=== PATIENT | female | born 1950 | race Caucasian/White ===

== ENCOUNTER → 2016-11-06 | Outpatient (CLI) | payer OTHER ==
[~2016-11-06] MED LIST: AMOX875T PO; ASPI81TA28 PO; ATRINSX NEB; AZIT250T PO; BSP/10 PO; CLOT10TR PO; CPC PO; DOXY100T PO; IPRA1AER2 INH; MOME200A INH; SPRIN INH; XPNINS125 NEB; ZOLP10TA6 PO; ZTHM250 PO
--- NOTE | 2016-11-06 15:46 | DIAGNOSTIC IMAGING REPORT ---
ULTRASOUND OF THE THYROID GLAND CLINICAL HISTORY: Multinodular thyroid gland. COMPARISON STUDY: Thyroid ultrasound dated 03/13/2016. TECHNIQUE: Real-time, grayscale, and color flow sonography of the thyroid gland is performed utilizing a high-frequency linear transducer. Images are reviewed in the transverse and longitudinal planes. FINDINGS: Right lobe: The right lobe of the thyroid gland is normal in size and homogeneous in echotexture, measuring 4.9 x 2.2 x 1.7 cm. A honeycomb nodule in the lower pole measures 1.5 x 1.0 x 1.4 cm (previously measured 2.0 x 1.4 x 1.5 cm). Small colloid cysts are again noted. The largest is in the upper pole and measures up to 1.8 cm. Left lobe: The left lobe of the thyroid gland is normal in size and homogeneous in echotexture, measuring 4.1 x 1.7 x 1.7 cm. A honeycomb nodule in the midpole measures 0.7 x 0.4 x 0.5 cm (previously measured 0.5 x 0.3 x 0.4 cm). Isthmus: The thyroid isthmus is normal in appearance and measures 0.3 cm in AP diameter. A 2 mm hypoechoic nodule is incidentally noted in the right isthmus. Additional subcentimeter colloid cysts are noted. IMPRESSION: Scattered thyroid nodules and colloid cysts as above. These are overall similar in appearance to the 03/13/2016 examination. Electronically signed by: Stanley Cavanaugh M.D. 11/06/2016 3:44 PM Dictated Date/Time: 11/06/2016 3:39 PM
== END | disposition home or self-care (01) ==
LOC: C.ULTR 12:10
DX: E04.2 Nontoxic multinodular goiter (principal)

== ENCOUNTER → 2016-11-18 | Outpatient (CLI) | payer OTHER ==
[2016-11-18 12:08] LABS: BLOOD UREA NITROGEN 21 mg/dl (7-18); BUN/CREATININE RATIO 24.8 (10-20); CREATININE 0.83 mg/dl (0.60-1.20)
== END | disposition home or self-care (01) ==
LOC: C.LAB 11:12
PROVIDERS: ATTEND Urology
DX: E27.9 Disorder of adrenal gland, unspecified (principal)

== ENCOUNTER → 2016-12-18 | Outpatient (CLI) | payer OTHER ==
[2016-12-18 16:38] LABS: HEMATOCRIT 41.7 % (37-47); MEAN CELL VOLUME 90.3 fL (80-100); MEAN CORPUSCULAR HEMOGLOBIN 30.1 pg (25-34); MEAN CORPUSCULAR HGB CONC 33.3 g/dl (32-36); MEAN PLATELET VOLUME 10.9 fL (7.4-10.4); PLATELET COUNT 245 K/uL (130-400); RED BLOOD COUNT 4.62 M/uL (4.2-5.4); WHITE BLOOD COUNT 5.47 K/uL (4.8-10.8)
[2016-12-18 16:47] LABS: PROTHROMBIN TIME (PATIENT) 10.3 SECONDS (9.0-12.0)
[2016-12-18 17:06] LABS: BLOOD UREA NITROGEN 23 mg/dl (7-18); BUN/CREATININE RATIO 32.7 (10-20); CALCIUM 9.1 mg/dl (8.5-10.1); CARBON DIOXIDE 29 mmol/L (21-32); CHLORIDE 106 mmol/L (98-107); GLUCOSE 96 mg/dl (70-99); POTASSIUM 3.8 mmol/L (3.5-5.1); SODIUM 142 mmol/L (136-145)
== END | disposition home or self-care (01) ==
LOC: C.LAB1850 14:54
PROVIDERS: ATTEND Internal Medicine Cardiovascular Disease
DX: R06.02 Shortness of breath (principal); R00.0 Tachycardia, unspecified; I42.8 Other cardiomyopathies; I49.3 Ventricular premature depolarization

== ENCOUNTER 2016-12-31 11:37 | Emergency (ER) | payer OTHER ==
[~2016-12-31] VITALS: Ht 167.6 cm; Wt 78.0 kg
[~2016-12-31 11:37] MED LIST changes: -AMOX875T PO; +AZIT-57 PO; -AZIT250T PO; -BSP/10 PO; -DOXY100T PO; -ZTHM250 PO
[2016-12-31 11:47] VITALS: TEMP 36.2; Ht 167.6 cm; Wt 78.0 kg
[2016-12-31] MEDS ORDERED: AMOX875T PO (12:04)
--- NOTE | 2016-12-31 12:09 | EMERGENCY ROOM VISIT NOTE ---
History First contact with patient: 11:50 Chief Complaint: BITE Stated Complaint: PAIN AND REDNESS IN LEFT BREAST/ TICK BITE History of Present Illness The patient is a 66 year old female who presents to the Emergency Room with complaints of a possible left breast infection from a tick bite. The patient reports that she noticed a tick on Wednesday. She is uncertain as to how long the tick may have been attached. She was seen by her PCP the following day with tick removal. She was also provided a prescription for doxycycline. The patient reports that the redness is now progressively worsening. She denies any significant pain, fevers or chills. Review of Systems 10 system review was performed and was negative except for pertinent positives and negatives as indicated in history of present illness Past Medical/Surgical History Medical Problems: (1) Benign neoplasm breast (2) Cardiomegaly (3) Cardiomyopathy (4) Chest pain with high risk for cardiac etiology (5) Obstructive lung disease (6) PVC's (premature ventricular contractions) (7) Shortness of breath (8) Shortness of breath Surgical Problems: (1) Status post cardiac catheterization (2) Status post cholecystectomy Family History Cancer Diabetes mellitus FH: heart disease FHx: gallbladder disease FHx: lung disease Hypertension Kidney disease Kidney stones Social History Smoking Status: Never Smoker Alcohol Use: none Drug Use: none Marital Status: Housing Status: lives alone Occupation Status: unemployed, other Current/Historical Medications Scheduled Amoxicillin & Pot Clavulanate (Augmentin 875-125 mg), 1 TAB PO BID Aspirin (Aspirin Ec), 81 MG PO DAILY Azithromycin (Azithromycin), 500 MG PO QAM Mometasone Furoate-Formoterol (Dulera 200/5 Mcg), 1 PUFF INH BID Tiotropium [place] (Spiriva Handihaler), 1 PUFF INH QAM Zolpidem Tartrate (Zolpidem Tartrate), 10 MG PO HS Scheduled PRN Clotrimazole (Mycelex), 10 MG PO TID PRN for As Needed Ipratropium [place] (Atrovent 0.02% Soln), 1 DOSE NEB QID PRN for SOB/Wheezing Ipratropium-Albuterol (Combivent Respimat), 1 PUFF INH Q4H PRN for SOB/Wheezing Levalbuterol (Levalbuterol HCl), 3 ML NEB Q4-6HRS PRN for Shortness of Breath Menthol (Ricola), 1 [place] PO BID PRN for SORE THROAT Allergies Coded Allergies: Lisinopril (Verified Allergy, Severe, possible angioedema, 09/20/16) Codeine (Unverified Allergy, Intermediate, chest pain, 09/20/16) Iodine (Verified Allergy, Intermediate, swelling in throat, hives, ) "they give me prednisone before procedures" Meperidine (Unverified Allergy, Intermediate, HIVES, 09/20/16) Propoxyphene (Unverified Allergy, Intermediate, HIVES, 09/20/16) Beta Adrenergic Blockers (Unverified Allergy, Unknown, THROAT SWELLING, ) Digoxin (Verified Allergy, Unknown, THROAT SWELLING, 09/20/16) Lorazepam (Verified Allergy, Unknown, TACHYCARDIA, 09/20/16) Losartan (Verified Allergy, Unknown, THROAT SWELLING, 09/20/16) NSAIDs (Verified Allergy, Unknown, hives, 09/20/16) Ranitidine (Verified Allergy, Unknown, TACHYCARDIA, 09/20/16) Diphenhydramine (Verified Adverse Reaction, Intermediate, heart race, ) Aspirin (Verified Adverse Reaction, Unknown, HX: ulcers and bleeding tendencies*, 09/20/16) *PT DOES CURRENTLY TAKE ASA Uncoded Allergies: ANTIBIOTICS (Allergy, Unknown, PT STATES SHE HAS HAD HIVES/RASH FROM MULTIPLE ANTIBIOTICS, 10/25/15) Physical Exam Vital Signs Date Time Temp Pulse Resp B/P Pulse Ox O2 Delivery O2 Flow Rate FiO2 12/31/16 11:47 36.2 93 18 120/78 96 Room Air Physical Exam CONSTITUTIONAL: Healthy and well nourished. Alert and oriented X 3 with positive affect. HEENT: Normocephalic, atraumatic. Pupils equal, round and reactive. NECK: Full active range of motion without discomfort. BREASTS: With a female nurse datapower consultant present, examination of the left breast shows notable erythema over the left lateral quadrant. The patient does have a sizable wound from the area where the tick was excised. There is no drainage or underlying fluctuance. There is underlying induration the size of a marble. LYMPHATICS: No left axillary or supraclavicular lymphadenopathy noted. RESPIRATORY: Clear to auscultation bilaterally with no wheezing, crackles, rhonchi or stridor. CARDIOVASCULAR: Regular rate and rhythm with no murmurs, rubs or gallops. INTEGUMENTARY: No additional rash or other significant dermatologic conditions noted. NEUROLOGIC: No focal neurologic deficits noted. Medical Decision & Procedures ED Course Patient history and physical exam were performed. Nurse's notes were reviewed. Vital signs were reviewed. The patient is afebrile. The patient reports that she has multiple antibiotic allergies. She reports that she is able to take penicillin. The patient will be prescribed Augmentin, and encouraged to continue with the doxycycline antibiotics. I did encourage her to either follow up with her PCP or return to the emergency department in 2-3 days for recheck. She was instructed to definitely return to the emergency department for any progressively worsening infection or fever. The patient was happy with plan of care, and voiced understanding of all discharge instructions. Medical Decision Impression Primary Impression: Tick bite of left female breast with infection Departure Information Dispostion Home / Self-Care Prescriptions Amoxicillin & Pot Clavulanate (Augmentin 875-125 mg) 1 Tab Tab 1 TAB PO BID, #10 TAB Prov: Raz Serrano PA 12/31/16 Forms HOME CARE DOCUMENTATION FORM, IMPORTANT VISIT INFORMATION Patient Instructions [facility] Additional Instructions Complete all Augmentin antibiotics as prescribed. Continue with your current doxycycline prescription. Call your family doctor's office for repeat appointment within the next 48-72 hours. Return to the emergency department for any progressively worsening redness, swelling, pain or fever. Problem Qualifiers Primary Impression: Tick bite of left female breast with infection Encounter type: initial encounter Qualified Codes: S20.162A - Insect bite ( nonvenomous) of breast, left breast, initial encounter; L08.9 - Local infection of the skin and subcutaneous tissue, unspecified; W57.XXXA - Bitten or stung by nonvenomous insect and other nonvenomous arthropods, initial encounter
[2016-12-31 12:14] VITALS: BP 120/78; PULSE 93; O2SAT 96
[2016-12-31] MEDS ORDERED: DOXY100T PO (12:16)
== END 2016-12-31 12:16 | disposition home or self-care (01) ==
LOC: C.EDB 11:39 → C.EDD 12:16
DX: S20.162A Insect bite (nonvenomous) of breast, left breast, initial encounter (principal); L08.9 Local infection of the skin and subcutaneous tissue, unspecified; W57.XXXA Bitten or stung by nonvenomous insect and other nonvenomous arthropods, initial encounter; Z90.49 Acquired absence of other specified parts of digestive tract; J44.9 Chronic obstructive pulmonary disease, unspecified; Z79.82 Long term (current) use of aspirin

== ENCOUNTER 2017-01-24 13:06 | Emergency (ER) | payer OTHER ==
[~2017-01-24] VITALS: Ht 167.6 cm; Wt 80.0 kg
[~2017-01-24 13:06] MED LIST changes: -AZIT-57 PO; +DOXY100T PO
[2017-01-24 13:10] VITALS: TEMP 36.7; Ht 167.6 cm; Wt 80.0 kg
[2017-01-24 13:15] VITALS: O2SAT 97
[2017-01-24 14:09] LABS: HEMATOCRIT 41.9 % (37-47); MEAN CELL VOLUME 91.5 fL (80-100); MEAN CORPUSCULAR HEMOGLOBIN 30.1 pg (25-34); MEAN CORPUSCULAR HGB CONC 32.9 g/dl (32-36); MEAN PLATELET VOLUME 10.4 fL (7.4-10.4); PLATELET COUNT 208 K/uL (130-400); RED BLOOD COUNT 4.58 M/uL (4.2-5.4); WHITE BLOOD COUNT 5.65 K/uL (4.8-10.8)
[2017-01-24] MEDS ORDERED: SODIUM CHLORIDE 0.9% 1000ML 1,000 ML IV STA (14:11)
[2017-01-24] MEDS ORDERED: SODIUM CHLORIDE 0.9% 500ML 500 ML IV STA (14:11)
--- NOTE | 2017-01-24 14:16 | EMERGENCY ROOM VISIT NOTE ---
History Report prepared by Hectro: Manuel Ortiz Under the Supervision of: Dr. Stanley Loja M.D. First contact with patient: 14:05 Chief Complaint: PALPITATIONS Stated Complaint: BURNING IN LUNGS,SOB,PALPITATIONS Nursing Triage Summary: triage note: pt reports heart palpitations and lung irriation since last night. "i wear my c pap at night it just irriates my airway." pt reports chest pain. History of Present Illness The patient is a 66 year old female who presents to the Emergency Room with complaints of burning in her lungs that began recently. She rates her pain an 8/ 10 in severity. 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 She feels like this is a flare up of her spasms. She is experiencing heart palpitations secondary to her lung symptoms. She states that this does not feel like heart burn. She is on 2L of oxygen at home at night with a CPAP. She states that her CPAP is irritating her lungs as well because she cannot get "moisture into her lungs." She cannot use Albuterol because she experiences heart palpitations when she does. She denies any cough, vomiting, nausea, or fevers. Most common medications cause her to have palpitations due to her stating she is "sensitive" to them. Source of History: patient Onset: recently Position: other (Lungs) Symptom Intensity: 8/10 Quality: burning Timing: constant Associated Symptoms: No cough, No fevers, No nausea, No vomiting Note: She is experiencing heart palpitations. Review of Systems See HPI for pertinent positives & negatives. A total of 10 systems reviewed and were otherwise negative. Past Medical & Surgical Medical Problems: (1) Benign neoplasm breast (2) Cardiomegaly (3) Cardiomyopathy (4) Chest pain with high risk for cardiac etiology (5) Obstructive lung disease (6) PVC's (premature ventricular contractions) (7) Shortness of breath (8) Shortness of breath Surgical Problems: (1) Status post cardiac catheterization (2) Status post cholecystectomy Family History Cancer Diabetes mellitus FH: heart disease FHx: gallbladder disease FHx: lung disease Hypertension Kidney disease Kidney stones Social History Smoking Status: Never Smoker Alcohol Use: none Drug Use: none Marital Status: Housing Status: lives alone Occupation Status: unemployed, other Current/Historical Medications Scheduled Aspirin (Aspirin Ec), 81 MG PO DAILY Tiotropium [place] (Spiriva Handihaler), 1 PUFF INH QAM Zolpidem Tartrate (Zolpidem Tartrate), 10 MG PO HS Scheduled PRN Clotrimazole (Mycelex), 10 MG PO TID PRN for As Needed Ipratropium [place] (Atrovent 0.02% Soln), 1 DOSE NEB QID PRN for SOB/Wheezing Ipratropium-Albuterol (Combivent Respimat), 1 PUFF INH Q4H PRN for SOB/Wheezing Levalbuterol (Levalbuterol HCl), 3 ML NEB Q4-6HRS PRN for Shortness of Breath Menthol (Ricola), 1 [place] PO BID PRN for SORE THROAT Allergies Coded Allergies: Lisinopril (Verified Allergy, Severe, possible angioedema, 01/24/17) Codeine (Unverified Allergy, Intermediate, chest pain, 01/24/17) Iodine (Verified Allergy, Intermediate, swelling in throat, hives, 01/24/17 ) "they give me prednisone before procedures" Meperidine (Unverified Allergy, Intermediate, HIVES, 01/24/17) Propoxyphene (Unverified Allergy, Intermediate, HIVES, 01/24/17) Beta Adrenergic Blockers (Unverified Allergy, Unknown, THROAT SWELLING, ) Digoxin (Verified Allergy, Unknown, THROAT SWELLING, 01/24/17) Lorazepam (Verified Allergy, Unknown, TACHYCARDIA, 01/24/17) Losartan (Verified Allergy, Unknown, THROAT SWELLING, 01/24/17) NSAIDs (Verified Allergy, Unknown, hives, 01/24/17) Prednisone (Verified Allergy, Unknown, HEART RACES, 01/24/17) Ranitidine (Verified Allergy, Unknown, TACHYCARDIA, 01/24/17) Diphenhydramine (Verified Adverse Reaction, Intermediate, heart race, 01/24) Aspirin (Verified Adverse Reaction, Unknown, HX: ulcers and bleeding tendencies*, 01/24/17) *PT DOES CURRENTLY TAKE ASA Uncoded Allergies: ANTIBIOTICS (Allergy, Unknown, PT STATES SHE HAS HAD HIVES/RASH FROM MULTIPLE ANTIBIOTICS, 10/25/15) Physical Exam Vital Signs Date Time Temp Pulse Resp B/P Pulse Ox O2 Delivery O2 Flow Rate FiO2 01/24/17 15:58 94 16 118/97 96 01/24/17 14:30 84 124/72 95 Room Air 01/24/17 14:23 102 01/24/17 13:29 101 01/24/17 13:15 97 Room Air 01/24/17 13:15 101 115/73 97 Room Air 01/24/17 13:10 36.7 106 20 135/68 95 Room Air Physical Exam GENERAL: Patient is in no acute distress. HEENT: No acute trauma, normocephalic atraumatic, mucous membranes moist, no nasal congestion, no scleral icterus. NECK: No stridor, no adenopathy, no meningismus, trachea is midline. LUNGS: Clear to auscultation bilaterally, no wheeze, no rhonchi, breath sounds equal. HEART: Mildly tachycardic with an occasional extra beat. No murmurs. ABDOMEN: Soft, nontender, bowel sounds positive, no hernias, no peritonitis. EXTREMITIES: No cyanosis or edema, full range of motion of all the joints without pain or difficulty, no signs for acute trauma. NEUROLOGIC: Oriented x 3, no acute motor or sensory deficits, no focal weakness. SKIN: No rash, no jaundice, no diaphoresis. Medical Decision & Procedures ER Provider Diagnostic Interpretation: X-ray results as stated below per interpretation by me and the radiologist: CHEST ONE VIEW PORTABLE HISTORY: palpitations COMPARISON: Chest 09/21/2016. FINDINGS: The heart remains mildly enlarged. No pleural effusions. No pneumothorax. The lungs are clear. No evidence for pulmonary edema. IMPRESSION: Stable mild cardiomegaly. Electronically signed by: Mook Staton M.D. 01/24/2017 2:37 PM Dictated Date/Time: 01/24/2017 2:36 PM Laboratory Results 01/24/17 13:55 01/24/17 13:55 Test 01/24/17 13:55 01/24/17 13:59 Red Blood Count 4.58 M/uL (4.2-5.4) Mean Corpuscular Volume 91.5 fL (80-100) Mean Corpuscular Hemoglobin 30.1 pg (25-34) Mean Corpuscular Hemoglobin Concent 32.9 g/dl (32-36) RDW Standard Deviation 43.6 fL (36.4-46.3) RDW Coefficient of Variation 12.9 % (11.5-14.5) Mean Platelet Volume 10.4 fL (7.4-10.4) Prothrombin Time 10.5 SECONDS (9.0-12.0) Prothromb Time International Ratio 1.0 (0.9-1.1) Activated Partial Thromboplast Time 25.0 SECONDS (21.0-31.0) Partial Thromboplastin Ratio 1.0 Anion Gap 5.0 mmol/L (3-11) Est Creatinine Clear Calc Drug Dose 65.2 ml/min Estimated GFR () 75.3 Estimated GFR (Non- 64.9 BUN/Creatinine Ratio 18.3 (10-20) Calcium Level 8.4 mg/dl (8.5-10.1) Total Bilirubin 0.3 mg/dl (0.2-1) Aspartate Amino Transf (AST/SGOT) 14 U/L (15-37) Alanine Aminotransferase (ALT/SGPT) 25 U/L (12-78) Alkaline Phosphatase 104 U/L (45-117) Total Creatine Kinase 58 U/L (26-192) Creatine Kinase MB 0.5 ng/ml (0.5-3.6) Creatine Kinase MB Ratio 0.9 (0-3.0) Total Protein 7.1 gm/dl (6.4-8.2) Albumin 3.5 gm/dl (3.4-5.0) Globulin 3.6 gm/dl (2.5-4.0) Albumin/Globulin Ratio 1.0 (0.9-2) Bedside Troponin I 0.000 ng/ml (0-0.045) Laboratory results reviewed by me. Medications Administered Medications (Trade) Dose Ordered Sig/Barbara Route Start Time Stop Time Status Last Admin Dose Admin Sodium Chloride 500 ml @ 999 mls/hr Q31M STAT IV 01/24/17 14:11 01/24/17 14:41 DC 01/24/17 14:36 999 MLS/HR Sodium Chloride (Nss 1000ml) 1,000 ml @ 200 mls/hr Q5H STAT IV 01/24/17 14:11 01/24/17 16:24 DC 01/24/17 14:11 200 MLS/HR ECG Indication: palpitations Rate (beats per minute): 105 Rhythm: sinus tachycardia Findings: PVC, no acute ischemic change, other (LVH, old inferior infarct) ED Course 1405: The patient was evaluated in room B5. A complete history and physical exam was performed. 1411: Ordered Sodium Chloride 1000 ml @ 200 mls/hr IV, Sodium Chloride 500 ml @ 999 mls/hr IV. 1530: Reevaluated the patient. Discussed results and discharge instructions: She verbalized understanding and agreement. The patient is ready for discharge. Medical Decision Differential diagnosis includes but is not limited to bronchial spasm, bronchitis, pneumonia, dysrhythmia, atrial fibrillation, atrial flutter, electrolyte abnormality, anemia, and cardiac ischemia. There is no leukocytosis or concerning anemia. No significant electrolyte abnormality, kidney failure or hepatitis. There was no coagulopathy. EKG showed a mild sinus tachycardia with some older changes, no concerning dysrhythmia, no ischemia. Cardiac enzyme testing 1 is not consistent with acute cardiac injury. Chest x-ray does not show pneumonia or CHF or mediastinal widening. The patient received IV saline, she feels better, her heart rate seems to be decreased slightly. The patient presents with palpitations, her workup is benign, this has been an ongoing issue for her. She is going to follow with her doctors office. She can return for any worsening symptoms or concerns. Impression Primary Impression: Palpitations Scribe Attestation The scribe's documentation has been prepared under my direction and personally reviewed by me in its entirety. I confirm that the note above accurately reflects all work, treatment, procedures, and medical decision making performed by me. Departure Information Dispostion Home / Self-Care Referrals Chadwick Mccollum MD (PCP) Forms HOME CARE DOCUMENTATION FORM, IMPORTANT VISIT INFORMATION Patient Instructions My [facility] Additional Instructions stay well hydrated see srinivasan munoz for a recheck this week return if worsening lab testing and chest film were all ok talk with your doctor about your c-pap
[2017-01-24 14:25] LABS: PROTHROMBIN TIME (PATIENT) 10.5 SECONDS (9.0-12.0)
[2017-01-24 14:26] LABS: BUN/CREATININE RATIO 18.3 (10-20); CALCIUM 8.4 mg/dl (8.5-10.1); CREATININE 0.93 mg/dl (0.60-1.20); POTASSIUM 3.9 mmol/L (3.5-5.1)
[2017-01-24 14:31] LABS: CKMB/CK RATIO 0.9 (0-3.0)
--- NOTE | 2017-01-24 14:39 | DIAGNOSTIC IMAGING REPORT ---
CHEST ONE VIEW PORTABLE HISTORY: palpitations COMPARISON: Chest 09/21/2016. FINDINGS: The heart remains mildly enlarged. No pleural effusions. No pneumothorax. The lungs are clear. No evidence for pulmonary edema. IMPRESSION: Stable mild cardiomegaly. Electronically signed by: Mook Staton M.D. 01/24/2017 2:37 PM Dictated Date/Time: 01/24/2017 2:36 PM
[2017-01-24 15:58] VITALS: BP 118/97; PULSE 94; O2SAT 96
== END 2017-01-24 16:00 | disposition home or self-care (01) ==
LOC: C.EDB 13:06
DX: R00.2 Palpitations (principal); Z99.81 Dependence on supplemental oxygen; Z90.49 Acquired absence of other specified parts of digestive tract; Z80.9 Family history of malignant neoplasm, unspecified; Z83.3 Family history of diabetes mellitus; Z82.49 Family history of ischemic heart disease and other diseases of the circulatory system; Z84.1 Family history of disorders of kidney and ureter; Z79.82 Long term (current) use of aspirin; Z79.899 Other long term (current) drug therapy

== ENCOUNTER → 2017-02-09 | Outpatient (CLI) | payer OTHER ==
[~2017-02-09] MED LIST changes: +AZIT250T PO; +BSP/10 PO; +CICL160A INH; -DOXY100T PO; -MOME200A INH; +ZPAK PO
[2017-02-23 14:23] LABS: ALTERNARIA TENUIS IgG 7.7 mcg/mL (< 13.6); CLADOSPORIUM HERBARUM IgG 8.8 mcg/mL (< 14.7); PENICILLIUM NOTATUM IgG 11.3 mcg/mL (< 17.5); SACCHAROMONOSPORA RECTIVIR Not detected (Not detected); SACCHAROMONOSPORA VIRIDIS AB Not detected (Not detected); THERMOACTINOMYCES CANDIDUS Not detected (Not detected); THERMOACTINOMYCES SACCHARI Not detected (Not detected); THERMOACTINOMYCES VULGARIS Not detected (Not detected); TRICHODERMA VIRIDE IgG 4.9 mcg/mL (< 13.4)
== END | disposition home or self-care (01) ==
LOC: C.LAB 17:22
PROVIDERS: ATTEND Physician Assistant
DX: J44.9 Chronic obstructive pulmonary disease, unspecified (principal)

== ENCOUNTER → 2017-02-24 | Outpatient (CLI) | payer OTHER ==
--- NOTE | 2017-02-24 10:02 | DIAGNOSTIC IMAGING REPORT ---
Ultrasound left arm left EXTREMITY NONVASCULAR LIMITED CLINICAL HISTORY: Left ARM SKIN LUMP Left nodule TECHNIQUE: Ultrasound COMPARISON STUDY: None FINDINGS: Ultrasound left antecubital fossa at the site of clinically palpable nodularity shows no significant nodularity by ultrasound criteria. IMPRESSION: No significant nodularity by ultrasound criteria. Electronically signed by: Doni Webber M.D. 02/24/2017 10:01 AM Dictated Date/Time: 02/24/2017 9:56 AM
== END | disposition home or self-care (01) ==
LOC: C.ULTR 09:29
PROVIDERS: ATTEND Internal Medicine
DX: R22.32 Localized swelling, mass and lump, left upper limb (principal)

== ENCOUNTER 2017-03-15 09:03 | Emergency (ER) | payer OTHER ==
[~2017-03-15] VITALS: Ht 165.1 cm; Wt 78.2 kg
[~2017-03-15 09:03] MED LIST changes: -AZIT250T PO; -BSP/10 PO; -CICL160A INH; -ZPAK PO
[2017-03-15 09:08] VITALS: Ht 165.1 cm; Wt 78.2 kg
[2017-03-15 09:18] VITALS: O2SAT 95
[2017-03-15] MEDS ORDERED: LEVALBUTEROL 0.31MG/3 ML VIAL INH STA (09:23)
--- NOTE | 2017-03-15 09:42 | EMERGENCY ROOM VISIT NOTE ---
History Report prepared by Hector: Maria Fernanda Fox Under the Supervision of: Dr. Damien Mcwilliams M.D. First contact with patient: 09:16 Chief Complaint: RESPIRATORY PROBLEMS Stated Complaint: BURNING IN LUNGS History of Present Illness The patient is a 66 year old female who presents to the Emergency Room with complaints of constant respiratory problems that started INVENTORY CONTROL/SHIPPING RECEIVING. [place] the [place] with [place] friend when the floor cleaning machine passed them and she started to experience respiratory problems. The patient states that she began experiencing shortness of breath and burning in her eyes, nose, and throat. The patient's friend states that the patient is easily irritated by almost any type of chemicals and adds that the patient gets irritated if she wears perfume. The patient does not see an apprentice pattern maker because she states that they can't help her. Source of History: patient, friend Onset: INVENTORY CONTROL/SHIPPING RECEIVING Position: chest Quality: other (respiratory problems) Timing: constant Note: burning eyes, nose, and throat Review of Systems See HPI for pertinent positives & negatives. A total of 10 systems reviewed and were otherwise negative. Past Medical & Surgical Medical Problems: (1) Benign neoplasm breast (2) Cardiomegaly (3) Cardiomyopathy (4) Chest pain with high risk for cardiac etiology (5) Obstructive lung disease (6) PVC's (premature ventricular contractions) (7) Shortness of breath (8) Shortness of breath Surgical Problems: (1) Status post cardiac catheterization (2) Status post cholecystectomy Family History Cancer Diabetes mellitus FH: heart disease FHx: gallbladder disease FHx: lung disease Hypertension Kidney disease Kidney stones Social History Smoking Status: Never Smoker Alcohol Use: none Drug Use: none Marital Status: Housing Status: lives alone Occupation Status: unemployed, other Current/Historical Medications Scheduled Aspirin (Aspirin Ec), 81 MG PO DAILY Zolpidem Tartrate (Zolpidem Tartrate), 10 MG PO HS Scheduled PRN Clotrimazole (Mycelex), 10 MG PO TID PRN for As Needed Ipratropium [place] (Atrovent 0.02% Soln), 1 DOSE NEB QID PRN for SOB/Wheezing Menthol (Ricola), 1 [place] PO BID PRN for SORE THROAT Allergies Coded Allergies: Lisinopril (Verified Allergy, Severe, possible angioedema, 01/24/17) Codeine (Unverified Allergy, Intermediate, chest pain, 01/24/17) Iodine (Verified Allergy, Intermediate, swelling in throat, hives, 01/24/17 ) "they give me prednisone before procedures" Meperidine (Unverified Allergy, Intermediate, HIVES, 01/24/17) Propoxyphene (Unverified Allergy, Intermediate, HIVES, 01/24/17) Beta Adrenergic Blockers (Unverified Allergy, Unknown, THROAT SWELLING, ) Digoxin (Verified Allergy, Unknown, THROAT SWELLING, 01/24/17) Lorazepam (Verified Allergy, Unknown, TACHYCARDIA, 01/24/17) Losartan (Verified Allergy, Unknown, THROAT SWELLING, 01/24/17) NSAIDs (Verified Allergy, Unknown, hives, 01/24/17) Prednisone (Verified Allergy, Unknown, HEART RACES, 01/24/17) Ranitidine (Verified Allergy, Unknown, TACHYCARDIA, 01/24/17) Diphenhydramine (Verified Adverse Reaction, Intermediate, heart race, 01/24) Aspirin (Verified Adverse Reaction, Unknown, HX: ulcers and bleeding tendencies*, 01/24/17) *PT DOES CURRENTLY TAKE ASA Uncoded Allergies: ANTIBIOTICS (Allergy, Unknown, PT STATES SHE HAS HAD HIVES/RASH FROM MULTIPLE ANTIBIOTICS, 10/25/15) Physical Exam Vital Signs Date Time Temp Pulse Resp B/P (MAP) Pulse Ox O2 Delivery O2 Flow Rate FiO2 03/15/17 13:33 94 18 141/94 100 03/15/17 13:22 106 03/15/17 11:32 83 20 132/97 97 Room Air 03/15/17 11:00 83 18 121/64 94 Room Air 03/15/17 09:58 87 14 96 Room Air 03/15/17 09:21 103 03/15/17 09:18 95 Room Air 03/15/17 09:18 95 Room Air 03/15/17 09:08 105 16 128/68 97 Room Air Physical Exam GENERAL: Patient is a healthy-appearing well-nourished female HEAD: Normocephalic atraumatic EYES: Ocular movements intact pupils equal and react to light OROPHARYNX mucous membranes are moist no exudates present no erythema or edema present NECK: Supple no nuchal rigidity CHEST: Good equal expansion LUNGS: Clear and equal to auscultation CARDIAC: Normal S1 and S2 ABDOMEN: Soft nontender no guarding BACK: No CVA tenderness EXTREMITIES: No pain upon palpation normal muscle strength in all groups no clubbing cyanosis or edema NEURO: Patient is following commands is answering questions appropriately. Alert and oriented x3 Cranial Nerves 2-12 grossly intact Medical Decision & Procedures ER Provider Diagnostic Interpretation: Radiology results as stated below per my review and radiologist interpretation: CHEST ONE VIEW PORTABLE FINDINGS: The heart is mildly enlarged. There is no failure. There is no focal pulmonary consolidation. There are no pleural effusions.[ IMPRESSION: No active disease in the chest. Electronically signed by: Inocente Reynoso M.D. 03/15/2017 9:49 AM Dictated Date/Time: 03/15/2017 9:48 AM Laboratory Results 03/15/17 09:32 Red Blood Count 4.75, Mean Corpuscular Volume 91.2, Mean Corpuscular Hemoglobin 30.5, Mean Corpuscular Hemoglobin Concent 33.5, Mean Platelet Volume 10.7, Neutrophils (%) (Auto) 57.4, Lymphocytes (%) (Auto) 29.8, Monocytes (%) (Auto) 9.4, Eosinophils (%) (Auto) 2.7, Basophils (%) (Auto) 0.5, Neutrophils # (Auto) 3.18, Lymphocytes # (Auto) 1.65, Monocytes # (Auto) 0.52, Eosinophils # (Auto) 0.15, Basophils # (Auto) 0.03 03/15/17 09:32 Test 03/15/17 09:32 White Blood Count 5.54 K/uL (4.8-10.8) Red Blood Count 4.75 M/uL (4.2-5.4) Hemoglobin 14.5 g/dL (12.0-16.0) Hematocrit 43.3 % (37-47) Mean Corpuscular Volume 91.2 fL (80-100) Mean Corpuscular Hemoglobin 30.5 pg (25-34) Mean Corpuscular Hemoglobin Concent 33.5 g/dl (32-36) Platelet Count 234 K/uL (130-400) Mean Platelet Volume 10.7 fL (7.4-10.4) Neutrophils (%) (Auto) 57.4 % Lymphocytes (%) (Auto) 29.8 % Monocytes (%) (Auto) 9.4 % Eosinophils (%) (Auto) 2.7 % Basophils (%) (Auto) 0.5 % Neutrophils # (Auto) 3.18 K/uL (1.4-6.5) Lymphocytes # (Auto) 1.65 K/uL (1.2-3.4) Monocytes # (Auto) 0.52 K/uL (0.11-0.59) Eosinophils # (Auto) 0.15 K/uL (0-0.5) Basophils # (Auto) 0.03 K/uL (0-0.2) RDW Standard Deviation 44.0 fL (36.4-46.3) RDW Coefficient of Variation 13.1 % (11.5-14.5) Immature Granulocyte % (Auto) 0.2 % Immature Granulocyte # (Auto) 0.01 K/uL (0.00-0.02) Anion Gap 5.0 mmol/L (3-11) Est Creatinine Clear Calc Drug Dose 75.3 ml/min Estimated GFR () 93.1 Estimated GFR (Non- 80.3 BUN/Creatinine Ratio 14.2 (10-20) Calcium Level 8.8 mg/dl (8.5-10.1) Total Bilirubin 0.3 mg/dl (0.2-1) Aspartate Amino Transf (AST/SGOT) 18 U/L (15-37) Alanine Aminotransferase (ALT/SGPT) 21 U/L (12-78) Alkaline Phosphatase 110 U/L (45-117) Total Protein 7.7 gm/dl (6.4-8.2) Albumin 3.7 gm/dl (3.4-5.0) Globulin 4.0 gm/dl (2.5-4.0) Albumin/Globulin Ratio 0.9 (0.9-2) Labs reviewed by ED physician. Medications Administered Medications (Trade) Dose Ordered Sig/Barbara Route Start Time Stop Time Status Last Admin Dose Admin Levalbuterol (Xopenex 0.31MG/ 3ML Neb) 0.31 mg NOW STAT INH 03/15/17 09:23 03/15/17 09:26 DC 03/15/17 09:23 0.31 MG Al Hydroxide/Mg Hydroxide (Maalox Susp) 30 ml STK-MED ONCE .ROUTE 03/15/17 11:20 03/15/17 11:21 DC 03/15/17 11:24 30 ML Lidocaine HCl (Viscous Lidocaine 2% Soln) 20 ml STK-MED ONCE .ROUTE 03/15/17 11:21 03/15/17 11:22 DC 03/15/17 11:24 20 ML ECG Indication: SOB/dyspnea Rate (beats per minute): 97 Rhythm: sinus rhythm Findings: PVC, other (Old inferior infarct) ED Course 0919: Past medical records reviewed. The patient was evaluated in room B12. A complete history and physical examination was performed. 0923: Ordered Levalbuterol 0.31 mg INH 1116: The nurse requested that I order a GI cocktail for the patient. 1120: Ordered Maalox Susp 30 ml PO 1121: Ordered Lidocaine HCl 20 ml PO 1253: I reassessed the patient and she requested a mask to keep her from inhaling other chemicals. 1315: Upon reexamination the patient is doing well. I discussed results and treatment plan with the patient. She verbalizes agreement and understanding. The patient is ready for discharge. Medical Decision Differential diagnosis: Etiologies such as infections, reactive airway disease, pneumonia, pneumothorax , COPD, CHF, cardiac ischemia, pulmonary embolism, musculoskeletal, gastrointestinal, as well as others were entertained. Medication Reconciliation: I attest that I have personally reviewed the patient' s current medication list. Blood Pressure Screening: Patient was found to have an elevated blood pressure and was referred to their primary care doctor for recheck and further treatment This is a 66-year-old female who has a history of chemical pneumonitis presents to the emergency department complaining of shortness of breath. The patient is refusing all breathing treatments in the emergency department however does not appear to be in any acute distress. She has no evidence of wheezing. The patient tried a Xopenex breathing treatment while she was in the emergency department without much relief. The patient just wanted to rest in the emergency department in the air conditioning which I thought was reasonable. After some time she felt well enough to be discharged home. We did try GI cocktail trying, her symptoms with no effect. Patient will follow-up with her bicycle assembler and was in agreement with the treatment plan.- Impression Primary Impression: Reactive airway disease Scribe Attestation The scribe's documentation has been prepared under my direction and personally reviewed by me in its entirety. I confirm that the note above accurately reflects all work, treatment, procedures, and medical decision making performed by me. Departure Information Dispostion Home / Self-Care Referrals Chadwick Mccollum MD (PCP) Forms HOME CARE DOCUMENTATION FORM, IMPORTANT VISIT INFORMATION, WORK / SCHOOL INSTRUCTIONS Patient Instructions ED Reactive Airway Disease, My [facility] Additional Instructions You were found to have an elevated blood pressure today (>120 sytolic or >90 diastolic). Per medicare guidelines, you need to follow up with this blood pressure screening with your Primary Care Physician (PCP). For a new PCP call [phone]. You have been examined and treated today on an emergency basis only. This is not a substitute for, or an effort to provide, complete comprehensive medical care. It is impossible to recognize and treat all injuries or illnesses in a single emergency department visit. It is therefore important that you follow up closely with Dr Mccollum. Call as soon as possible for an appointment. Thank you for your time and consideration. I look forward to speaking with you again soon. Please don't hesitate to call us if you have any questions. Problem Qualifiers Primary Impression: Reactive airway disease Asthma severity: unspecified severity Asthma complication type: uncomplicated Qualified Codes: J45.909 - Unspecified asthma, uncomplicated
--- NOTE | 2017-03-15 09:50 | DIAGNOSTIC IMAGING REPORT ---
CHEST ONE VIEW PORTABLE CLINICAL HISTORY: Shortness of breath COMPARISON STUDY: 01/24/2017 FINDINGS: The heart is mildly enlarged. There is no failure. There is no focal pulmonary consolidation. There are no pleural effusions.[ IMPRESSION: No active disease in the chest. Electronically signed by: Inocente Reynoso M.D. 03/15/2017 9:49 AM Dictated Date/Time: 03/15/2017 9:48 AM
[2017-03-15 09:53] LABS: BASO % 0.5 %; BASO ABS # 0.03 K/uL (0-0.2); COMPLETE YES; EOS % 2.7 %; HEMATOCRIT 43.3 % (37-47); IG% 0.2 %; LYMPH % 29.8 %; LYMPH ABS # 1.65 K/uL (1.2-3.4); MEAN CELL VOLUME 91.2 fL (80-100); MEAN CORPUSCULAR HEMOGLOBIN 30.5 pg (25-34); MEAN CORPUSCULAR HGB CONC 33.5 g/dl (32-36); MEAN PLATELET VOLUME 10.7 fL (7.4-10.4); MONO % 9.4 %; NEUT % 57.4 %; PLATELET COUNT 234 K/uL (130-400); RED BLOOD COUNT 4.75 M/uL (4.2-5.4); WHITE BLOOD COUNT 5.54 K/uL (4.8-10.8)
[2017-03-15 09:58] VITALS: PULSE 87; O2SAT 96
[2017-03-15 10:14] LABS: BUN/CREATININE RATIO 14.2 (10-20); CALCIUM 8.8 mg/dl (8.5-10.1); CREATININE 0.78 mg/dl (0.60-1.20)
[2017-03-15 10:17] LABS: ALB/GLOB RATIO 0.9 (0.9-2)
[2017-03-15] MEDS ORDERED: GI COCKTAIL PO STA (11:15)
[2017-03-15] MEDS ORDERED: ALUMINUM/MAGNESIUM SUSP 30 ML UDC ONE (11:20)
[2017-03-15] MEDS ORDERED: LIDOCAINE HCL 2% VISC SOLN 20 ML UDC ONE (11:21)
[2017-03-15 13:33] VITALS: BP 141/94; PULSE 94; O2SAT 100
== END 2017-03-15 13:35 | disposition home or self-care (01) ==
LOC: C.EDB 09:03
DX: J45.909 Unspecified asthma, uncomplicated (principal); D24.9 Benign neoplasm of unspecified breast; I51.7 Cardiomegaly; J44.9 Chronic obstructive pulmonary disease, unspecified; Z83.3 Family history of diabetes mellitus; Z82.49 Family history of ischemic heart disease and other diseases of the circulatory system; Z79.82 Long term (current) use of aspirin

== ENCOUNTER → 2017-03-15 | Outpatient (CLI) | payer OTHER ==
--- NOTE | 2017-03-15 09:24 | DIAGNOSTIC IMAGING REPORT ---
CT SCAN OF THE ABDOMEN AND PELVIS WITHOUT CONTRAST CLINICAL HISTORY: Adrenal nodule. COMPARISON STUDY: 09/09/2015 TECHNIQUE: CT scan of the abdomen and pelvis was performed from the lung bases to the proximal femurs. Images are reviewed in the axial, sagittal, and coronal planes. IV contrast was not administered for this examination. CT DOSE: 477.04 mGy.cm FINDINGS: Lower chest: There is a 6 mm right middle lobe pulmonary nodule. This remains unchanged in size from the prior July [address] Liver: The unenhanced liver is normal in size, contour, and attenuation. There is no intrahepatic biliary ductal dilatation. Gallbladder: Surgically absent Spleen: Normal in size and attenuation. Pancreas: Unremarkable. Adrenal glands: There is a stable 14 mm left adrenal gland nodule. Kidneys: No renal, ureteral, or bladder calculi are visualized. Bowel: There are no transition zones indicate bowel obstruction. There is mild fecal retention. There is no evidence of acute diverticulitis. There are no findings to indicate acute appendicitis. Peritoneum: There is no intraperitoneal free air or abdominal ascites. Vasculature: The abdominal aorta is normal in course and caliber. Adenopathy: None. Pelvic viscera: Calcified uterine fibroids remain similar in appearance. Skeletal structures: No destructive osseous lesions are seen. IMPRESSION: 1. No acute intra-abdominal or pelvic findings 2. Stable 15 mm left adrenal gland nodule 3. Stable 6 mm right middle lobe pulmonary nodule 4. Stable calcified uterine fibroids 5. No acute inflammatory changes Electronically signed by: Inocente Reynoso M.D. 03/15/2017 9:22 AM Dictated Date/Time: 03/15/2017 9:10 AM
== END | disposition home or self-care (01) ==
LOC: C.CTS 08:43
PROVIDERS: ATTEND Urology
DX: E27.9 Disorder of adrenal gland, unspecified (principal); R91.1 Solitary pulmonary nodule; D25.9 Leiomyoma of uterus, unspecified

== ENCOUNTER 2017-05-07 11:13 | Emergency (ER) | payer OTHER ==
[~2017-05-07 11:13] MED LIST changes: -IPRA1AER2 INH; -SPRIN INH; -XPNINS125 NEB
[2017-05-07 11:22] VITALS: TEMP 36.5; Ht 162.6 cm
[2017-05-07] MEDS ORDERED: BSP/10 PO (11:44)
[2017-05-07 12:33] VITALS: O2SAT 95
[2017-05-07 12:39] LABS: HEMATOCRIT 42.3 % (37-47); MEAN CELL VOLUME 91.4 fL (80-100); MEAN CORPUSCULAR HEMOGLOBIN 30.9 pg (25-34); MEAN CORPUSCULAR HGB CONC 33.8 g/dl (32-36); MEAN PLATELET VOLUME 10.5 fL (7.4-10.4); PLATELET COUNT 249 K/uL (130-400); RED BLOOD COUNT 4.63 M/uL (4.2-5.4); WHITE BLOOD COUNT 5.26 K/uL (4.8-10.8)
[2017-05-07 12:46] LABS: ALT/SGPT 21 U/L (12-78); BLOOD UREA NITROGEN 14 mg/dl (7-18); BUN/CREATININE RATIO 18.2 (10-20); CALCIUM 8.9 mg/dl (8.5-10.1); CARBON DIOXIDE 28 mmol/L (21-32); CHLORIDE 108 mmol/L (98-107); CREATININE 0.78 mg/dl (0.60-1.20); GLUCOSE 107 mg/dl (70-99); POTASSIUM 3.9 mmol/L (3.5-5.1); SODIUM 141 mmol/L (136-145)
[2017-05-07 12:48] LABS: INR 0.9 (0.9-1.1)
--- NOTE | 2017-05-07 12:49 | DIAGNOSTIC IMAGING REPORT ---
CHEST ONE VIEW PORTABLE CLINICAL HISTORY: Burning pain in chest chest pain. Dyspnea. COMPARISON STUDY: 03/15/2017 FINDINGS: Mild stable cardiomegaly. Lungs are clear. Diaphragms are smooth. IMPRESSION: Mild stable cardiomegaly. Otherwise negative study. The above report was generated using voice recognition software. It may contain grammatical, syntax or spelling errors. Electronically signed by: Doni Webber M.D. 05/07/2017 12:47 PM Dictated Date/Time: 05/07/2017 12:47 PM
[2017-05-07 12:51] LABS: ALB/GLOB RATIO 0.9 (0.9-2); ALKALINE PHOSPHATASE 100 U/L (45-117); AST/SGOT 14 U/L (15-37)
--- NOTE | 2017-05-07 13:04 | EMERGENCY ROOM VISIT NOTE ---
History Report prepared by Hector: Sanford Nguyen Under the Supervision of: Dr. Prabhakar Jara M.D. First contact with patient: 12:42 Chief Complaint: RESPIRATORY PROBLEMS Stated Complaint: BURNING IN CHEST/THROAT, HEAVINESS IN LUNGS, Nursing Triage Summary: pt reports burning pain in her lungs she does not appear short of breath she is smiling and laughing in room she can speak in full sentances without getting winded History of Present Illness The patient is a 67 year old female who presents to the Emergency Room with complaints of worsening shortness of breath that started last night. 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 The patient notes that she has 2 liters of oxygen at home, but has not been wearing it the past 2 to 3 weeks because she has a bad reaction whenever she wears it. She says that the mechanism of concentrating the oxygen irritates her. The patient states that it takes her 3 days to recover after wearing oxygen. She says that she started wearing her oxygen last night because her doctor, 5 days ago, told her to start wearing it again at night due to the patient's dropping pulse ox. The patient says that when she put on the oxygen last night, she had the typical reaction where she gets short of breath, with dizziness, lightheadedness, and heart palpations. The patient adds that her lungs got irritated and she gets burning in her chest. She states that she has inhalers but she does not use them because she coughs when she uses them. She says that she is eating and drinking fine. The patient is not on any water pills. She takes baby aspirin, but not everyday. 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 Burning in chest. Review of Systems See HPI for pertinent positives and negatives. A total of ten systems were reviewed and were otherwise negative. Past Medical & Surgical Medical Problems: (1) Benign neoplasm breast (2) Cardiomegaly (3) Cardiomyopathy (4) Chest pain with high risk for cardiac etiology (5) Obstructive lung disease (6) PVC's (premature ventricular contractions) (7) Shortness of breath (8) Shortness of breath Surgical Problems: (1) Status post cardiac catheterization (2) Status post cholecystectomy Family History Cancer Diabetes mellitus FH: heart disease FHx: gallbladder disease FHx: lung disease Hypertension Kidney disease Kidney stones Social History Smoking Status: Never Smoker Alcohol Use: none Drug Use: none Marital Status: Housing Status: lives alone Occupation Status: unemployed, other Current/Historical Medications Scheduled Aspirin (Aspirin Ec), 81 MG PO DAILY Azithromycin (Zithromax), 250 MG PO DAILY Zolpidem Tartrate (Zolpidem Tartrate), 10 MG PO HS Scheduled PRN Clotrimazole (Mycelex), 10 MG PO TID PRN for As Needed Ipratropium [place] (Atrovent 0.02% Soln), 1 DOSE NEB QID PRN for SOB/Wheezing Menthol (Ricola), 1 [place] PO BID PRN for SORE THROAT Allergies Coded Allergies: Lisinopril (Verified Allergy, Severe, possible angioedema, 05/07/17) Codeine (Unverified Allergy, Intermediate, chest pain, 05/07/17) Iodine (Verified Allergy, Intermediate, swelling in throat, hives, 05/07/17) "they give me prednisone before procedures" Meperidine (Unverified Allergy, Intermediate, HIVES, 05/07/17) Propoxyphene (Unverified Allergy, Intermediate, HIVES, 05/07/17) Albuterol (Unverified Allergy, Unknown, HEART RACES, 05/07/17) Beta Adrenergic Blockers (Unverified Allergy, Unknown, THROAT SWELLING, 05/07/17) Digoxin (Verified Allergy, Unknown, THROAT SWELLING, 05/07/17) Lorazepam (Verified Allergy, Unknown, TACHYCARDIA, 05/07/17) Losartan (Verified Allergy, Unknown, THROAT SWELLING, 05/07/17) NSAIDs (Verified Allergy, Unknown, hives, 05/07/17) Prednisone (Verified Allergy, Unknown, HEART RACES, 05/07/17) Ranitidine (Verified Allergy, Unknown, TACHYCARDIA, 05/07/17) Diphenhydramine (Verified Adverse Reaction, Intermediate, heart race, ) Aspirin (Verified Adverse Reaction, Unknown, HX: ulcers and bleeding tendencies*, 05/07/17) *PT DOES CURRENTLY TAKE ASA Uncoded Allergies: ANTIBIOTICS (Allergy, Unknown, PT STATES SHE HAS HAD HIVES/RASH FROM MULTIPLE ANTIBIOTICS, 10/25/15) Physical Exam Vital Signs Date Time Temp Pulse Resp B/P (MAP) Pulse Ox O2 Delivery O2 Flow Rate FiO2 05/07/17 18:34 101 20 120/85 97 Room Air 05/07/17 16:16 86 05/07/17 15:15 72 18 124/72 98 Room Air 05/07/17 13:30 89 16 105/92 98 Room Air 05/07/17 12:33 95 Room Air 05/07/17 12:33 98 Room Air 05/07/17 12:12 92 05/07/17 12:00 Room Air 98 05/07/17 11:22 36.5 93 20 123/78 95 Room Air Physical Exam GENERAL: Awake, alert, well-appearing, in no acute distress HENT: Normocephalic, atraumatic. Oropharynx unremarkable. Dry mucous membranes. EYES: Normal conjunctiva. Sclera non-icteric. NECK: Supple. No nuchal rigidity. FROM. No JVD. RESPIRATORY: Slightly diminished at bases, otherwise clear. CARDIAC: Regular rate, normal rhythm. Extremities warm and well perfused. Pulses equal. ABDOMEN: Soft, non-distended. No tenderness to palpation. No rebound or guarding. No masses. RECTAL: Deferred. MUSCULOSKELETAL: Chest examination reveals no tenderness. The back is symmetrical on inspection without obvious abnormality. There is no CVA tenderness to palpation. No joint edema. LOWER EXTREMITIES: Calves are equal size bilaterally and non-tender. No edema. No discoloration. NEURO: Normal sensorium. No sensory or motor deficits noted. SKIN: No rash or jaundice noted. Medical Decision & Procedures ER Provider Diagnostic Interpretation: X-ray: Per my interpretation, radiologist review. CHEST ONE VIEW PORTABLE CLINICAL HISTORY: Burning pain in chest chest pain. Dyspnea. COMPARISON STUDY: 03/15/2017 FINDINGS: Mild stable cardiomegaly. Lungs are clear. Diaphragms are smooth. IMPRESSION: Mild stable cardiomegaly. Otherwise negative study. The above report was generated using voice recognition software. It may contain grammatical, syntax or spelling errors. Electronically signed by: Doni Webber M.D. 05/07/2017 12:47 PM Dictated Date/Time: 05/07/2017 12:47 PM Laboratory Results 05/07/17 11:45 05/07/17 11:45 Test 05/07/17 11:45 05/07/17 12:32 Red Blood Count 4.63 M/uL (4.2-5.4) Mean Corpuscular Volume 91.4 fL (80-100) Mean Corpuscular Hemoglobin 30.9 pg (25-34) Mean Corpuscular Hemoglobin Concent 33.8 g/dl (32-36) RDW Standard Deviation 43.8 fL (36.4-46.3) RDW Coefficient of Variation 13.0 % (11.5-14.5) Mean Platelet Volume 10.5 fL (7.4-10.4) Prothrombin Time 10.0 SECONDS (9.0-12.0) Prothromb Time International Ratio 0.9 (0.9-1.1) Activated Partial Thromboplast Time 24.8 SECONDS (21.0-31.0) Partial Thromboplastin Ratio 1.0 Anion Gap 5.0 mmol/L (3-11) Estimated GFR () 92.5 Estimated GFR (Non- 79.8 BUN/Creatinine Ratio 18.2 (10-20) Calcium Level 8.9 mg/dl (8.5-10.1) Total Bilirubin 0.3 mg/dl (0.2-1) Aspartate Amino Transf (AST/SGOT) 14 U/L (15-37) Alanine Aminotransferase (ALT/SGPT) 21 U/L (12-78) Alkaline Phosphatase 100 U/L (45-117) Total Creatine Kinase 44 U/L (26-192) Creatine Kinase MB < 0.5 ng/ml (0.5-3.6) Creatine Kinase MB Ratio (0-3.0) Troponin I < 0.015 ng/ml (0-0.045) Pro-B-Type Natriuretic Peptide 466 pg/ml (0-900) Total Protein 7.1 gm/dl (6.4-8.2) Albumin 3.3 gm/dl (3.4-5.0) Globulin 3.8 gm/dl (2.5-4.0) Albumin/Globulin Ratio 0.9 (0.9-2) Bedside Troponin I < 0.030 ng/ml (0-0.045) Laboratory results reviewed by me Medications Administered Medications (Trade) Dose Ordered Sig/Barbara Route Start Time Stop Time Status Last Admin Dose Admin Famotidine (Pepcid 20mg/100 ml) 20 mg ONE STAT IV 05/07/17 13:22 05/07/17 13:26 DC 05/07/17 13:22 20 MG Miscellaneous Medication (Gi Cocktail) 24 ml NOW STAT PO 05/07/17 13:22 05/07/17 13:26 DC 05/07/17 13:22 24 ML Azithromycin (Zithromax Tab) 500 mg NOW STAT PO 05/07/17 15:52 05/07/17 15:54 DC 05/07/17 16:47 500 MG ECG Indication: SOB/dyspnea Rate (beats per minute): 96 Rhythm: normal sinus Findings: PVC (occasional), no acute ischemic change, other (QRS widening) Comparison ECG Date: compared to March 15 2017, QRS widening similar ED Course 1250: The patient was evaluated in room B9. A complete history and physical exam was performed. 1322: Ordered GI Cocktail 24 ml PO, Pepcid 20mg/100 ml 20 mg IV. 1525: I discussed the patient with Dr. Corona - [facility] pulmonology - she says in the absence of findings and is just worsening symptoms due to her pneumonitis, use steroids, nebulizers, and antibiotics, but if the patient is refusing, then she is just avoiding her triggers. 1552: Ordered Zithromax Tab 500 mg PO. 1640: I reevaluated the patient and she is resting comfortably. The patient verbally expressed understanding and agreement of the treatment plan. The patient will be evaluated for further treatment. 1645: I discussed the patient with Carla Santos - she will evaluate the patient for further treatment. 1810: I reevaluated the patient and she is okay with going home. The patient verbally expressed understanding and agreement of the treatment plan. The patient will be discharged. Medical Decision I reviewed the patient's past medical history, medications, and the nursing notes as described above. Differential diagnosis: COPD exacerbation, pneumonitis, cardiac ischemia, aortic dissection, pulmonary embolism, pneumonia, pneumothorax, musculoskeletal , infections, pericarditis, myocarditis, gastrointestinal. The patient is a 67-year-old woman with a past medical history of COPD, pneumonitis present emergency department with complaint of burning in her chest which she believes is due to her oxygen concentrator at home per history of present illness. The patient is in no acute distress, afebrile with stable vital signs. Lungs slightly diminished at the bases but otherwise clear. Patient is sating 95% and above on room air without any dyspnea. Chest x-ray and EKG unremarkable. Troponin negative 1 in the setting of greater than 12 hours of symptoms. BNP unremarkable. Trending pulse ox with mild decrease in O2 sat to 90% and the patient reporting mild dyspnea during this. However, the patient reports that this is not uncommon in the setting of her chronic lung disease. She reports that she started taking her oxygen again Dr. Carnes because of a oxygen saturation study that showed she would desat to the 70s, which was called by her cnc service technician to use her oxygen. However she feels that she cannot do this because it causes these symptoms. Moreover the patient feels that in the past she's used individual oxygen canisters which did not cause any difficulty. Over the past it was attempted to have this provided but was unsuccessful secondary to insurance coverage. Additionally patient is torqued his been noncompliant with recommendations for her symptoms and she feels they make her feel worse. I discussed findings with pulmonology and they recommended that in the setting of no objective findings we could treat her for an exacerbation of her pneumonitis which would include steroids, inhaler, and antibiotics. Fortunately the patient refuses to take steroids because they feel like they make her heart race, similarly does not like albuterol as she feels like this gives her a cough. Further discussion the patient was agreeable to try a course of azithromycin which may also provide some anti- inflammatory effect. Subsequently significant discussion was held patient's to determine if she felt okay for discharge. Initially the patient was equivocal and therefore admission process was started. However, after meeting with the admission team she fell like she was okay to go home to follow up with her pulmonology team. She was discharged with a plan for close follow-up and she will continue to take azithromycin as prescribed and will attempt to use her oxygen as instructed. The patient was discharged per [facility]. Medication Reconcilliation Current Medication List: was personally reviewed by me Blood Pressure Screening Patient's blood pressure: Normal blood pressure Consults Time Called: [phone] Consulting Physician: Dr. Corona - [facility] Returned Call: [phone] I discussed the patient with Dr. Corona - [facility] pulmonology - she says in the absence of findings and is just worsening symptoms due to her pneumonitis, use steroids, nebulizers, and antibiotics, but if the patient is refusing, then she is just avoiding her triggers. Additional Consults: Time Called: [phone] Consulted Physician: Carla Santos Returned Call: [phone] Additional Comments: I discussed the patient with Carla Santos - she will evaluate the patient for further treatment. Impression Primary Impression: Pneumonitis Scribe Attestation The scribe's documentation has been prepared under my direction and personally reviewed by me in its entirety. I confirm that the note above accurately reflects all work, treatment, procedures, and medical decision making performed by me. Departure Information Dispostion Home / Self-Care Prescriptions Azithromycin (Zithromax) 250 Mg Tab 250 MG PO DAILY for 4 Days, #4 TAB Prov: Prabhakar Jara M.D. 05/07/17 Referrals Chadwick Mccollum MD (PCP) Patient Instructions COPD Dc, My [facility] Additional Instructions Please follow up with your cnc service technician early next week. Otherwise, your exam, lab results, EKG, and CXR did not show signs of an emergent condition. Take azithromycin as directed. Continue to take your medications as prescribed. Nocturnal oxygen as directed. Return to the emergency department for worsening symptoms as described in the accompanying instructions.
[2017-05-07] MEDS ORDERED: FAMOTIDINE 20MG/102 ML D5W IV STA (13:22)
[2017-05-07] MEDS ORDERED: GI COCKTAIL PO STA (13:22)
[2017-05-07] MEDS ORDERED: ALUMINUM/MAGNESIUM SUSP 30 ML UDC ONE (13:28)
[2017-05-07] MEDS ORDERED: LIDOCAINE HCL 2% VISC SOLN 20 ML UDC ONE (13:28)
[2017-05-07] MEDS ORDERED: AZITHROMYCIN 250 MG TAB PO STA (15:52)
[2017-05-07] MEDS ORDERED: AZIT250T PO (18:18)
[2017-05-07 18:34] VITALS: BP 120/85; PULSE 101; O2SAT 97
--- NOTE | 2017-05-07 19:44 | Medical Consult ---
Consultation Date of Consultation: May 07, 2017. Attending Physician: History of Present Illness The patient is a 67 year old female who presents to the ER for complaints of SOB that has been worsening since last night. 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 Her initial exposure was a few years ago. She has been seen in multiple facilities including [facility] in [place]. She is largely non-compliant with recommendations from her PCP and her Group Sales Coordinator. She refuses to wear oxygen here and at home because she reports it valverde her chest, despite having saline or humidified oxygen. She has been instructed to wear oxygen at night due to low pulse ox readings. She reports that portable oxygen seems to have less chemicals and is easier to tolerate, but oxygen gives her a reaction of worse shortness of breath, dizziness, lightheadedness, and heart palpations. She refuses all steroids and nebulizer treatments due to palpitations and feeling as though she is going to . She states her inhalers make her cough so she does not use them. She was refusing to leave from the ER, but refused all treatments presented to her. She is agreeable now to go home and follow up with Katherine reich this next week. Past Medical/Surgical History Medical Problems: (1) Bronchospasm Status: Acute (2) Chest heaviness Status: Acute (3) Palpitations Status: Acute (4) Pneumonia Status: Acute (5) Pneumonitis Status: Acute (6) Reactive airway disease Status: Acute (7) Sepsis Status: Acute (8) SOB (shortness of breath) Status: Acute (9) Thrush Status: Acute (10) Tick bite of left female breast with infection Status: Acute Family History Cancer Diabetes mellitus FH: heart disease FHx: gallbladder disease FHx: lung disease Hypertension Kidney disease Kidney stones Social History Smoking Status: Never Smoker Drug Use: none Marital Status: Housing Status: lives alone Occupation Status: unemployed, other Allergies Coded Allergies: Lisinopril (Verified Allergy, Severe, possible angioedema, 05/07/17) Codeine (Unverified Allergy, Intermediate, chest pain, 05/07/17) Iodine (Verified Allergy, Intermediate, swelling in throat, hives, 05/07/17) "they give me prednisone before procedures" Meperidine (Unverified Allergy, Intermediate, HIVES, 05/07/17) Propoxyphene (Unverified Allergy, Intermediate, HIVES, 05/07/17) Albuterol (Unverified Allergy, Unknown, HEART RACES, 05/07/17) Beta Adrenergic Blockers (Unverified Allergy, Unknown, THROAT SWELLING, 05/07/17) Digoxin (Verified Allergy, Unknown, THROAT SWELLING, 05/07/17) Lorazepam (Verified Allergy, Unknown, TACHYCARDIA, 05/07/17) Losartan (Verified Allergy, Unknown, THROAT SWELLING, 05/07/17) NSAIDs (Verified Allergy, Unknown, hives, 05/07/17) Prednisone (Verified Allergy, Unknown, HEART RACES, 05/07/17) Ranitidine (Verified Allergy, Unknown, TACHYCARDIA, 05/07/17) Diphenhydramine (Verified Adverse Reaction, Intermediate, heart race, ) Aspirin (Verified Adverse Reaction, Unknown, HX: ulcers and bleeding tendencies*, 05/07/17) *PT DOES CURRENTLY TAKE ASA Uncoded Allergies: ANTIBIOTICS (Allergy, Unknown, PT STATES SHE HAS HAD HIVES/RASH FROM MULTIPLE ANTIBIOTICS, 10/25/15) Review of Systems ROS positives as per HPI, all other ROS were negative Physical Exam Date Time Temp Pulse Resp B/P (MAP) Pulse Ox O2 Delivery O2 Flow Rate FiO2 05/07/17 18:34 101 20 120/85 97 Room Air 05/07/17 16:16 86 05/07/17 15:15 72 18 124/72 98 Room Air 05/07/17 13:30 89 16 105/92 98 Room Air 05/07/17 12:33 95 Room Air 05/07/17 12:33 98 Room Air 05/07/17 12:12 92 05/07/17 12:00 Room Air 98 05/07/17 11:22 36.5 93 20 123/78 95 Room Air General Appearance: WD/WN, no apparent distress Head: normocephalic, atraumatic Eyes: PERRL, EOMI, sclerae normal ENT: hearing grossly normal Neck: supple, no JVD, no carotid bruits, trachea midline Respiratory/Chest: chest non-tender, lungs clear, normal breath sounds, no respiratory distress Cardiovascular: regular rate, rhythm, no edema, no gallop, no JVD, no murmur Abdomen/GI: normal bowel sounds, non tender, soft, no organomegaly Extremities/Musculoskelatal: no pedal edema Neurologic/Psych: no motor/sensory deficits, alert, oriented x 3 Skin: normal color, warm/dry, no rash Laboratory Results Last 24 Hours Test 05/07/17 11:45 05/07/17 12:32 White Blood Count 5.26 K/uL Red Blood Count 4.63 M/uL Hemoglobin 14.3 g/dL Hematocrit 42.3 % Mean Corpuscular Volume 91.4 fL Mean Corpuscular Hemoglobin 30.9 pg Mean Corpuscular Hemoglobin Concent 33.8 g/dl RDW Standard Deviation 43.8 fL RDW Coefficient of Variation 13.0 % Platelet Count 249 K/uL Mean Platelet Volume 10.5 fL Prothrombin Time 10.0 SECONDS Prothromb Time International Ratio 0.9 Activated Partial Thromboplast Time 24.8 SECONDS Partial Thromboplastin Ratio 1.0 Sodium Level 141 mmol/L Potassium Level 3.9 mmol/L Chloride Level 108 mmol/L Carbon Dioxide Level 28 mmol/L Anion Gap 5.0 mmol/L Blood Urea Nitrogen 14 mg/dl Creatinine 0.78 mg/dl Estimated GFR () 92.5 Estimated GFR (Non- 79.8 BUN/Creatinine Ratio 18.2 Random Glucose 107 mg/dl Calcium Level 8.9 mg/dl Total Bilirubin 0.3 mg/dl Aspartate Amino Transf (AST/SGOT) 14 U/L Alanine Aminotransferase (ALT/SGPT) 21 U/L Alkaline Phosphatase 100 U/L Total Creatine Kinase 44 U/L Creatine Kinase MB < 0.5 ng/ml Creatine Kinase MB Ratio Troponin I < 0.015 ng/ml Pro-B-Type Natriuretic Peptide 466 pg/ml Total Protein 7.1 gm/dl Albumin 3.3 gm/dl Globulin 3.8 gm/dl Albumin/Globulin Ratio 0.9 Bedside Troponin I < 0.030 ng/ml Assessment & Plan Shortness of breath: -per patient she has recurrent "flare-ups" of this irritation/pneumonitis which she is blaming on using oxygen last night -vital signs stable -no signs of distress on exam -no lab abnormalities; troponin/BNP negative -patient refused oxygen, nebs, steroids -ok to discharge; Pulmonary Elvin Davila was contacted and recommended follow up with Pulmonary early in the week, and that patient could be offered medrol dose guillermo and xopenex if she would be willing to take those medications.
== END 2017-05-07 18:36 | disposition home or self-care (01) ==
LOC: C.EDB 11:16
DX: J18.9 Pneumonia, unspecified organism (principal); J44.9 Chronic obstructive pulmonary disease, unspecified; I42.9 Cardiomyopathy, unspecified; Z85.3 Personal history of malignant neoplasm of breast; Z90.49 Acquired absence of other specified parts of digestive tract; Z79.82 Long term (current) use of aspirin; Z79.899 Other long term (current) drug therapy; Z88.5 Allergy status to narcotic agent; Z88.6 Allergy status to analgesic agent; Z88.8 Allergy status to other drugs, medicaments and biological substances; Z91.09 Other allergy status, other than to drugs and biological substances

== ENCOUNTER → 2017-05-25 | Outpatient (CLI) | payer OTHER ==
--- NOTE | 2017-05-25 10:28 | DIAGNOSTIC IMAGING REPORT ---
CT SCAN OF THE CHEST WITHOUT IV CONTRAST CLINICAL HISTORY: Follow-up pulmonary nodule. COMPARISON STUDY: Chest CT scans dated 07/12/2016 and 08/14/2015. Thyroid ultrasound dated 11/06/16. TECHNIQUE: CT scan of the thorax was performed from the thoracic inlet to the upper abdomen. Images are reviewed in the axial, sagittal, and coronal planes. IV contrast was not administered for this examination as per the referring clinician. A dose lowering technique was utilized adhering to the principles of ALARA. CT DOSE: 269.61 mGy.cm FINDINGS: Thyroid: Imaged portions of the thyroid gland are normal in size and attenuation. A 1.8 cm low-attenuation nodule is noted in the right thyroid lobe. This 1 better characterized by ultrasound on 11/06/2016. Thoracic aorta: There is mild atherosclerotic calcification of the thoracic aorta, which is normal in caliber and demonstrates standard 3-vessel arch anatomy. Heart: The heart is top normal in size and there is trace pericardial fluid. Lungs and pleural spaces: There is no airspace consolidation or pleural effusion. Linear atelectasis versus scarring is present at the medial left lung base. The trachea and central airways are clear. A 6 mm right middle lobe pulmonary nodule on image #171 and a 3 mm focus of nodular pleural thickening in the right lower lobe along the major fissure seen on image #157 are unchanged from 08/14/2015 and of doubtful significance. No new pulmonary nodule is seen. Mediastinum: There is no mediastinal lymphadenopathy. Eileen: Not well assessed without IV contrast. Axillae: There is no axillary lymphadenopathy. Upper abdomen: The gallbladder is surgically absent. A 1.7 cm left adrenal nodule meets CT criteria for a fat-containing adenoma. Skeletal structures: The skeletal structures are osteopenic. There are mild superior endplate compression deformities of T5, T6, T7, T8, and T11. No lytic or blastic bony lesions are seen. IMPRESSION: 1. There are 2 right-sided pulmonary nodules measure up to 6 mm. The are unchanged dating back to 08/14/2015 and of doubtful significance. 2. No new pulmonary nodule is seen. 3. No airspace consolidation or pleural effusion is identified. Electronically signed by: Stanley Cavanaugh M.D. 05/25/2017 10:26 AM Dictated Date/Time: 05/25/2017 10:19 AM
== END | disposition home or self-care (01) ==
LOC: C.CTS 09:32
PROVIDERS: ATTEND Internal Medicine
DX: J45.909 Unspecified asthma, uncomplicated (principal); R91.8 Other nonspecific abnormal finding of lung field

== ENCOUNTER 2017-08-04 11:28 | Emergency (ER) | payer OTHER ==
[~2017-08-04] VITALS: Ht 165.1 cm; Wt 79.0 kg
[2017-08-04 11:34] VITALS: Ht 165.1 cm; Wt 79.0 kg
[2017-08-04] MEDS ORDERED: SODIUM CHLORIDE 0.9% 1000ML 1,000 ML IV STA (12:17)
[2017-08-04 12:36] VITALS: O2SAT 97
--- NOTE | 2017-08-04 12:44 | DIAGNOSTIC IMAGING REPORT ---
SINGLE VIEW CHEST CLINICAL HISTORY: Generalized weakness. Dizziness. FINDINGS: An AP, portable, upright chest radiograph is compared to study dated 05/07/2017 and correlated with chest CT dated 05/25/2017. The examination is degraded by portable technique, large body habitus, and patient rotation. The heart is enlarged. The pulmonary vasculature is noncongested. The lungs and pleural spaces are clear noting bibasilar atelectasis. No pneumothorax is seen. The skeletal structures are osteopenic. The bony thorax is grossly intact. IMPRESSION: Cardiomegaly with no acute cardiopulmonary abnormality. Electronically signed by: Stanley Cavanaugh M.D. 08/04/2017 12:42 PM Dictated Date/Time: 08/04/2017 12:41 PM
[2017-08-04 12:48] LABS: URINE APPEARANCE CLEAR (CLEAR); URINE BILIRUBIN NEG (NEG); URINE COLOR YELLOW; URINE NITRITE NEG (NEG); URINE SPECIFIC GRAVITY 1.006 (1.000-1.030); UROBILINOGEN NEG (NEG)
[2017-08-04 12:52] LABS: BASO % 0.4 %; BASO ABS # 0.02 K/uL (0-0.2); COMPLETE YES; EOS % 2.9 %; IG% 0.2 %; LYMPH % 30.1 %; LYMPH ABS # 1.66 K/uL (1.2-3.4); MEAN CELL VOLUME 91.9 fL (80-100); MEAN CORPUSCULAR HEMOGLOBIN 29.9 pg (25-34); MEAN CORPUSCULAR HGB CONC 32.5 g/dl (32-36); MONO % 9.1 %; NEUT % 57.3 %; PLATELET COUNT 252 K/uL (130-400); RED BLOOD COUNT 4.79 M/uL (4.2-5.4); WHITE BLOOD COUNT 5.52 K/uL (4.8-10.8)
[2017-08-04 12:55] LABS: MANUAL MICROSCOPIC REQUIRED? NO; REVIEW REQ? NO
--- NOTE | 2017-08-04 12:59 | DIAGNOSTIC IMAGING REPORT ---
HEAD WITHOUT CONTRAST (CT) CLINICAL HISTORY: 67 years-old Female with EVALUATE WEAKNESS. Acute weakness TECHNIQUE: Multiple axial CT images of the head were obtained without contrast. A dose lowering technique was utilized adhering to the principles of ALARA. CT DOSE: 537.48 mGy.cm COMPARISON: None available. FINDINGS: No acute intracranial hemorrhage, midline shift, mass, large territorial ischemia or abnormal extra-axial collection. The calvarium is intact. The paranasal sinuses, mastoid air cells, and middle ear cavities are clear. IMPRESSION: No acute intracranial abnormality. The above report was generated using voice recognition software. It may contain grammatical, syntax or spelling errors. Electronically signed by: Donn Noland M.D. 08/04/2017 12:58 PM Dictated Date/Time: 08/04/2017 12:55 PM
[2017-08-04 13:00] LABS: ALT/SGPT 27 U/L (12-78); BLOOD UREA NITROGEN 15 mg/dl (7-18); BUN/CREATININE RATIO 21.9 (10-20); CALCIUM 9.4 mg/dl (8.5-10.1); CARBON DIOXIDE 30 mmol/L (21-32); CHLORIDE 107 mmol/L (98-107); GLUCOSE 93 mg/dl (70-99); POTASSIUM 3.9 mmol/L (3.5-5.1); SODIUM 141 mmol/L (136-145)
[2017-08-04 13:09] LABS: INR 0.9 (0.9-1.1); PROTHROMBIN TIME (PATIENT) 9.9 SECONDS (9.0-12.0)
[2017-08-04 13:11] LABS: ALKALINE PHOSPHATASE 125 U/L (45-117); AST/SGOT 16 U/L (15-37)
[2017-08-04] MEDS ORDERED: XPNINS125 NEB (13:18)
[2017-08-04] MEDS ORDERED: ZPAK PO (13:18)
[2017-08-04] MEDS ORDERED: CICL160A INH (13:18)
[2017-08-04] MEDS ORDERED: LEVALBUTEROL 1.25MG/3ML NEB INH STA (14:06)
[2017-08-04 14:22] VITALS: PULSE 84; O2SAT 97
[2017-08-04 15:37] VITALS: BP 148/83; PULSE 91; TEMP 36.9; O2SAT 98
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
== END 2017-08-04 15:40 | disposition home or self-care (01) ==
LOC: C.EDB 11:29 → C.EDC 15:40
DX: R42 Dizziness and giddiness (principal); D24.9 Benign neoplasm of unspecified breast; I51.7 Cardiomegaly; I42.9 Cardiomyopathy, unspecified; J44.9 Chronic obstructive pulmonary disease, unspecified; Z83.3 Family history of diabetes mellitus; Z82.49 Family history of ischemic heart disease and other diseases of the circulatory system; Z79.82 Long term (current) use of aspirin

== ENCOUNTER → 2017-11-11 | Outpatient (CLI) | payer OTHER ==
[~2017-11-11] MED LIST changes: -ATRINSX NEB; +CICL160A INH; -CLOT10TR PO; -CPC PO; +XPNINS125 NEB; -ZOLP10TA6 PO; +ZPAK PO
--- NOTE | 2017-11-11 12:23 | DIAGNOSTIC IMAGING REPORT ---
THYROID ULTRASONOGRAPHY CLINICAL HISTORY: E04.2 multinodular thyroid gland COMPARISON STUDY: November 2016 FINDINGS: The right lobe measures 49 x 22 x 17 mm. There is upper pole cystic nodule measuring 17 x 15 x 8 mm. This previously measured 18 x 16 x 7 mm. There is an isoechoic circumscribed right lower pole nodule measuring 16 x 15 x 14 mm. This previously measured 15 x 14 x 10 mm. There is a 10 x 9 x 8 mm slightly hypoechoic mid pole nodule containing calcifications or colloid. This remains similar in size to the prior study. Accurate measurements of this nodule were not obtained on the most recent exam. The left lobe of the thyroid measures 44 x 14 x 20 mm. The gland is heterogeneous in echotexture. There is a 6 mm mid pole nodule, 7 mm lower pole nodule, and 5 mm upper pole nodule. Images these nodules is mildly hypoechoic. These remain similar to the preceding study. IMPRESSION: Multinodular thyroid gland, with nodules relatively similar in size to the preceding examination. Electronically signed by: Inocente Reynoso M.D. 11/11/2017 12:22 PM Dictated Date/Time: 11/11/2017 12:14 PM
== END | disposition home or self-care (01) ==
LOC: C.ULTR 11:11
DX: E04.2 Nontoxic multinodular goiter (principal)

== ENCOUNTER 2017-12-22 13:46 | Emergency (ER) | payer OTHER ==
[~2017-12-22] VITALS: Ht 167.6 cm; Wt 85.5 kg
[2017-12-22 13:48] VITALS: TEMP 36.8
[2017-12-22] MEDS: ALBUT/IPRATROP 3MG/0.5MG NEB 3 ML VIAL INH STA ×2 (14:07→14:17)
[2017-12-22 14:19] VITALS: O2SAT 94; Ht 167.6 cm; Wt 85.5 kg
[2017-12-22] MEDS ORDERED: LEVALBUTEROL/IPRATROPIUM NEB INH STA (14:24)
[2017-12-22 14:35] LABS: BASO % 0.4 %; BASO ABS # 0.02 K/uL (0-0.2); EOS % 1.5 %; EOS ABS # 0.08 K/uL (0-0.5); HEMATOCRIT 43.9 % (37-47); HEMOGLOBIN 14.8 g/dL (12.0-16.0); IG# 0.01 K/uL (0.00-0.02); LYMPH % 16.6 %; MEAN CELL VOLUME 90.1 fL (80-100); MEAN CORPUSCULAR HEMOGLOBIN 30.4 pg (25-34); MEAN CORPUSCULAR HGB CONC 33.7 g/dl (32-36); MEAN PLATELET VOLUME 9.5 fL (7.4-10.4); MONO % 8.1 %; MONO ABS # 0.44 K/uL (0.11-0.59); NEUT % 73.2 %; NEUT ABS # 3.96 K/uL (1.4-6.5); PLATELET COUNT 227 K/uL (130-400); RED CELL DISTRIBUTION WIDTH CV 12.9 % (11.5-14.5); RED CELL DISTRIBUTION WIDTH SD 42.4 fL (36.4-46.3); WHITE BLOOD COUNT 5.41 K/uL (4.8-10.8)
[2017-12-22 14:43] VITALS: PULSE 105; O2SAT 95
[2017-12-22 14:44] LABS: PTT PATIENT 24.5 SECONDS (21.0-31.0)
[2017-12-22 14:59] LABS: BLOOD UREA NITROGEN 15 mg/dl (7-18); CALCIUM 9.4 mg/dl (8.5-10.1); CARBON DIOXIDE 29 mmol/L (21-32); CREATININE 0.74 mg/dl (0.60-1.20); GLUCOSE 99 mg/dl (70-99); POTASSIUM 3.9 mmol/L (3.5-5.1); SODIUM 140 mmol/L (136-145)
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
[2017-12-22 15:04] LABS: PHOSPHORUS 3.1 mg/dl (2.5-4.9)
--- NOTE | 2017-12-22 15:10 | DIAGNOSTIC IMAGING REPORT ---
CHEST ONE VIEW PORTABLE HISTORY: EVALUATE RESPIRATORY DISTRESS.DYSPNEA COMPARISON: Chest 08/04/2017. FINDINGS: The heart remains mildly enlarged. No pleural effusions. No pneumothorax. There are low lung volumes. No focal lung consolidations. No evidence for pulmonary edema. IMPRESSION: Stable mild cardiomegaly. Electronically signed by: Mook Staton M.D. 12/22/2017 3:09 PM Dictated Date/Time: 12/22/2017 3:07 PM
[2017-12-22] MEDS ORDERED: METHYLPREDNISOLONE 125 MG VIAL IV STA (16:21)
[2017-12-22] MEDS ORDERED: GI COCKTAIL PO STA (16:21)
[2017-12-22] MEDS ORDERED: LIDOCAINE HCL 2% VISC SOLN 20 ML UDC ONE (16:25)
[2017-12-22] MEDS ORDERED: ALUMINUM/MAGNESIUM SUSP 30 ML UDC ONE (16:26)
[2017-12-22] MEDS ORDERED: LEVA45AE INH (17:02)
[2017-12-22] MEDS ORDERED: PRED10TA PO (17:02)
[2017-12-22 17:42] VITALS: BP 152/93; PULSE 116; O2SAT 97
== END 2017-12-22 17:30 | disposition home or self-care (01) ==
LOC: C.EDB 13:48 → C.EDC 17:30
DX: J18.9 Pneumonia, unspecified organism (principal); R06.02 Shortness of breath; Z79.899 Other long term (current) drug therapy; I51.7 Cardiomegaly; J44.9 Chronic obstructive pulmonary disease, unspecified; Z79.82 Long term (current) use of aspirin

== ENCOUNTER 2018-01-24 11:09 | Emergency (ER) | payer OTHER ==
[~2018-01-24] VITALS: Ht 165.1 cm; Wt 84.9 kg
[~2018-01-24 11:09] MED LIST changes: +LEVA45AE INH; -ZPAK PO
[2018-01-24] MEDS ORDERED: PLMINSR5 INH (11:28)
[2018-01-24] MEDS ORDERED: LEVA45AE INH (11:28)
[2018-01-24] MEDS ORDERED: METH1TAB81 PO (11:28)
[2018-01-24] MEDS ORDERED: LORA-554 PO (11:28)
[2018-01-24 11:46] VITALS: TEMP 36.6; Ht 165.1 cm; Wt 84.9 kg
[2018-01-24 12:22] VITALS: O2SAT 96
[2018-01-24 12:38] LABS: BASO % 0.5 %; BASO ABS # 0.03 K/uL (0-0.2); EOS % 0.8 %; EOS ABS # 0.05 K/uL (0-0.5); HEMATOCRIT 42.6 % (37-47); HEMOGLOBIN 14.3 g/dL (12.0-16.0); IG# 0.02 K/uL (0.00-0.02); LYMPH % 32.2 %; LYMPH ABS # 2.05 K/uL (1.2-3.4); MEAN CELL VOLUME 89.7 fL (80-100); MEAN CORPUSCULAR HEMOGLOBIN 30.1 pg (25-34); MEAN CORPUSCULAR HGB CONC 33.6 g/dl (32-36); MEAN PLATELET VOLUME 9.3 fL (7.4-10.4); MONO % 8.3 %; MONO ABS # 0.53 K/uL (0.11-0.59); NEUT % 57.9 %; NEUT ABS # 3.69 K/uL (1.4-6.5); PLATELET COUNT 277 K/uL (130-400); RED CELL DISTRIBUTION WIDTH CV 13.1 % (11.5-14.5); WHITE BLOOD COUNT 6.37 K/uL (4.8-10.8)
[2018-01-24 12:49] LABS: PTT PATIENT 23.7 SECONDS (21.0-31.0)
[2018-01-24 12:59] LABS: CALCIUM 9.1 mg/dl (8.5-10.1); CREATININE 0.77 mg/dl (0.60-1.20); POTASSIUM 3.5 mmol/L (3.5-5.1)
--- NOTE | 2018-01-24 14:03 | DIAGNOSTIC IMAGING REPORT ---
CHEST 2 VIEWS ROUTINE CLINICAL HISTORY: lung burning eval for pna pain COMPARISON STUDY: 12/22/2017 FINDINGS: The bones soft tissues and hemidiaphragms are normal. The cardiomediastinal silhouette is normal. The lungs are clear. The pulmonary vasculature is normal. IMPRESSION: Negative chest. The above report was generated using voice recognition software. It may contain grammatical, syntax or spelling errors. Electronically signed by: Doni Webber M.D. 01/24/2018 2:02 PM Dictated Date/Time: 01/24/2018 2:02 PM
[2018-01-24] MEDS ORDERED: LEVALBUTEROL 1.25MG/3ML NEB INH STA (14:09)
[2018-01-24 14:39] VITALS: PULSE 100; O2SAT 98
[2018-01-24 17:00] VITALS: BP 123/99; PULSE 102; O2SAT 98
--- NOTE | 2018-01-24 19:23 | EMERGENCY ROOM VISIT NOTE ---
History Report prepared by Hector: Nicanor Machuca Under the Supervision of: Dr. Michael Warner M.D. First contact with patient: 12:01 Chief Complaint: RESPIRATORY PROBLEMS Stated Complaint: RESPIRATORY/LIGHTHEADED Nursing Triage Summary: LUNGS FEELING IF BURNING GOING ON OFF 2 1/2 YRS History of Present Illness The patient is a 67 year old female who presents to the Emergency Room with complaints of worsening on and off burning in both of her lungs for the past 2.5 years. The patient states that 2.5 years ago she started to get the burning in her lungs after being exposed to some chemicals. She notes that the pain is going into her throat and her back, and she states that her lungs feel heavy, though she denies any chest pain other than the burning which she has felt before. The patient states that the burning in her lungs got worse and more frequent about 6 months ago after starting to use a BIPAP machine. The patient states that she has talked to a creative services manager before, though they are still unsure of the cause of the burning. She reports that this morning the pain was worse than usual, and she became dizzy and light headed. She does state that the lightheadedness is not a new symptom for her and she does get it when her lung pain gets worse. The patient states that she has been using nebulizers every few hours with no relief, and she is also currently on prednisone. She notes that the pain is worse after being exposed to chemicals, even hair products or soap on someone else. The patient states that she is not more out of breath than usual, though she has been coughing up mucous recently. She denies any fever, vomiting, or leg swelling. She denies any history of blood clots. She does state that she has been worked up for a pulmonary embolus in the past and that testing was negative. Source of History: patient Onset: 2.5 years ago Position: other (lungs) Quality: burning Timing: worsening, other (on and off) Modifying Factors (Worsening): other (chemical exposure) Associated Symptoms: + cough, + back pain, No fevers, No vomiting Note: Associated symptoms: Dizziness and light headedness. Review of Systems See HPI for pertinent positives & negatives. A total of 10 systems reviewed and were otherwise negative. Past Medical & Surgical Medical Problems: (1) Benign neoplasm breast (2) Cardiomegaly (3) Cardiomyopathy (4) Chest pain with high risk for cardiac etiology (5) Obstructive lung disease (6) PVC's (premature ventricular contractions) (7) Shortness of breath (8) Shortness of breath Surgical Problems: (1) Status post cardiac catheterization (2) Status post cholecystectomy Family History Cancer Diabetes mellitus FH: heart disease FHx: gallbladder disease FHx: lung disease Hypertension Kidney disease Kidney stones Social History Smoking Status: Never Smoker Alcohol Use: none Drug Use: none Marital Status: Housing Status: lives alone Occupation Status: unemployed, other Current/Historical Medications Scheduled Budesonide (Pulmicort Respules 0.5MG/2ML), 2 ML INH BID Ciclesonide (Alvesco), 2 PUFFS INH BID Loratadine (Allergy Relief), 5 MG PO DAILY Methylprednisolone (Medrol), 4 MG PO DIRECTED Scheduled PRN Levalbuterol (Levalbuterol HCl), 1 DOSE NEB Q6H PRN for SOB/Wheezing Levalbuterol Tartrate (Levalbuterol Tartrate Hfa), 2 PUFF INH Q4H PRN for SOB/ Wheezing Allergies Coded Allergies: Lisinopril (Verified Allergy, Severe, possible angioedema, 08/04/17) Codeine (Unverified Allergy, Intermediate, chest pain, 08/04/17) Iodine (Verified Allergy, Intermediate, swelling in throat, hives, 08/04/17 ) "they give me prednisone before procedures" Meperidine (Unverified Allergy, Intermediate, HIVES, 08/04/17) Propoxyphene (Unverified Allergy, Intermediate, HIVES, 08/04/17) Albuterol (Unverified Allergy, Unknown, HEART RACES, 08/04/17) Beta Adrenergic Blockers (Unverified Allergy, Unknown, THROAT SWELLING, ) Digoxin (Verified Allergy, Unknown, THROAT SWELLING, 08/04/17) Lorazepam (Verified Allergy, Unknown, TACHYCARDIA, 08/04/17) Losartan (Verified Allergy, Unknown, THROAT SWELLING, 08/04/17) NSAIDs (Verified Allergy, Unknown, hives, 08/04/17) Prednisone (Verified Allergy, Unknown, HEART RACES, 08/04/17) Ranitidine (Verified Allergy, Unknown, TACHYCARDIA, 08/04/17) Diphenhydramine (Verified Adverse Reaction, Intermediate, heart race, 08/04) Aspirin (Verified Adverse Reaction, Unknown, HX: ulcers and bleeding tendencies*, 08/04/17) *PT DOES CURRENTLY TAKE ASA Uncoded Allergies: ANTIBIOTICS (Allergy, Unknown, PT STATES SHE HAS HAD HIVES/RASH FROM MULTIPLE ANTIBIOTICS, 10/25/15) Physical Exam Vital Signs Date Time Temp Pulse Resp B/P (MAP) Pulse Ox O2 Delivery O2 Flow Rate FiO2 01/24/18 17:00 102 15 123/99 98 01/24/18 14:55 102 22 117/95 98 Room Air 01/24/18 14:51 96 01/24/18 14:39 100 21 98 Room Air 01/24/18 14:29 88 121/96 94 137/75 112 139/76 01/24/18 13:29 90 16 126/99 97 Room Air 01/24/18 12:22 96 Room Air 01/24/18 12:19 98 16 153/92 98 Room Air 01/24/18 11:46 36.6 98 18 167/104 93 Room Air 01/24/18 11:20 95 Physical Exam Constitutional: Vital signs reviewed. Eyes: Pupils are equal round reactive to light. Conjunctiva are noninjected. ENT: Pharynx is clear without erythema or exudate. Mucous membranes are moist. Neck supple without meningeal signs. Respiratory: Clear to auscultation bilaterally. Breath sounds are equal bilaterally. No wheezing or rales. Cardiovascular: Regular rate and rhythm. No rubs or gallops. GI: Soft, nondistended and nontender. Bowel sounds are present. Musculoskeletal: No peripheral edema. No lower extremity tenderness. Integumentary: No cyanosis. Neurological: The patient is awake and alert. No focal deficits. Psychiatric: Anxious. Medical Decision & Procedures ER Provider Diagnostic Interpretation: Radiology results as stated below per my review and the radiologist's interpretation: CHEST 2 VIEWS ROUTINE CLINICAL HISTORY: lung burning eval for pna pain COMPARISON STUDY: 12/22/2017 FINDINGS: The bones soft tissues and hemidiaphragms are normal. The cardiomediastinal silhouette is normal. The lungs are clear. The pulmonary vasculature is normal. IMPRESSION: Negative chest. The above report was generated using voice recognition software. It may contain grammatical, syntax or spelling errors. Electronically signed by: Doni Webber M.D. 01/24/2018 2:02 PM Dictated Date/Time: 01/24/2018 2:02 PM Laboratory Results 01/24/18 12:27 Red Blood Count 4.75, Mean Corpuscular Volume 89.7, Mean Corpuscular Hemoglobin 30.1, Mean Corpuscular Hemoglobin Concent 33.6, Mean Platelet Volume 9.3, Neutrophils (%) (Auto) 57.9, Lymphocytes (%) (Auto) 32.2, Monocytes (%) (Auto) 8.3, Eosinophils (%) (Auto) 0.8, Basophils (%) (Auto) 0.5, Neutrophils # (Auto) 3.69, Lymphocytes # (Auto) 2.05, Monocytes # (Auto) 0.53, Eosinophils # (Auto) 0.05, Basophils # (Auto) 0.03 01/24/18 12:27 Test 01/24/18 12:27 01/24/18 14:44 White Blood Count 6.37 K/uL (4.8-10.8) Red Blood Count 4.75 M/uL (4.2-5.4) Hemoglobin 14.3 g/dL (12.0-16.0) Hematocrit 42.6 % (37-47) Mean Corpuscular Volume 89.7 fL (80-100) Mean Corpuscular Hemoglobin 30.1 pg (25-34) Mean Corpuscular Hemoglobin Concent 33.6 g/dl (32-36) Platelet Count 277 K/uL (130-400) Mean Platelet Volume 9.3 fL (7.4-10.4) Neutrophils (%) (Auto) 57.9 % Lymphocytes (%) (Auto) 32.2 % Monocytes (%) (Auto) 8.3 % Eosinophils (%) (Auto) 0.8 % Basophils (%) (Auto) 0.5 % Neutrophils # (Auto) 3.69 K/uL (1.4-6.5) Lymphocytes # (Auto) 2.05 K/uL (1.2-3.4) Monocytes # (Auto) 0.53 K/uL (0.11-0.59) Eosinophils # (Auto) 0.05 K/uL (0-0.5) Basophils # (Auto) 0.03 K/uL (0-0.2) RDW Standard Deviation 43.0 fL (36.4-46.3) RDW Coefficient of Variation 13.1 % (11.5-14.5) Immature Granulocyte % (Auto) 0.3 % Immature Granulocyte # (Auto) 0.02 K/uL (0.00-0.02) Prothrombin Time 10.5 SECONDS (9.0-12.0) Prothromb Time International Ratio 1.0 (0.9-1.1) Activated Partial Thromboplast Time 23.7 SECONDS (21.0-31.0) Partial Thromboplastin Ratio 0.9 Anion Gap 4.0 mmol/L (3-11) Est Creatinine Clear Calc Drug Dose 78.4 ml/min Estimated GFR () 93.9 Estimated GFR (Non- 81.0 BUN/Creatinine Ratio 26.9 (10-20) Calcium Level 9.1 mg/dl (8.5-10.1) Bedside Troponin I < 0.030 ng/ml (0-0.045) Laboratory results as reviewed by me. Medications Administered Medications (Trade) Dose Ordered Sig/Barbara Route Start Time Stop Time Status Last Admin Dose Admin Levalbuterol (Xopenex 1.25MG/ 3ML Neb) 1.25 mg ONE STAT INH 01/24/18 14:09 01/24/18 14:10 DC 01/24/18 14:38 1.25 MG ECG Per My Interpretation Indication: other (lung burning) Rate (beats per minute): 89 Rhythm: sinus rhythm Findings: PVC (frequent), Q waves (Inferior), other (LVH) Comparison ECG Date: 12/22/17 Change: no significant change ED Course 1201: The patient was evaluated in room A9. A complete history and physical exam was performed. 1409: I reevaluated the patient, and talked to her about her test results, and she states that she does not know what will help, but she will try some Xopenex. I ordered Levalbuterol 1.25mg INH 1416: I discussed the patient's case with Dr. Morales - Pulmonology, and he states that if she wants we can offer to put her on a 9 day course of a prednisone taper, otherwise he will see her in his office. 1426: I discussed the recommendation from Dr. Morales, and she was agreeable to the plan. 1507: I reassessed the patient, and she feels better with the Xopenex, and she is ready for discharge. Medical Decision This is a 67-year-old female presents with lung burning. Differential diagnoses considered include pneumonitis, COPD, pneumonia, pleurisy, bronchitis. The patient was seen here December 22 for shortness of breath and burning in her lungs. She was diagnosed with pneumonitis and placed on prednisone. She was seen here in August of last year for light headedness which she stated at the time started a year prior. She had a normal head CT and was treated with Xopenex. I did evaluate the patient as noted above. Patient is presenting with lung burning which she has had for about 2-1/2 years. She also gets lightheaded with this symptom and presents similarly today. She has been seen by her doctor as well as her creative services manager and contract specialist. She has been referred to another creative services manager in [place]. She is presenting with the same symptoms today although states that they are somewhat worse. IV access was established. The patient was placed on a continuous school lunch monitor. She is not hypoxemic. She is not tachypneic. She has no wheezing on examination. I did order and personally review the patient's 12-lead EKG and chest x-ray as described above. I did order and review the patient's blood work as noted in the electronic medical record. Her white blood cell count is normal. Troponin 2 is negative. I did discuss the test results with the patient. She states that sometimes Xopenex helps her lung burning. She has no wheezing but I did go ahead and treat her with Xopenex. I did reevaluate her and she does state that she feels better. I did discuss case with Dr. Morales, her creative services manager, who recommended increasing her prednisone and having her follow-up in the office. The patient was agreeable with this plan. She will stop her Medrol Dosepak and was given a prescription for a prednisone taper. She was discharged in good condition. Medication Reconcilliation Current Medication List: was personally reviewed by me Blood Pressure Screening Patient's blood pressure: Normal blood pressure Consults Time Called: 1411 Consulting Physician: Dr. Andrew Scott Pulmonology Returned Call: [phone] I discussed the patient's case with Dr. Andrew Scott Pulodalis, and he states that if she wants we can offer to put her on a 9 day course of a prednisone taper, otherwise he will see her in his office. Impression Primary Impression: Chronic chest pain Additional Impression: Light headedness Scribe Attestation The scribe's documentation has been prepared under my direct and personally reviewed by me in its entirety. I confirm that the note above accurately reflects all work, treatment, procedures, and medical decision making performed by me. Departure Information Dispostion Home / Self-Care Referrals Chadwick Mccollum MD (PCP) Forms HOME CARE DOCUMENTATION FORM, IMPORTANT VISIT INFORMATION, WORK / SCHOOL INSTRUCTIONS Patient Instructions ED Dizziness [facility], My [facility] Additional Instructions You have been examined and treated today on an emergency basis only. This is not a substitute for, or an effort to provide, complete comprehensive medical care. It is impossible to recognize and treat all injuries or illnesses in a single emergency department visit. It is therefore important that you follow up closely with your physician. Call as soon as possible for an appointment. Return for worsening symptoms or if you develop fever, vomiting, or any other concerning symptoms. Problem Qualifiers
== END 2018-01-24 17:00 | disposition home or self-care (01) ==
LOC: EDBD 11:09 → C.EDA 11:10
DX: R07.9 Chest pain, unspecified (principal); R42 Dizziness and giddiness; D24.9 Benign neoplasm of unspecified breast; Z88.5 Allergy status to narcotic agent; Z88.8 Allergy status to other drugs, medicaments and biological substances

== ENCOUNTER 2019-01-13 11:46 | Observation (INO) ==
[2019-01-13] MEDS ORDERED: LEVALBUTEROL HCL 0.63 MG/3 ML NEB NEB STA (12:07)
--- NOTE | 2019-01-13 12:41 | XRay Report ---
XR chest 1V portable CLINICAL HISTORY: Atypical chest pain COMPARISON STUDY: 11/11/2018 FINDINGS: The cardiac and mediastinal contours are normal. There is no evidence of focal pulmonary co nsolidation. There is no evidence of failure. No pleural effusions are visualized.[ IMPRESSION: No active disease in the chest. Electronically signed by: Inocente Reynoso M.D. 01/13/2019 12:39 PM
[2019-01-13 12:43] LABS: Basophils # (auto) 0.02 K/uL (0-0.2); Basophils % (auto) 0.4 %; Eosinophils # (auto) 0.08 K/uL (0-0.5); Eosinophils % (auto) 1.5 %; Hematocrit (blood only) 41.5 % (37-47); Hemoglobin 13.8 g/dL (12.0-16.0); Lymphocytes # (auto) 1.36 K/uL (1.2-3.4); Lymphocytes % (auto) 26.3 %; Mean Corpuscular Hgb Conc 33.3 g/dL (32-36); Mean Corpuscular Volume 89.2 fL (80-100); Mean Platelet Volume 9.7 fL (7.4-10.4); Monocytes # (auto) 0.29 K/uL (0.11-0.59); Monocytes % (auto) 5.6 %; Neutrophils # (auto) 3.42 K/uL (1.4-6.5); Neutrophils % (auto) 66.2 %; Platelet Count 228 K/uL (130-400); RDW Coefficient of Variation 12.8 % (11.5-14.5); RDW Standard Deviation 41.4 fL (36.4-46.3); Red Blood Count 4.65 M/uL (4.2-5.4); White Blood Count 5.17 K/uL (4.8-10.8)
[2019-01-13 12:45] LABS: Base Excess VBG 3.6 mEq/L; pH VBG 7.38 (7.36-7.41)
[2019-01-13 13:03] LABS: Alanine Aminotransferase 22 U/L (12-78); Albumin Level 3.4 gm/dl (3.4-5.0); Aspartate Aminotransferase 12 U/L (15-37); BUN Creatinine Ratio 15.9 (10-20); Blood Urea Nitrogen 11 mg/dl (7-18); Calcium 8.6 mg/dl (8.5-10.1); Carbon Dioxide 29 mmol/L (21-32); Chloride 108 mmol/L (98-107); Creatinine Clr Calc Pharmacy 84.9 ml/min; Est GFR (African American) 104.6; Est GFR (Non-African American) 90.3; Glucose 154 mg/dl (70-99); Magnesium 2.3 mg/dl (1.8-2.4); Potassium 3.6 mmol/L (3.5-5.1); Sodium 139 mmol/L (136-145)
[2019-01-13 13:14] LABS: Albumin Globulin Ratio 0.9 (0.9-2); Alkaline Phosphatase 120 U/L (45-117); Bilirubin,Total 0.2 mg/dl (0.2-1); Globulin 3.9 gm/dl (2.5-4.0); NT Pro B Type Natriuretic Pept 129 pg/ml (0-900); Phosphorus 3.3 mg/dl (2.5-4.9); Total Protein 7.3 gm/dl (6.4-8.2); Troponin I < 0.015 ng/ml (0-0.045)
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
--- NOTE | 2019-01-13 15:39 | History & Physical Report ---
Date of Service January 13, 2019 Assessment & Plan (1) Obstructive lung disease: (2) Burning in the chest: Pt with hx chronic burning sensation to lungs for years, worse with perfume/smell exposures. Follows with Elvin Davila -pulmonology. Pt reports numerous inhalers in past which were not effective. Presented today with c/o increased lung burning and reported home pulse ox of 89%. Pt reports that she has qualified for oxygen at night however her insurance wants her to have oxygen concentrator which she reports has too many chemicals and she wants an actual oxygen tank, so she does not currently have home oxygen. Pt denies SOB, wheezing, CP, cough, fever/chills. In ER pt afebrile, P: 109 down to 93, R: 20, BP: 150/90, 127/80, 96% on RA. CXR: no acute changes. No leukocytosis -nocturnal pulse ox study -xopenex prn -supplemental oxygen as needed -pulmonology consult, appreciate recommendations (3) Cardiomyopathy: Hx nonischemic cardiomyopathy Hx echo 03/2018: EF: 20-25%, severe global hypokinesis, mild mitral regurgitation. Pt refused ICD in past Not on any medications including aspirin, beta blockers secondary to medication reactions No CP or SOB reported. EKG sinus tach, rate [address] changes from prior Doubt ACS -negative troponin, will trend troponin -resting echo -EKG in am (4) Palpitations: Chronic palpitations, worse with walking or not using her bipap. Hx PVCs in past -tele to monitor (5) TESSA (obstructive sleep apnea): Does not use bipap secondary to concern about chemicals from tubing and machine -bipap HS will be ordered if pt willing to use DVT Prophylaxis -SCDs Full Code as per discussion with pt Follows with Dr Mccollum for routine care Pt was seen with Dr Garrett. See addendum History of Present Illness Chief Complaint: Lung burning Primary Care Provider: Chadwick Mccollum MD Pt is 68 y/o F with PMH anxiety, COPD, TESSA, non-ischemic cardiomyopathy refused ICD, dyslipidemia presented to ER with c/o "lung burning". Pt states chronic burning sensation to lungs for years which she believes started after chemical exposure. States today had increased burning lung sensation and her pulse ox at home was 89%. Pt also reports chronic palpitations, worse when she doesn't wear her bipap. Pt states doesn't wear her bipap as there are chemicals coming of the tubing and mask that make her lungs burn worse. Any exposure to smells/perfumes also aggravate this. Burning of lungs last approx 3-4 hours and improves with oxygen use. States follows with Elvin Davila -pulmonology. Pt reports that she has qualified for oxygen at night however her insurance wants her to have oxygen concentrator which she reports has too many chemicals and she wants an actual oxygen tank, so she does not currently have home oxygen. Pt was scheduled for 6 minute walk to see if she qualified for continuous oxygen, however she did not have test done as she was worried about perfume exposures and worried about increased palpitations with walking. Hx PVCs. She reports chronic palpitations with walking. States sometimes has intermittent dizziness when she is having lung flare. denies syncope. Pt denies CP or SOB just burning sensation to lungs. Pt not on any cardiac or pulmonary medications as reports multiple med intolerances. Pt has followed with ENT and also had negative GERD workup and negative swallowing study. Denies fever/chills, diaphoresis, N/V/D/C, PUGH, vision changes, neck pain, orthopnea, cough, sore throat, choking, otalgia, rhinorrhea, abdominal pain, paresthesias, weakness, extremity weakness, extremity edema, rashes, urinary symptoms. Hx echo 03/2018: EF: 20-25%, severe global hypokinesis, mild mitral regurgitation. Allergies Allergy/AdvReac Type Severity Reaction Status Date / Time lisinopril Allergy Severe possible Verified 01/13/19 12:12 angioedema codeine Allergy Intermediate chest pain Unverified 01/13/19 12:12 gabapentin Allergy Intermediate Short of Unverified 01/13/19 12:12 breath iodine Allergy Intermediate swelling Verified 01/13/19 12:12 in throat, hives meperidine Allergy Intermediate HIVES Unverified 01/13/19 12:12 propoxyphene Allergy Intermediate HIVES Unverified 01/13/19 12:12 albuterol Allergy Unknown HEART RACES Unverified 01/13/19 12:12 Beta-Blockers Allergy Unknown THROAT Unverified 01/13/19 12:12 (Beta-Adrenergic Bloc SWELLING digoxin Allergy Unknown THROAT Verified 01/13/19 12:12 SWELLING lorazepam Allergy Unknown TACHYCARDIA Verified 01/13/19 12:12 losartan Allergy Unknown THROAT Verified 01/13/19 12:12 SWELLING NSAIDS (Non-Steroidal Allergy Unknown hives Verified 01/13/19 12:12 Anti-Inflamma prednisone Allergy Unknown HEART RACES Verified 01/13/19 12:12 ranitidine Allergy Unknown TACHYCARDIA Verified 01/13/19 12:12 diphenhydramine AdvReac Intermediate heart race Verified 01/13/19 12:12 aspirin AdvReac Unknown HX: ulcers Verified 01/13/19 12:12 and bleeding tendencies* ANTIBIOTICS Allergy Unknown PT STATES Uncoded 01/13/19 12:12 SHE HAS HAD HIVES/RASH FROM MULTIPLE ANTIBIOTICS Past Med/Surg History Medical History TESSA (obstructive sleep apnea) (Chronic) Chemical burn (Chronic) Obstructive lung disease (Chronic) Cardiomyopathy (Chronic) "nonischemic, LVEF 28% 2015" PVC's (premature ventricular contractions) (Chronic) Chronic chest pain (Chronic) Surgical History Status post cholecystectomy (Chronic) Status post cardiac catheterization (Chronic) Social History Communication Ability: Effective Revenue Integrity Analyst Required: No Beliefs That Will Affect Care: None marital status: / Current Living Situation: Alone current occupational status: retired Other Information That Helps Us Care for You: No Feels Safe at Home: Yes Safety Concerns: Feels Safe At This Time Smoking Status: Never smoker Hx Alcohol Use: No Hx Substance Use: No Review of Systems All systems reviewed & are unremarkable except as noted in HPI & below Physical Exam Vital Signs (Past 24 Hours): Last Vital Signs Temp 36.4 C L 01/13/19 11:49 Pulse 99 H 01/13/19 14:40 Resp 20 01/13/19 14:40 BP 151/95 H 01/13/19 14:31 Pulse Ox 97 01/13/19 14:40 Physical Exam: General: no distress, WDWN Head: normocephalic, atraumatic Eyes: PERRL, EOM's intact, conjunctiva non-injected, anicteric ENT: normal inspection external ears, nose, mucous membranes moist Neck: supple, trachea midline, non-tender Lungs: clear, no respiratory distress, no wheezing/rhonchi/rales CV: RRR, no murmur, no JVD, no pretibial edema Abd: normal BS, soft, non-tender Ext: no cyanosis, no calf tenderness Neuro: A&O x 3, no focal deficits noted, normal affect Skin: warm, dry Results & Data Laboratory Results Short CBC 01/13/19 Range/Units 12:21 WBC 5.17 (4.8-10.8) K/uL Hgb 13.8 (12.0-16.0) g/dL Hct 41.5 (37-47) % Plt Count 228 (130-400) K/uL BMP 01/13/19 12:21 Sodium 139 Potassium 3.6 Chloride 108 H Carbon Dioxide 29 BUN 11 Creatinine 0.70 Glucose 154 H Calcium 8.6 Cardiac Enzymes 01/13/19 Range/Units 12:21 Troponin I < 0.015 (0-0.045) ng/ml Liver Function 01/13/19 Range/Units 12:21 Total Bilirubin 0.2 (0.2-1) mg/dl AST 12 L (15-37) U/L ALT 22 (12-78) U/L Alkaline Phosphatase 120 H (45-117) U/L Albumin 3.4 (3.4-5.0) gm/dl Diagnostic Findings CXR: IMPRESSION: No active disease in the chest. ECG Rate (beats per minute): 111 Rhythm: sinus tachycardia Change: no significant change Supervising Physician Co-Signing Physician Notes Care coordinated with Sharron BREAUX. Agree with above note. Patient seen and examined. Please refer to her notes for full details. Vital signs reviewed. Physical exam: General exam: Alert and oriented. Not in acute distress. CVS: S1 and S2 heard, regular rate and rhythm, no murmurs. RS: Clear to auscultation, no wheezing or crackles. ABD: Soft, bowel sounds present, nontender, no distention. VASCULAR TECHNOLOGIST: Nonfocal. EXT: No edema, no erythema. Labs: Reviewed. Assessment and plan: 68F with PMH of CHF EF 20-25% refused ICD and not taking any medications due to reactions and hx of TESSA not using Bipap because she thinks it causing burning of her lungs and also any chemicals effects her who lives alone comes because of increasing burning sensations of her lungs . Burning sensations of her lungs patient says she is sensitive to chemicals hx of TESSA but not using bipap because it worsening her burning sensation though it helped with her breathing likes to test for nocturnal oxygen requirements Will consult Pulmonary Follows with Elvin Segura. CHF ef 20-25% refused ICD NOt taking any meds as per cardiology notes from 03/2018 she refuses medications and attributes her sob to chemical exposure while inpatient she improves with Lasix. non compliance. Other diagnosis and plan of care as per []. Binh eid MD.
[2019-01-13] MEDS ORDERED: LEVALBUTEROL HCL 0.63 MG/3 ML NEB NEB PRN (16:58)
[2019-01-13] MEDS: ACETAMINOPHEN 325 MG TAB PO PRN (18:06)
[2019-01-13] MEDS ORDERED: TRAMADOL HCL 50 MG TABLET PO PRN (20:46)
[2019-01-13] MEDS ORDERED: MoRPHine SULFATE 4 MG/ML 1 ML CARP\\VIAL IV PRN (22:06)
[2019-01-13] MEDS ORDERED: OXYCODONE/ACETAMINOPHEN 5mg/325mg TAB PO PRN (22:06)
[2019-01-13] MEDS ORDERED: TRAMADOL HCL 50 MG TABLET PO STA (22:45)
[2019-01-14] MEDS ORDERED: TRAMADOL HCL 50 MG TABLET PO PRN (04:16)
[2019-01-14] MEDS ORDERED: TRAMADOL HCL 50 MG TABLET PO STA (04:16)
[2019-01-14] MEDS ORDERED: TRAMADOL HCL 50 MG TABLET ONE (04:21)
[2019-01-14 06:33] LABS: Hematocrit (blood only) 39.6 % (37-47); Hemoglobin 13.2 g/dL (12.0-16.0); Mean Corpuscular Hgb Conc 33.3 g/dL (32-36); Mean Corpuscular Volume 89.6 fL (80-100); Platelet Count 221 K/uL (130-400); RDW Coefficient of Variation 12.7 % (11.5-14.5); RDW Standard Deviation 41.5 fL (36.4-46.3); Red Blood Count 4.42 M/uL (4.2-5.4); White Blood Count 4.81 K/uL (4.8-10.8)
[2019-01-14 07:01] LABS: BUN Creatinine Ratio 18.4 (10-20); Calcium 8.4 mg/dl (8.5-10.1); Creatinine Clr Calc Pharmacy 83.2 ml/min; Est GFR (African American) 102.9; Est GFR (Non-African American) 88.8; Potassium 3.7 mmol/L (3.5-5.1)
--- NOTE | 2019-01-14 08:46 | Hospitalist Progress Note ---
Date of Service January 14, 2019 Assessment & Plan (1) Obstructive lung disease: (2) Burning in the chest: Pt with hx of chronic burning sensation to lungs for years, worse with perfume / smell exposures. Pt reports numerous inhalers in past which were not effective. Came in with increased lung burning and home pulse oximetry of 89%. Claimed that she qualifies for home oxygen, however her insurance wants her to have oxygen concentrator which she reports has chemicals and wants an actual oxygen tank. Nocturnal oximetry study was done heredoes not qualify for nocturnal oxygen Oxygen saturation throughout hospital stay remained above 92% on room air No acute issues noted during this admission -CXR- no active disease Discussed with pulmonarysuspect strong psychological component to her symptoms. Cleared for discharge from their point of view -Follow up with Elvin Davila outpatient (3) Cardiomyopathy: Hx nonischemic cardiomyopathy -Echo done here-EF 25-30%, severe global hypokinesis, mild to moderate MR, no pulmonary hypertension, no significant change compared to prior study -Not on any medications including aspirin, beta blockers secondary to medication reactions -EKG- no acute ischemic changes; Trop x 2 negative (4) Palpitations: Chronic palpitations, worse with walking or not using her BIPAP. Hx PVCs in past -Monitor (5) TESSA (obstructive sleep apnea): Does not use BIPAP secondary to concern about chemicals from tubing and machine -Explained importance of using BIPAP DVT Prophylaxis -SCDs Full Code as per discussion with pt Disposition Cleared by pulmonary Okay to discharge home today Subjective Patient asked me not to go near her as she smelled some perfume/laundry detergent on me. Mentions about her extreme sensitivity to these products. She had an episode of vomiting, which she says was likely secondary to Tylenol she received today morning. Burning sensation in lung is better. No shortness of breath, fever, chills, chest pain, abdominal pain, nausea, leg swelling. Physical Exam Vital Signs (Past 24 Hours): Last Vital Signs Temp 36.4 C L 01/14/19 07:43 Pulse 86 01/14/19 07:43 Resp 18 01/14/19 07:43 BP 134/83 01/14/19 07:43 Pulse Ox 95 01/14/19 07:43 Physical Exam: Did not allow me to go near her as she smelled perfume and la undry detergent on me. Constitutional: well developed Awake, alert, oriented x3, not in acute distress
[2019-01-14] MEDS: ACETAMINOPHEN 325 MG TAB PO PRN (09:56)
--- NOTE | 2019-01-14 10:42 | Discharge Summary ---
Date of Service January 14, 2019 Admission HPI Per Admitting Provider Pt is 68 y/o F with PMH anxiety, COPD, TESSA, non-ischemic cardiomyopathy refused ICD, dyslipidemia presented to ER with c/o "lung burning". Pt states chronic burning sensation to lungs for years which she believes started after chemical exposure. today had increased burning lung sensation and her pulse ox at home was 89%. Pt also reports chronic palpitations, worse when she doesn't wear her bipap. Pt states doesn't wear her bipap as there are chemicals coming of the tubing and mask that make her lungs burn worse. Any exposure to smells/perfumes also aggravate this. Burning of lungs last approx 3-4 hours and improves with oxygen use. follows with Elvin Davila -pulmonology. Pt reports that she has qualified for oxygen at night however her insurance wants her to have oxygen concentrator which she reports has too many chemicals and she wants an actual oxygen tank, so she does not currently have home oxygen. Pt was scheduled for 6 minute walk to see if she qualified for continuous oxygen, however she did not have test done as she was worried about perfume exposures and worried about increased palpitations with walking. Hx PVCs. She reports chronic palpitations with walking. sometimes has intermittent dizziness when she is having lung flare. denies syncope. Pt denies CP or SOB just burning sensation to lungs. Pt not on any cardiac or pulmonary medications as reports multiple med intolerances. Pt has followed with ENT and also had negative GERD workup and negative swallowing study. Denies fever/chills, diaphoresis, N/V/D/C, PUGH, vision changes, neck pain, orthopnea, cough, sore throat, choking, otalgia, rhinorrhea, abdominal pain, paresthesias, weakness, extremity weakness, extremity edema, rashes, urinary symptoms. Hx echo 03/2018: EF: 20-25%, severe global hypokinesis, mild mitral regurgitation. Principal Diagnosis 1. Burning in lung, acute conditions ruled out Secondary diagnoses on discharge 1. Nonischemic cardiomyopathy 2. CHF, systolic, chronic 3. Obstructive sleep apnea, not compliant with BiPAP Discharge Exam Did not allow me to go near her as she smelled perfume and laundry detergent on me. Constitutional: well developed Awake, alert, oriented x3, not in acute distress Discussed with pulmonary who did examine her and said her lungs were clear Discharge Data Allergies Allergy/AdvReac Type Severity Reaction Status Date / Time lisinopril Allergy Severe possible Verified 01/13/19 12:12 angioedema codeine Allergy Intermediate chest pain Unverified 01/13/19 12:12 gabapentin Allergy Intermediate Short of Unverified 01/13/19 12:12 breath iodine Allergy Intermediate swelling Verified 01/13/19 12:12 in throat, hives meperidine Allergy Intermediate HIVES Unverified 01/13/19 12:12 propoxyphene Allergy Intermediate HIVES Unverified 01/13/19 12:12 albuterol Allergy Unknown HEART RACES Unverified 01/13/19 12:12 Beta-Blockers Allergy Unknown THROAT Unverified 01/13/19 12:12 (Beta-Adrenergic Bloc SWELLING digoxin Allergy Unknown THROAT Verified 01/13/19 12:12 SWELLING lorazepam Allergy Unknown TACHYCARDIA Verified 01/13/19 12:12 losartan Allergy Unknown THROAT Verified 01/13/19 12:12 SWELLING NSAIDS (Non-Steroidal Allergy Unknown hives Verified 01/13/19 12:12 Anti-Inflamma prednisone Allergy Unknown HEART RACES Verified 01/13/19 12:12 ranitidine Allergy Unknown TACHYCARDIA Verified 01/13/19 12:12 diphenhydramine AdvReac Intermediate heart race Verified 01/13/19 12:12 aspirin AdvReac Unknown HX: ulcers Verified 01/13/19 12:12 and bleeding tendencies* ANTIBIOTICS Allergy Unknown PT STATES Uncoded 01/13/19 12:12 SHE HAS HAD HIVES/RASH FROM MULTIPLE ANTIBIOTICS Consultations 01/13/19 14:32 ED Decision to Admit Stat 01/13/19 16:58 Consult Pulmonology Routine Hospital Course (1) Obstructive lung disease: (2) Burning in the chest: Pt with hx of chronic burning sensation to lungs for years, worse with perfume / smell exposures. Pt reports numerous inhalers in past which were not effective. Came in with increased lung burning and home pulse oximetry of 89%. Claimed that she qualifies for home oxygen, however her insurance wants her to have oxygen concentrator which she reports has chemicals and wants an actual oxygen tank. Nocturnal oximetry study was done heredoes not qualify for nocturnal oxygen Oxygen saturation throughout hospital stay remained above 92% on room air No acute issues noted during this admission -CXR- no active disease Discussed with pulmonarysuspect strong psychological component to her symptoms. Cleared for discharge from their point of view -Follow up with Elvin Davila outpatient (3) Cardiomyopathy: Hx nonischemic cardiomyopathy -Echo done here-EF 25-30%, severe global hypokinesis, mild to moderate MR, no pulmonary hypertension, no significant change compared to prior study -Not on any medications including aspirin, beta blockers secondary to medication reactions -EKG- no acute ischemic changes; Trop x 2 negative (4) Palpitations: Chronic palpitations, worse with walking or not using her BIPAP. Hx PVCs in past -Monitor (5) TESSA (obstructive sleep apnea): Does not use BIPAP secondary to concern about chemicals from tubing and machine -Explained importance of using BIPAP DVT Prophylaxis -SCDs Full Code as per discussion with pt Disposition Cleared by pulmonary Okay to discharge home today Total Time Total Time Spent Total Time Spent (In Minutes): 25 minutes Discharge Plan Discharge Items Patient Disposition: Home - Self-Care Reason For Visit: PULMONARY CONCERN Discharge Diagnosis: Burning in lung, acute conditions ruled out Discharge Goals: Decrease discomfort Activity: Resume your previous activity Non-emergency contact: Primary Care Provider Call non-emergency contact if: your symptoms worsen Follow-up/Referrals: Chadwick Mccollum MD [Primary Care Provider] - 01/18/19 11:45 am Diet: Heart Healthy Addtl Provider Instructions: MEDICATION CHANGES- No changes made to your medications Pain medication: Recommend Tylenol 650 mg every 6 hours as needed for pain Stand-Alone Forms: Call Back Authorization, [facility] Discharge Orders: Discharge Order (Routine); Ordered 01/14/19 Ordered By: Louann Rosa Admission Data Admit Date/Time: 01/13/19 15:26 Attending Provider: Louann Rosa Admit Provider: Binh Garrett Primary Care Provider: Chadwick Mccollum Other Providers: Mayito Morales ; Korey Davila ; Valeria Strange ; Stanley Gee ; Vanessa Moreno ; Goldy Bowman ; Awilda Leo ; Wilmer Huddleston ; Genia Carroll ; Seema Vazquez ; Hong Murcia ; Chapo Garcia ; Ino Castillo ; Binh Garrett Service: Telemetry Medical Other Interventions: Discharge Summary Assessment (RN) Last Done: 01/14/19 11:08 Pending Studies at Discharge: No
--- NOTE | 2019-01-14 22:34 | Consultation Report ---
DATE OF CONSULTATION: 01/14/2019 REASON FOR CONSULTATION: COPD exacerbation. HISTORY OF PRESENT ILLNESS: A 68-year-old white female was admitted onto the hospitalist service last evening by Dr. Louann Rosa after having been seen in the Emergency Room by Dr. Prabhakar Jara. The patient had been complaining of burning in her chest, starting with her sore throat associated with dyspnea. The pain was otherwise nonradiating. She has a history of cardiomyopathy, ventricular ectopy, COPD, previous cholecystectomy and has undergone cardiac catheterization in the past because of this chronic almost chemical burning sensation that started last night. She develops these symptoms when exposed and irritated by perfumes, soaps, detergents and colognes. For the reasons that set these symptoms off, she is unclear, but the decision was to refer her to the ER. Elvin Davila/physician printing assistant with the pulmonary medicine group last saw her on 12/21/2018 who encouraged her to continue using her BiPAP at night for her obstructive sleep apnea. The patient has complained of dizziness and palpitations in the past for reasons that are unclear. She has been seen at [facility], was placed on what Elvin felt was gabapentin for "nerve pain." She is frequently noncompliant with her BiPAP at night. Hypersensitivity panel and IgE have been normal in the past. Sed rate may be minimally elevated. She has seen multiple practitioners in the past. Six-minute ambulation study done just the day showed no evidence for desaturation and 6 minutes despite symptoms of dyspnea. Overnight pulse oximetry performed in November did show nocturnal desaturation and oxygen was ordered. CAT scan of 01/05/2019 showed no acute intrathoracic pathology. A chest x-ray done in the ER showed no active disease. PFTs last done in 05/2017 showed an FEV1/FVC ratio of 77%. No bronchodilator was administered. Lung volumes suggested mild restriction in diffusion capacity when corrected for level of alveolar ventilation was adequate. PFTs in 2015 showed an FEV1/FVC ratio of 73% with a reduction in forced vital capacity and concomitant restrictive ventral defect was again seen. She is also followed by ENT doctor, Dr. Bhandari for her multinodular goiter and frequent ultrasounds have showed no significant change in size or shape of the nodules. For details of past medical history, medications, family and social history, I refer you to current and past record. PHYSICAL EXAMINATION: GENERAL: Well-developed, well-nourished white female in no obvious distress at rest, very pleasant. VITAL SIGNS: Temperature 36.4, respiratory rate 18, pulse 86 and regular, blood pressure 134/83, 95% sat on room air. SKIN: Warm and dry. HEENT: Atraumatic, normocephalic, PERRLA, EOMI. Conjunctivae pink. Sclerae nonicteric. Fundi benign. Tympanic membranes within normal limits. . NECK: Neck veins are not distended at 45 degrees. No adenopathy in the supra or infraclavicular areas. LUNGS: Distant P and A. CARDIAC: Regular rate and rhythm. ABDOMEN: No S3 or gallop. ABDOMEN: Soft, scaphoid. EXTREMITIES: No pedal edema, clubbing, cyanosis. NEUROLOGICAL: Intact. No lateralizing signs. LABORATORY DATA: White count 4800, H and H [address] and chest x-ray is noted. PT, PTT within normal limits. ABGs venous pH 7.38, pCO2 of 51. Calculated CO2 28. IgE was normal. Hypersensitivity pneumonitis panel in 03/2018 essentially unremarkable. OVERALL ASSESSMENT: A 68-year-old with frequent bouts of burning in chest and throat that have been assumed to be related to her underlying chronic obstructive pulmonary disease or asthma. It looks difficult for made to pin down these symptoms with what I hear or auscultate on examination. The patient's lungs seen clear to me today. I see nothing on chest x-ray or CAT scan that would be worrisome and suspect we have an undetermined etiology for her symptoms that do not appear to be cardiac in origin according to previous workup that included cardiac catheterization. At this point in time, I would lighten up on her pain medications as she says this is making her nauseated and encourage ambulation and eventual discharge perhaps even today. DINESH
--- OUTSIDE RECORDS SUMMARY | 2019-01-30 14:01 | External Medical Summary | Continuity of Care Document ---
:1950 Author Name Gus Mary Address Unavailable Unavailable , Care Team Providers Name Role Phone Giovanni BREAUX Unavailable [email or web address] Unavailable [email or web address] Brittany Mary Unavailable [email or web address] RICKI Unavailable Unavailable Zain Mary Unavailable [email or web address] Syeda Mary Unavailable [email or web address] HOANG Mary Unavailable Unavailable Andrew Mary Unavailable [email or web address] Cable DO Unavailable [email or web address] Problems Lumbar radiculopathy (724.4) (M54.16) RBBB (right bundle branch block) (426.4) (I45.10) Thyroid cyst (246.2) (E04.1) Dysuria (788.1) (R30.0) Complex endometrial hyperplasia (621.32) (N85.01) Microscopic hematuria (599.72) (R31.29) Complex endometrial hyperplasia with atypia (621.33) (N85.02 ) Hypercholesterolemia (272.0) (E78.00) Inflamed seborrheic keratosis (702.11) (L82.0) Impaired fasting glucose (790.21) (R73.01) Foot mass, right (782.2) (R22.41) Insomnia (780.52) (G47.00) Anxiety (300.00) (F41.9) Foreign body in left ear (931) (T16.2XXA) Snoring (786.09) (R06.83) Sleep disturbances (780.50) (G47.9) Discoloration of skin of toe (709.00) (L81.9) Neoplasm of uncertain behavior of skin (238.2) (D48.5) Postnasal drip (784.91) (R09.82) PVC (premature ventricular contraction) (427.69) (I49.3) Sinus tachycardia (427.89) (R00.0) Paroxysmal ventricular tachycardia (427.1) (I47.2) Hematuria, microscopic (599.72) (R31.29) 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) Lumbar spondylosis (721.3) (M47.816) Dermatitis (692.9) (L30.9) Urinary incontinence (788.30) (R32) Insect bites (919.4) (W57.XXXA) Moveman's papule (698.3) (L28.1) Orthopnea (786.02) (R06.01) Sleep apnea (780.57) (G47.30) Shortness of breath (786.05) (R06.02) Abnormal EKG (794.31) (R94.31) Adrenal nodule (255.8) (E27.9) Abnormal uterine bleeding (626.9) (N93.9) Asthma (493.90) (J45.909) Cardiomyopathy, nonischemic (425.4) (I42.8) Reactive airway disease (493.90) (J45.909) Allergy (995.3) (T78.40XA) Hoarseness (784.42) (R49.0) Pulmonary nodule (793.11) (R91.1) Gastroesophageal reflux disease (530.81) (K21.9) Multinodular thyroid (241.1) (E04.2) Nocturnal hypoxia (327.24) (G47.34) Chemical exposure (V87.2) (Z77.098) Cough (786.2) (R05) 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) Palpitations (785.1) (R00.2) 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) TESSA (obstructive sleep apnea) (327.23) (G47.33) Hypoxia (799.02) (R09.02) Radicular pain (729.2) (M54.10) Allergies and Adverse Reactions Albuterol Sulfate NEBU (Allergy) Reactio n: Tachycardia Amoxicillin TABS (Allergy) Aspirin TABS (Allergy) Reaction: Other Benadryl CAPS (Allergy) Codeine Derivatives (Allergy) Reaction: Shortness of breath Darvocet-N 50 TABS (Allergy) Demerol TABS (Allergy) Flexeril TABS (Allergy) Iodinated Contrast Media (Allergy) React ion: Hives NSAIDs (Allergy) predniSONE (Allergy) Medications Fluocinonide 0.05 % External Ointment; A PPLY SPARINGLY TO AFFECTED AREA(S) TWICE DAILY Tyra Soto Start: 03-Feb-2017 Quantity: 1 30 GM Tube Refills: 1 Sterile Saline Solution; 7 % normal sali ne. Use 1 vial via Nebulizer every 3-4 hours SAEID Davila Start: 07-Dec-2017 Quantity: 360 Refills: 5 Gabapentin 100 MG Oral Capsule; TAKE 1 CAPSULE TWICE DAILY. Start: 21-Dec-2018 Quantity: 60 Refills: 5 Stiolto Respimat 2.5-2.5 MCG/ACT Inhalation Aerosol So lution; 2 puffs daily. SAEID Davila Start: 07-Jan-2017 Quantity: 4 4 GM Inhaler Refills: 5 Aspirin 81 MG TABS; TAKE 1 TABLET DAILY. Start: 12-Sep-2015 Quantity: 30 Refills: 5 Budesonide 0.5 MG/2ML Inhalation Suspens ion; USE 1 UNIT DOSE VIA NEBULIZER TWO TIMES A DAY SAEID Davila Start: 06-Jan-2018 Quantity: 2 30 x 2 ML Plas Cont Refills: 5 [place] Nasal Mist SOLN Refills: 0 Nystatin-Triamcinolone OINT Refills: 0 [place] 160 MCG/ACT Inhalation Aerosol Solution; INHAL E 1 PUFFS Twice daily SAEID Davila 6.1 GM Inhaler Quantity: 1 Refills: 5 Saline 0.9 % Solution; USE ONE VIALSALIN E MIXED WITH LEVALBUTERAL VIA NEBULIZER EVERY 4 HOURS NEEDED SAEID Davila Start: 30-Mar-2017 Quantity: 2 360 ML Bottle Refills: 0 Betamethasone Valerate 0.1 % External Cr eam; APPLY SPARINGLY TO AFFECTED AREA(S) TWICE DAILY 45 GM Tube Refills: 0 methylPREDNISolone 4 MG Oral Tablet Therapy Pack; TAKE DIRECTED. SAEID Davila Start: 06-Jan-2018 Quantity: 1 21 Tablet Pack Refills: 0 Azithromycin 250 MG Oral Tablet; TAKE 2 TABLETS ON DAY 1 THEN TAKE 1 TABLET A DAY FOR 4 DAYS. SAEID Davila Start: 13-May-2017 Quantity: 1 6 Tablet Box Refills: 0 Budesonide 0.25 MG/2ML Inhalation Suspen mohini; USE 1 UNIT DOSE VIA NEBULIZER TWO TIMES A DAY SAEID Davila Start: 30-Mar-2017 Quantity: 2 30 x 2 ML Plas Cont Refills: 5 OptiChamber Ana; USE WITH ALBUTEROL INHALER, DULERA, PLEASE INSTRUCT THE PATIENT Tyra Reyez Start: 20-Mar-2016 Quantity: 1 Refills: 0 Procedures Rheumatoid Factor Date: 07-Dec-2018 Iron Date: 07-Dec-2018 Antinuclear Antibodies ([facility]ION Screen) Date: 07-Dec-2018 CT (Chest) Thorax w/o Contrast Date: 30-Dec-2018 History of Cholecystectomy Status: Compl eted Immunizations Immunizations not documented Family History Sister Family history of Breast Cancer (V16.3) Status: Active Family history of Uterine Cancer (V16.49) Status: Active Mother Family history of Melanoma (172.9) (C43.9) Status: Active Father Family history of malignant neoplasm of esophagus (V16 .0) (Z80.0) Status: Active Social History - Smoking Status Never smoker Plan of Treatment Planned Encounters Appointment; Korey Davila PA-C Start: 20-Apr-2019 9:00 Req uest Planned Observations Planned Goals not documented Results CT chest wo con Laboratory: [facility] Diagnostic Imaging [address] [facility] MELVIN 05-Jan-2019 12:35 CT chest wo con [facility] [place] [phone] CT Scan Report Patient: CEFERINO MAK Admit Date: 01/05/19 MR#: [id number] Address1: [address] [place] [address] Acct ID:[id number] Address2: Date: 1950 [facility] Zip: [place] [id number] Age: 68 Location: CT Sex: F Room/Bed: Att Phy: Korey Davila PA-C Diagnosis: A STHMA WITH COPD Beckie Phy: Chadwick Mccollum MD Service D ate: 01/05/19 Fam Phy: Interpreting Phy: German Alvarado MD Admit Phy: Ordering Phy: Korey Davila PA-C cc: CT chest wo con CLINICAL HISTORY: 68 years-old Female presenting with ASTHMA WITH COPD, burning sensation in the lungs . TECHNIQUE: Multidetector CT imaging of the chest was performed without the use of intravenous contrast. IV contrast: None. One or more dose lowering techniques were used consistent with the principles of ALARA (as low as reasonably achievable), including automatic exposure control, mA or kV adjustment to individual patient size, and/or use of iterative reconstruction. COMPARISON: Chest CT from 05/25/2017. CT DOSE (mGy.cm): The estimated cumulative dose is 312.10 mGycm. FINDINGS: Special Events Director topogram: Unremarkable. Soft tissues: Normal thyroid and thoracic inlet. No axillary, supraclavicular, mediastinal, or hilar lymphadenopathy. Atherosclerosis of the aorta. Normal heart size. Coronary artery and aortic valve calcification. No pericardial or pleural effusion. 1.4 cm nodule in the left adrenal gland previously demonstrated to represent a benign adenoma. This is unchanged in size and appearance. Gallbladder is absent. Lungs and airways: No pneumothorax. Central airways patent. Pulmonary arteries are not significantly enlarged relative to adjacent bronchi. No interlobular septal thickening. Stable solidbenign-appearing polygonal peripheral and fissural nodules. These are most characteristic of unencapsulated pulmonary lymphoid tissue. No new nodule or infiltrate. Musculoskeletal: Normal osseous structures. IMPRESSION: 1. No acute intrathoracic pathology. Electronically signed by: German Alvarado M.D. 01/05/2019 12:42 PM Dictated: 01/05/19 1235 Transcribed: 01/05/19 1235 Troponin I (Pending) Laboratory: [facility] Laboratory [address] [facility] [address] tel: 13-Jan-2019 18:24 TROPONIN (cTnI) < 0.015 ng/ml Range: 0- 0.045 ng/ml Act87 Hepatitis C IgG Laboratory: [facility] Laboratory Screen (Pending) [address] [facility] [address] tel: 13-Jan-2019 12:30 Act87 Hepatitis C IgG Screen Range: Neg Neg Comments: This test was performed in compliance with [place] LawAct 87 of 2015.The result is "Negative," meaning there is no evidence ofcurrent infection or prior exposure to Hepatitis C. Troponin I (Pending) Laboratory: [facility] Laboratory [address] [facility] [address] tel: 14-Jan-2019 0:08 TROPONIN (cTnI) < 0.015 ng/ml Range: 0- 0.045 ng/ml CBC No Diff (Pending) Laboratory: [facility] Laboratory [address] [facility] [address] tel: 14-Jan-2019 5:58 WBC 4.81 K/uL Range: 4.8-10.8 K/u L RBC 4.42 {M/uL} Range: 4.2-5.4 M/uL HEMOGLOBIN 13.2 g/dL Range: 12.0-16.0 g /dL HEMATOCRIT 39.6 % Range: 37-47 % MCV 89.6 fL Range: 80-100 fL MCH 29.9 pg Range: 25-34 pg MEAN CORPUSCULAR HGB CONC 33.3 Range: 3 2-36 g/dL g/dL RED CELL DISTRIBUTION WIDTH SD Range: 3 6.4-46.3 fL 41.5 fL RED CELL DISTRIBUTION WIDTH CV Range: 1 1.5-14.5 % 12.7 % PLATELET COUNT 221 K/uL Range: 130-400 K/uL MEAN PLATELET VOLUME 10.0 fL Range: 7.4 -10.4 fL Basic Metabolic Panel Laboratory: [facility] Laboratory (Pending) [address] [facility] [address] tel: 14-Jan-2019 5:58 SODIUM 141 mmol/L Range: 136-145 mmol /L POTASSIUM 3.7 mmol/L Range: 3.5-5.1 mmo l/L CHLORIDE 108 mmol/L (above high Range: 98-107 mmol/L threshold) CARBON DIOXIDE 28 mmol/L Range: 21-32 m mol/L ANION GAP 5.0 Range: 3-11 BLOOD UREA NITROGEN 13 mg/dl Range: 7-1 8 mg/dl CREATININE 0.71 mg/dl Range: 0.6-1.2 mg /dl Estimated Creatinine Clearance Range: m l/min 83.2 ml/min Comments: Est. Creat inine Clearance (Mod Cockcroft-Gault) for pharmacydosing purposes. Estimated GFR ( Comments: Units: ml/min per Cambodian) 102.9 1.73 meters squaredT he estimated GFR (CKD-E PI equation) has not be en validatedfor inpatie nt settings and may not be an accurate reflectiono f renal function in critical ly ill patients or those wi thrapidly changing renal funct ion (e.g. ANAMIKA). Estimated GFR (Non- Comments: Uni ts: ml/min per Cambodian) 88.8 1.73 meters squaredT he estimated GFR (CKD-E PI equation) has not be en validatedfor inpatie nt settings and may not be an accurate reflectiono f renal function in critical ly ill patients or those wi thrapidly changing renal funct ion (e.g. ANAMIKA). BUN/CREATININE RATIO 18.4 Range: 10-20 GLUCOSE 109 mg/dl (above high Range: 70 -99 mg/dl threshold) CALCIUM 8.4 mg/dl (below low Range: 8.5 -10.1 mg/dl threshold) Lipid Profile - Fasting Laboratory: [facility] Laboratory (Pending) [address] [facility] [address] tel: 14-Jan-2019 5:58 TRIGLYCERIDES 96 mg/dl Range: 0-150 mg/ dl Comments: TRIGLYCERI IDALMIS Normal triglyceride: <150 mg/dl Borderline High: 150-199 mg/dl High: 200-499 mg/dl Very High: > or = 500 mg/dl CHOLESTEROL 216 mg/dl (above Range: 0-2 00 mg/dl high threshold) Comments: TOTAL CHOL ESTEROL Desirable: <200 mg/dl Borderline High: 200-239 mg/dl High Cholesterol: > or = 240 mg/dl LDL CHOLESTEROL CALCULATED 150 Range: m g/dl mg/dl VERY LOW DENSITY LIPOPROT CALC Range: m g/dl 19 mg/dl HDL CHOLESTEROL 47 mg/dl Range: mg/dl Comments: Unable to flag abnormal result. Please refer tointerpretive data below:HDL CHOLESTEROL Low HDL: <40 mg/dl Normal: 40-60 mg/dl Desirable: >60 mg/dl CHOLESTEROL/HDL RATIO 5 Encounters Appointment; BENJIE GALARZA, NS4 12-Jan-2019 10:00 Encounter Diagnosis: Problem not documented Appointment; Korey Davila PA-C 21-Dec-2018 9:15 Encounter Diagnosis: Problem not documented Appointment; Korey Davila PA-C 30-Nov-2018 8:45 Encounter Diagnosis: Problem not documented Appointment; Ino Bhandari M.D. 17-Nov-2018 13:00 Encounter Diagnosis: Problem not documented Appointment; Korey Davila PA-C 12-Oct-2018 9:15 Encounter Diagnosis: Problem not documented Appointment; Ino Bhandari M.D. 06-Oct-2018 15:15 Encounter Diagnosis: Problem not documented Appointment; Korey Davila PA-C 21-Jul-2018 11:15 Encounter Diagnosis: Problem not documented Appointment; Korey Davila PA-C 13-Jul-2018 9:45 Encounter Diagnosis: Problem not documented Appointment; Korey Davila PA-C 15-Apr-2018 9:00 Encounter Diagnosis: Problem not documented Appointment; Korey Davila PA-C 16-Mar-2018 14:15 Encounter Diagnosis: Problem not documented Appointment; Korey Davila PA-C 16-Feb-2018 14:15 Encounter Diagnosis: Problem not documented Appointment; Korey Davila PA-C 06-Jan-2018 9:00 Encounter Diagnosis: Problem not documented Appointment; Korey Davila PA-C 07-Dec-2017 10:30 Encounter Diagnosis: Problem not documented Appointment; Ino Bhandari M.D. 18-Nov-2017 9:20 Encounter Diagnosis: Problem not documented Appointment; Korey Davila PA-C 23-Sep-2017 11:00 Encounter Diagnosis: Problem not documented Appointment; Doni Soto M.D. 15-Sep-2017 11:00 Encounter Diagnosis: Problem not documented Appointment; Korey Davila PA-C 25-Aug-2017 9:15 Encounter Diagnosis: Problem not documented Appointment; Korey Davila PA-C 16-Jun-2017 10:30 Encounter Diagnosis: Problem not documented Appointment; Doni Soto M.D. 16-Jun-2017 9:10 Encounter Diagnosis: Problem not documented Appointment; Korey Davila PA-C 13-May-2017 15:30 Encounter Diagnosis: Problem not documented Appointment; Korey Davila PA-C 30-Mar-2017 13:15 Encounter Diagnosis: Problem not documented Appointment; Ceasar Villarreal M.D. 23-Mar-2017 10:20 Encounter Diagnosis: Problem not documented Appointment; Doni Soto M.D. 22-Mar-2017 10:20 Encounter Diagnosis: Problem not documented Appointment; Phil Love Au.D.|CCC-A 25-Feb-2017 8:40 Encounter Diagnosis: Problem not documented Appointment; Ino Bhandari M.D. 19-Feb-2017 13:10 Encounter Diagnosis: Problem not documented Appointment; Korey Davila PA-C 09-Feb-2017 15:15 Encounter Diagnosis: Problem not documented Appointment; Doni Soto M.D. 03-Feb-2017 10:40 Encounter Diagnosis: Problem not documented Appointment; Korey Davila PA-C 20-Apr-2019 9:00 Encounter Diagnosis: Problem not documented
== END 2019-01-14 13:11 | disposition home or self-care (01) ==
LOC: 2N 11:46 → ED 11:46 → 2N 16:30

== ENCOUNTER 2020-04-27 01:05 | Inpatient (IN) ==
[2020-04-27] MEDS ORDERED: SODIUM CHLORIDE 0.9% 500 ML IV ONE (01:44)
--- NOTE | 2020-04-27 01:50 | Emergency Department Note ---
Impression & Plan SBO (small bowel obstruction), Hyperglycemia ED Provider Note NAME: CEFERINO MAK AGE: 69 SEX: F ARRIVES VIA: Walk-In INFORMANT: Patient ED PROVIDER(S): April Dunbar DO CHIEF COMPLAINT: Nausea and abdominal distention [facility] consultation with surgery MEDICAL DECISION MAKING: This is a 69-year-old female patient who presents to the emergency department 2 days after a laparoscopic hysterectomy at [facility] complaining of abdominal distention, nausea and vomiting. Triage Nursing notes reviewed and agree them. Discharge records from [facility] reviewed Vital Signs: reviewed and remarkable for tachycardia Differential diagnosis: Ileus, small bowel obstruction, postsurgical complication, ER treatment provided: IV fluids, IV analgesia, IV Zofran Diagnostics interpreted by me: ECG: Sinus tachycardia at 101 with no obvious signs of ischemia. This EKG is unchanged from an EKG from October 2019. There is no ectopy. Cardiac Monitoring: Sinus tachycardia at 113 Laboratory studies: See below Imaging studies: As per stat rad CT abdomen and pelvis without contrast: Small bowel obstruction. Transition point along the ventral abdominal wall inferior to the umbilicus. Dilation of the small bowel up to 3 cm. Postsurgica l changes from her recent hysterectomy. Small amount of residual postsurgical free air. Small volume free fluid, favored reactive. Obstruction series: As per my interpretation Moderately dilated loops of small bowel concerning for small bowel obstruction. HPI: 69/F arrives for evaluation of nausea and vomiting. This is a 69-year-old female patient who presents the emergency department complaining of nausea, vomiting and abdominal distention after having a laparoscopic hysterectomy at [facility] 2 days ago because of cancerous cells noted within the uterus. The patient had the surgery done under spinal anesthesia. Patient was passing gas after the surgery but has not had a bowel movement. She states that she was eating normally up until earlier today when she began to vomit. She had previous cholecystectomy ROS: See above HPI for pertinent positives & negatives. A total of 10 systems reviewed and were otherwise negative. PAST MEDICAL HISTORY:See Below PAST SURGICAL HISTORY:See Below FAMILY HISTORY:See Below SOCIAL HISTORY:See Below HOME MEDICATIONS:See list ALLERGIES:See list VITALS:See Below PHYSICAL EXAMINATION: HEENT: Head - normocephalic and atraumatic Pupils are equal, round, and reactive to light. Extraocular eye muscles are intact, and sclera are anicteric. Nose - moist nasal mucosa without discharge. Mouth - moist buccal mucosa. Oropharynx is nonerythematous and there is no tonsillar exudate or edema noted. Neck: Supple; no JVD, nuchal rigidity, cervical lymphadenopathy. Heart: Regular rate and rhythm. There is a normal S1 and S2 with no murmurs, c licks, or gallops appreciated. Lungs: Clear to auscultation bilaterally with no wheezes, rales, or rhonchi. Abdomen: Moderately distended and tympanic to percussion. Lower abdominal incision is intact with ecchymosis surrounding it but no signs of infection. Extremities: No evidence of cyanosis, clubbing, or edema. There are easily palpable peripheral pulses. Skin: warm and dry with good turgor and no rashes. ED COURSE: Times/Reassessments: 0125: The patient was evaluated in room C9. A complete history and physical was performed. Laboratory studies were drawn as above. An order was placed for continuous cardiac monitoring. The patient remained in normal sinus rhythm at 98. The patient went for an obstruction series as described above. She will go for a CT scan. Upon returning from CT, the patient complained of worsening abdominal pain and nausea. She was given a dose of IV Zofran and IV Dilaudid. The case was d iscussed with Gene Rincon PA-C from surgery and he will evaluate the patient 0415: The patient is resting more comfortably at this time. She will have an NG tube placed. I discussed the case with Dr. Garrett and he will evaluate the patient for further care. 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 Required: No Beliefs That Will Affect Care: None marital status: / Current Living Situation: Alone Current Living Situation Comment: has caregivers 7 hours/day current occupational status: unemployed Feels Safe at Home: Yes Childhood Exposure to Second-Hand Smoke: No Allergies Allergies Allergy/AdvReac Type Severity Reaction Status Date / Time Beta-Blockers Allergy Severe THROAT Verified 04/27/20 02:06 (Beta-Adrenergic Bloc SWELLING digoxin Allergy Severe THROAT Verified 04/27/20 02:06 SWELLING doxycycline Allergy Severe THROAT Verified 04/27/20 02:06 SWELLS, SWELLING lisinopril Allergy Severe possible Verified 04/27/20 02:06 angioedema losartan Allergy Severe THROAT Verified 04/27/20 02:06 SWELLING banana Allergy Intermediate Hives Verified 04/27/20 02:06 codeine Allergy Intermediate chest pain Verified 04/27/20 02:06 gabapentin Allergy Intermediate Short of Verified 04/27/20 02:06 breath iodine Allergy Intermediate swelling Verified 04/27/20 02:06 in throat, hives meperidine Allergy Intermediate HIVES Verified 04/27/20 02:06 NSAIDS (Non-Steroidal Allergy Intermediate hives Verified 04/27/20 02:06 Anti-Inflamma propoxyphene Allergy Intermediate HIVES Verified 04/27/20 02:06 amoxicillin Allergy Unknown CAN'T Verified 04/27/20 02:06 REMEMBER cyclobenzaprine Allergy Unknown CAN'T Verified 04/27/20 02:06 [From Flexeril] REMEMBER albuterol AdvReac Intermediate HEART RACES Verified 04/27/20 02:06 diphenhydramine AdvReac Intermediate heart race Verified 04/27/20 02:06 lorazepam AdvReac Intermediate TACHYCARDIA Verified 04/27/20 02:06 prednisone AdvReac Intermediate HEART RACES Verified 04/27/20 02:06 ranitidine AdvReac Intermediate TACHYCARDIA Verified 04/27/20 02:06 tramadol AdvReac Intermediate Vomiting Verified 04/27/20 02:06 aspirin AdvReac Unknown HX: ulcers Verified 04/27/20 02:06 and bleeding tendencies* Iodinated Contrast Media Allergy Intermediate Hives Uncoded 04/27/20 02:06 Albuterol Sulfate NEBU Allergy Unknown Unknown Uncoded 04/27/20 02:06 ANTIBIOTICS Allergy Unknown PT STATES Uncoded 04/27/20 02:06 SHE HAS HAD HIVES/RASH FROM MULTIPLE ANTIBIOTICS Home Meds Home Medications Medication Instructions Recorded Confirmed Alvesco 2 puff INHALATION BID 04/28/19 04/27/20 cetirizine 10 mg PO QAM 04/28/19 04/27/20 lifitegrast 5 % eye drops in a 1 drops OPB BID 02/12/20 07/25/20 dropperette ondansetron HCl 4 mg tablet 4 mg PO DIRECTED PRN 11/15/19 04/27/20 acetaminophen [Tylenol] 650 mg PO Q4H PRN 04/27/20 04/27/20 enoxaparin 40 mg SUBCUT DAILY 04/27/20 04/27/20 hydromorphone 2 mg PO Q4H PRN 04/27/20 04/27/20 Previous Rx's Medication Instructions Recorded Oxygen Home #1 ea 10/23/19 tolterodine 4 mg capsule,extended 4 mg PO DAILY #90 cap 12/28/19 release 24 hr Oxygen Home #1 ea 01/26/20 Miscellaneous Pulmonary Supply #1 ea 02/16/20 Results & Data (ED) Vital Signs Vital Signs - 24 hr 04/27/20 01:14 04/27/20 01:44 04/27/20 03:30 Temperature 36.5 C Temperature Source Oral Pulse Rate 99 H Pulse Rate [Apical] 113 H Pulse Rate from SpO2 Sensor Respiratory Rate 21 19 Respiratory Depth Normal Blood Pressure 112/72 Blood Pressure [Right Arm] 135/82 Blood Pressure Mean 85 Blood Pressure Mean [Right Arm] 99 Pulse Oximetry 96 94 Oxygen Delivery Method Room Air Nasal Cannula Oxygen Flow Rate 2 Sepsis Recent Fever Within 48 Hours No Sepsis New/Unexplained Change in Mental Status No Sepsis Action Taken by Nursing No Action Required 04/27/20 04:00 04/27/20 04:30 04/27/20 05:00 Temperature Temperature Source Pulse Rate 106 H 121 H 105 H Pulse Rate [Apical] Pulse Rate from SpO2 Sensor 99 H 120 H 105 H Respiratory Rate 24 20 24 Respiratory Depth Blood Pressure 147/91 H 136/87 127/60 Blood Pressure [Right Arm] Blood Pressure Mean 116 95 76 Blood Pressure Mean [Right Arm] Pulse Oximetry 97 98 96 Oxygen Delivery Method Nasal Cannula Nasal Cannula Room Air Oxygen Flow Rate 2 2 Sepsis Recent Fever Within 48 Hours Sepsis New/Unexplained Change in Mental Status Sepsis Action Taken by Nursing 04/27/20 05:30 04/27/20 06:00 04/27/20 06:30 Temperature Temperature Source Pulse Rate 101 H 106 H 100 H Pulse Rate [Apical] Pulse Rate from SpO2 Sensor 103 H 105 H 101 H Respiratory Rate 20 22 22 Respiratory Depth Blood Pressure 115/85 125/90 128/91 Blood Pressure [Right Arm] Blood Pressure Mean 95 100 103 Blood Pressure Mean [Right Arm] Pulse Oximetry 94 93 95 Oxygen Delivery Method Room Air Room Air Room Air Oxygen Flow Rate Sepsis Recent Fever Within 48 Hours Sepsis New/Unexplained Change in Mental Status Sepsis Action Taken by Nursing Laboratory Data Result diagrams: 04/27/20 01:38 04/27/20 01:38 Lab Results 04/27/20 04/27/20 Range/Units 01:38 01:38 WBC 12.43 H (4.8-10.8) K/uL RBC 5.02 (4.2-5.4) M/uL Hgb 15.3 (12.0-16.0) g/dL Hct 45.6 (37-47) % MCV 90.8 (80-100) fL MCH 30.5 (25-34) pg MCHC 33.6 (32-36) g/dL RDW Std Deviation 44.5 (36.4-46.3) fL RDW Coeff of Leonora 13.4 (11.5-14.5) % Plt Count 350 (130-400) K/uL MPV 10.0 (7.4-10.4) fL Immature Gran % (Auto) 0.3 % Neut % (Auto) 85.1 % Lymph % (Auto) 9.3 % [place] % (Auto) 5.0 % Eos % (Auto) 0.2 % Baso % (Auto) 0.1 % Neut # (Auto) 10.58 H (1.4-6.5) K/uL Lymph # (Auto) 1.16 L (1.2-3.4) K/uL [place] # (Auto) 0.62 H (0.11-0.59) K/uL Eos # (Auto) 0.02 (0-0.5) K/uL Baso # (Auto) 0.01 (0-0.2) K/uL Immature Gran # (Auto) 0.04 H (0.00-0.02) K/uL Sodium 140 (136-145) mmol/L Potassium 3.9 (3.5-5.1) mmol/L Chloride 102 (98-107) mmol/L Carbon Dioxide 30 (21-32) mmol/L Anion Gap 8.0 (3-11) BUN 22 H (7-18) mg/dl Creatinine 0.90 (0.6-1.2) mg/dl Est Cr Clr Drug Dosing Not Reportable Est GFR ( Amer) 76.7 Est GFR (Non-Af Amer) 66.2 BUN/Creatinine Ratio 24.0 H (10-20) Glucose 234 H (70-99) mg/dl Calcium 9.2 (8.5-10.1) mg/dl Total Bilirubin 0.6 (0.2-1) mg/dl AST 11 L (15-37) U/L ALT 32 (12-78) U/L Alkaline Phosphatase 78 (45-117) U/L Total Protein 7.5 (6.4-8.2) gm/dl Albumin 3.4 (3.4-5.0) gm/dl Globulin 4.1 H (2.5-4.0) gm/dl Albumin/Globulin Ratio 0.8 L (0.9-2) Lipase 142 (73-393) U/L Administered Medications Discontinued Medications Hydromorphone HCl (Dilaudid) 0.5 mg IV NOW STA Stop: 04/27/20 03:29 Last Admin: 04/27/20 03:36 Dose: 0.5 mg Documented by: [id number] Hydromorphone HCl (Dilaudid) Confirm Administered Dose 0.5 mg .ROUTE .STK-MED ONE Stop: 04/27/20 05:56 Last Admin: 04/27/20 05:58 Dose: 0.5 mg Documented by: [id number] Sodium Chloride (Nss) 500 mls @ 999 mls/hr IV .Q31M ONE Stop: 04/27/20 02:14 Last Infusion: 04/27/20 03:01 Dose: 0 mls/hr Documented by: [id number] Admin: 04/27/20 02:30 Dose: 999 mls/hr Documented by: [id number] Ondansetron HCl (Zofran) 4 mg IV NOW STA Stop: 04/27/20 03:28 Last Admin: 04/27/20 03:31 Dose: 4 mg Documented by: [id number] Discharge Plan Visit Data Chief Complaint: Vomiting Stated Complaint: BLOATING,VOMITING ED Provider: April Dunbar Discharge Problem: SBO (small bowel obstruction), Hyperglycemia Forms Stand Alone Forms: [facility] [employer] Prescriptions Prescriptions: No Action (DME) Oxygen Home Liters Per Minute See Rx Instructions .ROUTE .MEDSUPPLY Qty: 1 RF: 0 tolterodine 4 mg capsule,extended release 24hr 4 mg PO DAILY Qty: 90 RF: 3 (DME) Oxygen Home Liters Per Minute See Rx Instructions .ROUTE .MEDSUPPLY Qty: 1 RF: 0 (DME) Miscellaneous Pulmonary Supply Misc See Rx Instructions .ROUTE .MEDSUPPLY Qty: 1 RF: 5 ondansetron HCl [Zofran] 4 mg tablet 4 mg PO DIRECTED PRN (Reason: Nausea And Vomiting) RF: 0 Xiidra 5 % dropperette 1 drops OPB BID RF: 0 acetaminophen [Tylenol] 325 mg Tablet 650 mg PO Q4H PRN (Reason: Fever Or Pain) RF: 0 hydromorphone 2 mg Tablet 2 mg PO Q4H PRN (Reason: Pain) RF: 0 enoxaparin 40 mg/0.4 mL Syringe 40 mg SUBCUT DAILY RF: 0 cetirizine 10 mg Tablet 10 mg PO QAM RF: 0 Alvesco 160 mcg/actuation HFA aerosol inhaler 2 puff inhalation BID RF: 0
[2020-04-27 01:51] LABS: Basophils # (auto) 0.01 K/uL (0-0.2); Basophils % (auto) 0.1 %; Eosinophils # (auto) 0.02 K/uL (0-0.5); Eosinophils % (auto) 0.2 %; Hematocrit (blood only) 45.6 % (37-47); Hemoglobin 15.3 g/dL (12.0-16.0); Immature Granulocytes # (auto) 0.04 K/uL (0.00-0.02); Immature Granulocytes % (auto) 0.3 %; Lymphocytes # (auto) 1.16 K/uL (1.2-3.4); Lymphocytes % (auto) 9.3 %; Mean Corpuscular Hemoglobin 30.5 pg (25-34); Mean Corpuscular Hgb Conc 33.6 g/dL (32-36); Mean Corpuscular Volume 90.8 fL (80-100); Monocytes # (auto) 0.62 K/uL (0.11-0.59); Neutrophils # (auto) 10.58 K/uL (1.4-6.5); Neutrophils % (auto) 85.1 %; Platelet Count 350 K/uL (130-400); RDW Coefficient of Variation 13.4 % (11.5-14.5); RDW Standard Deviation 44.5 fL (36.4-46.3); Red Blood Count 5.02 M/uL (4.2-5.4); White Blood Count 12.43 K/uL (4.8-10.8)
[2020-04-27 02:08] LABS: Alanine Aminotransferase 32 U/L (12-78); Albumin Level 3.4 gm/dl (3.4-5.0); Aspartate Aminotransferase 11 U/L (15-37); Blood Urea Nitrogen 22 mg/dl (7-18); Calcium 9.2 mg/dl (8.5-10.1); Carbon Dioxide 30 mmol/L (21-32); Chloride 102 mmol/L (98-107); Est GFR (African American) 76.7; Est GFR (Non-African American) 66.2; Glucose 234 mg/dl (70-99); Lipase 142 U/L (73-393); Potassium 3.9 mmol/L (3.5-5.1); Sodium 140 mmol/L (136-145)
[2020-04-27 02:11] LABS: Albumin Globulin Ratio 0.8 (0.9-2); Alkaline Phosphatase 78 U/L (45-117); Bilirubin,Total 0.6 mg/dl (0.2-1); Globulin 4.1 gm/dl (2.5-4.0); Total Protein 7.5 gm/dl (6.4-8.2)
[2020-04-27] MEDS ORDERED: ONDANSETRON INJ 2 MG/ML 2 ML VIAL IV STA (03:27)
[2020-04-27] MEDS ORDERED: HYDROmorphone INJ 0.5 MG/0.5 ML SYR IV STA (03:28)
--- NOTE | 2020-04-27 04:06 | Surgery Consultation ---
Date of Consultation April 27, 2020 Assessment & Plan (1) Small bowel obstruction: -although CT shows concern for SBO, this study was performed without contrast, so ileus may also be at play here -medicine to admit ptl to hospital -will try conservative measures: -npo status -hydration measures -if any further N/V ensue she may require NGT for gastric decompression -will continue to follow while in hospital as above/pt seen. no pain or nausea currently. POD 4 from hysterectomy at [facility]... ileus would be more common in this setting but could be SBO. agree with NGT/NPO/IVF... will recheck KUB tomorrow. no urgent indications for surgery at this point and will continue conservative management. History of Present Illness History of Present Illness 69 year old female had a laparoscopic hysterectomy at [facility] 2 days ago. She notes she was in the hospital about 2 days. Prior to d/c she was tolerated diet, but did not have a BM. Earlier today she began to have some abdominal pain along with N/V so she came to the ED. She has been unable to eat anything since her N/V began, and had emesis in the care on the way to [facility]. She denies fevers, shakes, chills. In the ED, CT scan of the abdomen (without contrast) showed concern for a SBO. At the [facility] eof my exam she was in no distress. Allergies Allergy/AdvReac Type Severity Reaction Status Date / Time Beta-Blockers Allergy Severe THROAT Verified 04/27/20 02:06 (Beta-Adrenergic Bloc SWELLING digoxin Allergy Severe THROAT Verified 04/27/20 02:06 SWELLING doxycycline Allergy Severe THROAT Verified 04/27/20 02:06 SWELLS, SWELLING lisinopril Allergy Severe possible Verified 04/27/20 02:06 angioedema losartan Allergy Severe THROAT Verified 04/27/20 02:06 SWELLING banana Allergy Intermediate Hives Verified 04/27/20 02:06 codeine Allergy Intermediate chest pain Verified 04/27/20 02:06 gabapentin Allergy Intermediate Short of Verified 04/27/20 02:06 breath iodine Allergy Intermediate swelling Verified 04/27/20 02:06 in throat, hives meperidine Allergy Intermediate HIVES Verified 04/27/20 02:06 NSAIDS (Non-Steroidal Allergy Intermediate hives Verified 04/27/20 02:06 Anti-Inflamma propoxyphene Allergy Intermediate HIVES Verified 04/27/20 02:06 amoxicillin Allergy Unknown CAN'T Verified 04/27/20 02:06 REMEMBER cyclobenzaprine Allergy Unknown CAN'T Verified 04/27/20 02:06 [From Flexeril] REMEMBER albuterol AdvReac Intermediate HEART RACES Verified 04/27/20 02:06 diphenhydramine AdvReac Intermediate heart race Verified 04/27/20 02:06 lorazepam AdvReac Intermediate TACHYCARDIA Verified 04/27/20 02:06 prednisone AdvReac Intermediate HEART RACES Verified 04/27/20 02:06 ranitidine AdvReac Intermediate TACHYCARDIA Verified 04/27/20 02:06 tramadol AdvReac Intermediate Vomiting Verified 04/27/20 02:06 aspirin AdvReac Unknown HX: ulcers Verified 04/27/20 02:06 and bleeding tendencies* Iodinated Contrast Media Allergy Intermediate Hives Uncoded 04/27/20 02:06 Albuterol Sulfate NEBU Allergy Unknown Unknown Uncoded 04/27/20 02:06 ANTIBIOTICS Allergy Unknown PT STATES Uncoded 04/27/20 02:06 SHE HAS HAD HIVES/RASH FROM MULTIPLE ANTIBIOTICS Home Medications Home Medications Medication Instructions Recorded Confirmed Type Alvesco 2 puff INHALATION BID 04/28/19 04/27/20 History cetirizine 10 mg PO QAM 04/28/19 04/27/20 History Oxygen Home #1 ea 10/23/19 12/15/19 Rx lifitegrast 5 % eye drops in a 1 drops OPB BID 11/15/19 04/27/20 History dropperette ondansetron HCl 4 mg tablet 4 mg PO DIRECTED PRN 11/15/19 04/27/20 History tolterodine 4 mg capsule,extended 4 mg PO DAILY #90 cap 12/28/19 04/27/20 Rx release 24 hr Oxygen Home #1 ea 01/26/20 Rx Miscellaneous Pulmonary Supply #1 ea 02/16/20 Rx acetaminophen [Tylenol] 650 mg PO Q4H PRN 04/27/20 04/27/20 History enoxaparin 40 mg SUBCUT DAILY 04/27/20 04/27/20 History hydromorphone 2 mg PO Q4H PRN 04/27/20 04/27/20 History Patient History Social History Smoking Status: Never smoker Second Hand Exposure: No; Hx Alcohol Use: No Hx Substance Use: No Preferred Language: Senegalese Communication Ability: Effective Visual Impairment: No Limitations Hearing Ability: Normal Chronic Manager Required: No Beliefs That Will Affect Care: None marital status: / Current Living Situation: Alone Current Living Situation Comment: has caregivers 7 hours/day current occupational status: unemployed Feels Safe at Home: Yes Childhood Exposure to Second-Hand Smoke: No Review of Systems Constitutional: no fever and no chills Eyes: no diplopia Ear, Nose, Mouth, Throat: no ear pain Respiratory: no cough and no dyspnea Cardiovascular: no chest pain Gastrointestinal: + abdominal pain, + nausea and + vomiting Genitourinary: no dysuria Musculoskeletal: no back pain Integumentary: no rash Neurologic: no localized weakness Physical Exam Constitutional: well developed and well nourished; no acute distress Eyes: wears glasses ENMT: Ears: no hearing impairment Neck: trachea midline Respiratory: normal respiratory effort, lungs clear to auscultation no labored breathing Cardiovascular: Rate/Rhythm: regular rate and regular rhythm Vessels: radial pulses present Gastrointestinal (Abdomen): BS are hypoactive with mild abdominal distention noted; no rebound tenderness or guarding, mild pain noted with palaption Musculoskeletal: no calf pain Skin: no rashes, warm and dry Neurologic: moves all extremities Psychiatric: A+Ox3, euthymic affect Results & Data Vital Signs (Past 12 Hours) Vital Signs Temp Pulse Pulse Resp BP BP Pulse Ox 04/27/20 03:30 113 H 19 135/82 94 04/27/20 01:14 36.5 C 99 H 21 112/72 96 PG Care Time/CCT Total # of Minutes Spent Total Time Spent with Patient: Total time spent is greater than 50% in coordination of care (as documented) at patient's floor/unit and/or counseling patient: Coding Level of Care Code 39388 Inpt Consult Level 4 Diagnoses Small bowel obstruction K56.609
[2020-04-27] MEDS ORDERED: HYDROmorphone INJ 0.5 MG/0.5 ML SYR ONE (05:55)
--- NOTE | 2020-04-27 07:03 | History and Physical Report ---
DATE OF ADMISSION: 04/27/2020 CHIEF COMPLAINT: Abdominal pain. HISTORY OF PRESENT ILLNESS: This is a 69-year-old female with past medical history significant for hyperlipidemia, thyroid nodule, prediabetes, reactive airways dysfunction syndrome, obstructive sleep apnea, only on oxygen at nighttime, nonischemic cardiomyopathy, chronic systolic heart failure, there is a plan for AICD, vitamin D deficiency, history of endometrial cancer, history of compression fracture of spine, chronic back pain, postnasal drip, multiple chemical sensitivity syndrome, statin intolerance, generalized anxiety disorder, posttraumatic stress disorder. The patient recently on 04/23/2020 had hysterectomy done at [facility]. The patient says since then she did not move her bowels, last night she developed abdominal pain, felt nauseous and she came to the ER and the CAT scan showing small-bowel obstruction. Currently, she is status post NG tube. She still has some abdominal discomfort. Hemodynamics are stable. Denies any headache, no blurred vision, no earache. Has chronic sinuses and sore throat from sinuses. Has some mild cough, no fever, no chills, no chest pain. She has some burning pain in the chest and any chemicals causes burning in the chest, she could not tolerate any chemicals. No rash seen. No lower extremity edema present. Seems comfortable. ALLERGIES: BETA BLOCKERS, DIGOXIN, DOXYCYCLINE, LISINOPRIL, LOSARTAN, BANANA, CODEINE, GABAPENTIN, IODINE, MEPERIDINE, NSAIDS, PROPOXYPHENE, AMOXICILLIN, CYCLOBENZAPRINE, ALBUTEROL, DIPHENHYDRAMINE, LORAZEPAM, PREDNISONE, RANITIDINE, TRAMADOL, ASPIRIN, IODINATED CONTRAST MEDIA, ALBUTEROL SULFATE, ANTIBIOTICS, THE PATIENT HAS RASH FROM MULTIPLE ANTIBIOTICS. PAST MEDICAL HISTORY: As mentioned above. PAST SURGICAL HISTORY: Amputation of the thumb and index finger, dilatation and curettage, insertion of intrauterine device, laparoscopic fulguration of oviducts, laparoscopic cholecystectomy, right sided breast biopsy with needle localization, pelvic exam under anesthesia, tonsillectomy, recent hysterectomy. MEDICATIONS: The patient is on Tylenol 650 mg p.o. q. 4 hours p.r.n. Alvesco 2 puffs inhalation b.i.d., cetirizine 10 mg p.o. a.m., Lovenox 40 mg subcutaneous daily, hydromorphone 2 mg p.o. q. 4 hours p.r.n., lifitegrast 5% eyedrops in both eyes b.i.d., Zofran 4 mg p.o. p.r.n., tolterodine 4 mg capsule extended release 4 mg p.o. daily. FAMILY HISTORY: Significant for father has allergies, esophageal cancer. Mother has uterine cancer, melanoma. Sister has breast cancer. Maternal grandmother has colon cancer, melanoma and uterine cancer. SOCIAL HISTORY: . No smoking, no alcohol, no drug use. REVIEW OF SYMPTOMS: As per HPI. Rest of review of symptoms negative. PHYSICAL EXAMINATION: GENERAL: The patient is of moderate build, not in acute distress. VITAL SIGNS: Temperature 36.5, pulse 113, blood pressure 133/87, oxygen 98% on 2 liters. HEENT: No pallor, no icterus. NECK: No JVD, no neck masses. CARDIOVASCULAR: S1, S2 heard. Tachycardia. No murmurs. RESPIRATORY SYSTEM: Normal AP diameter. No accessory muscle use. No wheezing, no crackles. ABDOMEN: Soft, somewhat distended, mild tenderness and guarding, no rigidity. Bowel sounds very sluggish. CENTRAL NERVOUS SYSTEM: Cranial nerves II-XII grossly intact. Nonfocal. EXTREMITIES: No edema, no erythema. LABORATORY DATA: WBC 12.4, hemoglobin 15.3, hematocrit 45.6, platelets 350. Sodium 140, potassium 3.9, chloride 102, bicarbonate 30, BUN 22, creatinine 0.9, serum glucose 224, calcium 9.2, total bilirubin 0.6, AST 11, ALT 32, alkaline phosphatase 78, lipase 142. Chest x-ray unremarkable. CT of abdomen and pelvis consistent with small-bowel obstruction. ASSESSMENT AND PLAN: This is a 69-year-old female who presents with abdominal pain and found to have a small bowel obstruction. 1. Small-bowel obstruction with history of surgeries in the past. Recently on April 23, she had hysterectomy done at [facility]. Status post NG tube in the ER. We will continue n.p.o., IV fluids, IV Dilaudid p.r.n., IV antiemetics p.r.n. Surgical consult. Monitor in the medical floor. 2. Prediabetes: Currently n.p.o. Diabetic diet when patient is able to eat. We will follow HbA1c levels. 3. History of sleep apnea: Uses oxygen . at bedtime. Could not tolerate BiPAP. 4. Chemical history of reactive airways dysfunction syndrome: Continue home inhalers. Follows with pulmonary. 5. History of chronic systolic heart failure, nonischemic cardiomyopathy: Echo done on 03/2019 shows EF of 25%. As per recent cardiology notes in december in [facility] there is a plan or AICD. Currently getting fluids. We will monitor for any volume overload. 6. Deep venous thrombosis prophylaxis: Sequential compression devices. DISPOSITION: Admit to medical floor. Expect discharge home and follow with her family doctor. Level 1 full code. MTDD
--- NOTE | 2020-04-27 07:47 | XRay Report ---
XR abdomen 2V w PA chest HISTORY: 69 years-old Female abd. distension acute generalized abdominal pain with distention COMPARISON: CT abdomen and pelvis of same day TECHNIQUE: PA view of the chest with erect and supine views of the abdomen FINDINGS: Cardiac silhouette is mildly enlarged. No pneumothorax, pleural effusion, airspace consolidation or o vert pulmonary edema. Bones of the chest appear grossly intact. Electronic device projects over the l eft neck. Multiple dilated loops of small bowel with air-fluid levels are noted within the central abdomen and abdominal left upper quadrant. Gas-filled hepatic flexure is also noted. Lumbar levoscoliosis. IMPRESSION: 1. No acute processes of the chest. 2. Gaseous distention of large and small bowel is suggestive of ileus versus partial obstruction. Cor relate with CT abdomen and pelvis study of same day. ACT 112: Negative or not required by law. The above report was generated using voice recognition software. It may contain grammatical, syntax o r spelling errors. Electronically signed by: Donn Noland M.D. 04/27/2020 7:46 AM
--- NOTE | 2020-04-27 08:33 | CT Scan Report ---
ABDOMEN AND PELVIS CT WITHOUT CONTRAST CT DOSE: 1047.35 mGy.cm HISTORY: Acute generalized abdominal pain with recent hysterectomy. eval for sbo TECHNIQUE: Multiaxial CT images of the abdomen and pelvis were performed without contrast. A dose lo wering technique was utilized adhering to the principles of ALARA. COMPARISON STUDY: Abdominal series radiographs of same day FINDINGS: Mild bibasilar opacities suggest atelectasis. There are a few small air foci noted within the ventral abdominal wall rectus sheath and subcutaneous tissues. Trace pneumoperitoneum. The imaged inferior c ardiac chambers are mildly enlarged with coronary arterial calcifications. Small pericardial effusion . Trace abdominal pelvic ascites. Limited evaluation of the solid abdominal organs without the use of IV contrast. Diminutive spleen. Mild generalized pancreatic atrophy. Gallbladder appears surgically absent. Unremarkable right adrenal gland. Indeterminate soft tissue attenuating 1.6 x 1.2 cm left adr enal gland lesion is unchanged from comparison, previously meeting criteria for adenoma. Unremarkable appearance of the liver. Kidneys are within normal limits. Small focus of nondependent air is seen within the urinary bladder lumen. Hysterectomy. No adnexal mass lesion. Moderate calcified plaque of the abdominal aorta without aneurysm. No adenopathy. Small hiatal hernia. Multiple dilated fluid-filled loops of small bowel with air-fluid levels measure up to approximately 3.0 cm. Moderate fecal retention. Mild gaseous distention of the transverse colo n. Noninflamed appendix. The terminal ileum is decompressed. There is a focal transition point within the small bowel the ventral lower abdominal wall on image 310 series 3 with decompressed bowel seen seen distally and dilated bowel seen proximally. No obstructing mass. This is noted just inferior to the umbilicus. Tiny periumbilical hernia. Subcutaneous stranding of the anterior abdominal wall. The bones appear intact. Multilevel degenerative changes of the spine. Superior endplate compression defo rmity of approximately 30% involves the T11 vertebral body, unchanged. IMPRESSION: 1. Moderate grade small bowel obstruction with transition point noted within the anterior lower abdom en just inferior to the umbilicus. 2. Trace foci of air within the rectus sheath and subcutaneous anterior abdominal wall with trace pne umoperitoneum is likely related to recent hysterectomy. 3. Trace abdominal pelvic ascites with small pericardial effusion. 4. Air within the urinary bladder lumen is likely secondary to recent instrumentation. 5. Additional findings as above. ACT 112: Negative or not required by law. The above report was generated using voice recognition software. It may contain grammatical, syntax o r spelling errors. Electronically signed by: Donn Noland M.D. 04/27/2020 8:32 AM
[2020-04-27] MEDS ORDERED: HYDROmorphone INJ 0.5 MG/0.5 ML SYR IV PRN (09:02)
[2020-04-27] MEDS ORDERED: SODIUM CHLORIDE 0.9% 1000ML 1,000 ML IV SCH (09:02)
[2020-04-27] MEDS: ONDANSETRON INJ 2 MG/ML 2 ML VIAL IV PRN ×2 (09:22→17:02)
[2020-04-27] MEDS ORDERED: GLUCOSE 40% GEL 15 GM TUBE PO PRN (10:45)
[2020-04-27] MEDS ORDERED: CARBOHYDRATES FOR HYPOGLYCEMIA PO PRN (10:45)
[2020-04-27] MEDS ORDERED: GLUCOSE 10 TABS/TUBE PO PRN (10:45)
[2020-04-27] MEDS ORDERED: GLUCAGON FOR INJ 1 MG VIAL SQ PRN (10:45)
[2020-04-27] MEDS ORDERED: DEXTROSE 50% 50 ML SYRINGE IV PRN (10:45)
[2020-04-27] MEDS: D5W AND 1/2NSS 1,000 ML IV SCH (10:50)
--- NOTE | 2020-04-27 10:51 | Hospitalist Progress Note ---
Date of Service April 27, 2020 Assessment & Plan (1) SBO (small bowel obstruction): History of recent hysterectomy -This is a 69-year-old female who presents with abdominal pain and found to have a small bowel obstruction versus ileus -recently had hysterectomy at [place] on 04/23/2020, then subsequently on narcotic pain medications, symptoms initially of constipation starting on 04/22/2020 as last bowel movement and then vomiting prior to admission day -admission CT abdomen 04/27/2020: Moderate grade small bowel obstruction with transition point noted within the anterior lower abdomen just inferior to the umbilicus. Trace foci of air within the rectus sheath and subcutaneous anterior abdominal wall with trace pneumoperitoneum is likely related to recent hysterectomy. Trace abdominal pelvic ascites with small pericardial effusion. Air within the urinary bladder lumen is likely secondary to recent instrumentation. -NG tube in place, not much output in terms suctioning fluid from GI tract, but continue to decompress GI tract -General surgery consult following the patient -minimizing narcotics on this admission unless severe pain (allergy to NSAIDs), prn acetaminophen for milder pain -IV fluids changed from normal saline to D5 1/2 normal saline for nutrition and and hydration while NPO for bowel rest Pre-diabetes -check HbA1 -sliding scale insulin as needed while NPO and on D5 1/2 normal saline Reactive airways dysfunction syndrome (RADS) -is defined as the sudden onset of asthma-like symptoms following high-level exposure to a corrosive gas, vapor, or fumes -apparently she has this medical problem and also she has multiple listed allergies to medications with reaction described as throat swelling or angioedema Sleep apnea -uses supplementary oxygen at night because of intolerance to BIPAP air flow chronic systolic heart failure, nonischemic cardiomyopathy -Echo done on 03/2019 shows EF of 25%. -As per recent cardiology notes in december in [place] there is a plan or AICD. -monitor for any volume overload -any diuretic at this time on prn basis -mild tachycardia but also there are listed allergies to beta blockers, digoxin, lisinopril, losartan (described as throat swelling or angioedema) Deep venous thrombosis prophylaxis: Sequential compression devices. Admission and Anticipated Discharge Date Admission Date: April 27, 2020 Subjective Patient on NG tube. not much output. we discussed her recent surgery in the past and subsequent narcotic pain medication use which likely contributed to small bowel obstruction and recent symptoms. mildly tachycardic on exam. patient with allergy history to beta blockers. no chest pain. no acute shortness of breath. she reports typical oxygen use at night. no acute abdomen pain currently. no dizziness. no headache. Review of Systems Review of Systems: All systems reviewed & are unremarkable except as noted in Subjective Physical Exam Constitutional: comfortable Eyes: PERRL, conjunctivae normal, anicteric sclerae EOM intact bilaterally ENMT: external ear and nose normal, oropharynx normal Neck: trachea midline, no thyromegaly normal visual inspection Respiratory: normal respiratory effort Cardiovascular: Rate/Rhythm: + tachycardic (mild tachycardia) Gastrointestinal (Abdomen): Percussion/Palpation: abdomen soft (left lower quadrant ecchymosis from subcut blood thinners) Musculoskeletal: Head/Neck/Chest: normocephalic and head atraumatic Neurologic: PERRL, EOMI, accommodation nl, no face palsy, no dysarthria CN's II-XI intact bilaterally Psychiatric: A+Ox3, euthymic affect Results & Data Results & Data ([facility]) Vital Signs (Past 12 Hours) Vital Signs Temp Pulse Pulse Resp BP BP Pulse Ox 04/27/20 08:00 108 H 23 131/93 98 04/27/20 07:30 99 H 21 131/78 96 04/27/20 07:00 101 H 19 122/84 98 04/27/20 06:30 100 H 22 128/91 95 04/27/20 06:00 106 H 22 125/90 93 04/27/20 05:30 101 H 20 115/85 94 04/27/20 05:00 105 H 24 127/60 96 04/27/20 04:30 121 H 20 136/87 98 04/27/20 04:00 106 H 24 147/91 H 97 04/27/20 03:30 113 H 19 135/82 94 04/27/20 01:14 36.5 C 99 H 21 112/72 96
[2020-04-27] MEDS ORDERED: Nursing to Pharmacy Communication SCH (11:00)
[2020-04-27] MEDS ORDERED: INSULIN ASPART 100 UNITS/ML 3 ML PEN SC SCH (11:30)
[2020-04-27 11:48] LABS: Albumin Level 2.9 gm/dl (3.4-5.0); BUN Creatinine Ratio 38.5 (10-20); Calcium 8.5 mg/dl (8.5-10.1); Creatinine Clr Calc Pharmacy 90.4 ml/min; Est GFR (African American) 106.5; Est GFR (Non-African American) 91.9; Magnesium 2.2 mg/dl (1.8-2.4); Potassium 3.8 mmol/L (3.5-5.1)
[2020-04-27 11:51] LABS: Albumin Globulin Ratio 0.8 (0.9-2); Bilirubin,Total 0.6 mg/dl (0.2-1); Globulin 3.8 gm/dl (2.5-4.0); Phosphorus 4.5 mg/dl (2.5-4.9); Total Protein 6.7 gm/dl (6.4-8.2)
[2020-04-27] MEDS: FLUTICASONE FUROATE 200MCG 14 PUFFS/INHALER INH SCH ×2 (11:53→11:55)
[2020-04-27] MEDS: INSULIN ASPART 100 UNITS/ML 3 ML PEN SC SCH ×2 (13:08→18:06)
[2020-04-27 13:31] LABS: Estimated Average Glucose 131 mg/dl; Hemoglobin A1C 6.2 % (4.5-5.6)
[2020-04-27] MEDS: ACETAMINOPHEN 1,000 MG/100 ML VIAL IV PRN ×2 (13:31→21:03)
[2020-04-27] MEDS ORDERED: BUDESONIDE 0.5 MG/2 ML VIAL (PULMICORT) NEB SCH (14:00)
[2020-04-27] MEDS ORDERED: LIDOCAINE NEB PRN (17:35)
[2020-04-27] MEDS: ALVESCO PO SCH (20:44)
[2020-04-27 20:57] LABS: Appearance Urine Clear (Clear); Blood Urine Negative (Negative); Color Urine Dark Yellow; Glucose Urine UA Negative (Negative); Ketones Urine Negative (Negative); Leukocyte Esterase Urine Negative (Negative); Nitrite Urine Negative (Negative); Protein Urine Negative (Negative); Specific Gravity Urine 1.036 (1.000-1.030); Urobilinogen Urine Negative (Negative)
[2020-04-27 20:59] LABS: Bilirubin Urine Negative (Negative); Ictotest Urine Negative (Negative)
[2020-04-27] MEDS ORDERED: PROMETHAZINE HCL 12.5 MG in SODIUM CHLORIDE 0.9% 50 ML IV STA (21:08)
[2020-04-28] MEDS: INSULIN ASPART 100 UNITS/ML 3 ML PEN SC SCH ×4 (00:12→19:01)
[2020-04-28] MEDS: HYDROmorphone INJ 0.5 MG/0.5 ML SYR IV PRN ×2 (00:22→19:44)
[2020-04-28] MEDS: D5W AND 1/2NSS 1,000 ML IV SCH (03:11)
--- NOTE | 2020-04-28 05:58 | Surgery Progress Note ---
Date of Service April 28, 2020 Assessment & Plan (1) SBO (small bowel obstruction): -pt. clinically improving -will consider removing NGT once KUB results obtained this am -if KUB looks good and NGT removed may allow some liquids later as above. +flatus. will eval KUB and consider d/c NGT and trying clears if improved. Subjective Pt. denies N/V. She has been passing flatus. She currently denies abdominal pain. Physical Exam Constitutional: well developed and well nourished Gastrointestinal (Abdomen): abdomen less distended than what was noted at time of admission. Results & Data Vital Signs (Past 12 Hours) Vital Signs Temp Pulse Resp BP Pulse Ox 04/28/20 02:42 36.8 C 79 18 129/79 96 04/27/20 22:00 37.0 C 100 H 18 118/74 92 04/27/20 19:00 36.8 C 113 H 20 127/67 97 PG Care Time/CCT Total # of Minutes Spent Total Time Spent with Patient: Total time spent is greater than 50% in coordin ation of care (as documented) at patient's floor/unit and/or counseling patient: Coding Level of Care Code 90474 Subseq Hosp Care Lvl 2 Diagnoses SBO (small bowel obstruction) K56.609
[2020-04-28] MEDS: ACETAMINOPHEN 1,000 MG/100 ML VIAL IV PRN ×3 (06:35→23:30)
[2020-04-28] MEDS: ALVESCO PO SCH ×2 (08:04→22:20)
--- NOTE | 2020-04-28 08:26 | XRay Report ---
KUB HISTORY: Small bowel obstruction sbo COMPARISON: CT abdomen pelvis 04/27/2020 FINDINGS: An enteric tube has been placed, distal tip projected superiorly within the region of the g astric cardia/fundus. Persistent dilated small bowel loops are noted throughout the abdomen and pelvi s. No renal calculi. No ureteral calculi. No pneumoperitoneum or pneumatosis. No fracture. IMPRESSION: 1. Distal tip of enteric tube projects superiorly within the region of the gastric cardia/fundus. Rep ositioning with follow-up imaging recommended. 2. Persistent small bowel obstruction. ACT 112: Negative or not required by law. The above report was generated using voice recognition software. It may contain grammatical, syntax o r spelling errors. Electronically signed by: Donn Noland M.D. 04/28/2020 8:24 AM
--- NOTE | 2020-04-28 12:21 | Hospitalist Progress Note ---
Date of Service April 28, 2020 Assessment & Plan (1) SBO (small bowel obstruction): History of recent hysterectomy -This is a 69-year-old female who presents with abdominal pain and found to have a small bowel obstruction versus ileus -recently had hysterectomy at [place] on 04/23/2020, then subsequently on narcotic pain medications, symptoms initially of constipation starting on 04/22/2020 as last bowel movement and then vomiting prior to admission day -admission CT abdomen 04/27/2020: Moderate grade small bowel obstruction with transition point noted within the anterior lower abdomen just inferior to the umbilicus. Trace foci of air within the rectus sheath and subcutaneous anterior abdominal wall with trace pneumoperitoneum is likely related to recent hysterectomy. Trace abdominal pelvic ascites with small pericardial effusion. Air within the urinary bladder lumen is likely secondary to recent instrumentation. -NG tube in place, not much output in terms suctioning fluid from GI tract, but continue to decompress GI tract -General surgery consult following the patient -minimizing narcotics on this admission unless severe pain (allergy to NSAIDs), prn acetaminophen for milder pain -IV fluids as D5 1/2 normal saline for nutrition and and hydration while NPO for bowel rest -04/28/2020: patient declined AM labs, KUB results showing bowel obstruction and nurse called general surgery team on re-adjusting the NG tube, patient feels like she is passing gas and less abdomen distention, she allows for serum labs to be drawn in the afternoon Pre-diabetes -check HbA1 6.2 -sliding scale insulin as needed while NPO and on D5 1/2 normal saline Reactive airways dysfunction syndrome (RADS) -is defined as the sudden onset of asthma-like symptoms following high-level exposure to a corrosive gas, vapor, or fumes -04/27/2020: Patient's visitor brought lidocaine capsules which to be used in nebulized administration. The label on the medication indicates it was prescribed by Dr. Re Gray, Dry Wall Installer in [place]. Patient reports she typically follows [facility] pulmonary clinic and was referred to [place] pulmonary clinic to see Dr. Gray because of the RADS management from chemical exposure 5 years ago to chlorine? gas and that she was prescribed this medication 1 month ago. She reports she uses this medication on as needed basis when feeling discomfort radiating from her upper airways to her chest. Hospitalist requested that pharmacy verify the medication and allowed to give as prn for bronchospasm -also she has multiple listed allergies to medications with reaction described as throat swelling or angioedema Sleep apnea -uses supplementary oxygen at night because of intolerance to BIPAP air flow chronic systolic heart failure, nonischemic cardiomyopathy -Echo done on 03/2019 shows EF of 25%. -As per recent cardiology notes in december in [facility] there is a plan or AICD. -monitor for any volume overload -any diuretic at this time on prn basis -mild tachycardia but also there are listed allergies to beta blockers, digoxin, lisinopril, losartan (described as throat swelling or angioedema) Deep venous thrombosis prophylaxis: Sequential compression devices. Admission and Anticipated Discharge Date Admission Date: April 27, 2020 Subjective -04/28/2020: patient declined AM labs, KUB results showing bowel obstruction and nurse called general surgery team on re-adjusting the NG tube, patient feels like she is passing gas and less abdomen distention, she allows for serum labs to be drawn in the afternoon denies palpitations. on nasal cannula oxygen. no abdomen pain. no dizziness. no lightheadedness. no vomiting. no bowel movements yet Review of Systems Review of Systems: All systems reviewed & are unremarkable except as noted in Subjective Physical Exam Constitutional: comfortable Eyes: PERRL, conjunctivae normal, anicteric sclerae EOM intact bilaterally ENMT: external ear and nose normal, oropharynx normal Neck: trachea midline, no thyromegaly normal visual inspection Respiratory: normal respiratory effort Cardiovascular: Rate/Rhythm: + tachycardic (mild tachycardia) Gastrointestinal (Abdomen): Percussion/Palpation: abdomen soft (left lower quadrant ecchymosis from subcut blood thinners) Musculoskeletal: Head/Neck/Chest: normocephalic and head atraumatic Neurologic: PERRL, EOMI, accommodation nl, no face palsy, no dysarthria CN's II-XI intact bilaterally Psychiatric: A+Ox3, euthymic affect Results & Data Results & Data ([facility]) Vital Signs (Past 12 Hours) Vital Signs Temp Pulse Pulse Resp BP BP Pulse Ox 04/28/20 07:30 109 H 04/28/20 07:29 36.8 C 99 H 16 136/84 94 04/28/20 02:42 36.8 C 79 18 129/79 96
[2020-04-28] MEDS: ONDANSETRON INJ 2 MG/ML 2 ML VIAL IV PRN (13:19)
[2020-04-28 13:24] LABS: Basophils # (auto) 0.01 K/uL (0-0.2); Basophils % (auto) 0.1 %; Eosinophils % (auto) 1.4 %; Hematocrit (blood only) 40.3 % (37-47); Hemoglobin 13.4 g/dL (12.0-16.0); Immature Granulocytes # (auto) 0.02 K/uL (0.00-0.02); Immature Granulocytes % (auto) 0.3 %; Lymphocytes # (auto) 1.18 K/uL (1.2-3.4); Lymphocytes % (auto) 16.4 %; Mean Corpuscular Hemoglobin 30.5 pg (25-34); Mean Corpuscular Volume 91.6 fL (80-100); Mean Platelet Volume 9.3 fL (7.4-10.4); Monocytes # (auto) 0.68 K/uL (0.11-0.59); Monocytes % (auto) 9.4 %; Neutrophils # (auto) 5.21 K/uL (1.4-6.5); Neutrophils % (auto) 72.4 %; Platelet Count 285 K/uL (130-400); RDW Coefficient of Variation 13.3 % (11.5-14.5); RDW Standard Deviation 44.5 fL (36.4-46.3)
[2020-04-28 13:37] LABS: Mean Corpuscular Hgb Conc 33.3 g/dL (32-36)
[2020-04-28 13:41] LABS: Albumin Level 2.7 gm/dl (3.4-5.0); Calcium 7.8 mg/dl (8.5-10.1); Creatinine Clr Calc Pharmacy 88.3 ml/min; Est GFR (African American) 105.4; Magnesium 2.3 mg/dl (1.8-2.4); Potassium 3.4 mmol/L (3.5-5.1)
[2020-04-28 13:51] LABS: Albumin Globulin Ratio 0.8 (0.9-2); Bilirubin,Total 0.6 mg/dl (0.2-1); Globulin 3.5 gm/dl (2.5-4.0); Phosphorus 2.3 mg/dl (2.5-4.9); Total Protein 6.2 gm/dl (6.4-8.2)
[2020-04-28] MEDS ORDERED: POTASSIUM PHOS 3 MMOL/1 ML INFUSION IV STA (14:07)
[2020-04-28] MEDS ORDERED: POTASSIUM PHOSPHATE 24 MMOL in SODIUM CHLORIDE 0.9% 500 ML IV ONE (14:30)
[2020-04-28] MEDS ORDERED: Nursing to Pharmacy Communication SCH (22:15)
[2020-04-29] MEDS: INSULIN ASPART 100 UNITS/ML 3 ML PEN SC SCH ×4 (00:18→18:12)
[2020-04-29] MEDS: D5W AND 1/2NSS 1,000 ML IV SCH ×2 (01:39→18:25)
[2020-04-29] MEDS: ONDANSETRON INJ 2 MG/ML 2 ML VIAL IV PRN ×3 (05:37→20:42)
[2020-04-29] MEDS: HYDROmorphone INJ 0.5 MG/0.5 ML SYR IV PRN ×2 (05:37→15:51)
[2020-04-29] MEDS: ALVESCO PO SCH ×2 (07:36→20:54)
--- NOTE | 2020-04-29 07:45 | XRay Report ---
KUB HISTORY: Follow up study in a patient with small bowel obstruction follow up SBO COMPARISON: KUB 04/28/2020, CT 04/27/2020 FINDINGS: Distal tip of enteric tube is again noted projected superiorly within the region of the gas tric cardia. There is persistent yet decreased small bowel distention with small bowel loops measurin g up to 3.0 cm. Moderate fecal retention of the right hemicolon. No renal calculi. No ureteral calcu li. No pneumoperitoneum or pneumatosis. No fracture. IMPRESSION: 1. Unchanged positioning of the enteric tube. 2. Persistent, mildly decreased small bowel distention. 3. No pneumoperitoneum. ACT 112: Negative or not required by law. The above report was generated using voice recognition software. It may contain grammatical, syntax o r spelling errors. Electronically signed by: Donn Noland M.D. 04/29/2020 7:44 AM
[2020-04-29 09:11] LABS: Basophils # (auto) 0.01 K/uL (0-0.2); Basophils % (auto) 0.1 %; Eosinophils # (auto) 0.16 K/uL (0-0.5); Eosinophils % (auto) 1.9 %; Hematocrit (blood only) 38.1 % (37-47); Hemoglobin 12.6 g/dL (12.0-16.0); Immature Granulocytes # (auto) 0.01 K/uL (0.00-0.02); Immature Granulocytes % (auto) 0.1 %; Lymphocytes # (auto) 1.16 K/uL (1.2-3.4); Lymphocytes % (auto) 13.9 %; Mean Corpuscular Hemoglobin 30.4 pg (25-34); Mean Corpuscular Hgb Conc 33.1 g/dL (32-36); Mean Platelet Volume 9.3 fL (7.4-10.4); Monocytes # (auto) 0.79 K/uL (0.11-0.59); Monocytes % (auto) 9.5 %; Neutrophils % (auto) 74.5 %; Platelet Count 260 K/uL (130-400); RDW Coefficient of Variation 13.2 % (11.5-14.5); RDW Standard Deviation 44.3 fL (36.4-46.3); Red Blood Count 4.14 M/uL (4.2-5.4); White Blood Count 8.33 K/uL (4.8-10.8)
[2020-04-29 09:45] LABS: Albumin Globulin Ratio 0.7 (0.9-2); Albumin Level 2.6 gm/dl (3.4-5.0); BUN Creatinine Ratio 18.4 (10-20); Bilirubin,Total 0.6 mg/dl (0.2-1); Creatinine Clr Calc Pharmacy 105.7 ml/min; Est GFR (African American) 111.8; Est GFR (Non-African American) 96.5; Globulin 3.6 gm/dl (2.5-4.0); Magnesium 2.3 mg/dl (1.8-2.4); Phosphorus 2.4 mg/dl (2.5-4.9); Potassium 3.5 mmol/L (3.5-5.1); Total Protein 6.2 gm/dl (6.4-8.2)
[2020-04-29] MEDS ORDERED: POTASSIUM PHOS 3 MMOL/1 ML INFUSION IV STA (10:20)
[2020-04-29] MEDS ORDERED: POTASSIUM CHLORIDE / WTR 10 MEQ/100 ML PLCT IV SCH (10:30)
[2020-04-29] MEDS: ACETAMINOPHEN 1,000 MG/100 ML VIAL IV PRN ×2 (11:09→20:42)
[2020-04-29] MEDS ORDERED: POTASSIUM PHOSPHATE 24 MMOL in SODIUM CHLORIDE 0.9% 500 ML IV SCH (11:30)
--- NOTE | 2020-04-29 11:47 | Surgery Progress Note ---
Date of Service April 29, 2020 Assessment & Plan (1) SBO (small bowel obstruction): will evaluate with SBFT today Subjective pt seen. continues to pass flatus but no bm yet. mild nausea. denies pain. NGT still in place/low output Physical Exam Physical Exam: alert. nad abd: soft. mild distension. non-tender Results & Data Vital Signs (Past 12 Hours) Vital Signs Temp Pulse Pulse Resp BP Pulse Ox 04/29/20 07:30 37.0 C 114 H 18 148/87 H 94 04/29/20 03:35 36.8 C 98 H 18 116/73 95 04/29/20 01:00 101 H PG Care Time/CCT Total # of Minutes Spent Total Time Spent with Patient: Total time spent is greater than 50% in coordination of care (as documented) at patient's floor/unit and/or counseling patient: Coding Level of Care Code 26170 Subseq Hosp Care Lvl 3 Diagnoses SBO (small bowel obstruction) K56.609
--- NOTE | 2020-04-29 12:12 | Hospitalist Progress Note ---
Date of Service April 29, 2020 Assessment & Plan (1) SBO (small bowel obstruction): likely secondary to hysterectomy -This is a 69-year-old female who presents with abdominal pain and found to have a small bowel obstruction versus ileus -recently had hysterectomy at [place] on 04/23/2020, then subsequently on narcotic pain medications, symptoms initially of constipation starting on 04/22/2020 as last bowel movement and then vomiting prior to admission day -admission CT abdomen 04/27/2020: Moderate grade small bowel obstruction with transition point noted within the anterior lower abdomen just inferior to the umbilicus. Trace foci of air within the rectus sheath and subcutaneous anterior abdominal wall with trace pneumoperitoneum is likely related to recent hysterectomy. Trace abdominal pelvic ascites with small pericardial effusion. Air within the urinary bladder lumen is likely secondary to recent instrumentation. -NG tube in place, not much output in terms suctioning fluid from GI tract, but continue to decompress GI tract -General surgery consult following the patient -minimizing narcotics on this admission unless severe pain (allergy to NSAIDs), prn acetaminophen for milder pain -IV fluids as D5 1/2 normal saline for nutrition and and hydration while NPO for bowel rest -04/28/2020 and 04/29/2020: patient passing gas and feels abdomen less distended compared to initially, still no bowel movement,she has been getting IV potassium and IV potassium phosphorous supplements, general surgery plans to do small bowel follow through study today on 04/29/2020 Pre-diabetes -check HbA1 6.2 -sliding scale insulin as needed while NPO and on D5 1/2 normal saline Reactive airways dysfunction syndrome (RADS) -is defined as the sudden onset of asthma-like symptoms following high-level exposure to a corrosive gas, vapor, or fumes -04/27/2020: Patient's visitor brought lidocaine capsules which to be used in nebulized administration. The label on the medication indicates it was prescribed by Dr. Re Gray, Technical Editor in [place]. Patient reports she typically follows [facility] pulmonary clinic and was referred to [place] pulmonary clinic to see Dr. Gray because of the RADS management from chemical exposure 5 years ago to chlorine? gas and that she was prescribed this medication 1 month ago. She reports she uses this medication on as needed basis when feeling discomfort radiating from her upper airways to her chest. Hospitalist requested that pharmacy verify the medication and allowed to give as prn for bronchospasm -also she has multiple listed allergies to medications with reaction described as throat swelling or angioedema Sleep apnea -uses supplementary oxygen at night because of intolerance to BIPAP air flow chronic systolic heart failure, nonischemic cardiomyopathy -Echo done on 03/2019 shows EF of 25%. -As per recent cardiology notes in december in [facility] there is a plan or AICD. -monitor for any volume overload -any diuretic at this time on prn basis -mild tachycardia but also there are listed allergies to beta blockers, digoxin, lisinopril, losartan (described as throat swelling or angioedema) Deep venous thrombosis prophylaxis: Sequential compression devices. Admission and Anticipated Discharge Date Admission Date: April 27, 2020 Subjective patient passing gas and feels abdomen less distended compared to initially, still no bowel movement,she has been getting IV potassium and IV potassium phosphorous supplements, general surgery plans to do small bowel follow through study today on 04/29/2020 no vomiting. no fevers. normal breathing. no dizziness. no headache. she is easily bothered by scented fragrances Review of Systems Review of Systems: All systems reviewed & are unremarkable except as noted in Subjective Physical Exam Constitutional: comfortable Eyes: PERRL, conjunctivae normal, anicteric sclerae EOM intact bilaterally ENMT: external ear and nose normal, oropharynx normal Neck: trachea midline, no thyromegaly normal visual inspection Respiratory: normal respiratory effort Cardiovascular: Rate/Rhythm: regular rate Gastrointestinal (Abdomen): Percussion/Palpation: abdomen soft (left lower quadrant ecchymosis from subcut blood thinners) Musculoskeletal: Head/Neck/Chest: normocephalic and head atraumatic Neurologic: PERRL, EOMI, accommodation nl, no face palsy, no dysarthria CN's II-XI intact bilaterally Psychiatric: A+Ox3, euthymic affect Results & Data Results & Data ([facility]) Vital Signs (Past 12 Hours) Vital Signs Temp Pulse Pulse Resp BP Pulse Ox 04/29/20 08:00 97 H 04/29/20 07:30 37.0 C 114 H 18 148/87 H 94 04/29/20 03:35 36.8 C 98 H 18 116/73 95 04/29/20 01:00 101 H
--- NOTE | 2020-04-29 13:02 | Electrocardiogram Report ---
Test Reason : Blood Pressure : / mmHG Vent. Rate : 101 BPM Atrial Rate : 101 BPM P-R Int : 152 ms QRS Dur : 130 ms QT Int : 370 ms P-R-T Axes : 060 -22 069 degrees QTc Int : 479 ms Sinus tachycardia Right atrial enlargement Left ventricular hypertrophy with QRS widening and repolarization abnormality Inferior infarct (cited on or before 03-AUG-2015) Cannot rule out Anteroseptal infarct (cited on or before 03-AUG-2015) Abnormal ECG When compared with ECG of 15-OCT-2019 13:34, No significant change was found Confirmed by Wiasm Sanches ([id number]) on 04/29/2020 1:02:16 PM Referred By: REFERRED SELF Confirmed By:Wisam Sanches
[2020-04-29] MEDS ORDERED: PROMETHAZINE HCL 6.25 MG in SODIUM CHLORIDE 0.9% 50 ML IV STA (15:27)
[2020-04-30] MEDS: INSULIN ASPART 100 UNITS/ML 3 ML PEN SC SCH ×4 (00:08→18:45)
[2020-04-30] MEDS: CHLORASEPTIC 1.4% SOLN 180 ML BTL MT PRN ×2 (01:53→15:30)
[2020-04-30] MEDS ORDERED: PROMETHAZINE HCL 12.5 MG in SODIUM CHLORIDE 0.9% 50 ML IV STA (02:01)
[2020-04-30] MEDS: HYDROmorphone INJ 0.5 MG/0.5 ML SYR IV PRN ×2 (06:11→18:08)
--- NOTE | 2020-04-30 09:29 | Surgery Progress Note ---
Date of Service April 30, 2020 Assessment & Plan (1) SBO (small bowel obstruction): Patient here with SBO Not much in the way of bowel function yet, although she states her symptoms are improving NGT remains in place Will obtain SBFT this afternoon and follow up on results as above. no bm yet. awaiting sbft. Subjective Patient states she feels like her abdomen is feeling a little better. She is not having any BM's yet. Received her pre-medication for small bowel follow through today that she says did not go down too well. Physical Exam Physical Exam: awake/alert Results & Data Vital Signs (Past 12 Hours) Vital Signs Temp Pulse Pulse Resp BP Pulse Ox 04/30/20 08:33 37.0 C 113 H 18 146/89 H 91 04/30/20 07:09 94 H 04/30/20 04:24 36.9 C 102 H 20 154/72 H 97 04/30/20 02:39 94 H 04/30/20 00:16 36.7 C 84 20 120/77 94 PG Care Time/CCT Total # of Minutes Spent Total Time Spent with Patient: Total time spent is greater than 50% in coordination of care (as documented) at patient's floor/unit and/or counseling patient: Coding Level of Care Code 63413 Subseq Hosp Care Lvl 2 Diagnoses SBO (small bowel obstruction) K56.609
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
[2020-04-30 10:24] LABS: Basophils # (auto) 0.01 K/uL (0-0.2); Basophils % (auto) 0.1 %; Hematocrit (blood only) 39.7 % (37-47); Hemoglobin 13.3 g/dL (12.0-16.0); Immature Granulocytes # (auto) 0.03 K/uL (0.00-0.02); Immature Granulocytes % (auto) 0.4 %; Lymphocytes # (auto) 0.85 K/uL (1.2-3.4); Lymphocytes % (auto) 10.9 %; Mean Corpuscular Hemoglobin 30.6 pg (25-34); Mean Corpuscular Volume 91.5 fL (80-100); Mean Platelet Volume 9.7 fL (7.4-10.4); Monocytes # (auto) 0.29 K/uL (0.11-0.59); Monocytes % (auto) 3.7 %; Neutrophils # (auto) 6.61 K/uL (1.4-6.5); Neutrophils % (auto) 84.9 %; Platelet Count 299 K/uL (130-400); RDW Standard Deviation 43.7 fL (36.4-46.3); Red Blood Count 4.34 M/uL (4.2-5.4); White Blood Count 7.79 K/uL (4.8-10.8)
[2020-04-30 10:34] LABS: Mean Corpuscular Hgb Conc 33.5 g/dL (32-36)
[2020-04-30 10:42] LABS: Albumin Level 2.9 gm/dl (3.4-5.0); BUN Creatinine Ratio 12.3 (10-20); Calcium 8.5 mg/dl (8.5-10.1); Creatinine Clr Calc Pharmacy 82.2 ml/min; Est GFR (African American) 102.2; Est GFR (Non-African American) 88.1; Magnesium 2.4 mg/dl (1.8-2.4); Potassium 3.9 mmol/L (3.5-5.1)
[2020-04-30 10:45] LABS: Albumin Globulin Ratio 0.7 (0.9-2); Bilirubin,Total 0.5 mg/dl (0.2-1); Globulin 4.1 gm/dl (2.5-4.0); Phosphorus 2.8 mg/dl (2.5-4.9)
[2020-04-30] MEDS: D5W AND 1/2NSS 1,000 ML IV SCH (11:46)
[2020-04-30] MEDS: ALVESCO PO SCH ×2 (11:46→20:28)
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
[2020-04-30] MEDS: ONDANSETRON INJ 2 MG/ML 2 ML VIAL IV PRN (15:30)
--- NOTE | 2020-04-30 16:17 | XRay Report ---
KUB HISTORY: Follow up study in a patient with small bowel obstruction FOLLOW SBO COMPARISON: KUB 04/29/2020, CT 04/27/2020 FINDINGS: Distal tip of enteric tube is unchanged projecting superiorly within the region of the bee libby cardia. Persistent small bowel dilation is noted measuring up to 3.4 cm, previously measured at a pproximately 3.0 cm. There is at least mild fecal retention. No renal calculi. No ureteral calculi. No pneumoperitoneum or pneumatosis. Mild lumbar levoscoliosis. No fracture. IMPRESSION: 1. Stable to slightly progressed small bowel distention suggestive of ongoing obstruction. 2. Unchanged positioning of the enteric tube. ACT 112: Negative or not required by law. The above report was generated using voice recognition software. It may contain grammatical, syntax o r spelling errors. Electronically signed by: Donn Noland M.D. 04/30/2020 4:15 PM
[2020-04-30] MEDS: ACETAMINOPHEN 1,000 MG/100 ML VIAL IV PRN (21:40)
[2020-05-01] MEDS: INSULIN ASPART 100 UNITS/ML 3 ML PEN SC SCH ×4 (00:14→19:10)
[2020-05-01] MEDS: ACETAMINOPHEN 1,000 MG/100 ML VIAL IV PRN ×2 (06:00→15:59)
[2020-05-01] MEDS ORDERED: methylPREDNISolone 40 MG in SYRINGE 0 ML IV ONE ×2 (06:00)
[2020-05-01] MEDS: ONDANSETRON INJ 2 MG/ML 2 ML VIAL IV PRN ×2 (06:34→12:28)
[2020-05-01] MEDS ORDERED: methylPREDNISolone 30 MG in SYRINGE 0 ML IV STA (06:58)
[2020-05-01] MEDS: ALVESCO PO SCH ×2 (08:11→20:21)
[2020-05-01 08:16] LABS: Basophils # (auto) 0.01 K/uL (0-0.2); Basophils % (auto) 0.2 %; Hemoglobin 13.7 g/dL (12.0-16.0); Immature Granulocytes # (auto) 0.04 K/uL (0.00-0.02); Immature Granulocytes % (auto) 0.7 %; Lymphocytes # (auto) 0.62 K/uL (1.2-3.4); Lymphocytes % (auto) 10.5 %; Mean Corpuscular Hemoglobin 29.8 pg (25-34); Mean Corpuscular Hgb Conc 32.6 g/dL (32-36); Mean Corpuscular Volume 91.5 fL (80-100); Mean Platelet Volume 10.1 fL (7.4-10.4); Monocytes # (auto) 0.07 K/uL (0.11-0.59); Monocytes % (auto) 1.2 %; Neutrophils # (auto) 5.18 K/uL (1.4-6.5); Neutrophils % (auto) 87.4 %; Platelet Count 363 K/uL (130-400); RDW Coefficient of Variation 13.5 % (11.5-14.5); RDW Standard Deviation 44.8 fL (36.4-46.3); Red Blood Count 4.59 M/uL (4.2-5.4); White Blood Count 5.92 K/uL (4.8-10.8)
[2020-05-01 08:49] LABS: Calcium 8.6 mg/dl (8.5-10.1); Creatinine Clr Calc Pharmacy 84.5 ml/min; Est GFR (African American) 104.4; Est GFR (Non-African American) 90.1; Magnesium 2.6 mg/dl (1.8-2.4); Potassium 3.6 mmol/L (3.5-5.1)
[2020-05-01 08:52] LABS: Albumin Globulin Ratio 0.7 (0.9-2); Bilirubin,Total 0.5 mg/dl (0.2-1); Globulin 4.4 gm/dl (2.5-4.0); Phosphorus 2.6 mg/dl (2.5-4.9); Total Protein 7.4 gm/dl (6.4-8.2)
[2020-05-01] MEDS: D5W AND 1/2NSS 1,000 ML IV SCH (12:24)
--- NOTE | 2020-05-01 15:33 | Fluoroscopy Report ---
FL small bowel follow through CLINICAL HISTORY: 69 years-old Female with sbo. Follow-up study in a patient with small bowel obstru ction TECHNIQUE: Oral barium was administered to the patient and serial radiographs of the abdomen were pe rformed. COMPARISON STUDY: KUB 04/30/2020, CT abdomen pelvis 04/27/2020 FLUOROSCOPY TIME: 0.5 minutes. 15 images were submitted for review. FINDINGS: [facility]cer radiograph of the abdomen demonstrates persistent dilated air-filled loops of small bowel. Mild to moderate fecal retention. No definite pneumatosis or pneumoperitoneum. No urolith. Upon the administration of oral barium contrast via an enteric tube, there is prompt opacification of the gastric lumen and proximal small bowel. Small duodenal diverticulum incidentally noted. Transit to the large bowel occurred at approximately 5 and 45 minutes. Persistent small bowel dilation is not ed throughout the entirety of the study with decompressed normal caliber loops of distal ileum. The t erminal ileum appears unremarkable. The previously described small bowel transition point is not defi nitively seen however is likely within the abdominal right lower quadrant. Subsequently, spot fluoros copic images of the abdomen were obtained and demonstrate freely movable bowel in all four abdominal quadrants. IMPRESSION: Partial small bowel obstruction with transit of oral contrast from small to large bowel occurring at approximately 6 hours. Decompressed distal small bowel is noted with likely transition point within t he abdominal right lower quadrant. ACT 112: Negative or not required by law. The above report was generated using voice recognition software. It may contain grammatical, syntax o r spelling errors. Electronically signed by: Donn Noland M.D. 05/01/2020 3:31 PM
--- NOTE | 2020-05-01 16:07 | Surgery Progress Note ---
Date of Service May 01, 2020 Assessment & Plan (1) SBO (small bowel obstruction): Patient underwent SBFT today; showed partial SBO with transit of contrast from small to large bowel after 6 hours She is passing more flatus. No BM today Overall pt believes her symptoms are slowly improving Hopefully the SBFT contrast will have some therapeutic effect Would plan to keep NGT for now and we will re-evaluate tomorrow Subjective Patient resting in bed. Says she is passing flatus. Believes her abdominal pain and nausea are overall improving. Physical Exam Physical Exam: awake/alert Respiratory: normal respiratory effort Gastrointestinal (Abdomen): Percussion/Palpation: abdomen soft; abdomen nontender Results & Data Vital Signs (Past 12 Hours) Vital Signs Temp Pulse Pulse Resp BP BP Pulse Ox 05/01/20 11:32 36.3 C L 96 H 16 119/82 98 05/01/20 07:47 37 C 91 H 16 147/83 H 93 05/01/20 07:31 97 H 05/01/20 04:13 36.7 C 102 H 20 150/72 H 93 IMPRESSION: Partial small bowel obstruction with transit of oral contrast from small to large bowel occurring at approximately 6 hours. Decompressed distal small bowel is noted with likely transition point within the abdominal right lower quadrant. PG Care Time/CCT Total # of Minutes Spent Total Time Spent with Patient: Total time spent is greater than 50% in coordination of care (as documented) at patient's floor/unit and/or counseling patient: Coding Level of Care Code 71224 Subseq Hosp Care Lvl 1 Diagnoses SBO (small bowel obstruction) K56.609
--- NOTE | 2020-05-01 18:58 | Hospitalist Progress Note ---
Date of Service May 01, 2020 Assessment & Plan (1) SBO (small bowel obstruction): likely secondary to hysterectomy CT abd/pelvis showed moderate grade small bowel obstruction with transition point noted within the anterior lower abdomen just inferior to the umbilicus. Trace foci of air within the rectus sheath and subcutaneous anterior abdominal wall with trace pneumoperitoneum is likely related to recent hysterectomy. Continue NG tube Surgery on board and recommended small bowel follow through Contrast allergies, pt had to get prep with IV steroid before receiving the contrast KUB showed stable to slightly progressed small bowel distention suggestive of ongoing obstruction. Small Bowel xray showed partial small bowel obstruction with transit of oral contrast from small to large bowel occurring at approximately 6 hours. Decompressed distal small bowel is noted with likely transition point within the abdominal right lower quadrant. Keep NPO for now Continue gentle hydration Electrolytes imbalance Hypokalemia 3.6 and phosphorus 2.6 Continue monitor electrolytes Stable Pre-diabetes -HbA1 6.2 -sliding scale insulin as needed while NPO and on D5 1/2 normal saline Reactive airways dysfunction syndrome (RADS) -is defined as the sudden onset of asthma-like symptoms following high-level exposure to a corrosive gas, vapor, or fumes -04/27/2020: Patient's visitor brought lidocaine capsules which to be used in nebulized administration. The label on the medication indicates it was prescribed by Dr. Re Gray, Information Services Manager in [place]. Patient reports she typically follows [facility] pulmonary clinic and was referred to [place] pulmonary clinic to see Dr. Gray because of the RADS management from chemical exposure 5 years ago to chlorine? gas and that she was prescribed this medication 1 month ago. She reports she uses this medication on as needed basis when feeling discomfort radiating from her upper airways to her chest. Hospitalist requested that pharmacy verify the medication and allowed to give as prn for bronchospasm -also she has multiple listed allergies to medications with reaction described as throat swelling or angioedema Sleep apnea Continue supplementary oxygen at night because of intolerance to BIPAP air flow chronic systolic heart failure, nonischemic cardiomyopathy -Echo done on 03/2019 shows EF of 25%. -As per recent cardiology notes outpatient by Dr. Womack in 01/03/2020 telemdicine that "Mariana is a 69 year old female who was called for follow up of nonischemic cardiomyopathy. Last seen July 2019. This is a complex patient with multiple phobias as outlined in my previous notes. She has a nonischemic cardiomyopathy with an estimated left ventricular ejection fraction of between 20 in 25%. In the past she has refused an ICD...IMPRESSION: 1. Nonischemic cardiomyopathy with systolic heart failure 2. Normal coronary arteries by cardiac catheterization 3. Estimated left ventricular ejection fraction by echocardiography 20-25% mild tachycardia but also there are listed allergies to beta blockers, digoxin, lisinopril, losartan (described as throat swelling or angioedema) Will monitor closely for fluid overload Deep venous thrombosis prophylaxis: Sequential compression devices. Admission and Anticipated Discharge Date Admission Date: April 27, 2020 Subjective Pt was seen and examined Lying in bed with no distress Pt hernan that she has no BM yet but starts to pass gas She said that she does not have any abdominal pain Denies any chest pain, palpitation, dizziness and SOB Physical Exam Physical Exam: General- No acute distress Head- atraumatic Eyes- PERRL, EOMI, ENT- oropharynx clear Neck- supple, no JVD Lungs- clear to auscultation Heart- regular rhythm; no murmur Abdomen- Hypoactive BS, Extremities- no calf tenderness Neuro- alert, oriented x 3; PERRL, EOMI; no facial palsy; no dysarthria Skin- warm & dry Results & Data Results & Data ([facility]) Vital Signs (Past 12 Hours) Vital Signs Temp Pulse Pulse Resp BP BP Pulse Ox 05/01/20 16:00 36.5 C 96 H 18 157/90 H 97 05/01/20 11:32 36.3 C L 96 H 16 119/82 98 05/01/20 07:47 37 C 91 H 16 147/83 H 93 05/01/20 07:31 97 H
[2020-05-01] MEDS ORDERED: LORazepam 0.25 MG/0.5 ML VIAL IV PRN (21:40)
[2020-05-01] MEDS ORDERED: XOPENEX/ATROVENT 1.25mg/0.5MG NEB COMBO NEB PRN (21:40)
[2020-05-01] MEDS ORDERED: IPRATROPIUM BROMIDE NEB SOLN 0.02% 2.5 ML VIAL INH PRN (21:45)
[2020-05-01] MEDS ORDERED: LEVALBUTEROL 1.25MG/0.5ML NEB INH PRN (21:45)
[2020-05-02] MEDS: INSULIN ASPART 100 UNITS/ML 3 ML PEN SC SCH ×4 (00:31→20:28)
[2020-05-02] MEDS: ACETAMINOPHEN 1,000 MG/100 ML VIAL IV PRN ×2 (04:05→18:02)
[2020-05-02] MEDS: D5W AND 1/2NSS 1,000 ML IV SCH (04:05)
[2020-05-02] MEDS: CHLORASEPTIC 1.4% SOLN 180 ML BTL MT PRN (04:28)
[2020-05-02] MEDS: HYDROmorphone INJ 0.5 MG/0.5 ML SYR IV PRN ×2 (05:49→23:39)
--- NOTE | 2020-05-02 07:21 | XRay Report ---
KUB HISTORY: Follow up study in a patient with small bowel obstruction eval for sbo COMPARISON: Small bowel follow-through 05/01/2020 FINDINGS: There is interval progression of enteric contrast through the small bowel and is now predom inantly within the large bowel. Persistent small bowel dilation. No pneumatosis or pneumoperitoneum. No urolith or acute fracture. Enteric tube distal tip projects over the expected location of the prox imal stomach. IMPRESSION: 1. Interval progression of enteric contrast into the large bowel with persistent air-filled dilated s mall bowel loops of the central abdomen. 2. Stable positioning of the enteric tube. ACT 112: Negative or not required by law. The above report was generated using voice recognition software. It may contain grammatical, syntax o r spelling errors. Electronically signed by: Donn Noland M.D. 05/02/2020 7:20 AM
[2020-05-02] MEDS: ALVESCO PO SCH ×2 (08:08→21:50)
--- NOTE | 2020-05-02 08:35 | Surgery Progress Note ---
Date of Service May 02, 2020 Assessment & Plan (1) SBO (small bowel obstruction): sbft reviewed/interpreted. +contrast in colon. ? narrowed/psbo in distal small bowel. discussed options with pt.. will d/c ngt and start clears. advance as she can tolerate. if she fails, will need ex-lap Subjective pt seen. main c/o now is sore throat from ngt. denies abdominal pain. perhaps mild nausea but much improved. +flatus but no bm. Physical Exam Physical Exam: alert. nad abd: soft. nt. nd. +bs's Results & Data Vital Signs (Past 12 Hours) Vital Signs Temp Pulse Pulse Resp BP BP Pulse Ox 05/02/20 07:04 98 H 05/02/20 04:00 36.6 C 92 H 16 128/66 91 05/01/20 23:51 111 H 05/01/20 23:00 36.3 C L 102 H 18 119/76 97 05/01/20 21:40 36.7 C 112 H 18 162/79 H 98 05/01/20 20:49 36.9 C 98 H 18 128/68 96 PG Care Time/CCT Total # of Minutes Spent Total Time Spent with Patient: Total time spent is greater than 50% in coordination of care (as documented) at patient's floor/unit and/or counseling patient: Coding Level of Care Code 15839 Subseq Hosp Care Lvl 3 Diagnoses SBO (small bowel obstruction) K56.609
--- NOTE | 2020-05-02 19:57 | Hospitalist Progress Note ---
Date of Service May 02, 2020 Assessment & Plan (1) SBO (small bowel obstruction): likely secondary to hysterectomy CT abd/pelvis showed moderate grade small bowel obstruction with transition point noted within the anterior lower abdomen just inferior to the umbilicus. Trace foci of air within the rectus sheath and subcutaneous anterior abdominal wall with trace pneumoperitoneum is likely related to recent hysterectomy. Continue NG tube Surgery on board and recommended small bowel follow through Contrast allergies, pt had to get prep with IV steroid before receiving the contrast KUB showed stable to slightly progressed small bowel distention suggestive of ongoing obstruction. Small Bowel xray showed partial small bowel obstruction with transit of oral contrast from small to large bowel occurring at approximately 6 hours. Decompressed distal small bowel is noted with likely transition point within the abdominal right lower quadrant. NG tube removed on 05/02/20 Starting on clear liquid diet repeat KUB today showed Interval progression of enteric contrast into the large bowel with persistent air-filled dilated small bowel loops of the central abdomen. Discussed surgical option with patient if no improvement Pt said that she wants to continue conservative management and does not want surgery Continue gentle hydration Will repeat KUB in am Electrolytes imbalance Hypokalemia 3.6 and phosphorus 2.6 Continue monitor electrolytes Stable Pre-diabetes -HbA1 6.2 -sliding scale insulin as needed while NPO and on D5 1/2 normal saline Reactive airways dysfunction syndrome (RADS) -is defined as the sudden onset of asthma-like symptoms following high-level exposure to a corrosive gas, vapor, or fumes -04/27/2020: Patient's visitor brought lidocaine capsules which to be used in nebulized administration. The label on the medication indicates it was prescribed by Dr. Re Gray, Human Resources Operations Director in [place]. Patient reports she typically follows [facility] pulmonary clinic and was referred to [place] pulmonary clinic to see Dr. Gray because of the RADS management from chemical exposure 5 years ago to chlorine? gas and that she was prescribed this medication 1 month ago. She reports she uses this medication on as needed basis when feeling discomfort radiating from her upper airways to her chest. Hospitalist requested that pharmacy verify the medication and allowed to give as prn for bronchospasm -also she has multiple listed allergies to medications with reaction described as throat swelling or angioedema Sleep apnea Continue supplementary oxygen at night because of intolerance to BIPAP air flow chronic systolic heart failure, nonischemic cardiomyopathy -Echo done on 03/2019 shows EF of 25%. -As per recent cardiology notes outpatient by Dr. Womack in 01/03/2020 telemdicine that "Mariana is a 69 year old female who was called for follow up of nonischemic cardiomyopathy. Last seen July 2019. This is a complex patient with multiple phobias as outlined in my previous notes. She has a nonischemic cardiomyopathy with an estimated left ventricular ejection fraction of between 20 in 25%. In the past she has refused an ICD...IMPRESSION: 1. Nonischemic cardiomyopathy with systolic heart failure 2. Normal coronary arteries by cardiac catheterization 3. Estimated left ventricular ejection fraction by echocardiography 20-25% mild tachycardia but also there are listed allergies to beta blockers, digoxin, lisinopril, losartan (described as throat swelling or angioedema) Will monitor closely for fluid overload Deep venous thrombosis prophylaxis: Sequential compression devices. Admission and Anticipated Discharge Date Admission Date: April 27, 2020 Subjective Pt was seen and examined Lying in bed with no distress She said that she does not have the pain that she had on admission NG tube was removed today and starting on clear liquid diet Denies any chest pain, palpitation and SOB Physical Exam Physical Exam: General- No acute distress Head- atraumatic Eyes- PERRL, EOMI, ENT- oropharynx clear Neck- supple, no JVD Lungs- clear to auscultation Heart- regular rhythm; no murmur Abdomen- Hypoactive BS, Extremities- no calf tenderness Neuro- alert, oriented x 3; PERRL, EOMI; no facial palsy; no dysarthria Skin- warm & dry Results & Data Results & Data ([facility]) Vital Signs (Past 12 Hours) Vital Signs Temp Pulse Resp BP Pulse Ox 05/02/20 16:00 37.0 C 88 18 130/75 95
[2020-05-02] MEDS: ONDANSETRON INJ 2 MG/ML 2 ML VIAL IV PRN (23:39)
[2020-05-03] MEDS: INSULIN ASPART 100 UNITS/ML 3 ML PEN SC SCH ×5 (00:42→23:56)
[2020-05-03] MEDS: ACETAMINOPHEN 1,000 MG/100 ML VIAL IV PRN ×2 (04:48→14:10)
[2020-05-03 07:58] LABS: BUN Creatinine Ratio 11.4 (10-20); Calcium 8.3 mg/dl (8.5-10.1); Est GFR (African American) 105.2; Est GFR (Non-African American) 90.8; Magnesium 2.5 mg/dl (1.8-2.4); Potassium 3.1 mmol/L (3.5-5.1)
--- NOTE | 2020-05-03 08:17 | XRay Report ---
KUB HISTORY: Small bowel obstruction. SBO COMPARISON: KUB 05/02/2020 FINDINGS: There is persistent enteric contrast noted within the large bowel which has not significant ly changed from comparison. Status post removal of the enteric tube. Persistent small bowel dilation of the central abdomen. No pneumatosis or pneumoperitoneum. No urolith or acute fracture. Cardiac neno bessie. Mild right hemidiaphragmatic elevation with linear bibasilar atelectasis/scarring. IMPRESSION: 1. Enteric contrast from the large bowel redemonstrated. 2. Persistent dilated air-filled loops of small bowel within the central abdomen. 3. Interval removal of the enteric tube. ACT 112: Negative or not required by law. The above report was generated using voice recognition software. It may contain grammatical, syntax o r spelling errors. Electronically signed by: Donn Noland M.D. 05/03/2020 8:16 AM
--- NOTE | 2020-05-03 08:31 | Surgery Progress Note ---
Date of Service May 03, 2020 Assessment & Plan (1) SBO (small bowel obstruction): Patient clinically progressing well; says she feels good overall KUB this AM reveals contrast into large bowel She is having + bowel function Tolerated clears Will advance to full liquids for lunch, if does well okay to advance to regular diet later today vs. srinivasan. Dispo planning per medicine as above. states feeling better today. abd: soft. BM's x 2. will advance to full liquids. [facility] covering for weekend. Subjective Patient says she is feeling good. Tolerating clear liquid diet. Had two BM's. Physical Exam Physical Exam: awake/alert Gastrointestinal (Abdomen): Percussion/Palpation: abdomen soft Results & Data Vital Signs (Past 12 Hours) Vital Signs Temp Pulse Pulse Resp BP Pulse Ox 05/03/20 07:47 36.4 C L 97 H 20 142/85 H 98 05/03/20 07:16 95 H 05/03/20 02:00 91 H 05/03/20 00:30 36.3 C L 94 H 16 142/78 H 95 PG Care Time/CCT Total # of Minutes Spent Total Time Spent with Patient: Total time spent is greater than 50% in coordination of care (as documented) at patient's floor/unit and/or counseling patient: Coding Level of Care Code 75282 Subseq Hosp Care Lvl 2 Diagnoses SBO (small bowel obstruction) K56.609
[2020-05-03] MEDS: ALVESCO PO SCH ×2 (09:10→21:53)
[2020-05-03] MEDS: POTASSIUM CHLORIDE / WTR 10 MEQ/100 ML PLCT IV SCH ×2 (09:25→13:01)
[2020-05-03] MEDS ORDERED: POTASSIUM CHLORIDE 20 MEQ TABCR PO STA (10:51)
[2020-05-03] MEDS: ONDANSETRON INJ 2 MG/ML 2 ML VIAL IV PRN (12:59)
[2020-05-03] MEDS: HYDROmorphone INJ 0.5 MG/0.5 ML SYR IV PRN (17:44)
--- NOTE | 2020-05-03 18:17 | Hospitalist Progress Note ---
Date of Service May 03, 2020 Assessment & Plan (1) SBO (small bowel obstruction): likely secondary to hysterectomy CT abd/pelvis showed moderate grade small bowel obstruction with transition point noted within the anterior lower abdomen just inferior to the umbilicus. Trace foci of air within the rectus sheath and subcutaneous anterior abdominal wall with trace pneumoperitoneum is likely related to recent hysterectomy. Continue NG tube Surgery on board and recommended small bowel follow through Contrast allergies, pt had to get prep with IV steroid before receiving the contrast KUB showed stable to slightly progressed small bowel distention suggestive of ongoing obstruction. Small Bowel xray showed partial small bowel obstruction with transit of oral contrast from small to large bowel occurring at approximately 6 hours. Decompressed distal small bowel is noted with likely transition point within the abdominal right lower quadrant. NG tube removed on 05/02/20 Pt said that she wants to continue conservative management and does not want surgery Repeat KUB on 05/03 showed enteric contrast from the large bowel redemonstrated. Persistent dilated air-filled loops of small bowel within the central abdomen. Diet advanced by surgery to full liquid diet had 2 BM today Will advance diet to low fiber in am Continue monitor Electrolytes imbalance Hypokalemia 3.1 K replaced Continue monitor electrolytes Stable Pre-diabetes HbA1 6.2 sliding scale insulin as needed while NPO and on D5 1/2 normal saline Reactive airways dysfunction syndrome (RADS) -is defined as the sudden onset of asthma-like symptoms following high-level exposure to a corrosive gas, vapor, or fumes -04/27/2020: Patient's visitor brought lidocaine capsules which to be used in nebulized administration. The label on the medication indicates it was prescribed by Dr. Re Gray, Plastic Surgery Nurse in [place]. Patient reports she typically follows [facility] pulmonary clinic and was referred to [place] pulmonary clinic to see Dr. Gray because of the RADS management from chemical exposure 5 years ago to chlorine? gas and that she was prescribed this medication 1 month ago. She reports she uses this medication on as needed basis when feeling discomfort radiating from her upper airways to her chest. Hospitalist requested that pharmacy verify the medication and allowed to give as prn for bronchospasm -also she has multiple listed allergies to medications with reaction described as throat swelling or angioedema Sleep apnea Continue supplementary oxygen at night because of intolerance to BIPAP air flow chronic systolic heart failure, nonischemic cardiomyopathy -Echo done on 03/2019 shows EF of 25%. -As per recent cardiology notes outpatient by Dr. Womack in 01/03/2020 telemdicine that "Mariana is a 69 year old female who was called for follow up of nonischemic cardiomyopathy. Last seen July 2019. This is a complex patient with multiple phobias as outlined in my previous notes. She has a nonischemic cardiomyopathy with an estimated left ventricular ejection fraction of between 20 in 25%. In the past she has refused an ICD...IMPRESSION: 1. Nonischemic cardiomyopathy with systolic heart failure 2. Normal coronary arteries by cardiac catheterization 3. Estimated left ventricular ejection fraction by echocardiography 20-25% mild tachycardia but also there are listed allergies to beta blockers, digoxin, lisinopril, losartan (described as throat swelling or angioedema) D/C IV fluid Deep venous thrombosis prophylaxis: Sequential compression devices. Admission and Anticipated Discharge Date Admission Date: April 27, 2020 Subjective Pt was seen and examined Lying in bed with no distress Pt said that she feel nauseated She said that she tolerated the full liquid diet early She said that she had 2 BM today denies any chest pain, palpitation, dizziness and SOB Physical Exam Physical Exam: General- No acute distress Head- atraumatic Eyes- PERRL, EOMI, ENT- oropharynx clear Neck- supple, no JVD Lungs- clear to auscultation Heart- regular rhythm; no murmur Abdomen- +BS , non tender Extremities- no calf tenderness Neuro- alert, oriented x 3; PERRL, EOMI; no facial palsy; no dysarthria Skin- warm & dry Results & Data Results & Data ([facility]) Vital Signs (Past 12 Hours) Vital Signs Temp Pulse Pulse Resp BP BP Pulse Ox 05/03/20 15:08 36.5 C 111 H 20 112/81 95 05/03/20 14:54 106 H 05/03/20 11:37 36.3 C L 92 H 20 118/86 94 05/03/20 07:47 36.4 C L 97 H 20 142/85 H 98 05/03/20 07:16 95 H
[2020-05-04] MEDS: INSULIN ASPART 100 UNITS/ML 3 ML PEN SC SCH (05:36)
[2020-05-04] MEDS ORDERED: CARBOHYDRATES FOR HYPOGLYCEMIA PO PRN (08:00)
[2020-05-04] MEDS ORDERED: GLUCAGON FOR INJ 1 MG VIAL IM PRN (08:00)
[2020-05-04] MEDS ORDERED: GLUCOSE 40% GEL 15 GM TUBE PO PRN (08:00)
[2020-05-04] MEDS ORDERED: DEXTROSE 50% 50 ML SYRINGE IV PRN (08:00)
[2020-05-04] MEDS ORDERED: GLUCOSE 10 TABS/TUBE PO PRN (08:00)
[2020-05-04] MEDS: ALVESCO PO SCH ×2 (08:08→20:03)
[2020-05-04 08:20] LABS: BUN Creatinine Ratio 9.9 (10-20); Calcium 8.6 mg/dl (8.5-10.1); Creatinine Clr Calc Pharmacy 89.7 ml/min; Est GFR (African American) 106.3; Est GFR (Non-African American) 91.7
[2020-05-04] MEDS: HYDROmorphone INJ 0.5 MG/0.5 ML SYR IV PRN ×2 (09:28→20:10)
--- NOTE | 2020-05-04 11:19 | Surgery Progress Note ---
Date of Service May 04, 2020 Assessment & Plan (1) SBO (small bowel obstruction): Oral contrast noted within: Patient had some nausea but tolerated her diet Passing flatus and had a large bowel movement this morning Small bowel obstruction resolving No indication for surgical intervention at this time. Subjective Denies abdominal pain Had large diarrheal bowel movement this morning Did have some nausea after eating and after the bowel movement Physical Exam Gastrointestinal (Abdomen): Inspection/Auscultation: normal bowel sounds; abdomen not distended Percussion/Palpation: abdomen soft; abdomen nontender Results & Data Vital Signs (Past 12 Hours) Vital Signs Temp Pulse Pulse Resp BP BP Pulse Ox 05/04/20 07:54 36.7 C 115 H 20 137/72 100 05/04/20 07:25 91 H 05/03/20 23:35 36.4 C L 97 H 22 142/74 H
[2020-05-04] MEDS: ONDANSETRON INJ 2 MG/ML 2 ML VIAL IV PRN (16:40)
--- NOTE | 2020-05-04 18:15 | Hospitalist Progress Note ---
Date of Service May 04, 2020 Assessment & Plan (1) SBO (small bowel obstruction): likely secondary to hysterectomy CT abd/pelvis showed moderate grade small bowel obstruction with transition point noted within the anterior lower abdomen just inferior to the umbilicus. Trace foci of air within the rectus sheath and subcutaneous anterior abdominal wall with trace pneumoperitoneum is likely related to recent hysterectomy. Continue NG tube Surgery on board and recommended small bowel follow through Contrast allergies, pt had to get prep with IV steroid before receiving the contrast KUB showed stable to slightly progressed small bowel distention suggestive of ongoing obstruction. Small Bowel xray showed partial small bowel obstruction with transit of oral contrast from small to large bowel occurring at approximately 6 hours. Decompressed distal small bowel is noted with likely transition point within the abdominal right lower quadrant. NG tube removed on 05/02/20 Pt said that she wants to continue conservative management and does not want surgery Repeat KUB on 05/03 showed enteric contrast from the large bowel redemonstrated. Persistent dilated air-filled loops of small bowel within the central abdomen. Diet advanced to low fiber Case discussed with surgery and no indication for surgical intervention at this time. Had 4 episode of diarrhea today Continue monitor Electrolytes imbalance Potassium 3.5 today Continue monitor electrolytes Stable Diarrhea Mostly due recent SBO since pt did not have any BM for few days Now SBO resolved and diarrhea starting Monitor electrolytes Pre-diabetes HbA1 6.2 sliding scale insulin as needed while NPO and on D5 1/2 normal saline Reactive airways dysfunction syndrome (RADS) -is defined as the sudden onset of asthma-like symptoms following high-level exposure to a corrosive gas, vapor, or fumes -04/27/2020: Patient's visitor brought lidocaine capsules which to be used in nebulized administration. The label on the medication indicates it was prescribed by Dr. Re Gray, Registered Physical Therapist in [place]. Patient reports she typically follows [facility] pulmonary clinic and was referred to [place] pulmonary clinic to see Dr. Gray because of the RADS management from chemical exposure 5 years ago to chlorine? gas and that she was prescribed this medication 1 month ago. She reports she uses this medication on as needed basis when feeling discomfort radiating from her upper airways to her chest. Hospitalist requested that pharmacy verify the medication and allowed to give as prn for bronchospasm -also she has multiple listed allergies to medications with reaction described as throat swelling or angioedema Sleep apnea Continue supplementary oxygen at night because of intolerance to BIPAP air flow chronic systolic heart failure, nonischemic cardiomyopathy -Echo done on 03/2019 shows EF of 25%. -As per recent cardiology notes outpatient by Dr. Womack in 01/03/2020 telemdicine that "Mariana is a 69 year old female who was called for follow up of nonischemic cardiomyopathy. Last seen July 2019. This is a complex patient with multiple phobias as outlined in my previous notes. She has a nonischemic cardiomyopathy with an estimated left ventricular ejection fraction of between 20 in 25%. In the past she has refused an ICD...IMPRESSION: 1. Nonischemic cardiomyopathy with systolic heart failure 2. Normal coronary arteries by cardiac catheterization 3. Estimated left ventricular ejection fraction by echocardiography 20-25% mild tachycardia but also there are listed allergies to beta blockers, digoxin, lisinopril, losartan (described as throat swelling or angioedema) D/C IV fluid Deep venous thrombosis prophylaxis: Sequential compression devices/encourage pt to ambulate Admission and Anticipated Discharge Date Admission Date: April 27, 2020 Subjective Pt was seen and examined Lying in bed with no distress Pt said that she had a large BM this morning follow by diarrhea She said that she had 4 episodes of diarrhea today Denies any chest pain, palpitation, dizziness and SOB Physical Exam Physical Exam: General- No acute distress Head- atraumatic Eyes- PERRL, EOMI, ENT- oropharynx clear Neck- supple, no JVD Lungs- clear to auscultation Heart- regular rhythm; no murmur Abdomen- +BS , non tender Extremities- no calf tenderness Neuro- alert, oriented x 3; PERRL, EOMI; no facial palsy; no dysarthria Skin- warm & dry Results & Data Results & Data ([facility]) Vital Signs (Past 12 Hours) Vital Signs Temp Pulse Pulse Resp BP BP Pulse Ox 05/04/20 16:00 92 H 05/04/20 15:42 36.7 C 109 H 19 91/65 L 95 05/04/20 11:39 36.3 C L 98 H 20 119/73 95 05/04/20 07:54 36.7 C 115 H 20 137/72 100 05/04/20 07:25 91 H
[2020-05-04] MEDS ORDERED: POTASSIUM CHLORIDE 20 MEQ TABCR PO ONE (20:00)
[2020-05-05 07:58] LABS: BUN Creatinine Ratio 14.2 (10-20); Calcium 8.6 mg/dl (8.5-10.1); Creatinine Clr Calc Pharmacy 88.8 ml/min; Est GFR (African American) 106.3; Est GFR (Non-African American) 91.7; Magnesium 2.2 mg/dl (1.8-2.4); Potassium 3.7 mmol/L (3.5-5.1)
[2020-05-05] MEDS: ALVESCO PO SCH (08:37)
[2020-05-05] MEDS ORDERED: ACETAMINOPHEN 325 MG TAB PO PRN (09:01)
--- NOTE | 2020-05-05 12:31 | Surgery Progress Note ---
Date of Service May 05, 2020 Assessment & Plan (1) SBO (small bowel obstruction): Peristalsis has returned Tolerating regular diet Moving bowels Small bowel obstruction has resolved No evidence for surgical intervention at this time Subjective Feels much better today Tolerating regular diet Had only very minimal nausea Had 2 bowel movements Passing flatus Denies abdominal pain Physical Exam Gastrointestinal (Abdomen): Inspection/Auscultation: normal bowel sounds; abdomen not distended Percussion/Palpation: abdomen soft; abdomen nontender Results & Data Vital Signs (Past 12 Hours) Vital Signs Temp Pulse Pulse Resp BP BP Pulse Ox 05/05/20 11:29 36.4 C L 103 H 20 140/92 96 05/05/20 07:35 105 H 05/05/20 07:19 36.7 C 97 H 20 113/73 98 05/05/20 03:16 36.7 C 90 20 111/63 99 05/05/20 00:32 37.2 C 102 H 20 125/71 97
--- NOTE | 2020-05-05 13:04 | Hospitalist Progress Note ---
Date of Service May 05, 2020 Assessment & Plan (1) SBO (small bowel obstruction): likely secondary to hysterectomy CT abd/pelvis showed moderate grade small bowel obstruction with transition point noted within the anterior lower abdomen just inferior to the umbilicus. Trace foci of air within the rectus sheath and subcutaneous anterior abdominal wall with trace pneumoperitoneum is likely related to recent hysterectomy. Continue NG tube Surgery on board and recommended small bowel follow through Contrast allergies, pt had to get prep with IV steroid before receiving the contrast KUB showed stable to slightly progressed small bowel distention suggestive of ongoing obstruction. Small Bowel xray showed partial small bowel obstruction with transit of oral contrast from small to large bowel occurring at approximately 6 hours. Decompressed distal small bowel is noted with likely transition point within the abdominal right lower quadrant. NG tube removed on 05/02/20 Pt said that she wants to continue conservative management and does not want surgery Repeat KUB on 05/03 showed enteric contrast from the large bowel redemonstrated. Persistent dilated air-filled loops of small bowel within the central abdomen. Diet advanced to low fiber Case discussed with surgery and no indication for surgical intervention at this time. No diarrhea today Continue monitor Electrolytes imbalance Potassium 3.7 today Continue monitor electrolytes Stable Diarrhea Mostly due recent SBO since pt did not have any BM for few days Now SBO resolved and developed diarrhea yesterday Resolved Pre-diabetes HbA1 6.2 sliding scale insulin as needed while NPO and on D5 1/2 normal saline Reactive airways dysfunction syndrome (RADS) -is defined as the sudden onset of asthma-like symptoms following high-level exposure to a corrosive gas, vapor, or fumes -04/27: Patient's visitor brought lidocaine capsules which to be used in nebulized administration. The label on the medication indicates it was prescribed by Dr. Re Gray, [employer] in [place]. Patient reports she typically follows [facility] pulmonary clinic and was referred to [place] [facility] to see Dr. Gray because of the RADS management from chemical exposure 5 years ago to chlorine? gas and that she was prescribed this medication 1 month ago. She reports she uses this medication on as needed basis when feeling discomfort radiating from her upper airways to her chest. Hospitalist requested that pharmacy verify the medication and allowed to give as prn for bronchospasm also she has multiple listed allergies to medications with reaction described as throat swelling or angioedema Sleep apnea Continue supplementary oxygen at night because of intolerance to BIPAP air flow chronic systolic heart failure, nonischemic cardiomyopathy -Echo done on 03/2019 shows EF of 25%. -As per recent cardiology notes outpatient by Dr. Womack in 01/03/2020 telemdicine that "Mariana is a 69 year old female who was called for follow up of nonischemic cardiomyopathy. Last seen July 2019. This is a complex patient with multiple phobias as outlined in my previous notes. She has a nonischemic cardiomyopathy with an estimated left ventricular ejection fraction of between 20 in 25%. In the past she has refused an ICD...IMPRESSION: 1. Nonischemic cardiomyopathy with systolic heart failure 2. Normal coronary arteries by cardiac catheterization 3. Estimated left ventricular ejection fraction by echocardiography 20-25% mild tachycardia but also there are listed allergies to beta blockers, digoxin, lisinopril, losartan (described as throat swelling or angioedema) No signs of fluid overload Deep venous thrombosis prophylaxis: Sequential compression devices/encourage pt to ambulate Disposition Discharge home today Admission and Anticipated Discharge Date Admission Date: April 27, 2020 Subjective Pt was seen and examined Lying in bed with no distress Pt said that her abdominal pain improves She said that she has no diarrhea today She said that she feels a little nausea She tolerated her diet Denies any chest pain, palpitation, dizziness and SOB Physical Exam Physical Exam: General- No acute distress Head- atraumatic Eyes- PERRL, EOMI, ENT- oropharynx clear Neck- supple, no JVD Lungs- clear to auscultation Heart- regular rhythm; no murmur Abdomen- +BS , mild tender with deep palpation Extremities- no calf tenderness Neuro- alert, oriented x 3; PERRL, EOMI; no facial palsy; no dysarthria Skin- warm & dry Results & Data Results & Data ([facility]) Vital Signs (Past 12 Hours) Vital Signs Temp Pulse Pulse Resp BP BP Pulse Ox 05/05/20 11:29 36.4 C L 103 H 20 140/92 96 05/05/20 07:35 105 H 05/05/20 07:19 36.7 C 97 H 20 113/73 98 05/05/20 03:16 36.7 C 90 20 111/63 99
--- NOTE | 2020-05-06 08:21 | Discharge Summary ---
Date of Service May 05, 2020 Admission HPI Per Admitting Provider CHIEF COMPLAINT: Abdominal pain. HISTORY OF PRESENT ILLNESS: This is a 69-year-old female with past medical history significant for hyperlipidemia, thyroid nodule, prediabetes, reactive airways dysfunction syndrome, obstructive sleep apnea, only on oxygen at nighttime, nonischemic cardiomyopathy, chronic systolic heart failure, there is a plan for AICD, vitamin D deficiency, history of endometrial cancer, history of compression fracture of spine, chronic back pain, postnasal drip, multiple chemical sensitivity syndrome, statin intolerance, generalized anxiety disorder, posttraumatic stress disorder. The patient recently on 04/23/2020 had hysterectomy done at [place]. The patient says since then she did not move her bowels, last night she developed abdominal pain, felt nauseous and she came to the ER and the CAT scan showing small-bowel obstruction. Currently, she is status post NG tube. She still has some abdominal discomfort. Hemodynamics are stable. Denies any headache, no blurred vision, no earache. Has chronic sinuses and sore throat from sinuses. Has some mild cough, no fever, no chills, no chest pain. She has some burning pain in the chest and any chemicals causes burning in the chest, she could not tolerate any chemicals. No rash seen. No lower extremity edema present. Seems comfortable. Admission Exam Per Admitting Provider GENERAL: The patient is of moderate build, not in acute distress. VITAL SIGNS: Temperature 36.5, pulse 113, blood pressure 133/87, oxygen 98% on 2 liters. HEENT: No pallor, no icterus. NECK: No JVD, no neck masses. CARDIOVASCULAR: S1, S2 heard. Tachycardia. No murmurs. RESPIRATORY SYSTEM: Normal AP diameter. No accessory muscle use. No wheezing, no crackles. ABDOMEN: Soft, somewhat distended, mild tenderness and guarding, no rigidity. Bowel sounds very sluggish. CENTRAL NERVOUS SYSTEM: Cranial nerves II-XII grossly intact. Nonfocal. EXTREMITIES: No edema, no erythema. Principal Diagnosis SBO (small bowel obstruction) History of recent hysterectomy Pre-diabetes Reactive airways dysfunction syndrome (RADS) chronic systolic heart failure, nonischemic cardiomyopathy Hypophosphatemia (from GI losses due to NG tube) Electrolytes Imbalance Discharge Exam General- No acute distress Head- atraumatic Eyes- PERRL, EOMI, ENT- oropharynx clear Neck- supple, no JVD Lungs- clear to auscultation Heart- regular rhythm; no murmur Abdomen- +BS , mild tender with deep palpation Extremities- no calf tenderness Neuro- alert, oriented x 3; PERRL, EOMI; no facial palsy; no dysarthria Skin- warm & dry Discharge Data Allergies Allergy/AdvReac Type Severity Reaction Status Date / Time Beta-Blockers Allergy Severe THROAT Verified 04/27/20 02:06 (Beta-Adrenergic Bloc SWELLING digoxin Allergy Severe THROAT Verified 04/27/20 02:06 SWELLING doxycycline Allergy Severe THROAT Verified 04/27/20 02:06 SWELLS, SWELLING lisinopril Allergy Severe possible Verified 04/27/20 02:06 angioedema losartan Allergy Severe THROAT Verified 04/27/20 02:06 SWELLING banana Allergy Intermediate Hives Verified 04/27/20 02:06 codeine Allergy Intermediate chest pain Verified 04/27/20 02:06 gabapentin Allergy Intermediate Short of Verified 04/27/20 02:06 breath iodine Allergy Intermediate swelling Verified 04/27/20 02:06 in throat, hives meperidine Allergy Intermediate HIVES Verified 04/27/20 02:06 NSAIDS (Non-Steroidal Allergy Intermediate hives Verified 04/27/20 02:06 Anti-Inflamma propoxyphene Allergy Intermediate HIVES Verified 04/27/20 02:06 amoxicillin Allergy Unknown CAN'T Verified 04/27/20 02:06 REMEMBER cyclobenzaprine Allergy Unknown CAN'T Verified 04/27/20 02:06 [From Flexeril] REMEMBER albuterol AdvReac Intermediate HEART RACES Verified 04/27/20 02:06 diphenhydramine AdvReac Intermediate heart race Verified 04/27/20 02:06 lorazepam AdvReac Intermediate TACHYCARDIA Verified 04/27/20 02:06 prednisone AdvReac Intermediate HEART RACES Verified 04/27/20 02:06 ranitidine AdvReac Intermediate TACHYCARDIA Verified 04/27/20 02:06 tramadol AdvReac Intermediate Vomiting Verified 04/27/20 02:06 aspirin AdvReac Unknown HX: ulcers Verified 04/27/20 02:06 and bleeding tendencies* Iodinated Contrast Media Allergy Intermediate Hives Uncoded 04/27/20 02:06 Albuterol Sulfate NEBU Allergy Unknown Unknown Uncoded 04/27/20 02:06 ANTIBIOTICS Allergy Unknown PT STATES Uncoded 04/27/20 02:06 SHE HAS HAD HIVES/RASH FROM MULTIPLE ANTIBIOTICS Consultations 04/27/20 04:07 ED Decision to Admit Stat 04/27/20 09:02 Consult Case Management - Discharge Planning Routine Consult General Surgery Routine 04/30/20 10:23 Consult Cardiology Routine Ordered Studies 04/27/20 02:10 CT abd pelvis wo con Urgent 05/01/20 08:00 FL small bowel follow through Urgent XR abdomen 2V w PA chest HISTORY: 69 years-old Female abd. distension acute generalized abdominal pain with distention COMPARISON: CT abdomen and pelvis of same day TECHNIQUE: PA view of the chest with erect and supine views of the abdomen FINDINGS: Cardiac silhouette is mildly enlarged. No pneumothorax, pleural effusion, airspace consolidation or overt pulmonary edema. Bones of the chest appear grossly intact. Electronic device projects over the left neck. Multiple dilated loops of small bowel with air-fluid levels are noted within the central abdomen and abdominal left upper quadrant. Gas-filled hepatic flexure is also noted. Lumbar levoscoliosis. IMPRESSION: 1. No acute processes of the chest. 2. Gaseous distention of large and small bowel is suggestive of ileus versus partial obstruction. Correlate with CT abdomen and pelvis study of same day. ACT 112: Negative or not required by law. The above report was generated using voice recognition software. It may contain grammatical, syntax or spelling errors. Electronically signed by: Donn Noland M.D. 04/27/2020 7:46 AM Dictated: 04/27/20742 Transcribed: 04/27/[address] WITHOUT CONTRAST CT DOSE: 1047.35 mGy.cm HISTORY: Acute generalized abdominal pain with recent hysterectomy. eval for sbo TECHNIQUE: Multiaxial CT images of the abdomen and pelvis were performed without contrast. A dose lowering technique was utilized adhering to the principles of ALARA. COMPARISON STUDY: Abdominal series radiographs of same day FINDINGS: Mild bibasilar opacities suggest atelectasis. There are a few small air foci noted within the ventral abdominal wall rectus sheath and subcutaneous tissues. Trace pneumoperitoneum. The imaged inferior cardiac chambers are mildly enlarged with coronary arterial calcifications. Small pericardial effusion. Trace abdominal pelvic ascites. Limited evaluation of the solid abdominal organs wi thout the use of IV contrast. Diminutive spleen. Mild generalized pancreatic atrophy. Gallbladder appears surgically absent. Unremarkable right adrenal gland. Indeterminate soft tissue attenuating 1.6 x 1.2 cm left adrenal gland lesion is unchanged from comparison, previously meeting criteria for adenoma. Unremarkable appearance of the liver. Kidneys are within normal limits. Small focus of nondependent air is seen within the urinary bladder lumen. Hysterectomy. No adnexal mass lesion. Moderate calcified plaque of the abdominal aorta without aneurysm. No adenopathy. Small hiatal hernia. Multiple dilated fluid-filled loops of small bowel with air-fluid levels measure up to approximately 3.0 cm. Moderate fecal retention. Mild gaseous distention of the transverse colon. Noninflamed appendix. The terminal ileum is decompressed. There is a focal transition point within the small bowel the ventral lower abdominal wall on image 310 series 3 with decompressed bowel seen seen distally and dilated bowel seen proximally. No obstructing mass. This is noted just inferior to the umbilicus. Tiny periumbilical hernia. Subcutaneous stranding of the anterior abdominal wall. The bones appear intact. Multilevel degenerative changes of the spine. Superior endplate compression deformity of approximately 30% involves the T11 vertebral body, unchanged. IMPRESSION: 1. Moderate grade small bowel obstruction with transition point noted within the anterior lower abdomen just inferior to the umbilicus. 2. Trace foci of air within the rectus sheath and subcutaneous anterior abdominal wall with trace pneumoperitoneum is likely related to recent hysterectomy. 3. Trace abdominal pelvic ascites with small pericardial effusion. 4. Air within the urinary bladder lumen is likely secondary to recent ins trumentation. 5. Additional findings as above. ACT 112: Negative or not required by law. The above report was generated using voice recognition software. It may contain grammatical, syntax or spelling errors. Electronically signed by: Donn Noland M.D. 04/27/2020 8:32 AM Dictated: 04/27/20823 Transcribed: 04/27/20823 KUB HISTORY: Small bowel obstruction sbo COMPARISON: CT abdomen pelvis 04/27/2020 FINDINGS: An enteric tube has been placed, distal tip projected superiorly within the region of the gastric cardia/fundus. Persistent dilated small bowel loops are noted throughout the abdomen and pelvis. No renal calculi. No ureteral calculi. No pneumoperitoneum or pneumatosis. No fracture. IMPRESSION: 1. Distal tip of enteric tube projects superiorly within the region of the gastric cardia/fundus. Repositioning with follow-up imaging recommended. 2. Persistent small bowel obstruction. ACT 112: Negative or not required by law. The above report was generated using voice recognition software. It may contain grammatical, syntax or spelling errors. Electronically signed by: Donn Noland M.D. 04/28/2020 8:24 AM Dictated: 04/28/20 0823 Transcribed: 04/28/20 0823 KUB HISTORY: Follow up study in a patient with small bowel obstruction follow up SBO COMPARISON: KUB 04/28/2020, CT 04/27/2020 FINDINGS: Distal tip of enteric tube is again noted projected superiorly within the region of the gastric cardia. There is persistent yet decreased small bowel distention with small bowel loops measuring up to 3.0 cm. Moderate fecal retention of the right hemicolon. No renal calculi. No ureteral calculi. No pneumoperitoneum or pneumatosis. No fracture. IMPRESSION: 1. Unchanged positioning of the enteric tube. 2. Persistent, mildly decreased small bowel distention. 3. No pneumoperitoneum. ACT 112: Negative or not required by law. The above report was generated using voice recognition software. It may contain grammatical, syntax or spelling errors. Electronically signed by: Donn Noland M.D. 04/29/2020 7:44 AM Dictated: 04/29/20 0743 Transcribed: 04/29/20 0743 KUB HISTORY: Follow up study in a patient with small bowel obstruction FOLLOW SBO COMPARISON: KUB 04/29/2020, CT 04/27/2020 FINDINGS: Distal tip of enteric tube is unchanged projecting superiorly within the region of the gastric cardia. Persistent small bowel dilation is noted measuring up to 3.4 cm, previously measured at approximately 3.0 cm. There is at least mild fecal retention. No renal calculi. No ureteral calculi. No pneumoperitoneum or pneumatosis. Mild lumbar levoscoliosis. No fracture. IMPRESSION: 1. Stable to slightly progressed small bowel distention suggestive of ongoing obstruction. 2. Unchanged positioning of the enteric tube. ACT 112: Negative or not required by law. The above report was generated using voice recognition software. It may contain grammatical, syntax or spelling errors. Electronically signed by: Donn Noland M.D. 04/30/2020 4:15 PM Dictated: 04/30/20 1614 Transcribed: 04/30/20 1614 FL small bowel follow through CLINICAL HISTORY: 69 years-old Female with sbo. Follow-up study in a patient with small bowel obstruction TECHNIQUE: Oral barium was administered to the patient and serial radiographs of the abdomen were performed. COMPARISON STUDY: KUB 04/30/2020, CT abdomen pelvis 04/27/2020 FLUOROSCOPY TIME: 0.5 minutes. 15 images were submitted for review. FINDINGS: Insurance Underwriter radiograph of the abdomen demonstrates persistent dilated air- filled loops of small bowel. Mild to moderate fecal retention. No definite pneumatosis or pneumoperitoneum. No urolith. Upon the administration of oral barium contrast via an enteric tube, there is prompt opacification of the gastric lumen and proximal small bowel. Small duodenal diverticulum incidentally noted. Transit to the large bowel occurred at approximately 5 and 45 minutes. Persistent small bowel dilation is noted throughout the entirety of the study with decompressed normal caliber loops of distal ileum. The terminal ileum appears unremarkable. The previously described small bowel transition point is not definitively seen however is likely within the abdominal right lower quadrant. Subsequently, spot fluoroscopic images of the abdomen were obtained and demonstrate freely movable bowel in all four abdominal quadrants. IMPRESSION: Partial small bowel obstruction with transit of oral contrast from small to large bowel occurring at approximately 6 hours. Decompressed distal small bowel is noted with likely transition point within the abdominal right lower quadrant. ACT 112: Negative or not required by law. The above report was generated using voice recognition software. It may contain grammatical, syntax or spelling errors. Electronically signed by: Donn Noland M.D. 05/01/2020 3:31 PM Dictated: 05/01/20 1458 Transcribed: 05/01/20 1502 KU HISTORY: Follow up study in a patient with small bowel obstruction eval for sbo COMPARISON: Small bowel follow-through 05/01/2020 FINDINGS: There is interval progression of enteric contrast through the small bowel and is now predominantly within the large bowel. Persistent small bowel dilation. No pneumatosis or pneumoperitoneum. No urolith or acute fracture. Enteric tube distal tip projects over the expected location of the proximal stomach. IMPRESSION: 1. Interval progression of enteric contrast into the large bowel with persistent air-filled dilated small bowel loops of the central abdomen. 2. Stable positioning of the enteric tube. ACT 112: Negative or not required by law. The above report was generated using voice recognition software. It may contain grammatical, syntax or spelling errors. Electronically signed by: Donn Noland M.D. 05/02/2020 7:20 AM Dictated: 05/02/20717 Transcribed: 05/02/20717 KUB HISTORY: Small bowel obstruction. SBO COMPARISON: KUB 05/02/2020 FINDINGS: There is persistent enteric contrast noted within the large bowel which has not significantly changed from comparison. Status post removal of the enteric tube. Persistent small bowel dilation of the central abdomen. No pneumatosis or pneumoperitoneum. No urolith or acute fracture. Cardiac megaly. Mild right hemidiaphragmatic elevation with linear bibasilar atelectasis/scarring. IMPRESSION: 1. Enteric contrast from the large bowel redemonstrated. 2. Persistent dilated air-filled loops of small bowel within the central abdomen. 3. Interval removal of the enteric tube. ACT 112: Negative or not required by law. The above report was generated using voice recognition software. It may contain grammatical, syntax or spelling errors. Electronically signed by: Donn Noland M.D. 05/03/2020 8:16 AM Dictated: 05/03/2014 Transcribed: 05/03/20813 Hospital Course (1) SBO (small bowel obstruction): likely secondary to hysterectomy CT abd/pelvis showed moderate grade small bowel obstruction with transition point noted within the anterior lower abdomen just inferior to the umbilicus. Trace foci of air within the rectus sheath and subcutaneous anterior abdominal wall with trace pneumoperitoneum is likely related to recent hysterectomy. Continue NG tube Surgery on board and recommended small bowel follow through Contrast allergies, pt had to get prep with IV steroid before receiving the contrast KUB showed stable to slightly progressed small bowel distention suggestive of ongoing obstruction. Small Bowel xray showed partial small bowel obstruction with transit of oral contrast from small to large bowel occurring at approximately 6 hours. Decompressed distal small bowel is noted with likely transition point within the abdominal right lower quadrant. NG tube removed on 05/02/20 Pt said that she wants to continue conservative management and does not want surgery Repeat KUB on 05/03 showed enteric contrast from the large bowel redemonstrated. Persistent dilated air-filled loops of small bowel within the central abdomen. Diet advanced to low fiber Case discussed with surgery and no indication for surgical intervention at this time. No diarrhea today Continue monitor Electrolytes imbalance Potassium 3.7 today Continue monitor electrolytes Stable Diarrhea Mostly due recent SBO since pt did not have any BM for few days Now SBO resolved and developed diarrhea yesterday Resolved Pre-diabetes HbA1 6.2 sliding scale insulin as needed while NPO and on D5 1/2 normal saline Reactive airways dysfunction syndrome (RADS) -is defined as the sudden onset of asthma-like symptoms following high-level exposure to a corrosive gas, vapor, or fumes -04/27: Patient's visitor brought lidocaine capsules which to be used in nebulize d administration. The label on the medication indicates it was prescribed by Dr. Re Gray, Product Director in [place]. Patient reports she typically follows [facility] pulmonary clinic and was referred to [place] pulmonary clinic to see Dr. Gray because of the RADS management from chemical exposure 5 years ago to chlorine? gas and that she was prescribed this medication 1 month ago. She reports she uses this medication on as needed basis when feeling discomfort radiating from her upper airways to her chest. Hospitalist requested that pharmacy verify the medication and allowed to give as prn for bronchospasm also she has multiple listed allergies to medications with reaction described as throat swelling or angioedema Sleep apnea Continue supplementary oxygen at night because of intolerance to BIPAP air flow chronic systolic heart failure, nonischemic cardiomyopathy -Echo done on 03/2019 shows EF of 25%. -As per recent cardiology notes outpatient by Dr. Womack in 01/03/2020 telemdicine that "Mariana is a 69 year old female who was called for follow up of nonischemic cardiomyopathy. Last seen July 2019. This is a complex patient with multiple phobias as outlined in my previous notes. She has a nonischemic cardiomyopathy with an estimated left ventricular ejection fraction of between 20 in 25%. In the past she has refused an ICD...IMPRESSION: 1. Nonischemic cardiomyopathy with systolic heart failure 2. Normal coronary arteries by cardiac catheterization 3. Estimated left ventricular ejection fraction by echocardiography 20-25% mild tachycardia but also there are listed allergies to beta blockers, digoxin, lisinopril, losartan (described as throat swelling or angioedema) No signs of fluid overload Deep venous thrombosis prophylaxis: Sequential compression devices/encourage pt to ambulate Disposition Discharge home today Total Time Total Time Spent Total Time Spent (In Minutes): 35 minutes Total Time Includes: Examination of the Patient, Discharge Planning, Medication Reconciliation, Communication With Other Providers and Other Discharge Plan Discharge Items Patient Disposition: Home - Home Health Services Reason For Visit: ABDOMINAL PAIN Discharge Diagnosis: SBO (small bowel obstruction) History of recent hysterectomy Pre-diabetes Reactive airways dysfunction syndrome (RADS) chronic systolic heart failure, nonischemic cardiomyopathy Hypophosphatemia (from GI losses due to NG tube) Electrolytes Imbalance Activity: Resume your previous activity Non-emergency contact: Primary Care Provider Call non-emergency contact if: you have any medication questions Follow-up/Referrals: Chadwick Mccollum MD [Primary Care Provider] - Diet: Low Fiber Addtl Attending Provider Instructions: Follow up with your primary care provider Dr. Mccollum with 1 week Advanced diet as tolerated Continue your oxygen supplement at night Fall precaution Pending Studies at Discharge: No Stand-Alone Forms: My [employer], Smoking Cessation Medications and DC Order Prescriptions: Continued tolterodine 4 mg capsule,extended release 24hr 4 mg PO DAILY Qty: 90 RF: 3 (DME) Oxygen Home Liters Per Minute See Rx Instructions .ROUTE .MEDSUPPLY Qty: 1 RF: 0 (DME) Miscellaneous Pulmonary Supply Misc See Rx Instructions .ROUTE .MEDSUPPLY Qty: 1 RF: 5 Xiidra 5 % dropperette 1 drops OPB BID RF: 0 acetaminophen [Tylenol] 325 mg Tablet 650 mg PO Q4H PRN (Reason: Fever Or Pain) RF: 0 hydromorphone 2 mg Tablet 2 mg PO Q4H PRN (Reason: Pain) RF: 0 enoxaparin 40 mg/0.4 mL Syringe 40 mg SUBCUT DAILY RF: 0 lidocaine capsule 10 mg NEB Q4H PRN (Reason: Bronchospasm) RF: 0 cetirizine 10 mg Tablet 10 mg PO QAM RF: 0 Alvesco 160 mcg/actuation HFA aerosol inhaler 2 puff inhalation BID RF: 0 Changed ondansetron HCl [Zofran] 4 mg tablet 4 mg PO Q8H PRN (Reason: Nausea And Vomiting) Qty: 30 RF: 0 Discharge Orders: Discharge Order (Routine); Ordered 05/05/20 Ordered By: Miramontes Jazmyn Krames/Other Patient Handouts: Prediabetes, Diabetes: Meal Planning, A1C Admission Data Admit Date/Time: 04/27/20 05:35 Attending Provider: Fe Eldridge Admit Provider: Binh Garrett Primary Care Provider: Chadwick Mccollum Other Providers: Binh Garrett ; Doni Gan ; Eliza Davies ; Nona Murphy ; Ric Bedoya ; Ino Garcia ; Ashleigh Espinoza ; Vickey Cisse ; Vanessa Restrepo ; Jonathan Velazquez Jr ; Hany Ortega ; Kylah Shoemaker ; Ino Womack ; Romeo Kelley Other Interventions: Discharge Summary Assessment (RN) Last Done: 05/05/20 16:17 DC Date/Time DO NOT enter until pt leaves facility: 05/05/20 17:08
== END 2020-05-05 17:08 | disposition home or self-care (01) | DRG 389 ==
LOC: ED 01:05 → 2W 05:17 → SUATTDRO 05:35 → 2W 08:19 → 2N 04-28 11:58

== ENCOUNTER 2020-12-15 18:27 | Inpatient (IN) ==
[2020-12-15] MEDS ORDERED: FUROSEMIDE 40 MG/4 ML VIAL IV STA (19:03)
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
[2020-12-15 19:25] LABS: Basophils # (auto) 0.02 K/uL (0-0.2); Basophils % (auto) 0.3 %; Eosinophils # (auto) 0.16 K/uL (0-0.5); Eosinophils % (auto) 2.3 %; Hematocrit (blood only) 40.6 % (37-47); Hemoglobin 13.3 g/dL (12.0-16.0); Immature Granulocytes # (auto) 0.01 K/uL (0.00-0.02); Immature Granulocytes % (auto) 0.1 %; Lymphocytes # (auto) 1.39 K/uL (1.2-3.4); Lymphocytes % (auto) 20.1 %; Mean Corpuscular Hemoglobin 30.2 pg (25-34); Mean Corpuscular Hgb Conc 32.8 g/dL (32-36); Mean Corpuscular Volume 92.1 fL (80-100); Mean Platelet Volume 11.1 fL (7.4-10.4); Monocytes # (auto) 0.42 K/uL (0.11-0.59); Monocytes % (auto) 6.1 %; Neutrophils # (auto) 4.92 K/uL (1.4-6.5); Neutrophils % (auto) 71.1 %; Platelet Count 246 K/uL (130-400); RDW Coefficient of Variation 13.6 % (11.5-14.5); RDW Standard Deviation 45.8 fL (36.4-46.3); Red Blood Count 4.41 M/uL (4.2-5.4); White Blood Count 6.92 K/uL (4.8-10.8)
[2020-12-15 19:30] LABS: Appearance Urine Clear (Clear); Bacteria Urine Automated 4+ (Negative); Bilirubin Urine Negative (Negative); Blood Urine Negative (Negative); Color Urine Yellow; Epithelial Cell Urine Auto 0-5 /lpf (0-5); Glucose Urine UA Negative (Negative); Ketones Urine Negative (Negative); Leukocyte Esterase Urine 1+ (Negative); Nitrite Urine Negative (Negative); Protein Urine Negative (Negative); RBC Urine Automated 0-4 /hpf (0-4); Specific Gravity Urine 1.015 (1.000-1.030); Urobilinogen Urine Negative (Negative); WBC Urine Automated >30 /hpf (0-5); pH Urine 5.5 (4.5-7.5)
[2020-12-15 19:36] LABS: Partial Thromboplastin Ratio 0.8; Partial Thromboplastin Time 21.1 Seconds (21.0-31.0); Prothrombin Time 10.3 Seconds (9.0-12.0)
[2020-12-15] MEDS ORDERED: cefTRIAXone SODIUM 2,000 MG/70 ML BAG IV STA (19:36)
--- NOTE | 2020-12-15 19:41 | XRay Report ---
SINGLE VIEW CHEST CLINICAL HISTORY: Dyspnea. FINDINGS: An AP, portable, upright chest radiograph is compared to study dated 11/26/2020. The heart i s enlarged. There is mild pulmonary vascular congestion. Scarring/atelectasis is noted at the lung ba ses. No airspace consolidation or large pleural effusion is identified. No pneumothorax is seen. The skeletal structures are osteopenic. The bony thorax is grossly intact. IMPRESSION: Cardiomegaly with mild pulmonary vascular congestion. ACT 112: Negative or not required by law. Electronically signed by: Stanley Cavanaugh M.D. 12/15/2020 7:39 PM
[2020-12-15 19:48] LABS: Albumin Level 3.1 gm/dl (3.4-5.0); BUN Creatinine Ratio 37.1 (10-20); Calcium 9.2 mg/dl (8.5-10.1); Creatinine Clr Calc Pharmacy 60.3 ml/min; Est GFR (African American) 70.4; Est GFR (Non-African American) 60.8; Magnesium 2.2 mg/dl (1.8-2.4); Potassium 3.5 mmol/L (3.5-5.1)
[2020-12-15 19:53] LABS: Albumin Globulin Ratio 0.9 (0.9-2); Bilirubin,Total 0.4 mg/dl (0.2-1); Globulin 3.3 gm/dl (2.5-4.0); Total Protein 6.4 gm/dl (6.4-8.2); Troponin I 0.035 ng/ml (0-0.045)
[2020-12-15] MEDS ORDERED: POTASSIUM CHLORIDE 10 MEQ TABCR PO STA (21:21)
[2020-12-15] MEDS ORDERED: ACETAMINOPHEN 325 MG TAB PO STA (21:56)
[2020-12-15] MEDS ORDERED: ACETAMINOPHEN 325 MG TAB ONE (22:00)
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
--- NOTE | 2020-12-15 23:50 | Ultrasound Report ---
ULTRASOUND BILATERAL LOWER EXTREMITY VENOUS CLINICAL HISTORY: Leg pain. COMPARISON STUDY: No priors. TECHNIQUE: Real-time, grayscale, and color Doppler sonography of the deep veins of the right and left lower extremity was performed from the inguinal crease to the calf. Compression and augmentation wer e utilized. FINDINGS: There is no sonographic evidence of deep venous thrombosis identified in the right or left lower extremity. The common femoral, superficial femoral, and popliteal veins are patent and normally compressible bilaterally. The greater saphenous vein and the profunda femoris vein at the junction w ith the common femoral vein are clear in both legs. The visualized calf veins are patent bilaterally. IMPRESSION: There is no sonographic evidence of deep venous thrombosis identified in the right or lef t lower extremity. ACT 112: Negative or not required by law. Electronically signed by: Stanley Cavanaugh M.D. 12/15/2020 11:48 PM
[2020-12-15] MEDS ORDERED: NITROGLYCERIN SL 0.4 MG/TAB TAB SL PRN (23:51)
[2020-12-15] MEDS ORDERED: PROMETHAZINE HCL 12.5 MG in SODIUM CHLORIDE 0.9% 50 ML IV PRN (23:51)
[2020-12-16 06:59] LABS: Estimated Average Glucose 140 mg/dl; Hemoglobin A1C 6.5 % (4.5-5.6)
[2020-12-16] MEDS ORDERED: FUROSEMIDE 40 MG/4 ML VIAL IV SCH (08:00)
[2020-12-16] MEDS: FLUTICASONE FUROATE 200MCG 14 PUFFS/INHALER INH SCH (08:34)
[2020-12-16] MEDS: TOLTERODINE TARTRATE LA 4 MG CAPCR PO SCH (08:35)
[2020-12-16] MEDS: CETIRIZINE HCL 10 MG TABLET PO SCH (08:36)
[2020-12-16] MEDS: ENOXAPARIN INJ 40 MG/0.4 ML SYR SQ SCH (08:38)
[2020-12-16 08:39] LABS: Basophils # (auto) 0.03 K/uL (0-0.2); Basophils % (auto) 0.5 %; Eosinophils # (auto) 0.14 K/uL (0-0.5); Eosinophils % (auto) 2.2 %; Hematocrit (blood only) 40.8 % (37-47); Hemoglobin 13.7 g/dL (12.0-16.0); Lymphocytes # (auto) 1.06 K/uL (1.2-3.4); Lymphocytes % (auto) 16.6 %; Mean Corpuscular Hemoglobin 30.9 pg (25-34); Mean Corpuscular Hgb Conc 33.6 g/dL (32-36); Mean Corpuscular Volume 92.1 fL (80-100); Mean Platelet Volume 10.8 fL (7.4-10.4); Monocytes # (auto) 0.38 K/uL (0.11-0.59); Monocytes % (auto) 5.9 %; Neutrophils # (auto) 4.78 K/uL (1.4-6.5); Neutrophils % (auto) 74.8 %; Platelet Count 268 K/uL (130-400); RDW Coefficient of Variation 13.7 % (11.5-14.5); RDW Standard Deviation 46.7 fL (36.4-46.3); Red Blood Count 4.43 M/uL (4.2-5.4); White Blood Count 6.39 K/uL (4.8-10.8)
[2020-12-16] MEDS ORDERED: POTASSIUM CHLORIDE CRTAB 20 MEQ TABCR PO SCH (09:00)
[2020-12-16 09:20] LABS: Calcium 8.7 mg/dl (8.5-10.1); Creatinine Clr Calc Pharmacy 56.3 ml/min; Est GFR (African American) 66.2; Est GFR (Non-African American) 57.2; Potassium 3.7 mmol/L (3.5-5.1)
--- NOTE | 2020-12-16 09:21 | CT Scan Report ---
ABDOMEN AND PELVIS CT WITHOUT CONTRAST CT DOSE: 646.23 mGy.cm HISTORY: bloated, poss bowel obstruction TECHNIQUE: Multiaxial CT images of the abdomen and pelvis were performed without contrast. A dose lo wering technique was utilized adhering to the principles of ALARA. COMPARISON STUDY: Abdomen and pelvis CT 10/16/2020. FINDINGS: Stable 5 mm nodule within the right middle lobe. There is an old mild anterior wedge-shaped compression deformity at T11. Mild interlobular septal thickening at the lung bases. This could repr esent mild congestive change. The heart is mildly enlarged. There is a small left pleural effusion. N o pneumoperitoneum. No pneumatosis. No suspicious lytic or blastic osseous lesions. Cholecystectomy. The unenhanced liver, spleen, right adrenal gland, and pancreas unremarkable. There is mild fullness within the bilateral renal collecting systems without hydronephrosis. Normal bladder. The uterus is s urgically absent. Suboptimal evaluation for bowel pathology due to the lack of intravenous and oral c ontrast. However, there is no definite bowel wall thickening or obstruction. Colonic diverticulosis. No evidence for acute diverticulitis. Stable 1.4 cm left adrenal gland nodule. IMPRESSION: 1. Cardiomegaly, small left pleural effusion, and mild congestive change is noted at the lung bases. 2. No bowel wall thickening or obstruction. 3. Additional findings as described above. ACT 112: Negative or not required by law. Electronically signed by: Mook Staton M.D. 12/16/2020 9:20 AM
[2020-12-16 09:26] LABS: Troponin I 0.032 ng/ml (0-0.045)
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
[2020-12-16] MEDS ORDERED: POTASSIUM CHLORIDE CRTAB 20 MEQ TABCR PO ONE (10:03)
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
[2020-12-16] MEDS: FUROSEMIDE 40 MG in SYRINGE 0 ML IV SCH (16:52)
[2020-12-16] MEDS: POTASSIUM CHLORIDE CRTAB 20 MEQ TABCR PO SCH (16:53)
[2020-12-16] MEDS: oxyCODONE HCL IR 5 MG TAB (IMMEDIATE RELEASE) PO PRN (19:30)
[2020-12-16] MEDS ORDERED: cefTRIAXone SODIUM 2,000 MG in DEXTROSE 5% 50 ML IV SCH (20:00)
--- NOTE | 2020-12-16 21:49 | Electrocardiogram Report ---
Test Reason : Blood Pressure : / mmHG Vent. Rate : 112 BPM Atrial Rate : 112 BPM P-R Int : 160 ms QRS Dur : 136 ms QT Int : 374 ms P-R-T Axes : 059 -27 081 degrees QTc Int : 510 ms Sinus tachycardia with occasional Premature ventricular complexes Biatrial enlargement Non-specific intra-ventricular conduction block Poor R wave progression, consider anterior PR vs. lead placement vs. LVH Inferior infarct Abnormal ECG When compared with ECG of 26-NOV-2020 03:54, Fusion complexes are no longer Present Confirmed by Darryl Kuhn ([id number]) on 12/16/2020 9:49:21 PM Referred By: REFERRED SELF Confirmed By:Darryl Kuhn
[2020-12-17] MEDS: oxyCODONE HCL IR 5 MG TAB (IMMEDIATE RELEASE) PO PRN ×2 (00:33→08:10)
[2020-12-17] MEDS: TOLTERODINE TARTRATE LA 4 MG CAPCR PO SCH (07:47)
[2020-12-17] MEDS: POTASSIUM CHLORIDE CRTAB 20 MEQ TABCR PO SCH (07:47)
[2020-12-17] MEDS: ENOXAPARIN INJ 40 MG/0.4 ML SYR SQ SCH (07:47)
[2020-12-17] MEDS: CETIRIZINE HCL 10 MG TABLET PO SCH (07:47)
[2020-12-17] MEDS: FUROSEMIDE 40 MG in SYRINGE 0 ML IV SCH ×2 (07:48→08:18)
[2020-12-17] MEDS: FLUTICASONE FUROATE 200MCG 14 PUFFS/INHALER INH SCH (07:48)
[2020-12-17] MEDS ORDERED: guaiFENesin 600 MG TABCR PO SCH (10:00)
--- NOTE | 2020-12-17 10:07 | Cardiology Progress Note ---
Date of Service December 17, 2020 Assessment & Plan (1) Decompensated heart failure: (2) Tachycardia: (3) Nocturnal hypoxia: (4) Uterine cancer: (5) Paroxysmal ventricular tachycardia: (6) Chronic lung disease: (7) Cardiomyopathy: Echocardiogram now shows reduced RV systolic function likely due to recent COVID-19 pneumonia. Presents with signs of right-sided heart failure but diuresing well. I/O's incomplete, patient not compliant pt refusing lasix will change to bumex 1mg po daily, she is agreeable first dose now and ok to d/c to home in PM if remains asymptomatic d/c tele now f/u as outpatient, my office will arrange Admission and Anticipated Discharge Date Admission Date: December 15, 2020 Subjective Pt seen and examined, chart reviewed, discussed with nursing. States that her abdominal distention has improved. Refusing further lasix, states that it is causing leg cramps. Does have leg cramps at baseline. Requesting different medications. Otherwise, feels tired and anxious for discharge. Tele reviewed: sinus tachycardia with occasional PVC's Review of Systems Review of Systems: All systems reviewed & are unremarkable except as noted in HPI & below Physical Exam Physical Exam: General: Awake, alert and oriented x 3. No acute distress. HEENT: Normocephalic, atraumatic. Pupils equal, round and reactive to light and accommodation. Extraocular muscles are intact. Anicteric sclera. Moist mucous membranes. Neck: No JVD. No bruit. Cardiovascular: Regular. Positive S-4. Normal S-1 and S-2. No S-3. 3/6 holosystolic ejection murmur, left sternal border, mid-clavicular line with radiation to the axilla. No rubs. Pulmonary: Clear to auscultation bilaterally. No rales, rhonchi, or wheezing. Abdomen: Bowel sounds x 4, soft. No rebound, guarding or tenderness. No organomegaly. Extremities: No clubbing, cyanosis or edema. +2 pedal pulses bilaterally. Skin: Warm and dry. Results & Data ([facility]) Vital Signs (Past 12 Hours) Vital Signs Temp Pulse Pulse Pulse Resp BP Pulse Ox 12/17/20 09:52 94 12/17/20 07:05 36.7 C 110 H 18 126/82 93 12/17/20 03:41 36.5 C 100 H 18 104/72 91 12/17/20 00:30 119 H 12/17/20 00:00 36.6 C 102 H 16 115/79 93 Pulse Ox 12/17/20 09:52 12/17/20 07:05 12/17/20 03:41 12/17/20 00:30 12/17/20 00:00 93
[2020-12-17] MEDS ORDERED: BUMETANIDE 1 MG TAB PO SCH (10:15)
[2020-12-17 10:26] LABS: Basophils # (auto) 0.03 K/uL (0-0.2); Basophils % (auto) 0.4 %; Eosinophils # (auto) 0.15 K/uL (0-0.5); Eosinophils % (auto) 2.2 %; Hematocrit (blood only) 42.5 % (37-47); Hemoglobin 14.3 g/dL (12.0-16.0); Immature Granulocytes # (auto) 0.01 K/uL (0.00-0.02); Immature Granulocytes % (auto) 0.1 %; Lymphocytes # (auto) 1.29 K/uL (1.2-3.4); Lymphocytes % (auto) 19.1 %; Mean Corpuscular Hemoglobin 30.7 pg (25-34); Mean Corpuscular Hgb Conc 33.6 g/dL (32-36); Mean Corpuscular Volume 91.2 fL (80-100); Mean Platelet Volume 10.8 fL (7.4-10.4); Monocytes # (auto) 0.39 K/uL (0.11-0.59); Monocytes % (auto) 5.8 %; Neutrophils # (auto) 4.88 K/uL (1.4-6.5); Neutrophils % (auto) 72.4 %; Platelet Count 288 K/uL (130-400); RDW Coefficient of Variation 13.8 % (11.5-14.5); RDW Standard Deviation 45.9 fL (36.4-46.3); Red Blood Count 4.66 M/uL (4.2-5.4); White Blood Count 6.75 K/uL (4.8-10.8)
[2020-12-17 10:49] LABS: BUN Creatinine Ratio 25.8 (10-20); Calcium 8.8 mg/dl (8.5-10.1); Creatinine Clr Calc Pharmacy 52.1 ml/min; Est GFR (African American) 61.1; Est GFR (Non-African American) 52.7; Potassium 4.2 mmol/L (3.5-5.1)
[2020-12-17] MEDS ORDERED: GLUCAGON FOR INJ 1 MG VIAL IM PRN (14:45)
[2020-12-17] MEDS ORDERED: GLUCOSE 10 TABS/TUBE PO PRN (14:45)
[2020-12-17] MEDS ORDERED: DEXTROSE 50% 50 ML SYRINGE IV PRN (14:45)
[2020-12-17] MEDS ORDERED: GLUCOSE 40% GEL 15 GM TUBE PO PRN (14:45)
[2020-12-17] MEDS ORDERED: CARBOHYDRATES FOR HYPOGLYCEMIA PO PRN (14:45)
[2020-12-17] MEDS ORDERED: INSULIN ASPART 100 UNITS/ML 3 ML PEN SC SCH (16:30)
[2020-12-18] MEDS ORDERED: levoFLOXacin 250 MG TABLET PO SCH (11:00)
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
== END 2020-12-17 17:01 | disposition home or self-care (01) | DRG 292 ==
LOC: ED 18:27 → 2E 22:24

== ENCOUNTER 2021-04-22 15:29 | Inpatient (IN) ==
[2021-04-22 16:03] LABS: Basophils # (auto) 0.01 K/uL (0-0.2); Basophils % (auto) 0.5 %; Hematocrit (blood only) 42.5 % (37-47); Hemoglobin 14.6 g/dL (12.0-16.0); Immature Granulocytes # (auto) 0.01 K/uL (0.00-0.02); Immature Granulocytes % (auto) 0.5 %; Lymphocytes # (auto) 0.34 K/uL (1.2-3.4); Lymphocytes % (auto) 16.3 %; Mean Corpuscular Hemoglobin 31.1 pg (25-34); Mean Corpuscular Hgb Conc 34.4 g/dL (32-36); Mean Corpuscular Volume 90.4 fL (80-100); Mean Platelet Volume 11.1 fL (7.4-10.4); Monocytes % (auto) 4.8 %; Neutrophils # (auto) 1.63 K/uL (1.4-6.5); Neutrophils % (auto) 77.9 %; Platelet Count 113 K/uL (130-400); RDW Coefficient of Variation 13.9 % (11.5-14.5); RDW Standard Deviation 45.7 fL (36.4-46.3); White Blood Count 2.09 K/uL (4.8-10.8)
--- NOTE | 2021-04-22 16:10 | Electrocardiogram Report ---
Test Reason : Blood Pressure : / mmHG Vent. Rate : 128 BPM Atrial Rate : 128 BPM P-R Int : 156 ms QRS Dur : 138 ms QT Int : 298 ms P-R-T Axes : 069 -42 095 degrees QTc Int : 435 ms Sinus tachycardia Left atrial enlargement Left axis deviation Non-specific intra-ventricular conduction block Cannot rule out Anterior infarct (cited on or before 22-APR-2021) Abnormal ECG When compared with ECG of 25-MAR-2021 00:26, Premature ventricular complexes are no longer Present Confirmed by Mayito Back ([id number]) on 04/22/2021 4:09:54 PM Referred By: Confirmed By:Mayito Back
[2021-04-22 16:25] LABS: INR 1.1 (0.9-1.1); Partial Thromboplastin Ratio 0.8; Partial Thromboplastin Time 22.2 Seconds (21.0-31.0); Prothrombin Time 10.7 Seconds (9.0-12.0)
[2021-04-22 16:29] LABS: D Dimer 6310 ug/L FEU (0-500)
[2021-04-22 16:30] LABS: Albumin Level 3.2 gm/dl (3.4-5.0); Calcium 9.2 mg/dl (8.5-10.1); Creatinine Clr Calc Pharmacy 58.3 ml/min; Est GFR (African American) 73.2 ml/min; Est GFR (Non-African American) 63.1 ml/min
--- NOTE | 2021-04-22 16:31 | XRay Report ---
XR chest 1V portable CLINICAL HISTORY: Atypical chest pain COMPARISON STUDY: 03/25/2021 FINDINGS: The heart is borderline enlarged. There is no failure. There is no focal pulmonary consolid ation. There are no pleural effusions.[There is no pneumothorax. There are overlying electrodes. IMPRESSION: No active disease in the chest. ACT 112: Negative or not required by law. Electronically signed by: Inocente Reynoso M.D. 04/22/2021 4:29 PM
[2021-04-22 16:34] LABS: Albumin Globulin Ratio 0.9 (0.9-2); Bilirubin,Total 0.7 mg/dl (0.2-1); Globulin 3.6 gm/dl (2.5-4.0); Total Protein 6.8 gm/dl (6.4-8.2); Troponin I 0.028 ng/ml (0-0.045)
[2021-04-22] MEDS ORDERED: ONDANSETRON INJ 2 MG/ML 2 ML VIAL IV STA (17:21)
[2021-04-22] MEDS ORDERED: fentaNYL citrate 100 MCG/2 ML VIAL IV STA (17:21)
[2021-04-22 17:30] LABS: Potassium 3.9 mmol/L (3.5-5.1)
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
[2021-04-22 18:58] LABS: Lyme Ab IgG w/WB Rflx Negative (Negative); Lyme Ab IgM w/WB Rflx Negative (Negative)
[2021-04-22] MEDS ORDERED: SODIUM CHLORIDE 0.9% 1000ML 1,000 ML IV SCH (19:15)
[2021-04-22] MEDS ORDERED: Heparin IV Adult Wt-Based Low-Dose WITH Bolus Protocol IV SCH (19:19)
[2021-04-22] MEDS ORDERED: HEPARIN 25000 UNIT/500 ML D5W IV ONE (19:20)
--- NOTE | 2021-04-22 19:25 | Ultrasound Report ---
US venous doppler LE BI CLINICAL HISTORY: Elevated d-dimer and shortness of breath. Possible pulmonary embolism COMPARISON STUDY: 12/15/2020 FINDINGS: Real-time and color flow Doppler imaging were performed. Flow was seen within the femoral, popliteal and calf veins with no intraluminal thrombus demonstrated. The saphenous vein is patent. IMPRESSION: No evidence of lower extremity DVT. ACT 112: Negative or not required by law. Electronically signed by: Inocente Reynoso M.D. 04/22/2021 7:23 PM
[2021-04-22] MEDS ORDERED: SODIUM CHLORIDE 0.9% 500 ML IV SCH (19:30)
[2021-04-22] MEDS ORDERED: HEPARIN SOD (PORCINE) 1000 UNIT/ML IV ONE (19:30)
[2021-04-22] MEDS: HEPARIN SODIUM/DEXTROSE 25,000 UNITS/500 ML BAG IV SCH (20:06)
[2021-04-22] MEDS ORDERED: NITROGLYCERIN SL 0.4 MG/TAB TAB SL PRN (20:49)
[2021-04-22] MEDS ORDERED: POLYETHYLENE (MIRALAX) 17 GM PACK PO PRN (20:49)
[2021-04-22] MEDS ORDERED: CHLORASEPTIC 1.4% SOLN 180 ML BTL PO PRN (20:49)
[2021-04-22] MEDS: AMITRIPTYLINE HCL 25 MG TAB PO SCH (21:29)
[2021-04-22] MEDS: DOCUSATE SODIUM 100 MG CAP PO SCH (21:29)
[2021-04-22] MEDS: LIDOCAINE 4% INH SOLN 4 ML BTL NEB PRN (22:23)
[2021-04-22] MEDS: ACETAMINOPHEN 325 MG TAB PO PRN (22:47)
[2021-04-23 02:38] LABS: Hematocrit (blood only) 42.2 % (37-47); Hemoglobin 14.1 g/dL (12.0-16.0); Mean Corpuscular Hemoglobin 31.1 pg (25-34); Mean Corpuscular Hgb Conc 33.4 g/dL (32-36); Mean Corpuscular Volume 93.2 fL (80-100); Mean Platelet Volume 10.6 fL (7.4-10.4); Platelet Count 112 K/uL (130-400); RDW Coefficient of Variation 14.1 % (11.5-14.5); RDW Standard Deviation 48.3 fL (36.4-46.3); Red Blood Count 4.53 M/uL (4.2-5.4); White Blood Count 2.12 K/uL (4.8-10.8)
[2021-04-23 03:00] LABS: BUN Creatinine Ratio 14.4 (10-20); Calcium 8.7 mg/dl (8.5-10.1); Creatinine Clr Calc Pharmacy 54.8 ml/min; Est GFR (African American) 67.9 ml/min; Est GFR (Non-African American) 58.6 ml/min; Potassium 3.8 mmol/L (3.5-5.1)
[2021-04-23 03:13] LABS: Partial Thromboplastin Ratio 2.2
[2021-04-23 03:17] LABS: Troponin I 0.054 ng/ml (0-0.045)
[2021-04-23 03:28] LABS: Partial Thromboplastin Time 56.9 Seconds (21.0-31.0)
[2021-04-23] MEDS: ACETAMINOPHEN 325 MG TAB PO PRN ×3 (07:23→18:44)
[2021-04-23 08:24] LABS: Partial Thromboplastin Ratio 1.9
[2021-04-23 08:26] LABS: Partial Thromboplastin Time 49.1 Seconds (21.0-31.0)
--- NOTE | 2021-04-23 08:26 | Hospitalist Progress Note ---
Date of Service April 23, 2021 Assessment & Plan (1) Tachycardia: (2) Elevated d-dimer: (3) Chest pain on breathing: (4) CHF (congestive heart failure): (5) Chronic lung disease: (6) Multiple chemical sensitivity syndrome: (7) Nocturnal hypoxia: (8) Insomnia: Plan: This is a 70yo F with a PMH of nonischemic cardiomyopathy with systolic and diastolic heart failure with EF 20 to 25%, refusal of ICD in the past, frequent PVCs, nonspecific intraventricular conduction block with prolonged QT, history of paroxysmal V. tach, dyslipidemia, TESSA with nocturnal hypoxia treated with 4 L nasal cannula oxygen, history of multiple chemical sensitivity syndrome, react mis airway dysfunction syndrome, generalized anxiety disorder, PTSD and other medical problems listed below who presents with pain in lungs x4 days. Tachycardia Pleuritic chest pain Elevated d-dimer Presenting with burning in lungs x 4 days, sinus tachycardia ~115, d-dimer elevated at 6,310 Unable to obtain CTA chest to evaluate for PE due to allergies to contrast dye, benadryl and steroids BLE dopplers without evidence of PE CXR with no active disease in the chest. Based on age and symptoms, started low-dose IV heparin with bolus due to suspicion of PE while awaiting VQ scan VQ scan negative Monitor on telemetry, trend troponin - troponin mildly elevated now (cardiology aware, cont. 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 Follows with SAEID Davila of pulmonology No abnormal findings on CXR, saturating at 95% on room air Started on Z pack Wednesday, which she is prescribed for flare ups of chemical sensitivity syndrome Continue Z pack, PRN inhalers, supplemental O2 as needed Currently she is on 2L od O2 via NC (has NC in her mouth), at home does not use support oxygen only at night Pulmonary medicine consulted Concern for tickborne illness Presenting with leukopenia, thrombocytopenia and slight LFT elevation concerning for tickborne illness Peripheral smear without evidence of inclusion bodies to indicate anaplasmosis. Lyme serology negative. Anaplasma DNA pending Patient with airway edema listed as adverse reaction to doxycycline, per pharmacy, patient responded well to Rocephin, will start empirically at this time Insomnia Continue amitriptyline at bedtime DVT Ppx: IV heparin Code status: FULL PCP: Chun Dispo: Admitted to PCU. Discharge planning ordered. Admission and Anticipated Discharge Date Admission Date: April 22, 2021 Subjective Patient seen in follow-up of shortness of breath, "chest burning ", concern for PE Currently she sitting up in a chair, in no acute distress, nasal cannula placed in her mouth Says she feels slightly better however she continues to be short of breath, at home does not use supplemental oxygen only at night She also reports feeling dizzy and lightheaded, more than yesterday, patient has been tachycardic VQ scan obtained, and negative Pulmonary and cardiology consulted Review of Systems Review of Systems: All systems reviewed & are unremarkable except as noted in HPI & below Physical Exam Physical Exam: General Appearance: WD/WN, NAD, sitting up in bed, on 2L suppl. O2 via NC Head: normocephalic, atraumatic Eyes: normal inspection, PERRL, conjunctivae normal, anicteric sclerae ENT: external ear and nose normal, oropharynx normal Neck: normal visual inspection, trachea midline, no thyromegaly Respiratory: normal respiratory effort, coarse lung sounds L base, otherwise clear to auscultation, no wheeze, rales or rhonchi. No accessory muscle use Cardiovascular: +tachycardic, no murmur appreciated, normal peripheral pulses, no BLE edema. Vessels: no JVD Chest: normal inspection of chest Abdomen/GI: normal bowel sounds, soft, mildly distended, no guarding Extremities/Musculoskeletal: no cyanosis or clubbing, extremities motor strength 5/5 Neurologic: PERRL, EOMI, no face palsy, no dysarthria, moves all extremities Psychiatric: A+Ox3, anxious Skin: no rashes, normal color, warm/dry Results & Data Results & Data ([facility]) Vital Signs (Past 12 Hours) Vital Signs Temp Pulse Pulse Resp BP BP Pulse Ox 04/23/21 07:53 36.5 C 98 H 17 89/56 L 96 04/23/21 03:54 36.4 C L 88 18 115/72 90 04/22/21 23:54 117 H 04/22/21 22:53 37.7 C H 122 H 19 118/77 99 04/22/21 22:49 36.6 C 69 18 91/52 L 94 04/22/21 22:25 87 20 94 04/22/21 22:24 119 H 04/22/21 20:40 36.8 C 114 H 20 102/63 97 Laboratory Results 04/23/21 04/23/21 04/23/21 Range/Units 07:56 02:09 02:09 WBC (4.8-10.8) K/uL RBC (4.2-5.4) M/uL Hgb (12.0-16.0) g/dL Hct (37-47) % MCV (80-100) fL MCH (25-34) pg MCHC (32-36) g/dL RDW Std Deviation (36.4-46.3) fL RDW Coeff of Leonora (11.5-14.5) % Plt Count (130-400) K/uL MPV (7.4-10.4) fL Immature Gran % (Auto) % Neut % (Auto) % Lymph % (Auto) % [place] % (Auto) % Eos % (Auto) % Baso % (Auto) % Neut # (Auto) (1.4-6.5) K/uL Lymph # (Auto) (1.2-3.4) K/uL [place] # (Auto) (0.11-0.59) K/uL Eos # (Auto) (0-0.5) K/uL Baso # (Auto) (0-0.2) K/uL Immature Gran # (Auto) (0.00-0.02) K/uL PT (9.0-12.0) Seconds INR (0.9-1.1) APTT Pending 56.9 H* (21.0-31.0) Seconds PTT Ratio Pending 2.2 D-Dimer (0-500) ug/L FEU Sodium 136 (136-145) mmol/L Potassium 3.8 (3.5-5.1) mmol/L Chloride 102 (98-107) mmol/L Carbon Dioxide 33 H (21-32) mmol/L Anion Gap 1.0 L (3-11) BUN 14 (7-18) mg/dl Creatinine 0.99 (0.6-1.2) mg/dl Est Cr Clr Drug Dosing 54.8 ml/min Est GFR ( Amer) 67.9 ml/min Est GFR (Non-Af Amer) 58.6 ml/min BUN/Creatinine Ratio 14.4 (10-20) Glucose 145 H (70-99) mg/dl Calcium 8.7 (8.5-10.1) mg/dl Total Bilirubin (0.2-1) mg/dl AST (15-37) U/L ALT (12-78) U/L Alkaline Phosphatase (45-117) U/L Troponin I 0.054 H* (0-0.045) ng/ml NT-Pro-B Natriuret Pep (0-900) pg/ml Total Protein (6.4-8.2) gm/dl Albumin (3.4-5.0) gm/dl Globulin (2.5-4.0) gm/dl Albumin/Globulin Ratio (0.9-2) Lipase (73-393) U/L Anaplasma Smear A. phagocytophilum DNA Lyme Disease IgG Ab (Negative) Lyme Disease IgM Ab (Negative) COVID-19 Eval Order SARS-CoV-2 (PCR) (Negative) 04/23/21 04/22/21 04/22/21 Range/Units 02:09 21:46 18:02 WBC 2.12 L (4.8-10.8) K/uL RBC 4.53 (4.2-5.4) M/uL Hgb 14.1 (12.0-16.0) g/dL Hct 42.2 (37-47) % MCV 93.2 (80-100) fL MCH 31.1 (25-34) pg MCHC 33.4 (32-36) g/dL RDW Std Deviation 48.3 H (36.4-46.3) fL RDW Coeff of Leonora 14.1 (11.5-14.5) % Plt Count 112 L (130-400) K/uL MPV 10.6 H (7.4-10.4) fL Immature Gran % (Auto) % Neut % (Auto) % Lymph % (Auto) % [place] % (Auto) % Eos % (Auto) % Baso % (Auto) % Neut # (Auto) (1.4-6.5) K/uL Lymph # (Auto) (1.2-3.4) K/uL [place] # (Auto) (0.11-0.59) K/uL Eos # (Auto) (0-0.5) K/uL Baso # (Auto) (0-0.2) K/uL Immature Gran # (Auto) (0.00-0.02) K/uL PT (9.0-12.0) Seconds INR (0.9-1.1) APTT (21.0-31.0) Seconds PTT Ratio D-Dimer (0-500) ug/L FEU Sodium (136-145) mmol/L Potassium (3.5-5.1) mmol/L Chloride (98-107) mmol/L Carbon Dioxide (21-32) mmol/L Anion Gap (3-11) BUN (7-18) mg/dl Creatinine (0.6-1.2) mg/dl Est Cr Clr Drug Dosing ml/min Est GFR ( Amer) ml/min Est GFR (Non-Af Amer) ml/min BUN/Creatinine Ratio (10-20) Glucose (70-99) mg/dl Calcium (8.5-10.1) mg/dl Total Bilirubin (0.2-1) mg/dl AST (15-37) U/L ALT (12-78) U/L Alkaline Phosphatase (45-117) U/L Troponin I 0.049 H* (0-0.045) ng/ml NT-Pro-B Natriuret Pep (0-900) pg/ml Total Protein (6.4-8.2) gm/dl Albumin (3.4-5.0) gm/dl Globulin (2.5-4.0) gm/dl Albumin/Globulin Ratio (0.9-2) Lipase (73-393) U/L Anaplasma Smear A. phagocytophilum DNA Lyme Disease IgG Ab (Negative) Lyme Disease IgM Ab (Negative) COVID-19 Eval Order SARS-CoV-2 (PCR) NEGATIVE (Negative) 04/22/21 04/22/21 04/22/21 Range/Units 18:02 17:13 17:12 WBC (4.8-10.8) K/uL RBC (4.2-5.4) M/uL Hgb (12.0-16.0) g/dL Hct (37-47) % MCV (80-100) fL MCH (25-34) pg MCHC (32-36) g/dL RDW Std Deviation (36.4-46.3) fL RDW Coeff of Leonora (11.5-14.5) % Plt Count (130-400) K/uL MPV (7.4-10.4) fL Immature Gran % (Auto) % Neut % (Auto) % Lymph % (Auto) % [place] % (Auto) % Eos % (Auto) % Baso % (Auto) % Neut # (Auto) (1.4-6.5) K/uL Lymph # (Auto) (1.2-3.4) K/uL [place] # (Auto) (0.11-0.59) K/uL Eos # (Auto) (0-0.5) K/uL Baso # (Auto) (0-0.2) K/uL Immature Gran # (Auto) (0.00-0.02) K/uL PT (9.0-12.0) Seconds INR (0.9-1.1) APTT (21.0-31.0) Seconds PTT Ratio D-Dimer (0-500) ug/L FEU Sodium (136-145) mmol/L Potassium 3.9 (3.5-5.1) mmol/L Chloride (98-107) mmol/L Carbon Dioxide (21-32) mmol/L Anion Gap (3-11) BUN (7-18) mg/dl Creatinine (0.6-1.2) mg/dl Est Cr Clr Drug Dosing ml/min Est GFR ( Amer) ml/min Est GFR (Non-Af Amer) ml/min BUN/Creatinine Ratio (10-20) Glucose (70-99) mg/dl Calcium (8.5-10.1) mg/dl Total Bilirubin (0.2-1) mg/dl AST 41 H (15-37) U/L ALT (12-78) U/L Alkaline Phosphatase (45-117) U/L Troponin I (0-0.045) ng/ml NT-Pro-B Natriuret Pep (0-900) pg/ml Total Protein (6.4-8.2) gm/dl Albumin (3.4-5.0) gm/dl Globulin (2.5-4.0) gm/dl Albumin/Globulin Ratio (0.9-2) Lipase (73-393) U/L Anaplasma Smear A. phagocytophilum DNA Lyme Disease IgG Ab Negative (Negative) Lyme Disease IgM Ab Negative (Negative) COVID-19 Eval Order Covid19 at [facility] SARS-CoV-2 (PCR) (Negative) 04/22/21 04/22/21 04/22/21 Range/Units 15:50 15:50 15:50 WBC (4.8-10.8) K/uL RBC (4.2-5.4) M/uL Hgb (12.0-16.0) g/dL Hct (37-47) % MCV (80-100) fL MCH (25-34) pg MCHC (32-36) g/dL RDW Std Deviation (36.4-46.3) fL RDW Coeff of Leonora (11.5-14.5) % Plt Count (130-400) K/uL MPV (7.4-10.4) fL Immature Gran % (Auto) % Neut % (Auto) % Lymph % (Auto) % [place] % (Auto) % Eos % (Auto) % Baso % (Auto) % Neut # (Auto) (1.4-6.5) K/uL Lymph # (Auto) (1.2-3.4) K/uL [place] # (Auto) (0.11-0.59) K/uL Eos # (Auto) (0-0.5) K/uL Baso # (Auto) (0-0.2) K/uL Immature Gran # (Auto) (0.00-0.02) K/uL PT (9.0-12.0) Seconds INR (0.9-1.1) APTT (21.0-31.0) Seconds PTT Ratio D-Dimer (0-500) ug/L FEU Sodium 137 (136-145) mmol/L Potassium (3.5-5.1) mmol/L Chloride 104 (98-107) mmol/L Carbon Dioxide 28 (21-32) mmol/L Anion Gap 5.0 (3-11) BUN 12 (7-18) mg/dl Creatinine 0.93 (0.6-1.2) mg/dl Est Cr Clr Drug Dosing 58.3 ml/min Est GFR ( Amer) 73.2 ml/min Est GFR (Non-Af Amer) 63.1 ml/min BUN/Creatinine Ratio 13.0 (10-20) Glucose 152 H (70-99) mg/dl Calcium 9.2 (8.5-10.1) mg/dl Total Bilirubin 0.7 (0.2-1) mg/dl AST (15-37) U/L ALT 49 (12-78) U/L Alkaline Phosphatase 85 (45-117) U/L Troponin I 0.028 (0-0.045) ng/ml NT-Pro-B Natriuret Pep 8377 H (0-900) pg/ml Total Protein 6.8 (6.4-8.2) gm/dl Albumin 3.2 L (3.4-5.0) gm/dl Globulin 3.6 (2.5-4.0) gm/dl Albumin/Globulin Ratio 0.9 (0.9-2) Lipase 200 (73-393) U/L Anaplasma Smear See Comment A. phagocytophilum DNA Pending Lyme Disease IgG Ab (Negative) Lyme Disease IgM Ab (Negative) COVID-19 Eval Order SARS-CoV-2 (PCR) (Negative) 04/22/21 04/22/21 Range/Units 15:50 15:50 WBC 2.09 L (4.8-10.8) K/uL RBC 4.70 (4.2-5.4) M/uL Hgb 14.6 (12.0-16.0) g/dL Hct 42.5 (37-47) % MCV 90.4 (80-100) fL MCH 31.1 (25-34) pg MCHC 34.4 (32-36) g/dL RDW Std Deviation 45.7 (36.4-46.3) fL RDW Coeff of Leonora 13.9 (11.5-14.5) % Plt Count 113 L (130-400) K/uL MPV 11.1 H (7.4-10.4) fL Immature Gran % (Auto) 0.5 % Neut % (Auto) 77.9 % Lymph % (Auto) 16.3 % [place] % (Auto) 4.8 % Eos % (Auto) 0.0 % Baso % (Auto) 0.5 % Neut # (Auto) 1.63 (1.4-6.5) K/uL Lymph # (Auto) 0.34 L (1.2-3.4) K/uL [place] # (Auto) 0.10 L (0.11-0.59) K/uL Eos # (Auto) 0.00 (0-0.5) K/uL Baso # (Auto) 0.01 (0-0.2) K/uL Immature Gran # (Auto) 0.01 (0.00-0.02) K/uL PT 10.7 (9.0-12.0) Seconds INR 1.1 (0.9-1.1) APTT 22.2 (21.0-31.0) Seconds PTT Ratio 0.8 D-Dimer 6310 H* (0-500) ug/L FEU Sodium (136-145) mmol/L Potassium (3.5-5.1) mmol/L Chloride (98-107) mmol/L Carbon Dioxide (21-32) mmol/L Anion Gap (3-11) BUN (7-18) mg/dl Creatinine (0.6-1.2) mg/dl Est Cr Clr Drug Dosing ml/min Est GFR ( Amer) ml/min Est GFR (Non-Af Amer) ml/min BUN/Creatinine Ratio (10-20) Glucose (70-99) mg/dl Calcium (8.5-10.1) mg/dl Total Bilirubin (0.2-1) mg/dl AST (15-37) U/L ALT (12-78) U/L Alkaline Phosphatase (45-117) U/L Troponin I (0-0.045) ng/ml NT-Pro-B Natriuret Pep (0-900) pg/ml Total Protein (6.4-8.2) gm/dl Albumin (3.4-5.0) gm/dl Globulin (2.5-4.0) gm/dl Albumin/Globulin Ratio (0.9-2) Lipase (73-393) U/L Anaplasma Smear A. phagocytophilum DNA Lyme Disease IgG Ab (Negative) Lyme Disease IgM Ab (Negative) COVID-19 Eval Order SARS-CoV-2 (PCR) (Negative) Medications Administered Current Inpatient Medications Acetaminophen (Acetaminophen 325 Mg Tab) 650 mg PO Q4H PRN PRN Reason: Pain or Fever Stop: 05/22/21 20:48 Last Admin: 04/23/21 12:25 Dose: 650 mg Documented by: Amitriptyline HCl (Amitriptyline Hcl 25 Mg Tab) 25 mg PO HS MANUEL Stop: 05/22/21 20:59 Last Admin: 04/22/21 21:29 Dose: 25 mg Documented by: Aspirin (Aspirin 81 Mg Ectab) 81 mg PO DAILY MANUEL Stop: 05/23/21 08:59 Last Admin: 04/23/21 08:29 Dose: 81 mg Documented by: Azithromycin (Azithromycin 250 Mg Tab) 250 mg PO DAILY MANUEL Stop: 04/25/21 09:01 Last Admin: 04/23/21 08:29 Dose: 250 mg Documented by: Cetirizine HCl (Cetirizine Hcl 10 Mg Tablet) 10 mg PO DAILY MANUEL Stop: 05/23/21 08:59 Last Admin: 04/23/21 08:28 Dose: 10 mg Documented by: Docusate Sodium (Docusate Sodium 100 Mg Cap) 100 mg PO TID MANUEL Stop: 05/22/21 20:59 Last Admin: 04/23/21 15:00 Dose: 100 mg Documented by: Fluticasone Furoate (Fluticasone Furoate 100mcg 14 Puffs/Inhaler) 1 puffs INH DAILY MANUEL; Protocol Stop: 05/23/21 08:59 Last Admin: 04/23/21 08:29 Dose: Not Given Documented by: Heparin Sodium/Dextrose (Heparin Sodium/Dextrose) 25,000 units in 500 mls @ 15 mls/hr IV .Q24H MANUEL; Protocol Stop: 05/22/21 19:29 Last Titration: 04/23/21 06:49 Dose: 750 units/hr, 15 mls/hr Documented by: Lactobacillus Acidoph/Casei/Rhamnos (Advanced Probiotic 1250 Mg Capsule) 2 cap PO QAM MANUEL Stop: 05/23/21 08:59 Last Admin: 04/23/21 08:28 Dose: 2 cap Documented by: Lidocaine HCl (Lidocaine 4% Inh Soln 4 Ml Btl) 4 ml NEB Q4H PRN PRN Reason: BURNING LUNG PAIN Stop: 05/22/21 20:57 Last Admin: 04/22/21 22:23 Dose: 4 ml Documented by: Nitroglycerin (Nitroglycerin Sl 0.4 Mg/Tab Tab) 0.4 mg SL UD PRN PRN Reason: Chest Pain Stop: 05/22/21 20:48 Pantoprazole Sodium (Pantoprazole 40 Mg Tab) 40 mg PO DAILY MANUEL Stop: 05/23/21 08:59 Last Admin: 04/23/21 08:28 Dose: 40 mg Documented by: Phenol (Chloraseptic 1.4% Soln 180 Ml Btl) 3 sprays PO Q4H PRN PRN Reason: Sore Throat Stop: 05/22/21 20:48 Polyethylene Glycol (Polyethylene (Miralax) 17 Gm Pack) 17 gm PO DAILY PRN PRN Reason: Constipation Stop: 05/22/21 20:48 Tolterodine Tartrate (Tolterodine Tartrate [place] 4 Mg Capcr) 4 mg PO QAM MANUEL Stop: 05/23/21 08:59 Last Admin: 04/23/21 08:27 Dose: 4 mg Documented by: Torsemide (Torsemide 20 Mg Tab) 20 mg PO DAILY MANUEL Stop: 05/23/21 08:59 Last Admin: 04/23/21 08:29 Dose: 20 mg Documented by: Umeclidinium [place] (Umeclidinium [place] 62.5mcg/Blister 7 Puffs/Inhaler) 1 puffs INH DAILY PRN PRN Reason: Shortness Of Breath Stop: 05/23/21 08:59 Vitamin D (Cholecalciferol 1,000 Units 25 Mcg Tab) 2,000 units PO DAILY MANUEL Stop: 05/23/21 08:59 Last Admin: 04/23/21 08:28 Dose: 2,000 units Documented by: (1) CHF (congestive heart failure) Heart failure chronicity: acute on chronic Heart failure type: systolic Qualified Code(s): I50.23 - Acute on chronic systolic (congestive) heart failure
[2021-04-23] MEDS: TOLTERODINE TARTRATE LA 4 MG CAPCR PO SCH (08:27)
[2021-04-23] MEDS: PANTOprazole 40 MG TAB PO SCH (08:28)
[2021-04-23] MEDS: ADVANCED PROBIOTIC 1250 MG CAPSULE PO SCH (08:28)
[2021-04-23] MEDS: DOCUSATE SODIUM 100 MG CAP PO SCH ×3 (08:28→21:12)
[2021-04-23] MEDS: CHOLECALCIFEROL 1,000 UNITS 25 MCG TAB PO SCH (08:28)
[2021-04-23] MEDS: CETIRIZINE HCL 10 MG TABLET PO SCH (08:28)
[2021-04-23] MEDS: TORSEMIDE 20 MG TAB PO SCH (08:29)
[2021-04-23] MEDS: FLUTICASONE FUROATE 100MCG 14 PUFFS/INHALER INH SCH (08:29)
[2021-04-23] MEDS: ASPIRIN 81 MG ECTAB PO SCH (08:29)
[2021-04-23] MEDS: AZITHROMYCIN 250 MG TAB PO SCH (08:29)
--- NOTE | 2021-04-23 08:49 | Hospitalist Progress Note ---
Date of Service April 23, 2021 Assessment & Plan (1) Tachycardia: (2) Elevated d-dimer: (3) Chest pain on breathing: (4) CHF (congestive heart failure): (5) Chronic lung disease: (6) Multiple chemical sensitivity syndrome: (7) Nocturnal hypoxia: (8) Insomnia: Plan: This is a 70yo F with a PMH of nonischemic cardiomyopathy with systolic and diastolic heart failure with EF 20 to 25%, refusal of ICD in the past, frequent PVCs, nonspecific intraventricular conduction block with prolonged QT, history of paroxysmal V. tach, dyslipidemia, TESSA with nocturnal hypoxia treated with 4 L nasal cannula oxygen, history of multiple chemical sensitivity syndrome, react mis airway dysfunction syndrome, generalized anxiety disorder, PTSD and other medical problems listed below who presents with pain in lungs x4 days. Tachycardia Pleuritic chest pain Elevated d-dimer Presenting with burning in lungs x 4 days, sinus tachycardia ~115, d-dimer elevated at 6,310 Unable to obtain CTA chest to evaluate for PE due to allergies to contrast dye, benadryl and steroids BLE dopplers without evidence of PE CXR with no active disease in the chest. Based on age and symptoms, will start low-dose IV heparin with bolus due to suspicion of PE while awaiting VQ scan Monitor on telemetry, trend troponin Afebrile, no leukocytosis or consolidation on imaging Combined systolic and diastolic heart failure EF 20-25%, refusal of ICD in the past, grade 3 diastolic dysfunction Appears dry on exam, has not taken torsemide in the past 2 days due to stable weight Will give 500 ml NSS @ 75 ml/hr and re-evaluate volume status in AM History of multiple chemical sensitivity syndrome Reactive airway dysfunction syndrome Follows with SAEID Davila of pulmonology No abnormal findings on CXR, saturating at 95% on room air Started on Z pack Wednesday, which she is prescribed for flare ups of chemical sensitivity syndrome Continue Z pack, PRN inhalers, supplemental O2 as needed Concern for tickborne illness Presenting with leukopenia, thrombocytopenia and slight LFT elevation concerning for tickborne illness Peripheral smear without evidence of inclusion bodies to indicate anaplasmosis. Lyme serology negative. Anaplasma DNA pending Patient with airway edema listed as adverse reaction to doxycycline so will not start empirically at this time Insomnia Continue amitriptyline at bedtime DVT Ppx: IV heparin Code status: FULL PCP: Chun Dispo: Admitted to PCU. Discharge planning ordered. Admission and Anticipated Discharge Date Admission Date: April 22, 2021 Results & Data Results & Data ([facility]) Vital Signs (Past 12 Hours) Vital Signs Temp Pulse Pulse Pulse Resp BP BP 04/23/21 08:22 98 H 94/59 L 04/23/21 07:53 36.5 C 98 H 17 89/56 L 04/23/21 03:54 36.4 C L 88 18 115/72 04/22/21 23:54 117 H 04/22/21 22:53 37.7 C H 122 H 19 118/77 04/22/21 22:49 36.6 C 69 18 91/52 L 04/22/21 22:25 87 20 04/22/21 22:24 119 H Pulse Ox 04/23/21 08:22 04/23/21 07:53 96 04/23/21 03:54 90 04/22/21 23:54 04/22/21 22:53 99 04/22/21 22:49 94 04/22/21 22:25 94 04/22/21 22:24 (1) CHF (congestive heart failure) Heart failure chronicity: acute on chronic Heart failure type: systolic Qualified Code(s): I50.23 - Acute on chronic systolic (congestive) heart failure
[2021-04-23] MEDS ORDERED: UMECLIDINIUM BROMIDE 62.5MCG/BLISTER 7 PUFFS/INHALER INH PRN (09:00)
--- NOTE | 2021-04-23 10:42 | Nuclear Medicine Report ---
NUCLEAR PULMONARY PERFUSION SCAN CLINICAL HISTORY: Tachycardia. COMPARISON STUDY: Chest x-ray dated 2 04/22/2021. Nuclear pulmonary perfusion scan dated 11/28/2020. TECHNIQUE: Nuclear perfusion scan is performed following the IV administration of 5.4 mCi of techneti um 99m MAA. Images were acquired in the anterior, posterior, and oblique projections. FINDINGS: A chest x-ray performed 04/22/2021 shows cardiomegaly. The pulmonary vasculature is noncongested. No a irspace consolidation or large pleural effusion is identified No perfusion defects are identified on the perfusion imaging. IMPRESSION: No perfusion defects are identified to suggest pulmonary embolus. ACT 112: Negative or not required by law. Electronically signed by: Stanley Cavanaugh M.D. 04/23/2021 10:40 AM
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
--- NOTE | 2021-04-23 16:22 | Electrocardiogram Report ---
Test Reason : Blood Pressure : / mmHG Vent. Rate : 088 BPM Atrial Rate : 088 BPM P-R Int : 178 ms QRS Dur : 138 ms QT Int : 416 ms P-R-T Axes : 056 -31 101 degrees QTc Int : 503 ms Sinus rhythm with frequent Premature ventricular complexes Right atrial enlargement Left axis deviation Non-specific intra-ventricular conduction block Inferior infarct , age undetermined Abnormal ECG When compared with ECG of 22-APR-2021 15:43, Premature ventricular complexes are now Present Confirmed by Mayito Back ([id number]) on 04/23/2021 4:22:42 PM Referred By: REFERRED SELF Confirmed By:Mayito Back
[2021-04-23] MEDS ORDERED: SODIUM CHLORIDE 0.9% 1000ML 500 ML IV ONE (18:25)
[2021-04-23] MEDS: AMITRIPTYLINE HCL 25 MG TAB PO SCH (21:12)
[2021-04-23] MEDS: LIDOCAINE 4% INH SOLN 4 ML BTL NEB PRN (21:43)
[2021-04-23 22:21] LABS: Appearance Urine Clear (Clear); Bilirubin Urine Negative (Negative); Blood Urine Negative (Negative); Color Urine Yellow; Glucose Urine UA Negative (Negative); Ketones Urine Negative (Negative); Leukocyte Esterase Urine Negative (Negative); Nitrite Urine Negative (Negative); Protein Urine Negative (Negative); Specific Gravity Urine 1.015 (1.000-1.030); Urobilinogen Urine Negative (Negative); pH Urine 5.5 (4.5-7.5)
[2021-04-23] MEDS: cefTRIAXone SODIUM 1,000 MG in DEXTROSE 5% 50 ML IV SCH (22:55)
[2021-04-24] MEDS: ACETAMINOPHEN 325 MG TAB PO PRN ×4 (02:55→20:33)
[2021-04-24] MEDS ORDERED: PROMETHAZINE HCL 12.5 MG in SODIUM CHLORIDE 0.9% 50 ML IV STA (04:37)
[2021-04-24] MEDS: HEPARIN SODIUM/DEXTROSE 25,000 UNITS/500 ML BAG IV SCH (04:52)
[2021-04-24 05:37] LABS: Hematocrit (blood only) 37.8 % (37-47); Hemoglobin 12.6 g/dL (12.0-16.0); Mean Corpuscular Hemoglobin 30.7 pg (25-34); Mean Corpuscular Hgb Conc 33.3 g/dL (32-36); RDW Coefficient of Variation 13.9 % (11.5-14.5); RDW Standard Deviation 47.1 fL (36.4-46.3); Red Blood Count 4.11 M/uL (4.2-5.4)
[2021-04-24 05:55] LABS: Albumin Level 2.7 gm/dl (3.4-5.0); BUN Creatinine Ratio 18.6 (10-20); Creatinine Clr Calc Pharmacy 49.5 ml/min; Est GFR (African American) 58.5 ml/min; Est GFR (Non-African American) 50.4 ml/min; Magnesium 2.2 mg/dl (1.8-2.4); Potassium 3.9 mmol/L (3.5-5.1)
[2021-04-24 05:58] LABS: Partial Thromboplastin Ratio 2.1
[2021-04-24 06:00] LABS: Albumin Globulin Ratio 0.8 (0.9-2); Bilirubin,Total 0.5 mg/dl (0.2-1); Globulin 3.3 gm/dl (2.5-4.0); Troponin I 0.032 ng/ml (0-0.045)
[2021-04-24 06:09] LABS: Mean Platelet Volume 10.7 fL (7.4-10.4); Platelet Count 74 K/uL (130-400)
[2021-04-24 06:10] LABS: Platelet Estimate Decreased (Normal)
[2021-04-24] MEDS: CETIRIZINE HCL 10 MG TABLET PO SCH (08:02)
[2021-04-24] MEDS: AZITHROMYCIN 250 MG TAB PO SCH (08:02)
[2021-04-24] MEDS: DOCUSATE SODIUM 100 MG CAP PO SCH ×3 (08:02→20:34)
[2021-04-24] MEDS: ASPIRIN 81 MG ECTAB PO SCH (08:02)
[2021-04-24] MEDS: ADVANCED PROBIOTIC 1250 MG CAPSULE PO SCH (08:03)
[2021-04-24] MEDS: TOLTERODINE TARTRATE LA 4 MG CAPCR PO SCH (08:03)
[2021-04-24] MEDS: CHOLECALCIFEROL 1,000 UNITS 25 MCG TAB PO SCH (08:03)
[2021-04-24] MEDS: TORSEMIDE 20 MG TAB PO SCH (08:06)
[2021-04-24] MEDS: PANTOprazole 40 MG TAB PO SCH (08:07)
[2021-04-24] MEDS: FLUTICASONE FUROATE 100MCG 14 PUFFS/INHALER INH SCH (08:09)
--- NOTE | 2021-04-24 08:21 | Electrocardiogram Report ---
Test Reason : Blood Pressure : / mmHG Vent. Rate : 112 BPM Atrial Rate : 112 BPM P-R Int : 162 ms QRS Dur : 140 ms QT Int : 360 ms P-R-T Axes : 065 -37 094 degrees QTc Int : 491 ms Sinus tachycardia with Premature ventricular complexes Left atrial enlargement Left axis deviation Non-specific intra-ventricular conduction block Abnormal ECG When compared with ECG of 23-APR-2021 05:51, Borderline Criteria for Inferior infarct no longer present Otherwise no significant change Confirmed by Marcus Ayala ([id number]) on 04/24/2021 8:21:20 AM Referred By: REFERRED SELF Confirmed By:Marcus Ayala
--- NOTE | 2021-04-24 14:21 | Cardiology Progress Note ---
Date of Service April 24, 2021 Assessment & Plan (1) Chest pain on breathing: (2) Tachycardia: (3) Multiple chemical sensitivity syndrome: Plan: Patient with longstanding history of nonischemic cardiomyopathy, severe left ventricular systolic dysfunction. Echocardiogram performed today reveals severe left ventricular chamber dilatation, severe global left ventricular hypokinesis, with LVEF less than 20%, do not think this is significantly changed compared to her previous echocardiogram study. As noted, she has longstanding history of multiple medication intolerances and her only cardiac medication that she takes is torsemide. Fortunately her volume status is well controlled. Her mild troponin elevation, has a flat trend, and I do not think it is suggestive of an acute coronary syndrome. The "chest burning "sensation that the patient described on admission is unchanged compared to her longstanding baseline per her description to me. When I asked her what way she feels poorly, she is just concerned about more chemical irritants to her lungs, and has no other complaint. To this end I think it is most reasonable to discontinue her heparin infusion. Leukopenia and thrombocytopenia also noted.Her peripheral smear was negative for Anaplasma. DNA testing pending. Lyme screen negative. Her procalcitonin is normal, no for not certain that she is acutely infected. ESR was negative, C- reactive protein was mildly elevated 11 mg/dL, but this could very well be a chronic finding for her. Agree with ongoing observation. Subcutaneous heparin for DVT prophylaxis. No additional cardiac testing indicated at the present time. Admission and Anticipated Discharge Date Admission Date: April 22, 2021 Subjective Patient seen in cardiology follow-up. She is comfortable, without cardiac complaints. Telemetry reveals sinus tachycardia in the range of 110 to 120 bpm with occasional PVCs, which correlates well with her EKG performed earlier today. Review of Systems Review of Systems: All systems reviewed & are unremarkable except as noted in HPI & below Physical Exam Physical Exam: Temp Pulse Resp BP Pulse Ox 36.3 C L 114 H 16 108/76 97 04/23/21 10:52 04/23/21 10:52 04/23/21 10:52 04/23/21 10:52 04/23/21 10:52 Constitutional: WD/WN, vitals as above Respiratory: normal respiratory effort, lungs clear to auscultation Cardiovascular: Rate/Rhythm: + tachycardic Heart Sounds: no murmur Extremities: no edema Neurologic: PERRL, EOMI, accommodation nl, no face palsy, no dysarthria Results & Data ([facility]) Vital Signs (Past 12 Hours) Vital Signs Temp Pulse Pulse Pulse Resp BP BP 04/24/21 11:31 37.8 C H 116 H 20 103/66 04/24/21 08:00 120 H 04/24/21 07:53 37.7 C H 116 H 17 104/73 04/24/21 04:23 36.8 C 116 H 18 97/65 L Pulse Ox 04/24/21 11:31 93 04/24/21 08:00 04/24/21 07:53 96 04/24/21 04:23 94 Laboratory Results Cardiac Enzymes 04/24/21 Range/Units 05:23 AST 63 H (15-37) U/L Troponin I 0.032 (0-0.045) ng/ml Coagulation 04/24/21 Range/Units 05:23 APTT 54.0 H* (21.0-31.0) Seconds CBC 04/24/21 Range/Units 05:23 WBC 1.40 L (4.8-10.8) K/uL RBC 4.11 L (4.2-5.4) M/uL Hgb 12.6 (12.0-16.0) g/dL Hct 37.8 (37-47) % Plt Count 74 L (130-400) K/uL Comprehensive Metabolic Panel 04/24/21 Range/Units 05:23 Sodium 135 L (136-145) mmol/L Potassium 3.9 (3.5-5.1) mmol/L Chloride 100 (98-107) mmol/L Carbon Dioxide 31 (21-32) mmol/L BUN 21 H (7-18) mg/dl Creatinine 1.12 (0.6-1.2) mg/dl Glucose 179 H (70-99) mg/dl Calcium 8.0 L (8.5-10.1) mg/dl AST 63 H (15-37) U/L ALT 59 (12-78) U/L Alkaline Phosphatase 88 (45-117) U/L Total Protein 6.0 L (6.4-8.2) gm/dl Albumin 2.7 L (3.4-5.0) gm/dl Intake and Output 04/23/21 04/24/21 04/24/21 22:59 06:59 14:59 Intake Total 450 / 1801.25 1031.25 / 1801.25 343.5 / 343.5 Balance 450 / 1801.25 1031.25 / 1801.25 343.5 / 343.5 Intake: IV 931.25 / 931.25 68.5 / 68.5 Heparin Sodium/Dextrose 25,000 330.75 / 330.75 68.5 / 68.5 units In 500 ml @ 0 UNITS/HR IV .Q0M [facility] Rx#:[id number] Promethazine HCl 12.5 mg In 50.5 / 50.5 Sodium Chloride 0.9% 50 ml @ 202 mls/hr IV NOW STA Rx#: [id number] Sodium Chloride 0.9% 1000ML 500 500 / 500 ml @ 70 mls/hr IV .Q7H9M ONE Rx#:[id number] cefTRIAXone SODIUM 1,000 mg In 50 / 50 Dextrose 5% 50 ml @ 100 mls/hr IV Q24H [facility] Rx#:[id number] Oral 450 / 870 100 / 870 275 / 275 Other: # Unmeasured Voids 3 1 Weight 77.4 kg 73.5 kg Weight Measurement Method Built in [facility]
[2021-04-24] MEDS: cefTRIAXone SODIUM 1,000 MG in DEXTROSE 5% 50 ML IV SCH (17:38)
[2021-04-24] MEDS ORDERED: SIMETHICONE 80 MG CHEW PO PRN (18:00)
[2021-04-24] MEDS: AMITRIPTYLINE HCL 25 MG TAB PO SCH (20:34)
[2021-04-24] MEDS: HEPARIN SOD 5,000 UNIT/0.5 ML VIAL SQ SCH (20:35)
[2021-04-25] MEDS: ACETAMINOPHEN 325 MG TAB PO PRN ×3 (00:28→20:42)
[2021-04-25 08:29] LABS: Hematocrit (blood only) 39.3 % (37-47); Hemoglobin 12.9 g/dL (12.0-16.0); Mean Corpuscular Hemoglobin 30.4 pg (25-34); Mean Corpuscular Hgb Conc 32.8 g/dL (32-36); Mean Corpuscular Volume 92.7 fL (80-100); RDW Coefficient of Variation 14.2 % (11.5-14.5); RDW Standard Deviation 48.5 fL (36.4-46.3); Red Blood Count 4.24 M/uL (4.2-5.4); White Blood Count 1.46 K/uL (4.8-10.8)
[2021-04-25 08:47] LABS: Mean Platelet Volume 11.1 fL (7.4-10.4); Platelet Count 66 K/uL (130-400)
[2021-04-25 09:02] LABS: Albumin Level 2.7 gm/dl (3.4-5.0); BUN Creatinine Ratio 18.7 (10-20); Calcium 8.5 mg/dl (8.5-10.1); Creatinine Clr Calc Pharmacy 60.1 ml/min; Est GFR (African American) 76.1 ml/min; Est GFR (Non-African American) 65.7 ml/min; Potassium 3.8 mmol/L (3.5-5.1)
[2021-04-25 09:06] LABS: Albumin Globulin Ratio 0.7 (0.9-2); Bilirubin,Total 0.7 mg/dl (0.2-1); Globulin 3.8 gm/dl (2.5-4.0); Phosphorus 2.7 mg/dl (2.5-4.9); Total Protein 6.5 gm/dl (6.4-8.2)
[2021-04-25] MEDS: FLUTICASONE FUROATE 100MCG 14 PUFFS/INHALER INH SCH (09:07)
[2021-04-25] MEDS: TORSEMIDE 20 MG TAB PO SCH (09:08)
[2021-04-25] MEDS: PANTOprazole 40 MG TAB PO SCH (09:08)
[2021-04-25] MEDS: ADVANCED PROBIOTIC 1250 MG CAPSULE PO SCH (09:10)
[2021-04-25] MEDS: TOLTERODINE TARTRATE LA 4 MG CAPCR PO SCH (09:10)
[2021-04-25] MEDS: CHOLECALCIFEROL 1,000 UNITS 25 MCG TAB PO SCH (09:10)
[2021-04-25] MEDS: ASPIRIN 81 MG ECTAB PO SCH (09:10)
[2021-04-25] MEDS: CETIRIZINE HCL 10 MG TABLET PO SCH (09:10)
[2021-04-25] MEDS: AZITHROMYCIN 250 MG TAB PO SCH (09:10)
[2021-04-25] MEDS: HEPARIN SOD 5,000 UNIT/0.5 ML VIAL SQ SCH ×2 (09:11→20:43)
[2021-04-25] MEDS: DOCUSATE SODIUM 100 MG CAP PO SCH ×3 (09:22→20:41)
--- NOTE | 2021-04-25 11:50 | Hospitalist Progress Note ---
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 tach, dyslipidemia, TESSA with nocturnal hypoxia treated with 4 L nasal cannula oxygen, history of multiple chemical sensitivity syndrome, react mis airway dysfunction syndrome, generalized anxiety disorder, PTSD and other medical problems listed below who presents with pain in lungs x4 days. Tachycardia Pleuritic chest pain Elevated d-dimer Presenting with burning in lungs x 4 days, sinus tachycardia ~115, d-dimer elevated at 6,310 Unable to obtain CTA chest to evaluate for PE due to allergies to contrast dye, benadryl and steroids BLE dopplers without evidence of PE CXR with no active disease in the chest. Based on age and symptoms, started low-dose IV heparin with bolus due to suspicion of PE while awaiting VQ scan VQ scan negative Monitor on telemetry, trend troponin - troponin mildly elevated now (cardiology aware, cont. IV heparin for now) Trop down next day, IV heparin stopped, cardiology continues to follow Afebrile, no leukocytosis or consolidation on imaging Combined systolic and diastolic heart failure EF 20-25%, refusal of ICD in the past, grade 3 diastolic dysfunction Appears dry on exam on admission, has not taken torsemide in the past 2 days due to stable weight Received 500 ml NSS @ 75 ml/hr on admission re-evaluate volume status daily Cardiology following Patient is tachycardic and has end-stage heart failure, unfortunately not able to take medications, reports allergies to cardiac medications History of multiple chemical sensitivity syndrome Reactive airway dysfunction syndrome Follows with SAEID Davila of pulmonology No abnormal findings on CXR, saturating at 95% on room air Started on Z pack Wednesday, which she is prescribed for flare ups of chemical sensitivity syndrome Continue Z pack, PRN inhalers, supplemental O2 as needed Currently she is on 2L od O2 via NC (has NC in her mouth), at home does not use support oxygen only at night Pulmonary medicine consulted Concern for tickborne illness Presenting with leukopenia, thrombocytopenia and slight LFT elevation concerning for tickborne illness Peripheral smear without evidence of inclusion bodies to indicate anaplasmosis. Lyme serology negative. Anaplasma DNA pending Patient with airway edema listed as adverse reaction to doxycycline, per pharmacy, patient responded well to Rocephin, started empirically at this time Consulted pathology for peripheral smear review given some thrombocytopenia, leukocytopenia- The peripheral smear is notable for thrombocytopenia and leukopenia. Review of the patient's chart shows concern for a tick-borne disease. A single intracytoplasmic inclusion is seen which is concerning for anaplasmosis infection. Given that only one inclusion is seen, correlation with serologic studies is recommended.If you think Insomnia Continue amitriptyline at bedtime DVT Ppx: SCDs, stop IV heparin, switch to subq heparin Code status: FULL PCP: Dr. Mccollum Dispo: Admitted to PCU. Discharge planning ordered. Admission and Anticipated Discharge Date Admission Date: April 22, 2021 Subjective Patient seen in follow-up of shortness of breath, "chest burning ", initially concern for PE Currently is resting, in no acute distress, eating lunch, breathing on RA Says she feels better regarding her breathing however she feels weak, her abdomen feels bloated, at home does not use supplemental oxygen only at night patient has been tachycardic VQ scan obtained, and negative Pulmonary and cardiology consulted Review of Systems Review of Systems: All systems reviewed & are unremarkable except as noted in HPI & below Physical Exam Physical Exam: General Appearance: WD/WN, NAD, sitting up in bed, currently on RA Head: normocephalic, atraumatic Eyes: normal inspection, PERRL, conjunctivae normal, anicteric sclerae ENT: external ear and nose normal, oropharynx normal Neck: normal visual inspection, trachea midline, no thyromegaly Respiratory: normal respiratory effort, coarse lung sounds L base, otherwise clear to auscultation, no wheeze, rales or rhonchi. No accessory muscle use Cardiovascular: +tachycardic, no murmur appreciated, normal peripheral pulses, no BLE edema. Vessels: no JVD Chest: normal inspection of chest Abdomen/GI: normal bowel sounds, soft, mildly distended, no guarding Extremities/Musculoskeletal: no cyanosis or clubbing, extremities motor strength 5/5 Neurologic: PERRL, EOMI, no face palsy, no dysarthria, moves all extremities Psychiatric: A+Ox3, anxious Skin: no rashes, normal color, warm/dry Results & Data Results & Data ([facility]) Vital Signs (Past 12 Hours) Vital Signs Temp Pulse Pulse Resp BP BP Pulse Ox 04/25/21 08:00 36.8 C 108 H 18 110/74 100 04/25/21 07:58 105 H 04/25/21 03:54 36.4 C L 94 H 18 105/66 96 04/24/21 23:50 110 H (1) CHF (congestive heart failure) Heart failure chronicity: acute on chronic Heart failure type: systolic Qualified Code(s): I50.23 - Acute on chronic systolic (congestive) heart failure
--- NOTE | 2021-04-25 12:08 | Hospitalist Progress Note ---
Date of Service April 25, 2021 Assessment & Plan (1) Tachycardia: (2) Elevated d-dimer: (3) Chest pain on breathing: (4) CHF (congestive heart failure): (5) Chronic lung disease: (6) Multiple chemical sensitivity syndrome: (7) Nocturnal hypoxia: (8) Insomnia: Plan: This is a 70yo F with a PMH of nonischemic cardiomyopathy with systolic and diastolic heart failure with EF 20 to 25%, refusal of ICD in the past, frequent PVCs, nonspecific intraventricular conduction block with prolonged QT, history of paroxysmal V. tach, dyslipidemia, TESSA with nocturnal hypoxia treated with 4 L nasal cannula oxygen, history of multiple chemical sensitivity syndrome, react mis airway dysfunction syndrome, generalized anxiety disorder, PTSD and other medical problems listed below who presents with pain in lungs x4 days. Tachycardia Pleuritic chest pain Elevated d-dimer Presenting with burning in lungs x 4 days, sinus tachycardia ~115, d-dimer elevated at 6,310 Unable to obtain CTA chest to evaluate for PE due to allergies to contrast dye, benadryl and steroids BLE dopplers without evidence of PE CXR with no active disease in the chest. Based on age and symptoms, started low-dose IV heparin with bolus due to suspicion of PE while awaiting VQ scan VQ scan negative Monitor on telemetry, trend troponin - troponin mildly elevated now (cardiology aware, cont. IV heparin initially) Trop down next day, IV heparin stopped, cardiology continues to follow Afebrile, no leukocytosis or consolidation on imaging Combined systolic and diastolic heart failure EF 20-25%, refusal of ICD in the past, grade 3 diastolic dysfunction Appears dry on exam on admission, has not taken torsemide in the past 2 days due to stable weight Received 500 ml NSS @ 75 ml/hr on admission re-evaluate volume status daily Cardiology following Patient is tachycardic and has end-stage heart failure, unfortunately not able to take medications, reports allergies to cardiac medications History of multiple chemical sensitivity syndrome Reactive airway dysfunction syndrome Follows with SAEID Davila of pulmonology No abnormal findings on CXR, saturating at 95% on room air Started on Z pack Wednesday, which she is prescribed for flare ups of chemical sensitivity syndrome Continue Z pack, PRN inhalers, supplemental O2 as needed Currently she is on 2L od O2 via NC (has NC in her mouth), at home does not use support oxygen only at night Pulmonary medicine consulted Concern for tickborne illness Presenting with leukopenia, thrombocytopenia and slight LFT elevation concerning for tickborne illness Peripheral smear without evidence of inclusion bodies to indicate anaplasmosis. Lyme serology negative. Anaplasma DNA pending Patient with airway edema listed as adverse reaction to doxycycline, per pharmacy, patient responded well to Rocephin, started empirically at this time Consulted pathology for peripheral smear review given some thrombocytopenia, leukocytopenia- The peripheral smear is notable for thrombocytopenia and leukopenia. Review of the patient's chart shows concern for a tick-borne disease. A single intracytoplasmic inclusion is seen which is concerning for anaplasmosis infection. Given that only one inclusion is seen, correlation with serologic studies is recommended.If you think LFTS elevated - will obtain liver US, will further discuss w/ GI Insomnia Continue amitriptyline at bedtime DVT Ppx: SCDs, stopped IV heparin, switch to subq heparin Code status: FULL PCP: Dr. Mccollum Dispo: Admitted to PCU. Discharge planning ordered. Admission and Anticipated Discharge Date Admission Date: April 22, 2021 Subjective Patient seen in follow-up of shortness of breath, "chest burning ", initially concern for PE Currently is resting, in no acute distress, on NC 2L Says she feels better regarding her breathing however she feels weak, her abdomen feels bloated, at home does not use supplemental oxygen only at night patient has been tachycardic VQ scan obtained, and negative Pulmonary and cardiology consulted Continues to have thrombocytopenia, leukopenia peripheral smear reviewed with pathology Elevated LFTs, will obtain liver ultrasound- discuss w/ GI Review of Systems Constitutional: no fever and no chills Respiratory: + dyspnea (improved); no cough Cardiovascular: no chest pain and no palpitations Gastrointestinal: + bloating Physical Exam Physical Exam: General Appearance: WD/WN, NAD, sitting up in bed, currently on RA Head: normocephalic, atraumatic Eyes: normal inspection, EOMI, PERRL, conjunctivae normal, anicteric sclerae ENT: external ear and nose normal, oropharynx normal Neck: normal visual inspection, trachea midline, no thyromegaly Respiratory: normal respiratory effort, clear to auscultation, no wheeze, rales or rhonchi. No accessory muscle use Cardiovascular: +tachycardic, no murmur appreciated, normal peripheral pulses, no BLE edema. Vessels: no JVD Chest: normal inspection of chest Abdomen/GI: normal bowel sounds, soft, mildly distended, no guarding Extremities/Musculoskeletal: no cyanosis or clubbing, extremities motor strength 5/5 Neurologic: PERRL, EOMI, no face palsy, no dysarthria, moves all extremities Psychiatric: A+Ox3, anxious Skin: no rashes, normal color, warm/dry Results & Data Results & Data ([facility]) Vital Signs (Past 12 Hours) Vital Signs Temp Pulse Pulse Resp BP BP Pulse Ox 04/25/21 08:00 36.8 C 108 H 18 110/74 100 04/25/21 07:58 105 H 04/25/21 03:54 36.4 C L 94 H 18 105/66 96 Laboratory Results 04/26/21 04/26/21 04/26/21 Range/Units 11:06 11:06 08:55 WBC (4.8-10.8) K/uL RBC (4.2-5.4) M/uL Hgb (12.0-16.0) g/dL Hct (37-47) % MCV (80-100) fL MCH (25-34) pg MCHC (32-36) g/dL RDW Std Deviation (36.4-46.3) fL RDW Coeff of Leonora (11.5-14.5) % Plt Count (130-400) K/uL MPV (7.4-10.4) fL Platelet Estimate (Normal) Magnesium 2.1 (1.8-2.4) mg/dl Hepatitis A IgM Ab Pending Hep Bs Antigen Pending Hep B Core IgM Ab Pending Hepatitis C Antibody Pending 04/26/21 Range/Units 08:55 WBC 2.57 L (4.8-10.8) K/uL RBC 4.11 L (4.2-5.4) M/uL Hgb 12.5 (12.0-16.0) g/dL Hct 37.4 (37-47) % MCV 91.0 (80-100) fL MCH 30.4 (25-34) pg MCHC 33.4 (32-36) g/dL RDW Std Deviation 47.7 H (36.4-46.3) fL RDW Coeff of Leonora 14.2 (11.5-14.5) % Plt Count 74 L (130-400) K/uL MPV 10.9 H (7.4-10.4) fL Platelet Estimate Decreased L (Normal) Magnesium (1.8-2.4) mg/dl Hepatitis A IgM Ab Hep Bs Antigen Hep B Core IgM Ab Hepatitis C Antibody Medications Administered Current Inpatient Medications Acetaminophen (Acetaminophen 325 Mg Tab) 650 mg PO Q4H PRN PRN Reason: Pain or Fever Stop: 05/22/21 20:48 Last Admin: 04/25/21 20:42 Dose: 650 mg Documented by: Amitriptyline HCl (Amitriptyline Hcl 25 Mg Tab) 25 mg PO HS MANUEL Stop: 05/22/21 20:59 Last Admin: 04/25/21 20:42 Dose: 25 mg Documented by: Aspirin (Aspirin 81 Mg Ectab) 81 mg PO DAILY MANUEL Stop: 05/23/21 08:59 Last Admin: 04/26/21 08:43 Dose: 81 mg Documented by: Cetirizine HCl (Cetirizine Hcl 10 Mg Tablet) 10 mg PO DAILY MANUEL Stop: 05/23/21 08:59 Last Admin: 04/26/21 08:43 Dose: 10 mg Documented by: Docusate Sodium (Docusate Sodium 100 Mg Cap) 100 mg PO TID MANUEL Stop: 05/22/21 20:59 Last Admin: 04/26/21 13:57 Dose: 100 mg Documented by: Fluticasone Furoate (Fluticasone Furoate 100mcg 14 Puffs/Inhaler) 1 puffs INH DAILY MANUEL; Protocol Stop: 05/23/21 08:59 Last Admin: 04/26/21 08:46 Dose: Not Given Documented by: Heparin Sodium (Porcine) (Heparin Sod 5,000 Unit/0.5 Ml Vial) 5,000 units SQ Q12 MANUEL Stop: 05/24/21 20:59 Last Admin: 04/26/21 08:44 Dose: 5,000 units Documented by: Ceftriaxone Sodium 2,000 mg/ (Dextrose) 70 mls @ 100 mls/hr IV DAILY MANUEL; Protocol Stop: 05/10/21 11:14 Last Infusion: 04/26/21 12:49 Dose: Infused Documented by: Lactobacillus Acidoph/Casei/Rhamnos (Advanced Probiotic 1250 Mg Capsule) 2 cap PO QAM MANUEL Stop: 05/23/21 08:59 Last Admin: 04/26/21 08:45 Dose: 2 cap Documented by: Lidocaine HCl (Lidocaine 4% Inh Soln 4 Ml Btl) 4 ml NEB Q4H PRN PRN Reason: BURNING LUNG PAIN Stop: 05/22/21 20:57 Last Admin: 04/23/21 21:43 Dose: 4 ml Documented by: Nitroglycerin (Nitroglycerin Sl 0.4 Mg/Tab Tab) 0.4 mg SL UD PRN PRN Reason: Chest Pain Stop: 05/22/21 20:48 Pantoprazole Sodium (Pantoprazole 40 Mg Tab) 40 mg PO DAILY MANUEL Stop: 05/23/21 08:59 Last Admin: 04/26/21 08:45 Dose: 40 mg Documented by: Phenol (Chloraseptic 1.4% Soln 180 Ml Btl) 3 sprays PO Q4H PRN PRN Reason: Sore Throat Stop: 05/22/21 20:48 Polyethylene Glycol (Polyethylene (Miralax) 17 Gm Pack) 17 gm PO DAILY PRN PRN Reason: Constipation Stop: 05/22/21 20:48 Simethicone (Simethicone 80 Mg Chew) 80 mg PO Q6H PRN PRN Reason: indigestion, bloating Stop: 05/24/21 17:59 Last Admin: 04/24/21 20:34 Dose: 80 mg Documented by: Tolterodine Tartrate (Tolterodine Tartrate La 4 Mg Capcr) 4 mg PO QAM MANUEL Stop: 05/23/21 08:59 Last Admin: 04/26/21 08:45 Dose: 4 mg Documented by: Torsemide (Torsemide 20 Mg Tab) 20 mg PO DAILY MANUEL Stop: 05/23/21 08:59 Last Admin: 04/26/21 08:46 Dose: 20 mg Documented by: Umeclidinium [place] (Umeclidinium [place] 62.5mcg/Blister 7 Puffs/Inhaler) 1 puffs INH DAILY PRN PRN Reason: Shortness Of Breath Stop: 05/23/21 08:59 Vitamin D (Cholecalciferol 1,000 Units 25 Mcg Tab) 2,000 units PO DAILY MANUEL Stop: 05/23/21 08:59 Last Admin: 04/26/21 08:43 Dose: 2,000 units Documented by: (1) CHF (congestive heart failure) Heart failure chronicity: acute on chronic Heart failure type: systolic Qualified Code(s): I50.23 - Acute on chronic systolic (congestive) heart failure
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
--- NOTE | 2021-04-25 17:06 | Ultrasound Report ---
US liver CLINICAL HISTORY: 70 years-old Female presenting with elevated LFTs. TECHNIQUE: Real-time grayscale ultrasound imaging of the upper abdomen was performed for a focused ev aluation at the site of clinical concern. COMPARISON: None. FINDINGS: Liver is normal in size and show mild diffuse decrease in echogenicity of liver parenchyma and promin ence of periportal triads. No focal liver mass lesions or intrahepatic biliary dilatation seen. Pancreas appear normal. Gallbladder is surgically absent. Common bile duct is measuring 0.7 cm in diameter. Limited evaluation of right kidney shows no evidence of hydronephrosis and measuring 9.7 cm in size. IMPRESSION: 1. Diffuse decrease in hepatic parenchymal echogenicity with prominent portal triads might represent hepatitis. Please correlate above-mentioned findings with clinical presentation of hepatitis. 2. Gallbladder is surgically absent. 3. Normal sonographic appearance of the pancreas and right kidney. ACT 112: Negative or not required by law. Electronically signed by: Alis Burnham DO 04/25/2021 5:05 PM
--- NOTE | 2021-04-25 17:38 | Cardiology Progress Note ---
Date of Service April 25, 2021 Assessment & Plan (1) Chest pain on breathing: (2) Tachycardia: (3) Multiple chemical sensitivity syndrome: Plan: Patient with longstanding history of nonischemic cardiomyopathy, severe left ventricular systolic dysfunction. Echocardiogram performed today reveals severe left ventricular chamber dilatation, severe global left ventricular hypokinesis, with LVEF less than 20%, do not think this is significantly changed compared to her previous echocardiogram study. As noted, she has longstanding history of multiple medication intolerances and her only cardiac medication that she takes is torsemide. Fortunately her volume status is well controlled. Patient has a longstanding history of severe cardiomyopathy, likely end-stage disease based on her echocardiogram. Given her degree of cardiac dysfunction, she is actually doing markedly well. With regards to her ongoing leukopenia and thrombocytopenia, agree with DNA test for anaplasmosis. She is tolerating sinus tachycardia 120 bpm well without any acute cardiac sympt oms. As noted, she has not tolerated past treatment with multiple beta- blockers, calcium channel blockers, digoxin. She declines trying such medications. Agree with ongoing observation. Subcutaneous heparin for DVT prophylaxis. No additional cardiac testing indicated at the present time. Admission and Anticipated Discharge Date Admission Date: April 22, 2021 Subjective Thank you very much been playing phone tag patient seen in follow-up. She is sitting upright eating her evening meal. She states that she is feeling improved. She denies any chest discomfort, she describes her baseline degree of shortness of breath. Physical Exam Physical Exam: Temp Pulse Resp BP Pulse Ox 36.8 C 69 16 132/71 92 04/25/21 15:32 04/25/21 15:32 04/25/21 15:32 04/25/21 15:32 04/25/21 15:32 Constitutional: No acute distress Results & Data ([facility]) Vital Signs (Past 12 Hours) Vital Signs Temp Pulse Pulse Resp BP Pulse Ox 04/25/21 15:32 36.8 C 69 16 132/71 92 04/25/21 14:30 110 H 04/25/21 12:00 36.8 C 98 H 18 104/67 98 04/25/21 08:00 36.8 C 108 H 18 110/74 100 04/25/21 07:58 105 H
[2021-04-25] MEDS: AMITRIPTYLINE HCL 25 MG TAB PO SCH (20:42)
[2021-04-26] MEDS: ASPIRIN 81 MG ECTAB PO SCH (08:43)
[2021-04-26] MEDS: CETIRIZINE HCL 10 MG TABLET PO SCH (08:43)
[2021-04-26] MEDS: CHOLECALCIFEROL 1,000 UNITS 25 MCG TAB PO SCH (08:43)
[2021-04-26] MEDS: HEPARIN SOD 5,000 UNIT/0.5 ML VIAL SQ SCH ×2 (08:44→21:47)
[2021-04-26] MEDS: PANTOprazole 40 MG TAB PO SCH (08:45)
[2021-04-26] MEDS: ADVANCED PROBIOTIC 1250 MG CAPSULE PO SCH (08:45)
[2021-04-26] MEDS: TOLTERODINE TARTRATE LA 4 MG CAPCR PO SCH (08:45)
[2021-04-26] MEDS: TORSEMIDE 20 MG TAB PO SCH (08:46)
[2021-04-26] MEDS: FLUTICASONE FUROATE 100MCG 14 PUFFS/INHALER INH SCH (08:46)
[2021-04-26] MEDS: DOCUSATE SODIUM 100 MG CAP PO SCH ×3 (08:46→21:47)
[2021-04-26 09:15] LABS: Hematocrit (blood only) 37.4 % (37-47); Hemoglobin 12.5 g/dL (12.0-16.0); Mean Corpuscular Hemoglobin 30.4 pg (25-34); Mean Corpuscular Hgb Conc 33.4 g/dL (32-36); RDW Coefficient of Variation 14.2 % (11.5-14.5); RDW Standard Deviation 47.7 fL (36.4-46.3); Red Blood Count 4.11 M/uL (4.2-5.4); White Blood Count 2.57 K/uL (4.8-10.8)
[2021-04-26 09:32] LABS: Mean Platelet Volume 10.9 fL (7.4-10.4); Platelet Count 74 K/uL (130-400); Platelet Estimate Decreased (Normal)
[2021-04-26] MEDS: cefTRIAXone SODIUM 2,000 MG in DEXTROSE 5% 50 ML IV SCH (11:49)
--- NOTE | 2021-04-26 16:11 | Hospitalist Progress Note ---
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 tach, dyslipidemia, TESSA with nocturnal hypoxia treated with 4 L nasal cannula oxygen, history of multiple chemical sensitivity syndrome, react mis airway dysfunction syndrome, generalized anxiety disorder, PTSD and other medical problems listed below who presents with pain in lungs x4 days. Tachycardia Pleuritic chest pain Elevated d-dimer Elevated troponin Presenting with burning in lungs x 4 days, sinus tachycardia ~115, d-dimer elevated at 6,310 Unable to obtain CTA chest to evaluate for PE due to allergies to contrast dye, benadryl and steroids BLE dopplers without evidence of PE CXR with no active disease in the chest. Based on age and symptoms, started low-dose IV heparin with bolus due to susp icion of PE while awaiting VQ scan VQ scan negative Monitor on telemetry, trend troponin - troponin mildly elevated now (cardiology aware, cont. IV heparin initially) Trop down next day, IV heparin stopped, cardiology continues to follow Afebrile, no leukocytosis or consolidation on imaging Combined systolic and diastolic heart failure EF 20-25%, refusal of ICD in the past, grade 3 diastolic dysfunction Appears dry on exam on admission, has not taken torsemide in the past 2 days due to stable weight Received 500 ml NSS @ 75 ml/hr on admission re-evaluate volume status daily Cardiology following Patient is tachycardic and has end-stage heart failure, unfortunately not able to take medications, reports allergies to cardiac medications History of multiple chemical sensitivity syndrome Reactive airway dysfunction syndrome Follows with SAEID Davila of pulmonology No abnormal findings on CXR, saturating at 95% on room air Started on Z pack Wednesday, which she is prescribed for flare ups of chemical sensitivity syndrome Continue Z pack, PRN inhalers, supplemental O2 as needed Currently she is on 2L od O2 via NC (has NC in her mouth) or RA, at home does not use support oxygen only at night Pulmonary medicine consulted Concern for tickborne illness Presenting with leukopenia, thrombocytopenia and slight LFT elevation concerning for tickborne illness Peripheral smear without evidence of inclusion bodies to indicate anaplasmosis. Lyme serology negative. Anaplasma DNA pending Patient with airway edema listed as adverse reaction to doxycycline, per pharmacy, patient responded well to Rocephin, started empirically at this time Consulted pathology for peripheral smear review given some thrombocytopenia, leukocytopenia- The peripheral smear is notable for thrombocytopenia and leukopenia. Review of the patient's chart shows concern for a tick-borne disease. A single intracytoplasmic inclusion is seen which is concerning for anaplasmosis infection. Given that only one inclusion is seen, correlation with serologic studies is recommended.If you think LFTS elevated - obtained liver US, will further discuss w/ GI liver US - 1. Diffuse decrease in hepatic parenchymal echogenicity with prominent portal triads might represent hepatitis. Please correlate above-mentioned findings with clinical presentation of hepatitis. 2. Gallbladder is surgically absent. 3. Normal sonographic appearance of the pancreas and right kidney. Given the ultrasound findings, will obtain hepatitis panel - pending Discussed with GI, patient has history of elevated LFTs - recommend to follow-up on liver ultrasound, outpatient follow-up and management of elevated liver panel upon discharge Insomnia Continue amitriptyline at bedtime DVT Ppx: SCDs, stopped IV heparin, switch to subq heparin Code status: FULL PCP: Dr. Mccollum Dispo: Admitted to PCU. Discharge planning ordered. Admission and Anticipated Discharge Date Admission Date: April 22, 2021 Subjective Patient seen in follow-up of shortness of breath, "chest burning ", initially concern for PE Currently is resting, in no acute distress, on RA (NC on the floor) Says she feels better regarding her breathing however she feels weak and lightheaded Patient's nasal cannula is always on the floor when I see her, patient tells me that "she just ate" or "just came from bathroom," will need to check her pulse ox and her oxygen needs patient has been tachycardic VQ scan obtained, and negative Pulmonary and cardiology consulted Continues to have thrombocytopenia, leukopenia peripheral smear reviewed with pathologyI Review of Systems Constitutional: no fever and no chills Respiratory: + dyspnea (improved); no cough Cardiovascular: no chest pain and no palpitations Gastrointestinal: + bloating Physical Exam Physical Exam: General Appearance: WD/WN, NAD, sitting up in bed, currently on RA Head: normocephalic, atraumatic Eyes: normal inspection, EOMI, PERRL, conjunctivae normal, anicteric sclerae ENT: external ear and nose normal, oropharynx normal Neck: normal visual inspection, trachea midline, no thyromegaly Respiratory: normal respiratory effort, clear to auscultation, no wheeze, rales or rhonchi. No accessory muscle use Cardiovascular: +tachycardic, no murmur appreciated, normal peripheral pulses, no BLE edema. Vessels: no JVD Chest: normal inspection of chest Abdomen/GI: normal bowel sounds, soft, mildly distended, no guarding Extremities/Musculoskeletal: no cyanosis or clubbing, extremities motor strength 5/5 Neurologic: PERRL, EOMI, no face palsy, no dysarthria, moves all extremities Psychiatric: A+Ox3, anxious Skin: no rashes, normal color, warm/dry Results & Data Results & Data ([facility]) Vital Signs (Past 12 Hours) Vital Signs Temp Pulse Resp BP Pulse Ox 04/26/21 11:52 36.8 C 68 20 92/65 L 98 04/26/21 08:00 36.8 C 71 20 143/69 H 95 Laboratory Results 04/26/21 04/26/21 04/26/21 Range/Units 11:06 11:06 08:55 WBC (4.8-10.8) K/uL RBC (4.2-5.4) M/uL Hgb (12.0-16.0) g/dL Hct (37-47) % MCV (80-100) fL MCH (25-34) pg MCHC (32-36) g/dL RDW Std Deviation (36.4-46.3) fL RDW Coeff of Leonora (11.5-14.5) % Plt Count (130-400) K/uL MPV (7.4-10.4) fL Platelet Estimate (Normal) Magnesium 2.1 (1.8-2.4) mg/dl Hepatitis A IgM Ab Pending Hep Bs Antigen Pending Hep B Core IgM Ab Pending Hepatitis C Antibody Pending 04/26/21 Range/Units 08:55 WBC 2.57 L (4.8-10.8) K/uL RBC 4.11 L (4.2-5.4) M/uL Hgb 12.5 (12.0-16.0) g/dL Hct 37.4 (37-47) % MCV 91.0 (80-100) fL MCH 30.4 (25-34) pg MCHC 33.4 (32-36) g/dL RDW Std Deviation 47.7 H (36.4-46.3) fL RDW Coeff of Leonora 14.2 (11.5-14.5) % Plt Count 74 L (130-400) K/uL MPV 10.9 H (7.4-10.4) fL Platelet Estimate Decreased L (Normal) Magnesium (1.8-2.4) mg/dl Hepatitis A IgM Ab Hep Bs Antigen Hep B Core IgM Ab Hepatitis C Antibody Medications Administered Current Inpatient Medications Acetaminophen (Acetaminophen 325 Mg Tab) 650 mg PO Q4H PRN PRN Reason: Pain or Fever Stop: 05/22/21 20:48 Last Admin: 04/25/21 20:42 Dose: 650 mg Documented by: Amitriptyline HCl (Amitriptyline Hcl 25 Mg Tab) 25 mg PO HS MANUEL Stop: 05/22/21 20:59 Last Admin: 04/25/21 20:42 Dose: 25 mg Documented by: Aspirin (Aspirin 81 Mg Ectab) 81 mg PO DAILY AMNUEL Stop: 05/23/21 08:59 Last Admin: 04/26/21 08:43 Dose: 81 mg Documented by: Cetirizine HCl (Cetirizine Hcl 10 Mg Tablet) 10 mg PO DAILY MANUEL Stop: 05/23/21 08:59 Last Admin: 04/26/21 08:43 Dose: 10 mg Documented by: Docusate Sodium (Docusate Sodium 100 Mg Cap) 100 mg PO TID MANUEL Stop: 05/22/21 20:59 Last Admin: 04/26/21 13:57 Dose: 100 mg Documented by: Fluticasone Furoate (Fluticasone Furoate 100mcg 14 Puffs/Inhaler) 1 puffs INH DAILY [facility]; Protocol Stop: 05/23/21 08:59 Last Admin: 04/26/21 08:46 Dose: Not Given Documented by: Heparin Sodium (Porcine) (Heparin Sod 5,000 Unit/0.5 Ml Vial) 5,000 units SQ Q12 MANUEL Stop: 05/24/21 20:59 Last Admin: 04/26/21 08:44 Dose: 5,000 units Documented by: Ceftriaxone Sodium 2,000 mg/ (Dextrose) 70 mls @ 100 mls/hr IV DAILY [facility]; Protocol Stop: 05/10/21 11:14 Last Infusion: 04/26/21 12:49 Dose: Infused Documented by: Lactobacillus Acidoph/Casei/Rhamnos (Advanced Probiotic 1250 Mg Capsule) 2 cap PO QAM [facility] Stop: 05/23/21 08:59 Last Admin: 04/26/21 08:45 Dose: 2 cap Documented by: Lidocaine HCl (Lidocaine 4% Inh Soln 4 Ml Btl) 4 ml NEB Q4H PRN PRN Reason: BURNING LUNG PAIN Stop: 05/22/21 20:57 Last Admin: 04/23/21 21:43 Dose: 4 ml Documented by: Nitroglycerin (Nitroglycerin Sl 0.4 Mg/Tab Tab) 0.4 mg SL UD PRN PRN Reason: Chest Pain Stop: 05/22/21 20:48 Pantoprazole Sodium (Pantoprazole 40 Mg Tab) 40 mg PO DAILY [facility] Stop: 05/23/21 08:59 Last Admin: 04/26/21 08:45 Dose: 40 mg Documented by: Phenol (Chloraseptic 1.4% Soln 180 Ml Btl) 3 sprays PO Q4H PRN PRN Reason: Sore Throat Stop: 05/22/21 20:48 Polyethylene Glycol (Polyethylene (Miralax) 17 Gm Pack) 17 gm PO DAILY PRN PRN Reason: Constipation Stop: 05/22/21 20:48 Simethicone (Simethicone 80 Mg Chew) 80 mg PO Q6H PRN PRN Reason: indigestion, bloating Stop: 05/24/21 17:59 Last Admin: 04/24/21 20:34 Dose: 80 mg Documented by: Tolterodine Tartrate (Tolterodine Tartrate La 4 Mg Capcr) 4 mg PO QAM [facility] Stop: 05/23/21 08:59 Last Admin: 04/26/21 08:45 Dose: 4 mg Documented by: Torsemide (Torsemide 20 Mg Tab) 20 mg PO DAILY [facility] Stop: 05/23/21 08:59 Last Admin: 04/26/21 08:46 Dose: 20 mg Documented by: Umeclidinium [place] (Umeclidinium [place] 62.5mcg/Blister 7 Puffs/Inhaler) 1 puffs INH DAILY PRN PRN Reason: Shortness Of Breath Stop: 05/23/21 08:59 Vitamin D (Cholecalciferol 1,000 Units 25 Mcg Tab) 2,000 units PO DAILY MANUEL Stop: 05/23/21 08:59 Last Admin: 04/26/21 08:43 Dose: 2,000 units Documented by: (1) CHF (congestive heart failure) Heart failure chronicity: acute on chronic Heart failure type: systolic Qualified Code(s): I50.23 - Acute on chronic systolic (congestive) heart failure
[2021-04-26] MEDS: AMITRIPTYLINE HCL 25 MG TAB PO SCH (21:47)
[2021-04-27] MEDS: ACETAMINOPHEN 325 MG TAB PO PRN (04:24)
[2021-04-27 06:33] LABS: Hematocrit (blood only) 37.4 % (37-47); Hemoglobin 12.4 g/dL (12.0-16.0); Mean Corpuscular Hemoglobin 30.5 pg (25-34); Mean Corpuscular Hgb Conc 33.2 g/dL (32-36); Mean Corpuscular Volume 92.1 fL (80-100); Mean Platelet Volume 11.4 fL (7.4-10.4); Platelet Count 126 K/uL (130-400); RDW Coefficient of Variation 14.2 % (11.5-14.5); RDW Standard Deviation 47.7 fL (36.4-46.3); Red Blood Count 4.06 M/uL (4.2-5.4); White Blood Count 3.27 K/uL (4.8-10.8)
[2021-04-27 06:34] LABS: Albumin Globulin Ratio 0.7 (0.9-2); Albumin Level 2.5 gm/dl (3.4-5.0); BUN Creatinine Ratio 24.3 (10-20); Bilirubin,Total 0.6 mg/dl (0.2-1); Calcium 8.3 mg/dl (8.5-10.1); Creatinine Clr Calc Pharmacy 87.5 ml/min; Est GFR (Non-African American) 93.1 ml/min; Globulin 3.5 gm/dl (2.5-4.0); Magnesium 2.2 mg/dl (1.8-2.4); Phosphorus 2.7 mg/dl (2.5-4.9); Potassium 3.4 mmol/L (3.5-5.1)
[2021-04-27 06:57] LABS: Basophils # (auto) 0.07 K/uL (0-0.2); Basophils % (auto) 2.1 %; Eosinophils # (auto) 0.03 K/uL (0-0.5); Eosinophils % (auto) 0.9 %; Lymphocytes # (auto) 1.95 K/uL (1.2-3.4); Lymphocytes % (auto) 59.6 %; Monocytes # (auto) 0.18 K/uL (0.11-0.59); Monocytes % (auto) 5.5 %; Neutrophils # (auto) 1.04 K/uL (1.4-6.5); Neutrophils % (auto) 31.9 %
[2021-04-27] MEDS: cefTRIAXone SODIUM 2,000 MG in DEXTROSE 5% 50 ML IV SCH (08:56)
[2021-04-27] MEDS: CHOLECALCIFEROL 1,000 UNITS 25 MCG TAB PO SCH (08:57)
[2021-04-27] MEDS: TORSEMIDE 20 MG TAB PO SCH (08:57)
[2021-04-27] MEDS: PANTOprazole 40 MG TAB PO SCH (08:58)
[2021-04-27] MEDS: ADVANCED PROBIOTIC 1250 MG CAPSULE PO SCH (08:59)
[2021-04-27] MEDS: CETIRIZINE HCL 10 MG TABLET PO SCH (08:59)
[2021-04-27] MEDS: ASPIRIN 81 MG ECTAB PO SCH (08:59)
[2021-04-27] MEDS: HEPARIN SOD 5,000 UNIT/0.5 ML VIAL SQ SCH ×2 (08:59→20:57)
[2021-04-27] MEDS: TOLTERODINE TARTRATE LA 4 MG CAPCR PO SCH (08:59)
[2021-04-27] MEDS: FLUTICASONE FUROATE 100MCG 14 PUFFS/INHALER INH SCH (09:04)
[2021-04-27] MEDS: DOCUSATE SODIUM 100 MG CAP PO SCH ×3 (09:07→20:57)
[2021-04-27] MEDS ORDERED: POTASSIUM CHLORIDE CRTAB 20 MEQ TABCR PO STA (10:05)
--- NOTE | 2021-04-27 11:00 | Hospitalist Progress Note ---
Date of Service April 27, 2021 Assessment & Plan (1) Tachycardia: (2) Elevated d-dimer: (3) Chest pain on breathing: (4) CHF (congestive heart failure): (5) Chronic lung disease: (6) Multiple chemical sensitivity syndrome: (7) Nocturnal hypoxia: (8) Insomnia: Plan: This is a 70yo F with a PMH of nonischemic cardiomyopathy with systolic and diastolic heart failure with EF 20 to 25%, refusal of ICD in the past, frequent PVCs, nonspecific intraventricular conduction block with prolonged QT, history of paroxysmal V. tach, dyslipidemia, TESSA with nocturnal hypoxia treated with 4 L nasal cannula oxygen, history of multiple chemical sensitivity syndrome, react mis airway dysfunction syndrome, generalized anxiety disorder, PTSD and other medical problems listed below who presents with pain in lungs x4 days. Tachycardia Pleuritic chest pain Elevated d-dimer Elevated troponin Presenting with burning in lungs x 4 days, sinus tachycardia ~115, d-dimer elevated at 6,310 Unable to obtain CTA chest to evaluate for PE due to allergies to contrast dye, benadryl and steroids BLE dopplers without evidence of PE CXR with no active disease in the chest. Based on age and symptoms, started low-dose IV heparin with bolus due to susp icion of PE while awaiting VQ scan VQ scan negative Monitor on telemetry, trend troponin - troponin mildly elevated now (cardiology aware, cont. IV heparin initially) Trop down next day, IV heparin stopped, cardiology continues to follow Afebrile, no leukocytosis or consolidation on imaging Combined systolic and diastolic heart failure EF 20-25%, refusal of ICD in the past, grade 3 diastolic dysfunction Appears dry on exam on admission, has not taken torsemide in the past 2 days due to stable weight Received 500 ml NSS @ 75 ml/hr on admission re-evaluate volume status daily Cardiology following Patient is tachycardic and has end-stage heart failure, unfortunately not able to take medications, reports allergies to cardiac medications History of multiple chemical sensitivity syndrome Reactive airway dysfunction syndrome Follows with SAEID Davila of pulmonology No abnormal findings on CXR, saturating at 95% on room air Started on Z pack Wednesday, which she is prescribed for flare ups of chemical sensitivity syndrome Continue Z pack, PRN inhalers, supplemental O2 as needed Currently she is on 2L od O2 via NC (has NC in her mouth) or RA, at home does not use support oxygen only at night Pulmonary medicine consulted Finished azithromycin, now "chest burning" sensation seems to be resolved We will need to recheck pulse ox, and patient's oxygen needs Concern for tickborne illness Presenting with leukopenia, thrombocytopenia and slight LFT elevation concerning for tickborne illness Peripheral smear without evidence of inclusion bodies to indicate anaplasmosis. Lyme serology negative. Anaplasma DNA pending Patient with airway edema listed as adverse reaction to doxycycline, per pharmacy, patient responded well to Rocephin, started empirically at this time Consulted pathology for peripheral smear review given some thrombocytopenia, leukocytopenia- The peripheral smear is notable for thrombocytopenia and leukopenia. Review of the patient's chart shows concern for a tick-borne disease. A single intracytoplasmic inclusion is seen which is concerning for anaplasmosis infection. Given that only one inclusion is seen, correlation with serologic studies is recommended.If you think 04/27 -thrombocytopenia and leukopenia now improved, continue empiric Rocephin Continue to monitor CBC LFTS elevated - obtained liver US, will further discuss w/ GI liver US - 1. Diffuse decrease in hepatic parenchymal echogenicity with prominent portal triads might represent hepatitis. Please correlate above-mentioned findings with clinical presentation of hepatitis. 2. Gallbladder is surgically absent. 3. Normal sonographic appearance of the pancreas and right kidney. Given the ultrasound findings, will obtain hepatitis panel - pending Discussed with GI, patient has history of elevated LFTs - recommend to follow-up on liver ultrasound, outpatient follow-up and management of elevated liver panel upon discharge Insomnia Continue amitriptyline at bedtime DVT Ppx: SCDs, stopped IV heparin, switched to subq heparin Code status: FULL PCP: Dr. Mccollum Dispo: Admitted to PCU. Discharge planning ordered. Admission and Anticipated Discharge Date Admission Date: April 22, 2021 Subjective Patient seen in follow-up of shortness of breath, "chest burning ", initially concern for PE Currently is resting, in no acute distress, on RA (NC on the floor) Says she does not have any more of chest burning sensation feels better and stronger however still quite lightheaded Patient's nasal cannula is on the floor again, will have nursing staff recheck again her pulse ox and her oxygen needs tachycardia now improved Thrombocytopenia, leukopenia improved Pt denies any abd. discomfort, or bloating, says her abdomen feels ok now Review of Systems Constitutional: no fever and no chills Respiratory: + dyspnea (improved); no cough Cardiovascular: no chest pain and no palpitations Physical Exam Physical Exam: General Appearance: WD/WN, NAD, sitting up in bed, currently on RA Head: normocephalic, atraumatic Eyes: normal inspection, EOMI, PERRL, conjunctivae normal, anicteric sclerae ENT: external ear and nose normal, oropharynx normal Neck: normal visual inspection, trachea midline, no thyromegaly Respiratory: normal respiratory effort, clear to auscultation, no wheeze, rales or rhonchi. No accessory muscle use Cardiovascular: RRR HR 89 (improved), no murmur appreciated, normal peripheral pulses, no BLE edema. Vessels: no JVD Chest: normal inspection of chest Abdomen/GI: normal bowel sounds, soft, mildly distended, no guarding Extremities/Musculoskeletal: no cyanosis or clubbing, extremities motor strength 5/5 Neurologic: PERRL, EOMI, no face palsy, no dysarthria, moves all extremities Psychiatric: A+Ox3, anxious Skin: no rashes, normal color, warm/dry Results & Data Results & Data ([facility]) Vital Signs (Past 12 Hours) Vital Signs Temp Pulse Resp BP Pulse Ox 04/27/21 10:44 95 04/27/21 08:12 36.8 C 89 18 129/63 100 04/27/21 04:14 36.4 C L 98 H 20 117/83 91 04/26/21 23:47 36.4 C L 100 H 20 101/69 95 Laboratory Results 04/27/21 04/27/21 04/26/21 Range/Units 05:23 05:23 11:06 WBC 3.27 L (4.8-10.8) K/uL RBC 4.06 L (4.2-5.4) M/uL Hgb 12.4 (12.0-16.0) g/dL Hct 37.4 (37-47) % MCV 92.1 (80-100) fL MCH 30.5 (25-34) pg MCHC 33.2 (32-36) g/dL RDW Std Deviation 47.7 H (36.4-46.3) fL RDW Coeff of Leonora 14.2 (11.5-14.5) % Plt Count 126 L D (130-400) K/uL MPV 11.4 H (7.4-10.4) fL Immature Gran % (Auto) 0.0 % Neut % (Auto) 31.9 % Lymph % (Auto) 59.6 % Smyth % (Auto) 5.5 % Eos % (Auto) 0.9 % Baso % (Auto) 2.1 % Neut # (Auto) 1.04 L (1.4-6.5) K/uL Lymph # (Auto) 1.95 (1.2-3.4) K/uL Smyth # (Auto) 0.18 (0.11-0.59) K/uL Eos # (Auto) 0.03 (0-0.5) K/uL Baso # (Auto) 0.07 (0-0.2) K/uL Immature Gran # (Auto) 0.00 (0.00-0.02) K/uL Sodium 136 (136-145) mmol/L Potassium 3.4 L (3.5-5.1) mmol/L Chloride 100 (98-107) mmol/L Carbon Dioxide 33 H (21-32) mmol/L Anion Gap 3.0 (3-11) BUN 15 (7-18) mg/dl Creatinine 0.61 (0.6-1.2) mg/dl Est Cr Clr Drug Dosing 87.5 ml/min Est GFR ( Amer) 108.0 ml/min Est GFR (Non-Af Amer) 93.1 ml/min BUN/Creatinine Ratio 24.3 H (10-20) Glucose 106 H (70-99) mg/dl Calcium 8.3 L (8.5-10.1) mg/dl Phosphorus 2.7 (2.5-4.9) mg/dl Magnesium 2.2 (1.8-2.4) mg/dl Total Bilirubin 0.6 (0.2-1) mg/dl AST 75 H (15-37) U/L ALT 88 H (12-78) U/L Alkaline Phosphatase 123 H (45-117) U/L Total Protein 6.0 L (6.4-8.2) gm/dl Albumin 2.5 L (3.4-5.0) gm/dl Globulin 3.5 (2.5-4.0) gm/dl Albumin/Globulin Ratio 0.7 L (0.9-2) Hepatitis A IgM Ab Pending Hep Bs Antigen Hep B Core IgM Ab Pending Hepatitis C Antibody 04/26/21 Range/Units 11:06 WBC (4.8-10.8) K/uL RBC (4.2-5.4) M/uL Hgb (12.0-16.0) g/dL Hct (37-47) % MCV (80-100) fL MCH (25-34) pg MCHC (32-36) g/dL RDW Std Deviation (36.4-46.3) fL RDW Coeff of Leonora (11.5-14.5) % Plt Count (130-400) K/uL MPV (7.4-10.4) fL Immature Gran % (Auto) % Neut % (Auto) % Lymph % (Auto) % Smyth % (Auto) % Eos % (Auto) % Baso % (Auto) % Neut # (Auto) (1.4-6.5) K/uL Lymph # (Auto) (1.2-3.4) K/uL Smyth # (Auto) (0.11-0.59) K/uL Eos # (Auto) (0-0.5) K/uL Baso # (Auto) (0-0.2) K/uL Immature Gran # (Auto) (0.00-0.02) K/uL Sodium (136-145) mmol/L Potassium (3.5-5.1) mmol/L Chloride (98-107) mmol/L Carbon Dioxide (21-32) mmol/L Anion Gap (3-11) BUN (7-18) mg/dl Creatinine (0.6-1.2) mg/dl Est Cr Clr Drug Dosing ml/min Est GFR ( Amer) ml/min Est GFR (Non-Af Amer) ml/min BUN/Creatinine Ratio (10-20) Glucose (70-99) mg/dl Calcium (8.5-10.1) mg/dl Phosphorus (2.5-4.9) mg/dl Magnesium (1.8-2.4) mg/dl Total Bilirubin (0.2-1) mg/dl AST (15-37) U/L ALT (12-78) U/L Alkaline Phosphatase (45-117) U/L Total Protein (6.4-8.2) gm/dl Albumin (3.4-5.0) gm/dl Globulin (2.5-4.0) gm/dl Albumin/Globulin Ratio (0.9-2) Hepatitis A IgM Ab Hep Bs Antigen Pending Hep B Core IgM Ab Hepatitis C Antibody Pending Medications Administered Current Inpatient Medications Acetaminophen (Acetaminophen 325 Mg Tab) 650 mg PO Q4H PRN PRN Reason: Pain or Fever Stop: 05/22/21 20:48 Last Admin: 04/27/21 04:24 Dose: 650 mg Documented by: Amitriptyline HCl (Amitriptyline Hcl 25 Mg Tab) 25 mg PO HS [facility] Stop: 05/22/21 20:59 Last Admin: 04/26/21 21:47 Dose: 25 mg Documented by: Aspirin (Aspirin 81 Mg Ectab) 81 mg PO DAILY [facility] Stop: 05/23/21 08:59 Last Admin: 04/27/21 08:59 Dose: 81 mg Documented by: Cetirizine HCl (Cetirizine Hcl 10 Mg Tablet) 10 mg PO DAILY [facility] Stop: 05/23/21 08:59 Last Admin: 04/27/21 08:59 Dose: 10 mg Documented by: Docusate Sodium (Docusate Sodium 100 Mg Cap) 100 mg PO TID [facility] Stop: 05/22/21 20:59 Last Admin: 04/27/21 09:07 Dose: 100 mg Documented by: Fluticasone Furoate (Fluticasone Furoate 100mcg 14 Puffs/Inhaler) 1 puffs INH DAILY [facility]; Protocol Stop: 05/23/21 08:59 Last Admin: 04/27/21 09:04 Dose: Not Given Documented by: Heparin Sodium (Porcine) (Heparin Sod 5,000 Unit/0.5 Ml Vial) 5,000 units SQ Q12 [facility]UEL Stop: 05/24/21 20:59 Last Admin: 04/27/21 08:59 Dose: 5,000 units Documented by: Ceftriaxone Sodium 2,000 mg/ (Dextrose) 70 mls @ 100 mls/hr IV DAILY [facility]; Protocol Stop: 05/10/21 11:14 Last Infusion: 04/27/21 09:46 Dose: Infused Documented by: Lactobacillus Acidoph/Casei/Rhamnos (Advanced Probiotic 1250 Mg Capsule) 2 cap PO QAM [facility]UEL Stop: 05/23/21 08:59 Last Admin: 04/27/21 08:59 Dose: 2 cap Documented by: Lidocaine HCl (Lidocaine 4% Inh Soln 4 Ml Btl) 4 ml NEB Q4H PRN PRN Reason: BURNING LUNG PAIN Stop: 05/22/21 20:57 Last Admin: 04/23/21 21:43 Dose: 4 ml Documented by: Nitroglycerin (Nitroglycerin Sl 0.4 Mg/Tab Tab) 0.4 mg SL UD PRN PRN Reason: Chest Pain Stop: 05/22/21 20:48 Pantoprazole Sodium (Pantoprazole 40 Mg Tab) 40 mg PO DAILY [facility] Stop: 05/23/21 08:59 Last Admin: 04/27/21 08:58 Dose: 40 mg Documented by: Phenol (Chloraseptic 1.4% Soln 180 Ml Btl) 3 sprays PO Q4H PRN PRN Reason: Sore Throat Stop: 05/22/21 20:48 Polyethylene Glycol (Polyethylene (Miralax) 17 Gm Pack) 17 gm PO DAILY PRN PRN Reason: Constipation Stop: 05/22/21 20:48 Simethicone (Simethicone 80 Mg Chew) 80 mg PO Q6H PRN PRN Reason: indigestion, bloating Stop: 05/24/21 17:59 Last Admin: 04/24/21 20:34 Dose: 80 mg Documented by: Tolterodine Tartrate (Tolterodine Tartrate La 4 Mg Capcr) 4 mg PO QAM [facility]UEL Stop: 05/23/21 08:59 Last Admin: 04/27/21 08:59 Dose: 4 mg Documented by: Torsemide (Torsemide 20 Mg Tab) 20 mg PO DAILY [facility] Stop: 05/23/21 08:59 Last Admin: 04/27/21 08:57 Dose: 20 mg Documented by: Umeclidinium [place] (Umeclidinium [place] 62.5mcg/Blister 7 Puffs/Inhaler) 1 puffs INH DAILY PRN PRN Reason: Shortness Of Breath Stop: 05/23/21 08:59 Vitamin D (Cholecalciferol 1,000 Units 25 Mcg Tab) 2,000 units PO DAILY [facility] Stop: 05/23/21 08:59 Last Admin: 04/27/21 08:57 Dose: 2,000 units Documented by: (1) CHF (congestive heart failure) Heart failure chronicity: acute on chronic Heart failure type: systolic Qualified Code(s): I50.23 - Acute on chronic systolic (congestive) heart failure
[2021-04-27] MEDS: AMITRIPTYLINE HCL 25 MG TAB PO SCH (20:58)
[2021-04-28] MEDS: ACETAMINOPHEN 325 MG TAB PO PRN ×3 (03:58→22:19)
[2021-04-28 08:06] LABS: Hematocrit (blood only) 37.4 % (37-47); Hemoglobin 12.6 g/dL (12.0-16.0); Mean Corpuscular Hemoglobin 30.5 pg (25-34); Mean Corpuscular Hgb Conc 33.7 g/dL (32-36); Mean Corpuscular Volume 90.6 fL (80-100); Mean Platelet Volume 10.9 fL (7.4-10.4); Platelet Count 179 K/uL (130-400); RDW Coefficient of Variation 13.9 % (11.5-14.5); RDW Standard Deviation 46.2 fL (36.4-46.3); Red Blood Count 4.13 M/uL (4.2-5.4); White Blood Count 4.36 K/uL (4.8-10.8)
[2021-04-28 08:25] LABS: Calcium 8.2 mg/dl (8.5-10.1); Creatinine Clr Calc Pharmacy 82.3 ml/min; Est GFR (African American) 104.7 ml/min; Est GFR (Non-African American) 90.3 ml/min; Magnesium 2.1 mg/dl (1.8-2.4); Potassium 3.6 mmol/L (3.5-5.1)
[2021-04-28] MEDS: TORSEMIDE 20 MG TAB PO SCH (08:42)
[2021-04-28] MEDS: ADVANCED PROBIOTIC 1250 MG CAPSULE PO SCH (08:42)
[2021-04-28] MEDS: CETIRIZINE HCL 10 MG TABLET PO SCH (08:42)
[2021-04-28] MEDS: ASPIRIN 81 MG ECTAB PO SCH (08:42)
[2021-04-28] MEDS: CHOLECALCIFEROL 1,000 UNITS 25 MCG TAB PO SCH (08:43)
[2021-04-28] MEDS: HEPARIN SOD 5,000 UNIT/0.5 ML VIAL SQ SCH ×2 (08:43→20:00)
[2021-04-28] MEDS: cefTRIAXone SODIUM 2,000 MG in DEXTROSE 5% 50 ML IV SCH (08:44)
[2021-04-28] MEDS: DOCUSATE SODIUM 100 MG CAP PO SCH ×3 (08:44→20:03)
[2021-04-28] MEDS: FLUTICASONE FUROATE 100MCG 14 PUFFS/INHALER INH SCH (08:44)
[2021-04-28] MEDS: PANTOprazole 40 MG TAB PO SCH (08:44)
[2021-04-28] MEDS: TOLTERODINE TARTRATE LA 4 MG CAPCR PO SCH (08:45)
[2021-04-28] MEDS ORDERED: POTASSIUM CHLORIDE CRTAB 20 MEQ TABCR PO STA (09:26)
--- NOTE | 2021-04-28 09:30 | Hospitalist Progress Note ---
Date of Service April 28, 2021 Assessment & Plan (1) Tachycardia: (2) Elevated d-dimer: (3) Chest pain on breathing: (4) CHF (congestive heart failure): (5) Chronic lung disease: (6) Multiple chemical sensitivity syndrome: (7) Nocturnal hypoxia: (8) Insomnia: Plan: This is a 70yo F with a PMH of nonischemic cardiomyopathy with systolic and diastolic heart failure with EF 20 to 25%, refusal of ICD in the past, frequent PVCs, nonspecific intraventricular conduction block with prolonged QT, history of paroxysmal V. tach, dyslipidemia, TESSA with nocturnal hypoxia treated with 4 L nasal cannula oxygen, history of multiple chemical sensitivity syndrome, react mis airway dysfunction syndrome, generalized anxiety disorder, PTSD and other medical problems listed below who presents with pain in lungs x4 days. Tachycardia Pleuritic chest pain Elevated d-dimer Elevated troponin Presenting with burning in lungs x 4 days, sinus tachycardia ~115, d-dimer elevated at 6,310 Unable to obtain CTA chest to evaluate for PE due to allergies to contrast dye, benadryl and steroids BLE dopplers without evidence of PE CXR with no active disease in the chest. Based on age and symptoms, started low-dose IV heparin with bolus due to susp icion of PE while awaiting VQ scan VQ scan negative Monitor on telemetry, trend troponin - troponin mildly elevated now (cardiology aware, cont. IV heparin initially) Trop down next day, IV heparin stopped, cardiology continues to follow Afebrile, no leukocytosis or consolidation on imaging (however leukopenia present) Combined systolic and diastolic heart failure EF 20-25%, refusal of ICD in the past, grade 3 diastolic dysfunction Appears dry on exam on admission, has not taken torsemide in the past 2 days due to stable weight Received 500 ml NSS @ 75 ml/hr on admission re-evaluate volume status daily Cardiology following Patient is tachycardic and has end-stage heart failure, unfortunately not able to take medications, reports allergies to cardiac medications tachycardia now much improved History of multiple chemical sensitivity syndrome Reactive airway dysfunction syndrome Follows with SAEID Davila of pulmonology No abnormal findings on CXR, saturating at 95% on room air Started on Z pack Wednesday, which she is prescribed for flare ups of chemical sensitivity syndrome Continue Z pack, PRN inhalers, supplemental O2 as needed Currently she is on 2L od O2 via NC (has NC in her mouth) or RA, at home does not use support oxygen only at night Pulmonary medicine consulted Finished azithromycin, now "chest burning" sensation seems to be resolved We will need to recheck pulse ox, and patient's oxygen needs Concern for tickborne illness Presenting with leukopenia, thrombocytopenia and slight LFT elevation concerning for tickborne illness Peripheral smear without evidence of inclusion bodies to indicate anaplasmosis. Lyme serology negative. Anaplasma DNA pending Patient with airway edema listed as adverse reaction to doxycycline, per pharmacy, patient responded well to Rocephin, started empirically at this time Consulted pathology for peripheral smear review given some thrombocytopenia, leukocytopenia- The peripheral smear is notable for thrombocytopenia and leukopenia. Review of the patient's chart shows concern for a tick-borne disease. A single intracytoplasmic inclusion is seen which is concerning for anaplasmosis infection. Given that only one inclusion is seen, correlation with serologic studies is recommended.If you think 04/27 -thrombocytopenia and leukopenia now improved, continue empiric Rocephin Continue to monitor CBC 04/28 -thrombocytopenia resolved and leukopenia now improved, continue empiric Rocephin Continue to monitor CBC LFTS elevated - obtained liver US, will further discuss w/ GI liver US - 1. Diffuse decrease in hepatic parenchymal echogenicity with prominent portal triads might represent hepatitis. Please correlate above-mentioned findings with clinical presentation of hepatitis. 2. Gallbladder is surgically absent. 3. Normal sonographic appearance of the pancreas and right kidney. Given the ultrasound findings, will obtain hepatitis panel - pending Discussed with GI, patient has history of elevated LFTs - recommend to follow-up on liver ultrasound, outpatient follow-up and management of elevated liver panel upon discharge Hypokalemia - monitor K, goal K>4 -replace and monitor Insomnia Continue amitriptyline at bedtime DVT Ppx: SCDs, stopped IV heparin, switched to subq heparin Code status: FULL PCP: Dr. Mccollum Dispo: Med/Tele. Discharge planning ordered. Admission and Anticipated Discharge Date Admission Date: April 22, 2021 Subjective Patient seen in follow-up of shortness of breath, "chest burning ", initially concern for PE Currently is resting, in no acute distress Says she does not have any more of chest burning sensation feels better and stronger however still quite lightheaded tachycardia now resolved Thrombocytopenia resolved , leukopenia improved Review of Systems Constitutional: no fever and no chills Respiratory: + dyspnea (improved); no cough Cardiovascular: no chest pain and no palpitations Physical Exam Physical Exam: General Appearance: WD/WN, NAD, sitting up in bed, currently on RA Head: normocephalic, atraumatic Eyes: normal inspection, EOMI, PERRL, conjunctivae normal, anicteric sclerae ENT: external ear and nose normal, oropharynx normal Neck: normal visual inspection, trachea midline, no thyromegaly Respiratory: normal respiratory effort, clear to auscultation, no wheeze, rales or rhonchi. No accessory muscle use Cardiovascular: RRR HR 89 (improved), no murmur appreciated, normal peripheral pulses, no BLE edema. Vessels: no JVD Chest: normal inspection of chest Abdomen/GI: normal bowel sounds, soft, mildly distended, no guarding Extremities/Musculoskeletal: no cyanosis or clubbing, extremities motor strength 5/5 Neurologic: PERRL, EOMI, no face palsy, no dysarthria, moves all extremities Psychiatric: A+Ox3, anxious Skin: no rashes, normal color, warm/dry Results & Data Results & Data ([facility]) Vital Signs (Past 12 Hours) Vital Signs Temp Pulse Pulse Resp BP Pulse Ox 04/28/21 07:34 36.4 C L 89 16 111/79 96 04/28/21 07:14 88 04/28/21 04:00 37.0 C 93 H 18 110/73 93 04/28/21 00:46 120 H 04/27/21 23:00 36.0 C L 106 H 18 104/70 91 Laboratory Results 04/28/21 04/28/21 Range/Units 07:40 07:40 WBC 4.36 L (4.8-10.8) K/uL RBC 4.13 L (4.2-5.4) M/uL Hgb 12.6 (12.0-16.0) g/dL Hct 37.4 (37-47) % MCV 90.6 (80-100) fL MCH 30.5 (25-34) pg MCHC 33.7 (32-36) g/dL RDW Std Deviation 46.2 (36.4-46.3) fL RDW Coeff of Leonora 13.9 (11.5-14.5) % Plt Count 179 (130-400) K/uL MPV 10.9 H (7.4-10.4) fL Sodium 139 (136-145) mmol/L Potassium 3.6 (3.5-5.1) mmol/L Chloride 103 (98-107) mmol/L Carbon Dioxide 31 (21-32) mmol/L Anion Gap 5.0 (3-11) BUN 13 (7-18) mg/dl Creatinine 0.67 (0.6-1.2) mg/dl Est Cr Clr Drug Dosing 82.3 ml/min Est GFR ( Amer) 104.7 ml/min Est GFR (Non-Af Amer) 90.3 ml/min BUN/Creatinine Ratio 20.0 (10-20) Glucose 94 (70-99) mg/dl Calcium 8.2 L (8.5-10.1) mg/dl Magnesium 2.1 (1.8-2.4) mg/dl Medications Administered Current Inpatient Medications Acetaminophen (Acetaminophen 325 Mg Tab) 650 mg PO Q4H PRN PRN Reason: Pain or Fever Stop: 05/22/21 20:48 Last Admin: 04/28/21 07:46 Dose: 650 mg Documented by: Amitriptyline HCl (Amitriptyline Hcl 25 Mg Tab) 25 mg PO HS [facility] Stop: 05/22/21 20:59 Last Admin: 04/27/21 20:58 Dose: Not Given Documented by: Aspirin (Aspirin 81 Mg Ectab) 81 mg PO DAILY [facility] Stop: 05/23/21 08:59 Last Admin: 04/28/21 08:42 Dose: 81 mg Documented by: Cetirizine HCl (Cetirizine Hcl 10 Mg Tablet) 10 mg PO DAILY [facility] Stop: 05/23/21 08:59 Last Admin: 04/28/21 08:42 Dose: 10 mg Documented by: Docusate Sodium (Docusate Sodium 100 Mg Cap) 100 mg PO TID [facility] Stop: 05/22/21 20:59 Last Admin: 04/28/21 08:44 Dose: 100 mg Documented by: Fluticasone Furoate (Fluticasone Furoate 100mcg 14 Puffs/Inhaler) 1 puffs INH DAILY [facility]; Protocol Stop: 05/23/21 08:59 Last Admin: 04/28/21 08:44 Dose: Not Given Documented by: Heparin Sodium (Porcine) (Heparin Sod 5,000 Unit/0.5 Ml Vial) 5,000 units SQ Q12 [facility] Stop: 05/24/21 20:59 Last Admin: 04/28/21 08:43 Dose: 5,000 units Documented by: Ceftriaxone Sodium 2,000 mg/ (Dextrose) 70 mls @ 100 mls/hr IV DAILY [facility]; Protocol Stop: 05/10/21 11:14 Last Admin: 04/28/21 08:44 Dose: 100 mls/hr Documented by: Lactobacillus Acidoph/Casei/Rhamnos (Advanced Probiotic 1250 Mg Capsule) 2 cap PO QAM [facility] Stop: 05/23/21 08:59 Last Admin: 04/28/21 08:42 Dose: 2 cap Documented by: Lidocaine HCl (Lidocaine 4% Inh Soln 4 Ml Btl) 4 ml NEB Q4H PRN PRN Reason: BURNING LUNG PAIN Stop: 05/22/21 20:57 Last Admin: 04/23/21 21:43 Dose: 4 ml Documented by: Nitroglycerin (Nitroglycerin Sl 0.4 Mg/Tab Tab) 0.4 mg SL UD PRN PRN Reason: Chest Pain Stop: 05/22/21 20:48 Pantoprazole Sodium (Pantoprazole 40 Mg Tab) 40 mg PO DAILY [facility] Stop: 05/23/21 08:59 Last Admin: 04/28/21 08:44 Dose: 40 mg Documented by: Phenol (Chloraseptic 1.4% Soln 180 Ml Btl) 3 sprays PO Q4H PRN PRN Reason: Sore Throat Stop: 05/22/21 20:48 Polyethylene Glycol (Polyethylene (Miralax) 17 Gm Pack) 17 gm PO DAILY PRN PRN Reason: Constipation Stop: 05/22/21 20:48 Potassium Chloride (Potassium Chloride Crtab 20 Meq Tabcr) 40 meq PO NOW STA Stop: 04/28/21 09:27 Simethicone (Simethicone 80 Mg Chew) 80 mg PO Q6H PRN PRN Reason: indigestion, bloating Stop: 05/24/21 17:59 Last Admin: 04/24/21 20:34 Dose: 80 mg Documented by: Tolterodine Tartrate (Tolterodine Tartrate La 4 Mg Capcr) 4 mg PO QAM [facility] Stop: 05/23/21 08:59 Last Admin: 04/28/21 08:45 Dose: 4 mg Documented by: Torsemide (Torsemide 20 Mg Tab) 20 mg PO DAILY [facility] Stop: 05/23/21 08:59 Last Admin: 04/28/21 08:42 Dose: 20 mg Documented by: Umeclidinium [place] (Umeclidinium [place] 62.5mcg/Blister 7 Puffs/Inhaler) 1 puffs INH DAILY PRN PRN Reason: Shortness Of Breath Stop: 05/23/21 08:59 Vitamin D (Cholecalciferol 1,000 Units 25 Mcg Tab) 2,000 units PO DAILY [facility] Stop: 05/23/21 08:59 Last Admin: 04/28/21 08:43 Dose: 2,000 units Documented by: (1) CHF (congestive heart failure) Heart failure chronicity: acute on chronic Heart failure type: systolic Qualified Code(s): I50.23 - Acute on chronic systolic (congestive) heart failure
[2021-04-28 09:49] LABS: Hepatitis B Surf Ag Rflx Conf Neg (Neg)
[2021-04-28 10:18] LABS: Hepatitis C IgG 13Yrs+Old_Rflx Neg (Neg)
[2021-04-28] MEDS: AMITRIPTYLINE HCL 25 MG TAB PO SCH (19:59)
[2021-04-29] MEDS: LIDOCAINE 4% INH SOLN 4 ML BTL NEB PRN ×2 (01:58→20:28)
[2021-04-29] MEDS: ACETAMINOPHEN 325 MG TAB PO PRN ×4 (03:03→20:30)
--- NOTE | 2021-04-29 07:31 | Hospitalist Progress Note ---
Date of Service April 29, 2021 Assessment & Plan (1) Tachycardia: (2) Elevated d-dimer: (3) Chest pain on breathing: (4) CHF (congestive heart failure): (5) Chronic lung disease: (6) Multiple chemical sensitivity syndrome: (7) Nocturnal hypoxia: (8) Insomnia: Plan: This is a 70yo F with a PMH of nonischemic cardiomyopathy with systolic and diastolic heart failure with EF 20 to 25%, refusal of ICD in the past, frequent PVCs, nonspecific intraventricular conduction block with prolonged QT, history of paroxysmal V. tach, dyslipidemia, TESSA with nocturnal hypoxia treated with 4 L nasal cannula oxygen, history of multiple chemical sensitivity syndrome, react mis airway dysfunction syndrome, generalized anxiety disorder, PTSD and other medical problems listed below who presents with pain in lungs x4 days. Tachycardia Pleuritic chest pain Elevated d-dimer Elevated troponin Presenting with burning in lungs x 4 days, sinus tachycardia ~115, d-dimer elevated at 6,310 Unable to obtain CTA chest to evaluate for PE due to allergies to contrast dye, benadryl and steroids BLE dopplers without evidence of PE CXR with no active disease in the chest. Based on age and symptoms, started low-dose IV heparin with bolus due to susp icion of PE while awaiting VQ scan VQ scan negative Monitor on telemetry, trend troponin - troponin mildly elevated now (cardiology aware, cont. IV heparin initially) Trop down next day, IV heparin stopped, cardiology continues to follow Afebrile, no leukocytosis or consolidation on imaging (however leukopenia present) Combined systolic and diastolic heart failure EF 20-25%, refusal of ICD in the past, grade 3 diastolic dysfunction Appears dry on exam on admission, has not taken torsemide in the past 2 days due to stable weight Received 500 ml NSS @ 75 ml/hr on admission re-evaluate volume status daily Cardiology following Patient is tachycardic and has end-stage heart failure, unfortunately not able to take medications, reports allergies to cardiac medications tachycardia now much improved NSVT 04/29 - beat of VT reported , pt had palpitaions Patient believes this is because she was exposed to chemicals/detergents from the staff K is > 4 and Mag >2 Unfortunately patient does not have many options for medications as she has multiple allergies, cardiology been following Discussed CODE STATUS, patient actually reports that she would not want to be intubated, or shocked/of CPR as she does not think it would actually help her condition History of multiple chemical sensitivity syndrome Reactive airway dysfunction syndrome Follows with SAEID Davila of pulmonology No abnormal findings on CXR, saturating at 95% on room air Started on Z pack Wednesday, which she is prescribed for flare ups of chemical se nsitivity syndrome Continue Z pack, PRN inhalers, supplemental O2 as needed Currently she is on 2L od O2 via NC (has NC in her mouth) or RA, at home does not use support oxygen only at night Pulmonary medicine consulted Finished azithromycin, now "chest burning" sensation seems to be resolved We will need to recheck pulse ox, and patient's oxygen needs Anaplasma DNA positive Concern for tickborne illness Presenting with leukopenia, thrombocytopenia and slight LFT elevation concerning for tickborne illness Peripheral smear without evidence of inclusion bodies to indicate anaplasmosis. Lyme serology negative. Anaplasma DNA pending Patient with airway edema listed as adverse reaction to doxycycline, per pharmacy, patient responded well to Rocephin, started empirically at this time Consulted pathology for peripheral smear review given some thrombocytopenia, leukocytopenia- The peripheral smear is notable for thrombocytopenia and leukopenia. Review of the patient's chart shows concern for a tick-borne disease. A single intracytoplasmic inclusion is seen which is concerning for anaplasmosis infection. Given that only one inclusion is seen, correlation with serologic studies is recommended. 04/27 -thrombocytopenia and leukopenia now improved, continue empiric Rocephin Continue to monitor CBC 04/28 -thrombocytopenia resolved and leukopenia now improved, continue empiric Rocephin Continue to monitor CBC 04/29 Anaplasma DNA positive Patient has allergy to doxycycline (throat swelling), continue empiric Rocephin for now LFTS elevated - obtained liver US, will further discuss w/ GI liver US - 1. Diffuse decrease in hepatic parenchymal echogenicity with prominent portal triads might represent hepatitis. Please correlate above-mentioned findings with clinical presentation of hepatitis. 2. Gallbladder is surgically absent. 3. Normal sonographic appearance of the pancreas and right kidney. Given the ultrasound findings, will obtain hepatitis panel - pending Discussed with GI, patient has history of elevated LFTs - recommend to follow-up on liver ultrasound, outpatient follow-up and management of elevated liver panel upon discharge Hypokalemia - monitor K, goal K>4 -replace and monitor Insomnia Continue amitriptyline at bedtime DVT Ppx: SCDs, stopped IV heparin, switched to subq heparin Code status: on admision -Full, Discussed CODE STATUS, patient actually reports that she would not want to be intubated, or shocked/have CPR as she does not think it would actually help her condition PCP: Dr. Mccollum Dispo: Med/Tele. Discharge planning ordered. Admission and Anticipated Discharge Date Admission Date: April 22, 2021 Subjective Patient seen in follow-up of shortness of breath, "chest burning " Currently is resting, in no acute distress Says she does not have any more of chest burning sensation feels better and stronger however still quite lightheaded Reports palpitation earlier this morning, per nurse patient had a 5 beat of V. tach Patient believes this was secondary to be exposed to detergents/chemicals from staff Thrombocytopenia resolved , leukopenia improved Anaplasma DNA positive Review of Systems Constitutional: no fever and no chills Respiratory: + dyspnea (improved); no cough Cardiovascular: no chest pain and no palpitations Physical Exam Physical Exam: General Appearance: WD/WN, NAD, sitting up in bed, currently on (NC) Head: normocephalic, atraumatic Eyes: normal inspection, EOMI, PERRL, conjunctivae normal, anicteric sclerae ENT: external ear and nose normal, oropharynx normal Neck: normal visual inspection, trachea midline, no thyromegaly Respiratory: normal respiratory effort, clear to auscultation, no wheeze, rales or rhonchi. No accessory muscle use Cardiovascular: RRR HR 91(improved), no murmur appreciated, normal peripheral pulses, no BLE edema. Vessels: no JVD Chest: normal inspection of chest Abdomen/GI: normal bowel sounds, soft, mildly distended, no guarding Extremities/Musculoskeletal: no cyanosis or clubbing, extremities motor stre ngth 5/5 Neurologic: PERRL, EOMI, no face palsy, no dysarthria, moves all extremities Psychiatric: A+Ox3, anxious Skin: no rashes, normal color, warm/dry Results & Data Results & Data ([facility]) Vital Signs (Past 12 Hours) Vital Signs Temp Pulse Pulse Pulse Resp BP Pulse Ox 04/29/21 06:00 91 H 04/29/21 03:25 103 H 18 04/29/21 02:00 104 H 16 98 04/29/21 00:25 83 16 04/28/21 23:30 89 18 04/28/21 22:45 113 H 04/28/21 19:40 36.3 C L 98 H 20 103/51 L 96 Laboratory Results 04/29/21 04/29/21 04/26/21 Range/Units 07:38 07:38 11:06 WBC 4.57 L (4.8-10.8) K/uL RBC 4.43 (4.2-5.4) M/uL Hgb 13.7 (12.0-16.0) g/dL Hct 40.7 (37-47) % MCV 91.9 (80-100) fL MCH 30.9 (25-34) pg MCHC 33.7 (32-36) g/dL RDW Std Deviation 47.7 H (36.4-46.3) fL RDW Coeff of Leonora 14.1 (11.5-14.5) % Plt Count 286 D (130-400) K/uL MPV 11.2 H (7.4-10.4) fL Sodium 136 (136-145) mmol/L Potassium 4.3 D (3.5-5.1) mmol/L Chloride 102 (98-107) mmol/L Carbon Dioxide 30 (21-32) mmol/L Anion Gap 4.0 (3-11) BUN 14 (7-18) mg/dl Creatinine 0.66 (0.6-1.2) mg/dl Est Cr Clr Drug Dosing 83.5 ml/min Est GFR ( Amer) 105.2 ml/min Est GFR (Non-Af Amer) 90.8 ml/min BUN/Creatinine Ratio 20.7 H (10-20) Glucose 127 H (70-99) mg/dl Calcium 8.6 (8.5-10.1) mg/dl Magnesium 2.3 (1.8-2.4) mg/dl A. phagocytophilum DNA (Negative) Hepatitis A IgM Ab NON-REACTIVE (NON-REACTIVE) Hep B Core IgM Ab NON-REACTIVE (NON-REACTIVE) 04/22/21 Range/Units 15:50 WBC (4.8-10.8) K/uL RBC (4.2-5.4) M/uL Hgb (12.0-16.0) g/dL Hct (37-47) % MCV (80-100) fL MCH (25-34) pg MCHC (32-36) g/dL RDW Std Deviation (36.4-46.3) fL RDW Coeff of Leonora (11.5-14.5) % Plt Count (130-400) K/uL MPV (7.4-10.4) fL Sodium (136-145) mmol/L Potassium (3.5-5.1) mmol/L Chloride (98-107) mmol/L Carbon Dioxide (21-32) mmol/L Anion Gap (3-11) BUN (7-18) mg/dl Creatinine (0.6-1.2) mg/dl Est Cr Clr Drug Dosing ml/min Est GFR ( Amer) ml/min Est GFR (Non-Af Amer) ml/min BUN/Creatinine Ratio (10-20) Glucose (70-99) mg/dl Calcium (8.5-10.1) mg/dl Magnesium (1.8-2.4) mg/dl A. phagocytophilum DNA Positive A (Negative) Hepatitis A IgM Ab (NON-REACTIVE) Hep B Core IgM Ab (NON-REACTIVE) Medications Administered Current Inpatient Medications Acetaminophen (Acetaminophen 325 Mg Tab) 650 mg PO Q4H PRN PRN Reason: Pain or Fever Stop: 05/22/21 20:48 Last Admin: 04/29/21 03:03 Dose: 650 mg Documented by: Amitriptyline HCl (Amitriptyline Hcl 25 Mg Tab) 25 mg PO HS MANUEL Stop: 05/22/21 20:59 Last Admin: 04/28/21 19:59 Dose: Not Given Documented by: Aspirin (Aspirin 81 Mg Ectab) 81 mg PO DAILY MANUEL Stop: 05/23/21 08:59 Last Admin: 04/28/21 08:42 Dose: 81 mg Documented by: Cetirizine HCl (Cetirizine Hcl 10 Mg Tablet) 10 mg PO DAILY MANUEL Stop: 05/23/21 08:59 Last Admin: 04/28/21 08:42 Dose: 10 mg Documented by: Docusate Sodium (Docusate Sodium 100 Mg Cap) 100 mg PO TID MANUEL Stop: 05/22/21 20:59 Last Admin: 04/28/21 20:03 Dose: 100 mg Documented by: Fluticasone Furoate (Fluticasone Furoate 100mcg 14 Puffs/Inhaler) 1 puffs INH DAILY MANUEL; Protocol Stop: 05/23/21 08:59 Last Admin: 04/28/21 08:44 Dose: Not Given Documented by: Heparin Sodium (Porcine) (Heparin Sod 5,000 Unit/0.5 Ml Vial) 5,000 units SQ Q12 MANUEL Stop: 05/24/21 20:59 Last Admin: 04/28/21 20:00 Dose: 5,000 units Documented by: Ceftriaxone Sodium 2,000 mg/ (Dextrose) 70 mls @ 100 mls/hr IV DAILY MANUEL; Protocol Stop: 05/10/21 11:14 Last Infusion: 04/28/21 09:26 Dose: Infused Documented by: Lactobacillus Acidoph/Casei/Rhamnos (Advanced Probiotic 1250 Mg Capsule) 2 cap PO QAM MANUEL Stop: 05/23/21 08:59 Last Admin: 04/28/21 08:42 Dose: 2 cap Documented by: Lidocaine HCl (Lidocaine 4% Inh Soln 4 Ml Btl) 4 ml NEB Q4H PRN PRN Reason: BURNING LUNG PAIN Stop: 05/22/21 20:57 Last Admin: 04/29/21 01:58 Dose: 4 ml Documented by: Nitroglycerin (Nitroglycerin Sl 0.4 Mg/Tab Tab) 0.4 mg SL UD PRN PRN Reason: Chest Pain Stop: 05/22/21 20:48 Pantoprazole Sodium (Pantoprazole 40 Mg Tab) 40 mg PO DAILY MANUEL Stop: 05/23/21 08:59 Last Admin: 04/28/21 08:44 Dose: 40 mg Documented by: Phenol (Chloraseptic 1.4% Soln 180 Ml Btl) 3 sprays PO Q4H PRN PRN Reason: Sore Throat Stop: 05/22/21 20:48 Polyethylene Glycol (Polyethylene (Miralax) 17 Gm Pack) 17 gm PO DAILY PRN PRN Reason: Constipation Stop: 05/22/21 20:48 Simethicone (Simethicone 80 Mg Chew) 80 mg PO Q6H PRN PRN Reason: indigestion, bloating Stop: 05/24/21 17:59 Last Admin: 04/24/21 20:34 Dose: 80 mg Documented by: Tolterodine Tartrate (Tolterodine Tartrate La 4 Mg Capcr) 4 mg PO QAM [facility] Stop: 05/23/21 08:59 Last Admin: 04/28/21 08:45 Dose: 4 mg Documented by: Torsemide (Torsemide 20 Mg Tab) 20 mg PO DAILY [facility] Stop: 05/23/21 08:59 Last Admin: 04/28/21 08:42 Dose: 20 mg Documented by: Umeclidinium Easton (Umeclidinium [place] 62.5mcg/Blister 7 Puffs/Inhaler) 1 puffs INH DAILY PRN PRN Reason: Shortness Of Breath Stop: 05/23/21 08:59 Vitamin D (Cholecalciferol 1,000 Units 25 Mcg Tab) 2,000 units PO DAILY [facility] Stop: 05/23/21 08:59 Last Admin: 04/28/21 08:43 Dose: 2,000 units Documented by: (1) CHF (congestive heart failure) Heart failure chronicity: acute on chronic Heart failure type: systolic Qualified Code(s): I50.23 - Acute on chronic systolic (congestive) heart failure
[2021-04-29 07:47] LABS: Hepatitis A Antibody IgM NON-REACTIVE (NON-REACTIVE); Hepatitis B Core Antibody IgM NON-REACTIVE (NON-REACTIVE)
[2021-04-29 08:15] LABS: Hematocrit (blood only) 40.7 % (37-47); Hemoglobin 13.7 g/dL (12.0-16.0); Mean Corpuscular Hemoglobin 30.9 pg (25-34); Mean Corpuscular Hgb Conc 33.7 g/dL (32-36); Mean Corpuscular Volume 91.9 fL (80-100); Mean Platelet Volume 11.2 fL (7.4-10.4); Platelet Count 286 K/uL (130-400); RDW Coefficient of Variation 14.1 % (11.5-14.5); RDW Standard Deviation 47.7 fL (36.4-46.3); Red Blood Count 4.43 M/uL (4.2-5.4); White Blood Count 4.57 K/uL (4.8-10.8)
[2021-04-29 08:54] LABS: BUN Creatinine Ratio 20.7 (10-20); Calcium 8.6 mg/dl (8.5-10.1); Creatinine Clr Calc Pharmacy 83.5 ml/min; Est GFR (African American) 105.2 ml/min; Est GFR (Non-African American) 90.8 ml/min; Magnesium 2.3 mg/dl (1.8-2.4); Potassium 4.3 mmol/L (3.5-5.1)
[2021-04-29] MEDS: ASPIRIN 81 MG ECTAB PO SCH (09:12)
[2021-04-29] MEDS: ADVANCED PROBIOTIC 1250 MG CAPSULE PO SCH (09:12)
[2021-04-29] MEDS: TOLTERODINE TARTRATE LA 4 MG CAPCR PO SCH (09:12)
[2021-04-29] MEDS: TORSEMIDE 20 MG TAB PO SCH (09:12)
[2021-04-29] MEDS: CETIRIZINE HCL 10 MG TABLET PO SCH (09:12)
[2021-04-29] MEDS: PANTOprazole 40 MG TAB PO SCH (09:12)
[2021-04-29] MEDS: HEPARIN SOD 5,000 UNIT/0.5 ML VIAL SQ SCH ×2 (09:12→20:31)
[2021-04-29] MEDS: CHOLECALCIFEROL 1,000 UNITS 25 MCG TAB PO SCH (09:12)
[2021-04-29] MEDS: cefTRIAXone SODIUM 2,000 MG in DEXTROSE 5% 50 ML IV SCH (09:13)
[2021-04-29] MEDS: FLUTICASONE FUROATE 100MCG 14 PUFFS/INHALER INH SCH (09:15)
[2021-04-29] MEDS: DOCUSATE SODIUM 100 MG CAP PO SCH ×3 (09:20→20:36)
[2021-04-29] MEDS: AMITRIPTYLINE HCL 25 MG TAB PO SCH (20:30)
[2021-04-30] MEDS: ACETAMINOPHEN 325 MG TAB PO PRN ×5 (00:28→21:03)
[2021-04-30] MEDS: LIDOCAINE 4% INH SOLN 4 ML BTL NEB PRN ×4 (01:11→22:10)
[2021-04-30 08:46] LABS: Hematocrit (blood only) 39.1 % (37-47); Hemoglobin 12.8 g/dL (12.0-16.0); Mean Corpuscular Hemoglobin 30.4 pg (25-34); Mean Corpuscular Hgb Conc 32.7 g/dL (32-36); Mean Corpuscular Volume 92.9 fL (80-100); Mean Platelet Volume 10.7 fL (7.4-10.4); Platelet Count 341 K/uL (130-400); RDW Coefficient of Variation 14.5 % (11.5-14.5); RDW Standard Deviation 49.1 fL (36.4-46.3); Red Blood Count 4.21 M/uL (4.2-5.4); White Blood Count 4.39 K/uL (4.8-10.8)
[2021-04-30 09:13] LABS: BUN Creatinine Ratio 15.1 (10-20); Calcium 8.4 mg/dl (8.5-10.1); Est GFR (African American) 104.2 ml/min; Est GFR (Non-African American) 89.9 ml/min; Magnesium 2.3 mg/dl (1.8-2.4); Potassium 4.2 mmol/L (3.5-5.1)
[2021-04-30] MEDS: cefTRIAXone SODIUM 2,000 MG in DEXTROSE 5% 50 ML IV SCH (10:13)
[2021-04-30] MEDS: ASPIRIN 81 MG ECTAB PO SCH (10:13)
[2021-04-30] MEDS: PANTOprazole 40 MG TAB PO SCH (10:14)
[2021-04-30] MEDS: HEPARIN SOD 5,000 UNIT/0.5 ML VIAL SQ SCH ×2 (10:14→21:03)
[2021-04-30] MEDS: CETIRIZINE HCL 10 MG TABLET PO SCH (10:14)
[2021-04-30] MEDS: FLUTICASONE FUROATE 100MCG 14 PUFFS/INHALER INH SCH (10:14)
[2021-04-30] MEDS: DOCUSATE SODIUM 100 MG CAP PO SCH ×3 (10:14→21:03)
[2021-04-30] MEDS: CHOLECALCIFEROL 1,000 UNITS 25 MCG TAB PO SCH (10:14)
[2021-04-30] MEDS: TOLTERODINE TARTRATE LA 4 MG CAPCR PO SCH (10:14)
[2021-04-30] MEDS: ADVANCED PROBIOTIC 1250 MG CAPSULE PO SCH (10:14)
[2021-04-30] MEDS: TORSEMIDE 20 MG TAB PO SCH (10:15)
[2021-04-30 13:17] LABS: Lyme Ab IgG w/WB Rflx Negative (Negative)
[2021-04-30 13:19] LABS: Lyme Ab IgM w/WB Rflx Equivocal (Negative)
--- NOTE | 2021-04-30 17:31 | Hospitalist Progress Note ---
Date of Service April 30, 2021 Assessment & Plan (1) Tachycardia: (2) Elevated d-dimer: (3) Chest pain on breathing: (4) CHF (congestive heart failure): (5) Chronic lung disease: (6) Multiple chemical sensitivity syndrome: (7) Nocturnal hypoxia: (8) Insomnia: Plan: Patient is a 70 yr female with H/O Nonischemic cardiomyopathy with systolic and diastolic heart failure with EF 20 to 25%, refusal of ICD in the past, frequent PVCs, nonspecific intraventricular conduction block with prolonged QT, history of paroxysmal V. tach, dyslipidemia, TESSA with nocturnal hypoxia treated with 4 L nasal cannula oxygen, history of multiple chemical sensitivity syndrome, r eactive airway dysfunction syndrome, generalized anxiety disorder, PTSD and other medical problems listed below who presents with pain in lungs x4 days. Tachycardia Pleuritic chest pain--Likely due to multiple chemical sensitivity syndrome Elevated d-dimer Elevated troponin Presenting with burning in lungs x 4 days, sinus tachycardia ~115, d-dimer elevated at 6,310 Unable to obtain CTA chest to evaluate for PE due to allergies to contrast dye, Benadryl and steroids -Venous Doppler:No evidence of lower extremity DVT. -Perfusion Scan:No perfusion defects are identified to suggest pulmonary embolus. -CXR with no active disease in the chest. -Initially was on IV heparin for possible PE--which was later discontinued Combined systolic and diastolic heart failure EF 20-25%, refusal of ICD in the past, grade 3 diastolic dysfunction Appears euvolemic Appreciate Cardiology Input Patient is tachycardic and has end-stage heart failure, unfortunately not able to take medications, reports allergies to cardiac medications Monitor NSVT 04/29 - 5 beat of VT reported , pt had palpitations Appreciate Cardiology Input Monitor As per Prior Provider:Unfortunately patient does not have many options for medications as she has multiple allergies, cardiology been following H/O Multiple chemical sensitivity syndrome Reactive airway dysfunction syndrome Follows with SAEID Davila of pulmonology Recently was on Z pack Continue PRN inhalers, supplemental O2 as needed Appreciate Pulmonary Input 2 Step prior to discharge 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 Lyme serology negative. -Liver USD: Diffuse decrease in hepatic parenchymal echogenicity with prominent portal triads might represent hepatitis. Please correlate above-mentioned findings with clinical presentation of hepatitis. Gallbladder is surgically absent. Normal sonographic appearance of the pancreas and right kidney. -Negative Hepatitis panel -Recheck Lyme screen Received Rocephin Empirically Given H/O Doxycycline--was not able to provide it Unsure if patient has active anaplasmosis given, anaplasmosis DNA can remain positive for about 4 years Thrombocytopenia, leukopenia improved recheck LFTs tomorrow Hypokalemia Replace electrolytes as needed Insomnia Continue amitriptyline at bedtime DVT Px: Heparin SQ Code status: DNI/DNR Admission and Anticipated Discharge Date Admission Date: April 22, 2021 Subjective Patient is seen and examined at bedside States having chest burning sensation which she attributes to chemical sensitivity syndrome Also states feeling tired Denies dyspnea, dizziness, nausea, abdominal pain Review of Systems Review of Systems: All systems reviewed & are unremarkable except as noted in Subjective Physical Exam Physical Exam: Physical Exam: Vitals signs as noted above General Appearance:Moderately built and nourished, no apparent distress Head: normocephalic, Atraumatic Eyes: normal inspection, EOMI Neck: supple, Trachea midline Respiratory/Chest: Normal breath sounds, CTA, No accessory muscle use Cardiovascular: S1, S2, No murmur Abdomen/GI:Soft, Non tender, Bowel sounds present Extremities/Musculoskeletal:normal inspection, no edema Neurologic/Psych:AAOX3, grossly no focal neurological deficits Skin: normal color, warm Results & Data Results & Data ([facility]) Vital Signs (Past 12 Hours) Vital Signs Temp Pulse Pulse Pulse Pulse Pulse Resp 04/30/21 16:00 36.4 C L 104 H 20 04/30/21 15:24 116 H 124 H 102 H 04/30/21 15:19 119 H 04/30/21 07:00 88 04/30/21 05:27 95 H 16 Resp Resp Resp BP Pulse Ox Pulse Ox Pulse Ox 04/30/21 16:00 116/78 98 04/30/21 15:24 21 19 18 92 94 04/30/21 15:19 04/30/21 07:00 04/30/21 05:27 98 Pulse Ox 04/30/21 16:00 04/30/21 15:24 94 04/30/21 15:19 04/30/21 07:00 04/30/21 05:27 Laboratory Results Short CBC 04/30/21 Range/Units 07:56 WBC 4.39 L (4.8-10.8) K/uL Hgb 12.8 (12.0-16.0) g/dL Hct 39.1 (37-47) % Plt Count 341 (130-400) K/uL BMP 04/30/21 07:56 Sodium 138 Potassium 4.2 Chloride 105 Carbon Dioxide 32 BUN 10 Creatinine 0.68 Glucose 107 H Calcium 8.4 L (1) CHF (congestive heart failure) Heart failure chronicity: acute on chronic Heart failure type: systolic Qualified Code(s): I50.23 - Acute on chronic systolic (congestive) heart failure
[2021-04-30] MEDS: AMITRIPTYLINE HCL 25 MG TAB PO SCH (21:03)
[2021-05-01] MEDS: ACETAMINOPHEN 325 MG TAB PO PRN ×3 (02:40→11:40)
[2021-05-01] MEDS: HEPARIN SOD 5,000 UNIT/0.5 ML VIAL SQ SCH (08:39)
[2021-05-01] MEDS: cefTRIAXone SODIUM 2,000 MG in DEXTROSE 5% 50 ML IV SCH (08:39)
[2021-05-01] MEDS: TORSEMIDE 20 MG TAB PO SCH (08:40)
[2021-05-01] MEDS: ADVANCED PROBIOTIC 1250 MG CAPSULE PO SCH (08:41)
[2021-05-01] MEDS: CHOLECALCIFEROL 1,000 UNITS 25 MCG TAB PO SCH (08:41)
[2021-05-01] MEDS: PANTOprazole 40 MG TAB PO SCH (08:41)
[2021-05-01] MEDS: CETIRIZINE HCL 10 MG TABLET PO SCH (08:41)
[2021-05-01] MEDS: ASPIRIN 81 MG ECTAB PO SCH (08:42)
[2021-05-01] MEDS: TOLTERODINE TARTRATE LA 4 MG CAPCR PO SCH (08:42)
[2021-05-01] MEDS: DOCUSATE SODIUM 100 MG CAP PO SCH (08:42)
[2021-05-01] MEDS: FLUTICASONE FUROATE 100MCG 14 PUFFS/INHALER INH SCH (08:59)
[2021-05-01 10:01] LABS: Alanine Aminotransferase 80 U/L (12-78); Albumin Level 2.8 gm/dl (3.4-5.0); Aspartate Aminotransferase 54 U/L (15-37); BUN Creatinine Ratio 16.6 (10-20); Bilirubin Direct < 0.1 mg/dl (0-0.2); Blood Urea Nitrogen 13 mg/dl (7-18); Calcium 8.3 mg/dl (8.5-10.1); Carbon Dioxide 28 mmol/L (21-32); Chloride 105 mmol/L (98-107); Est GFR (African American) 86.5 ml/min; Est GFR (Non-African American) 74.6 ml/min; Glucose 160 mg/dl (70-99); Sodium 138 mmol/L (136-145)
[2021-05-01 10:04] LABS: Alkaline Phosphatase 127 U/L (45-117); Bilirubin,Total 0.4 mg/dl (0.2-1)
--- NOTE | 2021-05-01 13:47 | Hospitalist Progress Note ---
Date of Service May 01, 2021 Assessment & Plan (1) Tachycardia: (2) Elevated d-dimer: (3) Chest pain on breathing: (4) CHF (congestive heart failure): (5) Chronic lung disease: (6) Multiple chemical sensitivity syndrome: (7) Nocturnal hypoxia: (8) Insomnia: Plan: Patient is a 70 yr female with H/O Nonischemic cardiomyopathy with systolic and diastolic heart failure with EF 20 to 25%, refusal of ICD in the past, frequent PVCs, nonspecific intraventricular conduction block with prolonged QT, history of paroxysmal V. tach, dyslipidemia, TESSA with nocturnal hypoxia treated with 4 L nasal cannula oxygen, history of multiple chemical sensitivity syndrome, r eactive airway dysfunction syndrome, generalized anxiety disorder, PTSD and other medical problems listed below who presents with pain in lungs x4 days. Tachycardia Pleuritic chest pain--Likely due to multiple chemical sensitivity syndrome Elevated d-dimer Elevated troponin Presenting with burning in lungs x 4 days, sinus tachycardia ~115, d-dimer elevated at 6,310 Unable to obtain CTA chest to evaluate for PE due to allergies to contrast dye, Benadryl and steroids -Venous Doppler:No evidence of lower extremity DVT. -Perfusion Scan:No perfusion defects are identified to suggest pulmonary embolus. -CXR with no active disease in the chest. -Initially was on IV heparin for possible PE--which was later discontinued Chest Pain resolved Combined systolic and diastolic heart failure EF 20-25%, refusal of ICD in the past, grade 3 diastolic dysfunction Appears euvolemic Appreciate Cardiology Input Patient is tachycardic and has end-stage heart failure, unfortunately not able to take medications, reports allergies to cardiac medications Monitor NSVT 04/29 - 5 beat of VT reported , pt had palpitations Appreciate Cardiology Input Monitor As per Prior Provider:Unfortunately patient does not have many options for medications as she has multiple allergies, cardiology been following No recurrence of NSVT H/O Multiple chemical sensitivity syndrome Reactive airway dysfunction syndrome Follows with SAEID Davila of pulmonology Recently was on Z pack Continue PRN inhalers, supplemental O2 as needed Appreciate Pulmonary Input 2 Step: Did not qualify for oxygen 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 Lyme serology negative. -Liver USD: Diffuse decrease in hepatic parenchymal echogenicity with prominent portal triads might represent hepatitis. Please correlate above-mentioned findings with clinical presentation of hepatitis. Gallbladder is surgically absent. Normal sonographic appearance of the pancreas and right kidney. -Negative Hepatitis panel -Recheck Lyme screen--pending Received Rocephin Empirically Given H/O Doxycycline--was not able to provide it Unsure if patient has active anaplasmosis given, anaplasmosis DNA can remain positive for about 4 years Thrombocytopenia, leukopenia improved LFTs trending down Hypokalemia Replace electrolytes as needed Insomnia Continue amitriptyline at bedtime DVT Px: Heparin SQ Code status: DNI/DNR Admission and Anticipated Discharge Date Admission Date: April 22, 2021 Subjective Patient is seen and examined at bedside Doing well today Denies any new symptoms Chest burning sensation resolved Denies dyspnea, dizziness, nausea, abdominal pain Eager to get discharged Review of Systems Review of Systems: All systems reviewed & are unremarkable except as noted in Subjective Physical Exam Physical Exam: Physical Exam: Vitals signs as noted above General Appearance:Moderately built and nourished, no apparent distress Head: normocephalic, Atraumatic Eyes: normal inspection, EOMI Neck: supple, Trachea midline Respiratory/Chest: Normal breath sounds, CTA, No accessory muscle use Cardiovascular: S1, S2, No murmur Abdomen/GI:Soft, Non tender, Bowel sounds present Extremities/Musculoskeletal:normal inspection, no edema Neurologic/Psych:AAOX3, grossly no focal neurological deficits Skin: normal color, warm Results & Data Results & Data ([facility]) Vital Signs (Past 12 Hours) Vital Signs Temp Pulse Pulse Resp BP Pulse Ox 05/01/21 08:00 106 H 05/01/21 06:43 36.2 C L 105 H 18 109/66 99 Laboratory Results [facility] 05/01/21 08:43 Sodium 138 Potassium 4.0 Chloride 105 Carbon Dioxide 28 BUN 13 Creatinine 0.81 Glucose 160 H Calcium 8.3 L Liver Function 05/01/21 Range/Units 08:43 Total Bilirubin 0.4 (0.2-1) mg/dl Direct Bilirubin < 0.1 (0-0.2) mg/dl AST 54 H (15-37) U/L ALT 80 H (12-78) U/L Alkaline Phosphatase 127 H (45-117) U/L Albumin 2.8 L (3.4-5.0) gm/dl (1) CHF (congestive heart failure) Heart failure chronicity: acute on chronic Heart failure type: systolic Qualified Code(s): I50.23 - Acute on chronic systolic (congestive) heart failure
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
[2021-05-06 00:36] LABS: 18KDIGG Band NON-REACTIVE; 23KDIGG Band NON-REACTIVE; 23KDIGM Band REACTIVE; 28KDIGG Band NON-REACTIVE; 30KDIGG Band NON-REACTIVE; 39KDIGG Band NON-REACTIVE; 39KDIGM Band NON-REACTIVE; 41KDIGG Band NON-REACTIVE; 41KDIGM Band NON-REACTIVE; 45KDIGG Band NON-REACTIVE; 58KDIGG Band NON-REACTIVE; 66KDIGG Band NON-REACTIVE; 93KDIGG Band REACTIVE; Lyme Antibodies, WB IgG NEGATIVE (NEGATIVE); Lyme Antibodies, WB IgM NEGATIVE (NEGATIVE)
== END 2021-05-01 15:54 | disposition home health service (06) | DRG 918 ==
LOC: ED 15:29 → 2S 18:24 → SUATTDRO 18:24 → 2S 20:17 → 2W 04-27 19:58

== ENCOUNTER 2021-11-25 15:21 | Inpatient (IN) ==
--- NOTE | 2021-11-25 17:19 | XRay Report ---
XR chest 1V not portable HISTORY: Shortness of breath. COMPARISON: Chest 10/19/2021. FINDINGS: Cardiac silhouette remains enlarged. No pleural effusions. No pneumothorax. No evidence for pulmonary edema. A few left basilar linear densities favor subsegmental atelectasis. Otherwise, no n ew focal lung consolidations to suggest pneumonia. IMPRESSION: Stable cardiomegaly. No acute process within the chest. ACT 112: Negative or not required by law. Electronically signed by: Mook Staton M.D. 11/25/2021 5:17 PM
[2021-11-25] MEDS ORDERED: SODIUM CHLORIDE 0.9% 500 ML IV STA (18:23)
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
[2021-11-25 19:16] LABS: Basophils # (auto) 0.03 K/uL (0-0.2); Basophils % (auto) 0.5 %; Eosinophils # (auto) 0.14 K/uL (0-0.5); Eosinophils % (auto) 2.5 %; Hematocrit (blood only) 39.5 % (37-47); Hemoglobin 13.4 g/dL (12.0-16.0); Immature Granulocytes # (auto) 0.01 K/uL (0.00-0.02); Immature Granulocytes % (auto) 0.2 %; Lymphocytes # (auto) 1.54 K/uL (1.2-3.4); Lymphocytes % (auto) 27.3 %; Mean Corpuscular Hemoglobin 31.9 pg (25-34); Mean Corpuscular Hgb Conc 33.9 g/dL (32-36); Mean Platelet Volume 10.6 fL (7.4-10.4); Monocytes # (auto) 0.37 K/uL (0.11-0.59); Monocytes % (auto) 6.6 %; Neutrophils # (auto) 3.55 K/uL (1.4-6.5); Neutrophils % (auto) 62.9 %; Platelet Count 192 K/uL (130-400); RDW Coefficient of Variation 13.6 % (11.5-14.5); RDW Standard Deviation 46.5 fL (36.4-46.3); White Blood Count 5.64 K/uL (4.8-10.8)
[2021-11-25 19:27] LABS: INR 1.1 (0.9-1.1); Partial Thromboplastin Ratio 0.8; Partial Thromboplastin Time 21.4 Seconds (21.0-31.0); Prothrombin Time 10.9 Seconds (9.0-12.0)
[2021-11-25 19:43] LABS: Alanine Aminotransferase 71 U/L (7-52); Albumin Globulin Ratio 1.3 (0.9-2); Albumin Level 3.7 gm/dl (3.4-5.0); Alkaline Phosphatase 88 U/L (34-104); Anion Gap 11 (3-11); Aspartate Aminotransferase 56 U/L (13-39); BUN Creatinine Ratio 37.3 (10-20); Bilirubin,Total 1.2 mg/dl (0.2-1.0); Blood Urea Nitrogen 28 mg/dl (6-23); Carbon Dioxide 22 mmol/L (21-32); Chloride 104 mmol/L (98-107); Est GFR (African American) 94.3 ml/min; Est GFR (Non-African American) 81.3 ml/min; Globulin 2.8 gm/dl (2.5-4.0); Glucose 113 mg/dl (70-99(Fasting)); Lipase 39 U/L (11-82); Potassium 3.5 mmol/L (3.5-5.1); Sodium 137 mmol/L (136-145); Total Protein 6.5 gm/dl (6.0-8.3)
[2021-11-25 19:51] LABS: Troponin I 0.05 ng/ml (0-0.04)
[2021-11-25] MEDS ORDERED: ONDANSETRON INJ 2 MG/ML 2 ML VIAL IV STA (20:07)
[2021-11-25] MEDS ORDERED: MoRPHine SULFATE 4 MG/ML 1 ML CARP\\VIAL IV STA (20:07)
[2021-11-26] MEDS ORDERED: PANTOprazole 40 MG TAB PO STA (00:16)
[2021-11-26] MEDS ORDERED: CHLORASEPTIC 1.4% SOLN 180 ML BTL MT PRN (00:44)
[2021-11-26] MEDS ORDERED: ONDANSETRON INJ 2 MG/ML 2 ML VIAL IV PRN (00:44)
[2021-11-26] MEDS ORDERED: NITROGLYCERIN SL 0.4 MG/TAB TAB SL PRN (00:44)
[2021-11-26] MEDS ORDERED: CICLESONIDE INH PRN (00:44)
[2021-11-26] MEDS ORDERED: SODIUM CHLORIDE 0.9% 1000ML 1,000 ML IV SCH (00:44)
[2021-11-26] MEDS ORDERED: NON-FORMULARY MEDICATION (Oxygen Home Liters per Minute) SCH (00:44)
[2021-11-26] MEDS ORDERED: PATIENT'S HEIGHT AND/OR WEIGHT NEEDED SCH (01:15)
[2021-11-26] MEDS ORDERED: TORSEMIDE 20 MG TAB PO PRN (01:26)
[2021-11-26 01:31] LABS: Appearance Urine Clear (Clear); Bilirubin Urine Negative (Negative); Blood Urine Negative (Negative); Color Urine Yellow; Glucose Urine UA Negative (Negative); Ketones Urine Negative (Negative); Leukocyte Esterase Urine Negative (Negative); Nitrite Urine Negative (Negative); Protein Urine Negative (Negative); Specific Gravity Urine 1.018 (1.000-1.030); Urobilinogen Urine Negative (Negative)
[2021-11-26] MEDS ORDERED: guaiFENesin 600 MG TABCR PO PRN (02:25)
--- NOTE | 2021-11-26 03:39 | History and Physical Report ---
DATE OF ADMISSION: 11/26/2021. CHIEF COMPLAINT: Abdominal pain. HISTORY OF PRESENT ILLNESS: This is a 71-year-old female with past medical history significant for type 2 diabetes, hyperlipidemia, reactive airways dysfunction syndrome, obstructive sleep apnea, cardiomyopathy nonischemic, chronic systolic heart failure,prolonged QT interval, history of endometrioid adenocarcinoma of the uterus,stress incontinence of urine, chronic bilateral low back pain, history of geographic tongue, history of COVID-19 infection, history of multiple chemical sensitivities syndrome, generalized anxiety disorder, posttraumatic stress disorder. Comes with abdominal pain. The patient has chronic abdominal pain, follows with GI. Had EGD a on 11/24/2021, which was unremarkable. After the EGD, the pain got worse. Called GI and was advised to come to the ER as per the patient. Has some nausea. Had normal bowel movements, no black stools. Normal bladder movements. Denies any chest pain, but says she has pain in the lungs. She says has allergic to chemicals in the air which causes pain in the lungs and mucousy throat , headache and runny nose and occasional cough. Denies blurred visions. Currently no runny nose, no sore throat. Once in a while, she gets fevers and chills. Appetite is down, she swallows okay. Currently, resting comfortably and hemodynamically stable. ALLERGIES: BETA BLOCKERS, DIGOXIN, DOXYCYCLINE, LISINOPRIL, LOSARTAN,BANANA, GABAPENTIN, IODINE, MEPERIDINE, NSAIDS, PROPOXYPHENE, AMOXICILLIN, FLEXERIL, NITROFURANTOIN, ALBUTEROL, DIPHENHYDRAMINE,GLUTEN, LORAZEPAM,PREDNISONE, RANITIDINE,NACL WITH INH,TRAMADOL,ASPIRIN,MILK,HAND ADULT EDUCATION TEACHER,VINYL OR PLASTICS, ANTIBIOTICS Medications: Vitamin C 2gm po m,Aspirin 81mg p.o. a.m., beclomethasone 80mcg/hfa inh bid,Zyrtec 10mg po daily, chloropeptic spray 3 sprays q 4hrs p.r.n., Vitamin D 50 mcg p.o. daily, famotidine 20 mg p.o. b.i.d.,Mucinex D 1 tab p.r.n.,Senokot S 1-4 tab prn, zinc 50 mg p.o. daily, torsemide 20mg daily, Detrol La 4mg daily. PAST MEDICAL HISTORY: as mentioned above PAST SURGICAL HISTORY: amputation of right little finger tubal ligation, breast lesion excision, tonsillectomy , Laparoscopic cholecystectomy, TACOS/BSO, Omenectomy for malignancy. FAMILY HISTORY: Father had allergies and oesophageal cancer, mother has uterine cancer, melanoma; sister has breast cancer, sister has uterine cancer,; paternal grandmother, colon cancer and uterine cancer,maternal grandfather has melanoma; SOCIAL HISTORY: No smoking, no alcohol, no drug use. REVIEW OF SYSTEMS: As per HPI. Rest of the review of systems is negative. PHYSICAL EXAMINATION: GENERAL: The patient is of moderate build, not in acute distress. VITAL SIGNS: Temperature 36.2, pulse 83, respirations 20, blood pressure 112/72, oxygen 94% on room air. HEENT: Pupils equal, round and reactive to light. Oral mucosa moist. NECK: No JVD , no neck masses. CARDIOVASCULAR: S1 and S2 heard. Regular rate and rhythm. No murmur, no gallop. RESPIRATORY SYSTEM: Normal AP diameter. No accessory muscle use. No wheezing, no crackles. ABDOMEN: Soft, bowel sounds present, mild diffuse diffuse discomfort, no guarding or rigidity CENTRAL NERVOUS SYSTEM: Cranial nerves II through XII are grossly intact, nonfocal. EXTREMITIES: No edema, no erythema LABORATORY DATA: WBC 5.6, hemoglobin 13.4, hematocrit 39.5, platelets 192. PT 10.9, INR 1.1, APTT 21.4. Sodium 136, potassium 3.5, chloride 104, bicarbonate 22, BUN 28, creatinine 0.75, serum glucose 113. Lactate 0.9, calcium 9, total bilirubin 1.4. AST 56, ALT 39, alkaline phosphatase 280. Troponin I less than ____. Lipase 39. Urinalysis negative. SARS-CoV-2 negative. IMAGING DATA: Chest x-ray, no acute findings. CT of abdomen and pelvis,without contrast, preliminary report the heart is large, liver is intact, gallbladder removed, pancreas, spleenintact. no acute findings in the abdomen . trace pleural effusion. EKG: Sinus rhythm with frequent PVCs at the rate of 99. Biatrial enlargement. Non specific st changes. ASSESSMENT AND PLAN: This is a 71-year-old female who presents with abdominal pain. 1. Abdominal pain: recent EGD is unremarkable. We will place her on IV Protonix b.i.d., n.p.o. gentle fluids , pain control , and consult GI in the a.m. 2. Mild elevation in troponin: The patient has chronic pain in her lungs. Will follow serial enzymes, echo, n.p.o. and consult cardiology. 3. Diabetes: Currently not on any medications. Will follow the HbA1c levels. 4. History of sleep apnea, using oxygen at bedtime. Could not tolerate BiPAP in the past. 5. History of reactive airways dysfunction syndrome: Continue home inhalers. Follows with pulmonary. 6. History of chronic systolic heart failure, nonischemic cardiomyopathy. Last time in the echo done in April 2021, EF was 20%. Not tolerating ARBs, SARA inhibitors, and beta blockers. On torsemide, which will be continued. Placed on gentle fluids. The patient is n.p.o. We will monitor for any volume overload. 7. Deep venous thrombosis prophylaxis: Sequential compression devices. DISPOSITION: Monitor in the [facility] tele. PT/OT prior to discharge. Social service to help with discharge planning. Level 1 full code. Job ID: [id number] [id number]
[2021-11-26 05:06] LABS: Basophils # (auto) 0.03 K/uL (0-0.2); Basophils % (auto) 0.7 %; Eosinophils # (auto) 0.13 K/uL (0-0.5); Eosinophils % (auto) 3.1 %; Hemoglobin 11.5 g/dL (12.0-16.0); Immature Granulocytes # (auto) 0.02 K/uL (0.00-0.02); Immature Granulocytes % (auto) 0.5 %; Lymphocytes # (auto) 1.09 K/uL (1.2-3.4); Lymphocytes % (auto) 25.9 %; Mean Corpuscular Hemoglobin 31.6 pg (25-34); Mean Corpuscular Hgb Conc 32.9 g/dL (32-36); Mean Corpuscular Volume 96.2 fL (80-100); Mean Platelet Volume 10.4 fL (7.4-10.4); Monocytes # (auto) 0.35 K/uL (0.11-0.59); Monocytes % (auto) 8.3 %; Neutrophils # (auto) 2.59 K/uL (1.4-6.5); Neutrophils % (auto) 61.5 %; Platelet Count 167 K/uL (130-400); RDW Coefficient of Variation 13.7 % (11.5-14.5); RDW Standard Deviation 47.9 fL (36.4-46.3); Red Blood Count 3.64 M/uL (4.2-5.4); White Blood Count 4.21 K/uL (4.8-10.8)
[2021-11-26 05:42] LABS: Troponin I 0.04 ng/ml (0-0.04)
[2021-11-26 05:43] LABS: BUN Creatinine Ratio 31.6 (10-20); Calcium 8.2 mg/dl (8.5-10.1); Est GFR (African American) 88.5 ml/min; Est GFR (Non-African American) 76.4 ml/min; Potassium 3.4 mmol/L (3.5-5.1)
[2021-11-26 07:21] LABS: Estimated Average Glucose 163 mg/dl; Hemoglobin A1C 7.3 % (4.5-5.6)
[2021-11-26] MEDS: MoRPHine SULFATE 4 MG/ML 1 ML CARP\\VIAL IV PRN ×3 (07:22→21:41)
[2021-11-26] MEDS ORDERED: ASCORBIC ACID 500 MG TAB PO SCH (09:00)
[2021-11-26] MEDS: PANTOprazole 40 MG in SYRINGE 0 ML IV SCH ×2 (09:34→21:29)
[2021-11-26] MEDS: ASPIRIN 81 MG ECTAB PO SCH (09:34)
[2021-11-26] MEDS: CETIRIZINE HCL 10 MG TABLET PO SCH (09:34)
[2021-11-26] MEDS: INSULIN ASPART PER UNIT SC SCH ×4 (09:34→18:08)
[2021-11-26] MEDS: TOLTERODINE TARTRATE LA 4 MG CAPCR PO SCH (09:35)
[2021-11-26] MEDS: FLUTICASONE FUROATE 100MCG 14 PUFFS/INHALER INH SCH (09:35)
[2021-11-26] MEDS: CHOLECALCIFEROL 1,000 UNITS 25 MCG TAB PO SCH (09:38)
[2021-11-26] MEDS: FAMOTIDINE 20 MG TAB PO SCH ×2 (10:04→21:30)
[2021-11-26] MEDS: DOCUSATE SODIUM/SENNA 50/8.6MG TAB PO SCH (10:14)
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
--- NOTE | 2021-11-26 10:27 | CT Scan Report ---
ABDOMEN AND PELVIS CT WITHOUT CONTRAST CT DOSE: 419.63 mGy.cm HISTORY: Generalized abdominal pain TECHNIQUE: Multiaxial CT images of the abdomen and pelvis were performed without contrast. A dose lo wering technique was utilized adhering to the principles of ALARA. COMPARISON STUDY: Abdomen and pelvis CT 10/19/2021. FINDINGS: There is an old mild compression deformity at T11. Stable 4 mm nodular density within the r ight middle lobe on image 15. This is likely benign and may represent an area of scarring. Trace left pleural effusion. The heart remains enlarged. No pneumoperitoneum. No pneumatosis. No suspicious lyt ic or blastic osseous lesions. Mild thickening at the proximal duodenum/duodenal bulb with mild adjac ent fat stranding. No extraluminal gas to suggest a perforation. The gallbladder surgically absent. S table 1 cm hypodense lesion within the right hepatic lobe inferiorly. This is incompletely characteri zed on this noncontrast study but favors a cyst. The spleen, right adrenal gland, pancreas, and kidne ys are unremarkable. No renal or ureteral stones. No hydronephrosis. Normal bladder. Stable 1.2 cm in determinate left adrenal gland nodule. Moderate calcified plaque within the normal caliber abdominal aorta. No retroperitoneal lymphadenopathy. Prior hysterectomy. No evidence for bowel obstruction. A f ew colonic diverticula. No evidence for acute diverticulitis. Normal appendix. IMPRESSION: 1. Mild thickening within the proximal duodenum/duodenal bulb with mild adjacent fat stranding. No ex traluminal gas to suggest a perforation. This nonspecific and could be due to a duodenitis or peptic ulcer disease. In addition, this could represent recent post endoscopy changes. Clinical correlation recommended. 2. No evidence for bowel obstruction. 3. Normal appendix. 4. No hydronephrosis. 5. Colonic diverticulosis. No evidence for acute diverticulitis. 6. Trace left pleural effusion. ACT 112: Negative or not required by law. Electronically signed by: Mook Staton M.D. 11/26/2021 10:25 AM
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
--- NOTE | 2021-11-26 11:52 | Electrocardiogram Report ---
Test Reason : Blood Pressure : / mmHG Vent. Rate : 085 BPM Atrial Rate : 085 BPM P-R Int : 178 ms QRS Dur : 150 ms QT Int : 440 ms P-R-T Axes : 075 -48 075 degrees QTc Int : 523 ms Sinus rhythm with frequent Premature ventricular complexes Possible Left atrial enlargement Left axis deviation Non-specific intra-ventricular conduction block Abnormal ECG When compared with ECG of 25-NOV-2021 16:32, (unconfirmed) Borderline criteria for Anterolateral infarct are no longer Present Nonspecific T wave abnormality has replaced inverted T waves in Lateral leads Confirmed by Rg Maguire ([id number]) on 11/26/2021 11:52:18 AM Referred By: REFERRED SELF Confirmed By:Alejandro Maguire
[2021-11-26] MEDS: METOPROLOL SUCC 25MG EXT REL TAB PO SCH (12:38)
[2021-11-26] MEDS: SUCRALFATE 1 GM/10 ML UDC PO SCH ×3 (14:10→21:29)
--- NOTE | 2021-11-26 14:13 | Hospitalist Progress Note ---
Date of Service November 26, 2021 Assessment & Plan (1) Abdominal pain, epigastric: Plan: Chronic, worse with food. Patient is not vomiting or having any other danger signs at this point. She is on chronic high-dose ibuprofen with intermittent breaks in therapy. EGD from 11/24/[address] Pickering revealed chronic gastritis possibly secondary to NSAID use along with Helicobacter pylori testing that was negative. She is describing what sounds like a functional dyspepsia. GI has been consulted and is recommending Protonix 40 mg p.o. twice daily, Pepcid 20 mg p.o. twice daily and Carafate 4 times a day before meals and at bedtime. She is notably not on a proton pump inhibitor at home and is currently declining Carafate. She is open to clear liquid diet which will be ordered now and will advance as tolerated. Per GI can consider outpatient colonoscopy to include GI work-up. Will hold ascorbic acid ordered daily. (2) Nonischemic cardiomyopathy: Plan: Known history of severe nonischemic cardiomyopathy with severe left ventricular systolic dysfunction, ejection fraction 20%. She is not having clinical signs or symptoms of acute heart failure and is managed medically. She has underlying pulmonary hypertension, right ventricular systolic dysfunction grade 3 diastolic dysfunction, untreated obstructive sleep apnea and nocturnal hypoxemia treated with 4 L/min of supplemental oxygen. Cardiology has been consulted for elevated troponin in this setting without EKG changes acutely and without symptoms suggestive of acute coronary syndrome. Medical management and other treatments including device implantation have been explained in depth to the patient. She is declined device implantation. She has multiple medication allergies. Continue medical management per cardiology. (3) Elevated troponin I level: Plan: Known structural changes to heart. Echocardiogram performed today revealing moderate pulmonary hypertension now present when compared to study dated 04/24/2021. No evidence of ACS at this time. (4) DVT prophylaxis: Plan: Lovenox Full Code Dispo-to home when pain is improved. Rhonda Chavez DO [facility] Hospitalist Admission and Anticipated Discharge Date Admission Date: November 26, 2021 Subjective 71-year-old female with chronic epigastric pain had an endoscopy 2 days ago that was unremarkable. Presented to ER with persistent abdominal pain Patient reports her abdominal pain is like a sharp bloating and is typical for her pain She does not feel the recent procedure had anything to do with a worsening of her pain She is hungry and reports that food typically makes her pain worse but milk helps her. She denies any vomiting, hematemesis, hematochezia, weight changes. She reports chronically having a "sensitive" stomach. She reports chronic swallowing issues including choking on her saliva. She states that she underwent a video swallow study and there was "no news" Review of Systems Review of Systems: All systems reviewed negative except as indicated above. Physical Exam Physical Exam: CONSTITUTIONAL: obese, vitals as above, generally well- appearing EYES: normal conjunctivae, no scleral icterus ENT: external ear and nose normal, MMM NECK: trachea midline RESPIRATORY: clear to auscultation bilaterally, no crackles, rales or wheezes, normal respiratory effort CARDIOVASCULAR: regular rate and rhythm, S1 and 2 heard without murmurs, gallops or rubs, no JVD, no peripheral edema CHEST: inspection of chest was normal GASTROINTESTINAL: normal bowel sounds, soft, TTP in epigastric region, no guarding MUSCULOSKELETAL: strength 5/5 throughout, head is normocephalic and atraumatic SKIN: warm and dry NEUROLOGIC: CN 2-12 grossly intact, no sensory deficit, normal cognition, normal speech, no tremor PSYCHIATRIC: alert cooperative and oriented to person, place and time. Results & Data Results & Data ([facility]) Vital Signs (Past 12 Hours) Vital Signs Temp Pulse Resp BP Pulse Ox 11/26/21 12:40 36.8 C 87 18 108/70 99 11/26/21 09:35 36.8 C 87 18 106/81 100 11/26/21 03:42 36.7 C 73 25 H 121/75 99 11/26/21 02:17 36.5 C 71 20 121/83 100 Laboratory Results Short CBC 11/25/21 11/26/21 Range/Units 19:00 04:39 WBC 5.64 4.21 L (4.8-10.8) K/uL Hgb 13.4 11.5 L (12.0-16.0) g/dL Hct 39.5 35.0 L (37-47) % Plt Count 192 167 (130-400) K/uL BMP 11/25/21 11/26/21 19:00 04:39 Sodium 137 139 Potassium 3.5 3.4 L Chloride 104 106 Carbon Dioxide 22 26 BUN 28 H 25 H Creatinine 0.75 0.79 Glucose 113 H 98 Calcium 9.0 8.2 L Cardiac Enzymes 11/25/21 11/26/21 11/26/21 Range/Units 19:00 04:39 08:38 Troponin I 0.05 H* 0.04 0.04 (0-0.04) ng/ml Liver Function 11/25/21 Range/Units 19:00 Total Bilirubin 1.2 H (0.2-1.0) mg/dl AST 56 H (13-39) U/L ALT 71 H (7-52) U/L Alkaline Phosphatase 88 (34-104) U/L Albumin 3.7 (3.4-5.0) gm/dl Urine 11/26/21 Range/Units 01:10 Urine Color Yellow Urine Appearance Clear (Clear) Urine pH 5.0 (4.5-7.5) Ur Specific [place] 1.018 (1.000-1.030) Urine Protein Negative (Negative) Urine Glucose (UA) Negative (Negative) Diagnostic Findings Abdomen/Pelvis CT 11/25/21 20:[address] WITHOUT CONTRAST CT DOSE: 419.63 mGy.cm HISTORY: Generalized abdominal pain TECHNIQUE: Multiaxial CT images of the abdomen and pelvis were performed without contrast. A dose lowering technique was utilized adhering to the principles of ALARA. COMPARISON STUDY: Abdomen and pelvis CT 10/19/2021. FINDINGS: There is an old mild compression deformity at T11. Stable 4 mm nodular density within the right middle lobe on image 15. This is likely benign and may represent an area of scarring. Trace left pleural effusion. The heart remains enlarged. No pneumoperitoneum. No pneumatosis. No suspicious lytic or blastic osseous lesions. Mild thickening at the proximal duodenum/duodenal bulb with mild adjacent fat stranding. No extraluminal gas to suggest a perforation. The gallbladder surgically absent. Stable 1 cm hypodense lesion within the right hepatic lobe inferiorly. This is incompletely characterized on this noncontrast study but favors a cyst. The spleen, right adrenal gland, pancreas, and kidneys are unremarkable. No renal or ureteral stones. No hydronephrosis. Normal bladder. Stable 1.2 cm indeterminate left adrenal gland nodule. Moderate calcified plaque within the normal caliber abdominal aorta. No retroperitoneal lymphadenopathy. Prior hysterectomy. No evidence for bowel obstruction. A few colonic diverticula. No evidence for acute diverticulitis. Normal appendix. IMPRESSION: 1. Mild thickening within the proximal duodenum/duodenal bulb with mild adjacent fat stranding. No extraluminal gas to suggest a perforation. This nonspecific and could be due to a duodenitis or peptic ulcer disease. In addition, this could represent recent post endoscopy changes. Clinical correlation recommended. 2. No evidence for bowel obstruction. 3. Normal appendix. 4. No hydronephrosis. 5. Colonic diverticulosis. No evidence for acute diverticulitis. 6. Trace left pleural effusion. ACT 112: Negative or not required by law. Electronically signed by: Mook Staton M.D. 11/26/2021 10:25 AM Medications Administered Current Inpatient Medications Acetaminophen (Acetaminophen 325 Mg Tab) 650 mg PO Q4H PRN PRN Reason: Pain or Fever Stop: 12/26/21 00:43 Ascorbic Acid (Ascorbic Acid 500 Mg Tab) 2,000 mg PO QAM [facility] Stop: 12/26/21 08:59 Last Admin: 11/26/21 09:34 Dose: 2,000 mg Documented by: Aspirin (Aspirin 81 Mg Ectab) 81 mg PO QAM [facility] Stop: 12/26/21 08:59 Last Admin: 11/26/21 09:34 Dose: 81 mg Documented by: Cetirizine HCl (Cetirizine Hcl 10 Mg Tablet) 10 mg PO QAM [facility] Stop: 12/26/21 08:59 Last Admin: 11/26/21 09:34 Dose: 10 mg Documented by: Famotidine (Famotidine 20 Mg Tab) 20 mg PO BID [facility] Stop: 12/26/21 08:59 Last Admin: 11/26/21 10:04 Dose: Not Given Documented by: Fluticasone Furoate (Fluticasone Furoate 100mcg 14 Puffs/Inhaler) 1 puffs INH DAILY [facility] Stop: 12/26/21 08:59 Last Admin: 11/26/21 09:35 Dose: Not Given Documented by: Guaifenesin (Guaifenesin 600 Mg Tabcr) 600 mg PO Q12H PRN PRN Reason: Cough Stop: 12/26/21 02:24 Pantoprazole Sodium 40 mg/ (Syringe) 10 mls @ 5 mls/min IV BID [facility] Stop: 12/26/21 08:59 Last Admin: 11/26/21 09:34 Dose: 5 mls/min Documented by: Sodium Chloride (Nss 1000ml) 1,000 mls @ 50 mls/hr IV .Q20H [facility] Stop: 11/26/21 19:55 Last Infusion: 11/26/21 13:55 Dose: Infused Documented by: Insulin Aspart (Insulin Aspart Per Unit) 0 units SC ACHS [facility] Stop: 12/26/21 07:29 Last Admin: 11/26/21 12:53 Dose: Not Given Documented by: Metoprolol Succinate (Metoprolol Succ 25mg Ext Rel Tab) 12.5 mg PO QAM [facility] Stop: 12/26/21 10:29 Last Admin: 11/26/21 12:38 Dose: 12.5 mg Documented by: Morphine Sulfate (Morphine Sulfate 4 Mg/Ml 1 Ml Carp\\Vial) 3 mg IV Q3H PRN PRN Reason: Pain Stop: 12/10/21 00:43 Last Admin: 11/26/21 07:22 Dose: 3 mg Documented by: Nitroglycerin (Nitroglycerin Sl 0.4 Mg/Tab Tab) 0.4 mg SL UD PRN PRN Reason: Chest Pain Stop: 12/26/21 00:43 Ondansetron HCl (Ondansetron Inj 2 Mg/Ml 2 Ml Vial) 4 mg IV Q6H PRN PRN Reason: Nausea Stop: 12/26/21 00:43 Phenol (Chloraseptic 1.4% Soln 180 Ml Btl) 3 sprays MT Q4H PRN PRN Reason: Sore Throat Stop: 12/26/21 00:43 Senna/Docusate Sodium (Docusate Sodium/Senna 50/8.6mg Tab) 1 - 4 tab PO DAILY [facility] Stop: 12/26/21 08:59 Last Admin: 11/26/21 10:14 Dose: 2 tab Documented by: Sucralfate (Sucralfate 1 Gm/10 Ml Udc) 1 gm PO QID [facility] Stop: 12/26/21 12:59 Last Admin: 11/26/21 14:10 Dose: 1 gm Documented by: Tolterodine Tartrate (Tolterodine Tartrate [place] 4 Mg Capcr) 4 mg PO QAM [facility] Stop: 12/26/21 08:59 Last Admin: 11/26/21 09:35 Dose: 4 mg Documented by: Torsemide (Torsemide 20 Mg Tab) 20 mg PO DAILY@1800 PRN PRN Reason: addtnl tab for weight gain Stop: 12/26/21 01:25 Vitamin D (Cholecalciferol 1,000 Units 25 Mcg Tab) 2,000 units PO QA [facility] Stop: 12/26/21 08:59 Last Admin: 11/26/21 09:38 Dose: 2,000 units Documented by: Zinc Sulfate (Zinc Sulfate 220 Mg Capsule) 220 mg PO PM [facility] Stop: 12/26/21 20:59
[2021-11-26] MEDS: TORSEMIDE 10 MG TAB PO SCH (15:55)
[2021-11-26] MEDS ORDERED: Nursing to Pharmacy Communication SCH (16:30)
[2021-11-26] MEDS: ZINC SULFATE 220 MG CAPSULE PO SCH (21:29)
[2021-11-27] MEDS: INSULIN ASPART PER UNIT SC SCH ×5 (01:02→20:39)
[2021-11-27] MEDS ORDERED: Nursing to Pharmacy Communication SCH (01:15)
--- NOTE | 2021-11-27 03:08 | Electrocardiogram Report ---
Test Reason : Blood Pressure : / mmHG Vent. Rate : 099 BPM Atrial Rate : 099 BPM P-R Int : 188 ms QRS Dur : 138 ms QT Int : 386 ms P-R-T Axes : 059 -56 109 degrees QTc Int : 495 ms Sinus rhythm with frequent Premature ventricular complexes Biatrial enlargement Left axis deviation Non-specific intra-ventricular conduction block Possible Anterolateral infarct , age undetermined Abnormal ECG When compared with ECG of 19-OCT-2021 08:50, Borderline criteria for Anterolateral infarct are now Present Confirmed by Rg Maguire ([id number]) on 11/26/2021 11:48:29 AM Referred By: REFERRED SELF Confirmed By:Alejandro Maguire
[2021-11-27] MEDS: MoRPHine SULFATE 4 MG/ML 1 ML CARP\\VIAL IV PRN ×2 (06:12→13:01)
[2021-11-27] MEDS: ACETAMINOPHEN 325 MG TAB PO PRN (08:24)
[2021-11-27] MEDS: FLUTICASONE FUROATE 100MCG 14 PUFFS/INHALER INH SCH (08:26)
[2021-11-27] MEDS: ENOXAPARIN INJ 40 MG/0.4 ML SYR SQ SCH (08:26)
[2021-11-27] MEDS: SUCRALFATE 1 GM/10 ML UDC PO SCH ×4 (08:28→20:45)
[2021-11-27] MEDS: ASPIRIN 81 MG ECTAB PO SCH (08:29)
[2021-11-27] MEDS: CETIRIZINE HCL 10 MG TABLET PO SCH (08:30)
[2021-11-27] MEDS: CHOLECALCIFEROL 1,000 UNITS 25 MCG TAB PO SCH (08:30)
[2021-11-27] MEDS: DOCUSATE SODIUM/SENNA 50/8.6MG TAB PO SCH (08:31)
[2021-11-27] MEDS: FAMOTIDINE 20 MG TAB PO SCH ×2 (08:32→20:38)
[2021-11-27] MEDS: METOPROLOL SUCC 25MG EXT REL TAB PO SCH (08:33)
[2021-11-27] MEDS: TOLTERODINE TARTRATE LA 4 MG CAPCR PO SCH (08:34)
[2021-11-27] MEDS: PANTOprazole 40 MG in SYRINGE 0 ML IV SCH ×2 (08:34→20:38)
[2021-11-27] MEDS: TORSEMIDE 10 MG TAB PO SCH (08:35)
--- NOTE | 2021-11-27 10:09 | Cardiology Progress Note ---
Date of Service November 27, 2021 Assessment & Plan (1) Abdominal pain, epigastric: (2) Elevated troponin I level: (3) Nonischemic cardiomyopathy: (4) NYHA Class III cardiovascular function: Plan: Admission with with recurrent epigastric/abdominal pain. Elevated troponin, without acute EKG changes, without symptoms suggestive of an acute coronary syndrome Known severe nonischemic cardiomyopathy with severe left ventricular systolic dysfunction, ejection fraction of 20%, nonspecific interventricular conduction block with QRS duration 150 ms via EKG in November 2021, NYHA Functional Class III (multifactorial), AHA/ACC Stage C. Cardiac catheterization on September 19, 2015 revealed normal coronary arteries. Frequent premature ventricular complexes, intermittent prolonged QTc, history of paroxysmal ventricular tachycardia Pulmonary hypertension, right ventricular systolic dysfunction, grade III diastolic dysfunction, untreated obstructive sleep apnea, nocturnal hypoxemia treated with 4 L/min of supplemental oxygen. Options of management discussed with patient once again. Recommend continuation of low-dose evidence-based beta-kristina, metoprolol succinate, 12.5 mg/day. Recommend continuation of torsemide, considering the addition of spironolactone, pending metabolic panel results. Down the road, would consider retrial of low- dose losartan. Device implantation notably declined. Admission and Anticipated Discharge Date Admission Date: November 26, 2021 Supervising Physician Co-Signing Physician Notes Patient seen and examined at the bedside. Unable to tolerate beta-kristina. She is visibly upset regarding current medication. Prefers to avoid any additional medical therapies due to multiple documented intolerances. Agreeable to continue torsemide. Denies chest pain or shortness of breath. No orthopnea, PND, or palpitations. Telemetry reveals sinus rhythm. Abdominal discomfort improved. PE: VSS. Gen: NAD, AAOx3. Heart: Regular with frequent ectopy. 2/6 holosystolic murmur heard best at the apex. Lungs: Diminished breath sounds bilateral, no rales, rhonchi, wheeze. Extremities: No edema. A/P: Agree with above PA-C history, physical exam, assessment and plan. Patient declines beta-kristina therapy. Reports severe fatigue and lightheadedness associated with medication. Agreeable to continue torsemide. Prefers to avoid any additional medical therapies at this time. Subjective Patient seen and examined. Chart, medications, and telemetry reviewed. Feels somewhat tired and lightheaded. No throat swelling. No overt issues with initiation of metoprolol on November 26, 2021. No chest pain. No palpitations. Stable dyspnea. No orthopnea, PND, or peripheral edema. No AM metabolic panel available for review at the time of evaluation or documentation Telemetry: Sinus with occasional PVCs, predominantly in the 70s. Short PVC runs overnight. November 26, 2021 TTE Interpretation Summary ([facility], Dr. Gustafson): Severely dilated left ventricle. Severely reduced LV systolic function. Ejection fraction 20%. Severe global hypokinesis of the left ventricle. Grossly normal RV size. Reduced RV systolic function by TAPSE. Severely dilated left atrium. Moderate to severe mitral regurgitation. Mild aortic regurgitation. Mild tricuspid regurgitation. Estimated pulmonary artery systolic pressure 51 mmHg. Dilated IVC with reduced collapsibility with sniff indicating an elevated right atrial pressure of 15 mmHg. Review of Systems Review of Systems: Complete review of systems is otherwise as stated above, negative, or noncontributory. Physical Exam Physical Exam: General: alert and oriented x 3. NAD. Resting comfortably Eyes: PER. Conjunctiva pink, sclera clear. HENT: Normocephalic. Atraumatic. Neck: No carotid bruits. No JVD. No HJR. Heart: Regular at 80 with occasional ectopic beat. Lungs: Decreased. Diminished. Clear. No wheeze. Abdomen: +BS. Soft. Nontender. No masses. No organomegaly. Extremities: No edema. No clubbing. No cyanosis. Pulses: radial=2/4, posterior tibial=2/4. Limited neurological examination: No focal deficit. Results & Data ([facility]) Vital Signs (Past 12 Hours) Vital Signs Pulse Pulse Resp Pulse Ox Pulse Ox 11/27/21 07:26 71 11/27/21 02:55 90 20 95 11/27/21 00:44 95 11/26/21 22:18 86 Laboratory Results Laboratory Results - last 24 hr 11/26/21 12:39 POC Glucose 95
[2021-11-27 10:20] LABS: Hematocrit (blood only) 39.3 % (37-47); Mean Corpuscular Hemoglobin 31.9 pg (25-34); Mean Corpuscular Hgb Conc 33.1 g/dL (32-36); Mean Corpuscular Volume 96.3 fL (80-100); Mean Platelet Volume 9.7 fL (7.4-10.4); Platelet Count 167 K/uL (130-400); RDW Coefficient of Variation 13.8 % (11.5-14.5); RDW Standard Deviation 47.8 fL (36.4-46.3); Red Blood Count 4.08 M/uL (4.2-5.4); White Blood Count 4.71 K/uL (4.8-10.8)
[2021-11-27 10:46] LABS: BUN Creatinine Ratio 23.5 (10-20); Calcium 8.5 mg/dl (8.5-10.1); Creatinine Clr Calc Pharmacy 49.5 ml/min; Est GFR (African American) 56.2 ml/min; Est GFR (Non-African American) 48.5 ml/min; Potassium 3.6 mmol/L (3.5-5.1)
--- NOTE | 2021-11-27 11:26 | Electrocardiogram Report ---
Test Reason : Blood Pressure : / mmHG Vent. Rate : 080 BPM Atrial Rate : 080 BPM P-R Int : 176 ms QRS Dur : 146 ms QT Int : 442 ms P-R-T Axes : 063 -41 087 degrees QTc Int : 509 ms Sinus rhythm with frequent Premature ventricular complexes Possible Left atrial enlargement Left axis deviation Non-specific intra-ventricular conduction block Possible Lateral infarct , age undetermined Abnormal ECG When compared with ECG of 25-NOV-2021 22:43, Borderline criteria for Lateral infarct are now Present Confirmed by Rg Maguire ([id number]) on 11/27/2021 11:25:42 AM Referred By: REFERRED SELF Confirmed By:Alejandro Maguire
--- NOTE | 2021-11-27 16:19 | Hospitalist Progress Note ---
Date of Service November 27, 2021 Assessment & Plan (1) Abdominal pain, epigastric: Plan: No indication for hospitalization at this point. Cont PPI, Pepcid, patient is refusing carafate. No further IV narcotics. Utilize oral oxycodone or other oral narcotic agent to help her with transition to home and follow-up with outpatient providers. (2) Nonischemic cardiomyopathy: Plan: Known history of severe nonischemic cardiomyopathy with severe left ventricular systolic dysfunction, ejection fraction 20%. She is not having clinical signs or symptoms of acute heart failure and is managed medically. She has underlying pulmonary hypertension, right ventricular systolic dysfunction grade 3 diastolic dysfunction, untreated obstructive sleep apnea and nocturnal hypoxemia treated with 4 L/min of supplemental oxygen. Cardiology has been consulted for elevated troponin in this setting without EKG changes acutely and without symptoms suggestive of acute coronary syndrome. Medical management and other treatments including device implantation have been explained in depth to the patient. She is declined device implantation. She has multiple medication allergies. Issues with beta kristina trial. Will not continue this. (3) Elevated troponin I level: Plan: Known structural changes to heart. Echocardiogram performed revealing moderate pulmonary hypertension now present when compared to study dated 04/24/2021. No evidence of ACS at this time. Will perform two step in am to ensure no changes to her oxygen regimen should be made. Outpatient follow-up with pulmonology recommended. (4) DVT prophylaxis: Plan: Lovenox Full Code Dispo-to home when pain is improved. Rhonda Chavez DO [facility] Hospitalist Admission and Anticipated Discharge Date Admission Date: November 26, 2021 Subjective 71-year-old female with chronic epigastric pain had an endoscopy 2 days ago that was unremarkable. Presented to ER with persistent abdominal pain Still with abdominal pain, however, her first concern was lightheadedness to beta kristina. Cardiology stopped by during the visit and ok with stopping since making her ill notably patient has requested morphine several times and reports this helps her abdominal discomfort temporarily We discussed pros and cons of opiate therapy going home We discussed continuing PPI and Pepcid as a plan and avoiding Ibuprofen. where she said milk helps her stomach and its the only thing that works, her chart says she has an allergy to it She said she only drinks lactose-free milk at home.?? Reports she has "tried everything" when asked about different elimination diets. 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 Nurse reports she was watching the continuous bedside oxygen monitor very closely and would be prompted to check on patient when she noticed dips in saturation. When nurse checked on patient, O2 sat was completely fine. Nurse switched bedside monitor to pocket telemetry and there were no more dips in oxygen. Suspicion that patient was trying to purposely cause the initial low readings. She is overall demanding and unreasonable and yelling on occasion. She refuses to answer most questions directly. It was explained to her there was no further benefit to offer her in the hospital setting and further investigation of her symptoms should be pursued as outpatient. After discharge was placed she refused to go home stating she "didn't feel comfortable with the [address] ahead of her" She requested a sign on the door that asked everyone to don a gown and knock before entering and she refused entry when she found out staff was using laundry detergent that didn't meet her standards. Review of Systems Review of Systems: All systems were reviewed and negative except as indicated on subjective above. Physical Exam Physical Exam: CONSTITUTIONAL: obese, vitals as above, generally well- appearing EYES: normal conjunctivae, no scleral icterus ENT: external ear and nose normal, MMM NECK: trachea midline RESPIRATORY: clear to auscultation bilaterally, no crackles, rales or wheezes, normal respiratory effort CARDIOVASCULAR: regular rate and rhythm, S1 and 2 heard without murmurs, gallops or rubs, no JVD, no peripheral edema CHEST: inspection of chest was normal GASTROINTESTINAL: soft, NTND, no guarding MUSCULOSKELETAL: strength 5/5 throughout, head is normocephalic and atraumatic SKIN: warm and dry NEUROLOGIC: CN 2-12 grossly intact, no sensory deficit, normal cognition, normal speech, no tremor PSYCHIATRIC: alert cooperative and oriented to person, place and time. Results & Data Results & Data ([facility]) Vital Signs (Past 12 Hours) Vital Signs Temp Pulse Pulse Resp BP Pulse Ox 11/27/21 15:32 94 H 11/27/21 14:23 36.5 C 88 20 100/71 92 11/27/21 13:26 36.7 C 93 H 22 108/74 96 11/27/21 07:26 71 Laboratory Results Short CBC 11/27/21 Range/Units 10:10 WBC 4.71 L (4.8-10.8) K/uL Hgb 13.0 (12.0-16.0) g/dL Hct 39.3 (37-47) % Plt Count 167 (130-400) K/uL BMP 11/27/21 10:10 Sodium 138 Potassium 3.6 Chloride 102 Carbon Dioxide 29 BUN 27 H Creatinine 1.15 D Glucose 153 H Calcium 8.5 Medications Administered Current Inpatient Medications Acetaminophen (Acetaminophen 325 Mg Tab) 650 mg PO Q4H PRN PRN Reason: Pain or Fever Stop: 12/26/21 00:43 Last Admin: 11/27/21 08:24 Dose: 650 mg Documented by: Ascorbic Acid (Ascorbic Acid 500 Mg Tab) 2,000 mg PO QAM [facility] Stop: 12/26/21 08:59 Last Admin: 11/26/21 09:34 Dose: 2,000 mg Documented by: Aspirin (Aspirin 81 Mg Ectab) 81 mg PO QAM [facility] Stop: 12/26/21 08:59 Last Admin: 11/27/21 08:29 Dose: 81 mg Documented by: Cetirizine HCl (Cetirizine Hcl 10 Mg Tablet) 10 mg PO QAM [facility] Stop: 12/26/21 08:59 Last Admin: 11/27/21 08:30 Dose: 10 mg Documented by: Enoxaparin Sodium (Enoxaparin Inj 40 Mg/0.4 Ml Syr) 40 mg SQ QAM [facility] Stop: 12/27/21 08:59 Last Admin: 11/27/21 08:26 Dose: Not Given Documented by: Famotidine (Famotidine 20 Mg Tab) 20 mg PO BID [facility] Stop: 12/26/21 08:59 Last Admin: 11/27/21 08:32 Dose: 20 mg Documented by: Fluticasone Furoate (Fluticasone Furoate 100mcg 14 Puffs/Inhaler) 1 puffs INH DAILY [facility] Stop: 12/26/21 08:59 Last Admin: 11/27/21 08:26 Dose: Not Given Documented by: Guaifenesin (Guaifenesin 600 Mg Tabcr) 600 mg PO Q12H PRN PRN Reason: Cough Stop: 12/26/21 02:24 Pantoprazole Sodium 40 mg/ (Syringe) 10 mls @ 5 mls/min IV BID [facility] Stop: 12/26/21 08:59 Last Admin: 11/27/21 08:34 Dose: 5 mls/min Documented by: Insulin Aspart (Insulin Aspart Per Unit) 0 units SC ACHS [facility] Stop: 12/27/21 07:29 Last Admin: 11/27/21 17:34 Dose: Not Given Documented by: Metoprolol Succinate (Metoprolol Succ 25mg Ext Rel Tab) 12.5 mg PO QAM [facility] Stop: 12/26/21 10:29 Last Admin: 11/27/21 08:33 Dose: 12.5 mg Documented by: Nitroglycerin (Nitroglycerin Sl 0.4 Mg/Tab Tab) 0.4 mg SL UD PRN PRN Reason: Chest Pain Stop: 12/26/21 00:43 Ondansetron HCl (Ondansetron Inj 2 Mg/Ml 2 Ml Vial) 4 mg IV Q6H PRN PRN Reason: Nausea Stop: 12/26/21 00:43 Oxycodone HCl (Oxycodone Hcl Ir 5 Mg Tab (Immediate Release)) 5 mg PO Q6H PRN PRN Reason: severe pain (7-10) Stop: 12/11/21 16:33 Phenol (Chloraseptic 1.4% Soln 180 Ml Btl) 3 sprays MT Q4H PRN PRN Reason: Sore Throat Stop: 12/26/21 00:43 Senna/Docusate Sodium (Docusate Sodium/Senna 50/8.6mg Tab) 1 - 4 tab PO DAILY [facility] Stop: 12/26/21 08:59 Last Admin: 11/27/21 08:31 Dose: 2 tab Documented by: Sucralfate (Sucralfate 1 Gm/10 Ml Udc) 1 gm PO QID [facility] Stop: 12/26/21 12:59 Last Admin: 11/27/21 17:35 Dose: Not Given Documented by: Tolterodine Tartrate (Tolterodine Tartrate La 4 Mg Capcr) 4 mg PO QAM [facility] Stop: 12/26/21 08:59 Last Admin: 11/27/21 08:34 Dose: 4 mg Documented by: Torsemide (Torsemide 20 Mg Tab) 20 mg PO DAILY@1800 PRN PRN Reason: addtnl tab for weight gain Stop: 12/26/21 01:25 Torsemide (Torsemide 10 Mg Tab) 20 mg PO QAM [facility] Stop: 12/26/21 15:14 Last Admin: 11/27/21 08:35 Dose: 20 mg Documented by: Vitamin D (Cholecalciferol 1,000 Units 25 Mcg Tab) 2,000 units PO QAM [facility] Stop: 12/26/21 08:59 Last Admin: 11/27/21 08:30 Dose: 2,000 units Documented by: Zinc Sulfate (Zinc Sulfate 220 Mg Capsule) 220 mg PO PM [facility] Stop: 12/26/21 20:59 Last Admin: 11/26/21 21:29 Dose: 220 mg Documented by:
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
[2021-11-27] MEDS: ZINC SULFATE 220 MG CAPSULE PO SCH (20:38)
[2021-11-27] MEDS: oxyCODONE HCL IR 5 MG TAB (IMMEDIATE RELEASE) PO PRN (20:48)
[2021-11-27] MEDS ORDERED: SIMETHICONE 80 MG CHEW PO PRN (23:08)
[2021-11-28] MEDS: ACETAMINOPHEN 325 MG TAB PO PRN ×3 (02:02→15:49)
[2021-11-28] MEDS: oxyCODONE HCL IR 5 MG TAB (IMMEDIATE RELEASE) PO PRN ×2 (04:59→12:25)
[2021-11-28] MEDS: INSULIN ASPART PER UNIT SC SCH ×3 (08:22→15:50)
[2021-11-28] MEDS: CHOLECALCIFEROL 1,000 UNITS 25 MCG TAB PO SCH (09:34)
[2021-11-28] MEDS: ASPIRIN 81 MG ECTAB PO SCH (09:34)
[2021-11-28] MEDS: DOCUSATE SODIUM/SENNA 50/8.6MG TAB PO SCH (09:34)
[2021-11-28] MEDS: CETIRIZINE HCL 10 MG TABLET PO SCH (09:34)
[2021-11-28] MEDS: ENOXAPARIN INJ 40 MG/0.4 ML SYR SQ SCH (09:35)
[2021-11-28] MEDS: FAMOTIDINE 20 MG TAB PO SCH (09:35)
[2021-11-28] MEDS: FLUTICASONE FUROATE 100MCG 14 PUFFS/INHALER INH SCH (09:35)
[2021-11-28] MEDS: PANTOprazole 40 MG in SYRINGE 0 ML IV SCH (09:35)
[2021-11-28] MEDS: METOPROLOL SUCC 25MG EXT REL TAB PO SCH (09:35)
[2021-11-28] MEDS: TOLTERODINE TARTRATE LA 4 MG CAPCR PO SCH (09:36)
[2021-11-28] MEDS: TORSEMIDE 10 MG TAB PO SCH (09:36)
[2021-11-28] MEDS: SUCRALFATE 1 GM/10 ML UDC PO SCH ×3 (09:36→15:50)
[2021-11-28 10:10] LABS: BUN Creatinine Ratio 25.6 (10-20); Calcium 8.4 mg/dl (8.5-10.1); Creatinine Clr Calc Pharmacy 42.8 ml/min; Est GFR (African American) 47.2 ml/min; Est GFR (Non-African American) 40.7 ml/min; Potassium 3.9 mmol/L (3.5-5.1)
[2021-11-28] MEDS ORDERED: SODIUM CHLORIDE 0.9% 500 ML IV SCH (12:15)
--- NOTE | 2021-11-28 12:20 | Cardiology Progress Note ---
Date of Service November 28, 2021 Assessment & Plan (1) Abdominal pain, epigastric: (2) Elevated troponin I level: (3) Nonischemic cardiomyopathy: (4) NYHA Class III cardiovascular function: Plan: Patient with multiple documented drug intolerances. Declines beta-kristina therapy at this time. Agreeable to restart torsemide and continue in the outpatient setting. Sodium restriction advised. Consider addition of low-dose SARA inhibitor or ARB in the outpatient setting. No further inpatient cardiac testing or intervention at this time. Thank you for allow me to participate in the care of your patient. Cardiology will sign off. Please call with any furth er concerns/questions. Admission and Anticipated Discharge Date Admission Date: November 26, 2021 Subjective Patient seen and examined the bedside. No changes overnight. Anxious for discharge. Declines further treatment with beta-kristina therapy. Multiple drug intolerances noted. Denies chest pain or shortness of breath. No edema, orthopnea, or PND. No sustained dysrhythmias on telemetry. Review of Systems Review of Systems: All systems reviewed & are unremarkable except as noted in Subjective Physical Exam Constitutional: well nourished and + ill appearing; no acute distress Respiratory: normal respiratory effort; no respiratory distress and no retractions Auscultation: + diminished lung sounds (Bases bilateral) and + wheezes (End expiratory wheeze); no rales and no rhonchi Cardiovascular: Rate/Rhythm: regular rate and regular rhythm Heart Sounds: normal S1 and normal S2; no murmur Vessels: radial pulses present; no JVD and no carotid bruit Extremities: no edema Gastrointestinal (Abdomen): Inspection/Auscultation: abdomen normal to inspection; abdomen not distended Percussion/Palpation: abdomen soft; abdomen nontender, no guarding and abdomen not rigid Neurologic: CN's II-XI intact bilaterally and moves all extremities; no focal motor deficits Motor/Sensory: no tremor Results & Data ([facility]) Vital Signs (Past 12 Hours) Vital Signs Temp Pulse Pulse Pulse Pulse Pulse Resp 11/28/21 11:50 72 11/28/21 11:37 36.2 C L 88 20 11/28/21 10:00 102 H 100 H 95 H 11/28/21 09:50 95 H 18 11/28/21 08:32 36.3 C L 89 20 11/28/21 04:10 36.6 C 90 20 Resp Resp Resp BP BP Pulse Ox Pulse Ox 11/28/21 11:50 11/28/21 11:37 116/80 90 11/28/21 10:00 20 18 18 90 11/28/21 09:50 95 11/28/21 08:32 98/58 L 93 11/28/21 04:10 113/73 94 Pulse Ox Pulse Ox 11/28/21 11:50 11/28/21 11:37 11/28/21 10:00 94 95 11/28/21 09:50 11/28/21 08:32 11/28/21 04:10
[2021-11-28] MEDS ORDERED: HEPARIN SOD 5,000 UNIT/0.5 ML VIAL SQ SCH (14:00)
--- NOTE | 2021-11-28 17:20 | Communication Note ---
Date of Service: November 28, 2021 71 yo F admitted for ongoing chronic abdominal pain s/p recent EGD. Pain controlled, resolved per her report today She has been tolerating PO She was able to pass a two step test without any supplemental oxygen needs and has remained on 4LPM QHS She brought is a special nasal canula tubing, as she reports an allergy/sensitivity to plastics There was a report sent through the appropriate channels and our team nurse confirmed her replacement for this tubing would arrive to her house in the morning after it was mistakenly disposed of in the ER. She confirmed that she had back up oxygen tubing to use in the meantime with an extension. She then said she had called the company and rerouted this to be sent to another address because "they said I was staying" I asked her if she felt she needed to continue to stay in the hospital, and she became upset. She wasn't able to answer the question and resorted to "OK I'll leave and never come back" which is what she was doing yesterday She mumbled "I wish I had a doctor that knew what they were doing" and "that everyone was on the same page" Notably there have been multiple flip-flops to her reports throughout her stay. For example, she reported she was taking a significant amount of Ibuprofen chronically, and then said it wasn't that much the following day She reported that milk was the only thing that worked for her abdominal pain and yet there was a listed intolerance to this on her chart When asked about this she states that she drinks lactose-free milk, but that wasn't clear until closer to the end of discharge. She told me she had backup oxygen at home and then told the nurse that she did not. She also was refusing multiple medications including the replacement for her Alvesco, which is not on formulary. She argued with the respiratory techs that she talked to someone who said we had it, and she spent time to confirm that we did not. She asked staff to place a sign on the door to keep it closed and have everyone knock before entering the room, wearing a gown when they enter. She told certain staff to not enter her room after questioning them regarding what detergent they used to launder their clothes. She was placed in a private room to accommodate her, despite not actually having an isolation requirement. She was noted to have a pill bottle of white powder half full and open on her bed table and reports taking her home dosing of a compound salt at her bedside which is taken in a slurry and prescribed from her lung specialist per her report It is uncertain when or how much of this she has been taking, and it has not been verified by pharmacy. This compound is not noted in her pulmonology note from Aug 2021. I was able to listen to her lungs which were clear to auscultation without crackles, wheezes or rales Her cardiac exam reveals S1/2 without murmurs, gallops or rubs and a regular rate and rhythm was noted. Abdomen was soft, NTND. She was discharged in stable condition with close primary care (PCP) and GI followup recommended. Patient verbalized understanding that her creatinine was elevated and that she understood my opinion for this was the combination of Ibuprofen, torsemide and losartan. She verbalized understanding of the recommendation to withhold these medications until seeing her PCP. Rhonda Chavez DO [facility]
[2021-11-28] MEDS ORDERED: PANTOprazole 40 MG TAB PO SCH (21:00)
== END 2021-11-28 17:33 | disposition home or self-care (01) | DRG 392 ==
LOC: EDINP 15:21 → ED 15:21 → SUATTDRO 11-26 00:16 → 2W 11-26 00:45

== ENCOUNTER 2022-03-15 20:53 | Inpatient (IN) ==
[2022-03-15] MEDS ORDERED: MoRPHine SULFATE 4 MG/ML 1 ML CARP\\VIAL IV STA (21:06)
[2022-03-15] MEDS ORDERED: SODIUM CHLORIDE 0.9% 500 ML IV STA (21:06)
[2022-03-15] MEDS ORDERED: ONDANSETRON INJ 2 MG/ML 2 ML VIAL IV STA (21:06)
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
[2022-03-15 21:16] LABS: Basophils # (auto) 0.03 K/uL (0-0.2); Basophils % (auto) 0.5 %; Eosinophils # (auto) 0.11 K/uL (0-0.5); Eosinophils % (auto) 1.8 %; Hematocrit (blood only) 48.4 % (37-47); Hemoglobin 16.1 g/dL (12.0-16.0); Immature Granulocytes # (auto) 0.01 K/uL (0.00-0.02); Immature Granulocytes % (auto) 0.2 %; Lymphocytes # (auto) 1.43 K/uL (1.2-3.4); Lymphocytes % (auto) 22.8 %; Mean Corpuscular Hemoglobin 31.9 pg (25-34); Mean Corpuscular Hgb Conc 33.3 g/dL (32-36); Mean Platelet Volume 10.5 fL (7.4-10.4); Monocytes # (auto) 0.58 K/uL (0.11-0.59); Monocytes % (auto) 9.3 %; Neutrophils # (auto) 4.11 K/uL (1.4-6.5); Neutrophils % (auto) 65.4 %; Platelet Count 234 K/uL (130-400); RDW Coefficient of Variation 14.4 % (11.5-14.5); Red Blood Count 5.04 M/uL (4.2-5.4); White Blood Count 6.27 K/uL (4.8-10.8)
[2022-03-15 21:41] LABS: Troponin I High Sensitivity 58.3 pg/ml (0-14)
[2022-03-15 21:49] LABS: Potassium 3.4 mmol/L (3.5-5.1)
[2022-03-15 21:50] LABS: Albumin Globulin Ratio 1.4 (0.9-2); Albumin Level 4.2 gm/dl (3.4-5.0); BUN Creatinine Ratio 27.4 (10-20); Bilirubin,Total 1.3 mg/dl (0.2-1.0); Calcium 9.3 mg/dl (8.5-10.1); Creatinine Clr Calc Pharmacy 47.5 ml/min; Est GFR (African American) 55.1 ml/min; Est GFR (Non-African American) 47.5 ml/min; Total Protein 7.2 gm/dl (6.0-8.3)
[2022-03-16] MEDS ORDERED: MoRPHine SULFATE 4 MG/ML 1 ML CARP\\VIAL ONE (00:19)
[2022-03-16] MEDS ORDERED: DICYCLOMINE HCL 10 MG CAP ONE (01:49)
[2022-03-16] MEDS ORDERED: MoRPHine SULFATE 2 MG/ML CARP IV STA (02:30)
[2022-03-16] MEDS ORDERED: guaiFENesin/DEXTROM SYRUP 200MG/20MG 10ML UDC PO PRN (04:18)
[2022-03-16] MEDS ORDERED: NITROGLYCERIN SL 0.4 MG/TAB TAB SL PRN (04:18)
[2022-03-16] MEDS ORDERED: ACETAMINOPHEN 325 MG TAB PO PRN (04:18)
[2022-03-16] MEDS ORDERED: DICYCLOMINE HCL 10 MG CAP PO ONE (04:18)
[2022-03-16] MEDS ORDERED: CHLORASEPTIC 1.4% SOLN 180 ML BTL MT PRN (04:18)
[2022-03-16] MEDS ORDERED: SIMETHICONE 40 MG/0.6 ML 30ML PO ONE (04:18)
[2022-03-16] MEDS: ONDANSETRON INJ 2 MG/ML 2 ML VIAL IV PRN ×2 (04:45→11:36)
[2022-03-16] MEDS ORDERED: SIMETHICONE 80 MG CHEW PO ONE (05:00)
[2022-03-16] MEDS ORDERED: FLUTICASONE FUROATE 100MCG 14 PUFFS/INHALER INH PRN (05:16)
[2022-03-16] MEDS ORDERED: GLUCOSE 10 TABS/TUBE PO PRN (05:30)
[2022-03-16] MEDS ORDERED: GLUCAGON FOR INJ 1 MG VIAL IM PRN (05:30)
[2022-03-16] MEDS ORDERED: DEXTROSE 50% 50 ML SYRINGE IV PRN (05:30)
[2022-03-16] MEDS ORDERED: GLUCOSE 40% GEL 15 GM TUBE PO PRN (05:30)
[2022-03-16] MEDS ORDERED: CARBOHYDRATES FOR HYPOGLYCEMIA PO PRN (05:30)
[2022-03-16 05:45] LABS: Basophils # (auto) 0.03 K/uL (0-0.2); Basophils % (auto) 0.6 %; Eosinophils # (auto) 0.12 K/uL (0-0.5); Eosinophils % (auto) 2.3 %; Hematocrit (blood only) 45.9 % (37-47); Hemoglobin 14.7 g/dL (12.0-16.0); Immature Granulocytes # (auto) 0.01 K/uL (0.00-0.02); Immature Granulocytes % (auto) 0.2 %; Lymphocytes % (auto) 26.6 %; Mean Corpuscular Hemoglobin 31.3 pg (25-34); Mean Corpuscular Volume 97.7 fL (80-100); Mean Platelet Volume 10.5 fL (7.4-10.4); Monocytes # (auto) 0.46 K/uL (0.11-0.59); Monocytes % (auto) 8.7 %; Neutrophils # (auto) 3.25 K/uL (1.4-6.5); Neutrophils % (auto) 61.6 %; Platelet Count 218 K/uL (130-400); RDW Coefficient of Variation 14.4 % (11.5-14.5); RDW Standard Deviation 51.3 fL (36.4-46.3); White Blood Count 5.27 K/uL (4.8-10.8)
[2022-03-16 06:08] LABS: BUN Creatinine Ratio 27.5 (10-20); Creatinine Clr Calc Pharmacy 46.3 ml/min; Est GFR (African American) 53.4 ml/min; Est GFR (Non-African American) 46.1 ml/min; Magnesium 2.3 mg/dl (1.7-2.4); Potassium 3.6 mmol/L (3.5-5.1)
[2022-03-16 06:09] LABS: Troponin I High Sensitivity 41.3 pg/ml (0-14)
--- NOTE | 2022-03-16 06:30 | History and Physical Report ---
DATE OF ADMISSION: 03/16/2022. CHIEF COMPLAINT: Abdominal pain. HISTORY OF PRESENT ILLNESS: This is a 71-year-old female with past medical history significant for type 2 diabetes, hyperlipidemia, reactive airways dysfunction syndrome, obstructive sleep apnea, nonischemic cardiomyopathy, chronic systolic CHF, prolonged QT interval, history of endometrioid adenocarcinoma of the uterus, stress urinary incontinence, bilateral lower extremity pain, history of geographic tongue, history of COVID-19 infection in June 2021, history of multiple chemical sensitivity syndrome, generalized anxiety disorder, posttraumatic stress disorder, comes with abdominal pain. The patient has history of chronic abdominal pain that apparently got worse lately. She is not able to eat much and getting bloated and also feels some pressure points at chest, nauseous, which prompted her to come to the ER. Drinking and swallowing okay. No shortness of breath, but can't take deep breaths because of abdominal pain. Normal bowel and bladder movements. Ambulates without support at home, but when she goes outside, she ues wheelchair. Denies any fever, says has lot of sweating. Denies any headache, no dizziness. Some runny nose, some sore throat, some mild dry cough. Currently, resting comfortably and hemodynamically stable. ALLERGIES: BETA BLOCKERS, DIGOXIN, DOXYCYCLINE, LISINOPRIL, LOSARTAN, BANANA, CODEINE, GABAPENTIN, IODINE, MEPERIDINE, NSAIDS, PROPOXYPHENE, AMOXICILLIN, CYCLOBENZAPRINE, NITROFURANTOIN, ALBUTEROL, DIPHENHYDRAMINE, GLUTEN, LORAZEPAM, PREDNISONE, RANITIDINE, SODIUM CHLORIDE, TRAMADOL, ASPIRIN, MILK, HAND RADIOLOGY TECHNICIAN,VINYL/PLASTICS ANTIBIOTIC. MEDICATIONS: The patient is on vitamin C 2000 p.o. daily, aspirin 81 mg p.o. a.m., cetirizine 10 mg p.o. a.m., Chloraseptic throat spray q.4 hours p.r.n., vitamin D 50 mcg p.o. a.m., ciclesonide 80mcg 1 puff inhalation b.i.d., Colace 100 mg p.o. t.i.d., famotidine 20 mg p.o. b.i.d.lidocaine 1 capsule p.o. 4 hours p.r.n., Mucinex 1 tablet p.o. b.i.d. p.r.n., Protonix 40 mg p.o. b.i.d., potassium chloride 10 mEq p.o. b.i.d., Senokot-S 1-2 tablets p.o. b.i.d., sucralfate 1 gram p.o. q.i.d., Detrol-LA 4 mg p.o. q. a.m., torsemide 40 mg p.o. daily, zinc gluconate 50 mg p.o. at bedtime. FAMILY HISTORY: Significant for father has allergies, esophagus cancer; mother has uterine cancer, melanoma; sister has breast cancer, uterine cancer; maternal grandmother had colon cancer, uterine cancer; maternal grandfather has melanoma. SOCIAL HISTORY: . No smoking, no alcohol, no drug use. REVIEW OF SYSTEMS: As per HPI. Rest of the review of systems is negative. PHYSICAL EXAMINATION: GENERAL: The patient is of moderate build, not in acute distress. VITAL SIGNS: Temperature 37.1, pulse 78, respiratory rate 20, blood pressure 120/82, oxygen 94% on room air. HEENT: Pupils equal, round and reactive to light. Oral mucosa moist. LUNGS: No JVD, no neck masses. CARDIOVASCULAR: S1 and S2 heard. Regular rate and rhythm. No murmur, no gallop. RESPIRATORY SYSTEM: Normal AP diameter. No accessory muscle use. No wheezing, no crackles. ABDOMEN: Soft. Bowel sounds are present. Tenderness in the epigastric region. No guarding, no rigidity, no distention. CENTRAL NERVOUS SYSTEM: Cranial nerves II-XII are grossly intact, nonfocal. EXTREMITIES: No edema, no erythema. LABORATORY: WBC 6.3, hemoglobin 16.1, hematocrit 48.4, platelets 234. Sodium 134, potassium 3.4, chloride 94, CO2 26, BUN 32, creatinine 1.1, serum glucose 186, calcium 9.3, total bilirubin 1.3. AST 61, ALT 68, alkaline phosphatase 116. Troponin I high sensitivity 58.3, lipase 92. SARS-CoV-2 rapid test negative. IMAGING: CT of abdomen and pelvis without contrast, no definite acute intra- abdominal process. Chest x-ray, no acute findings. EKG: Sinus tachycardia with occasional PVCs at a rate of 105, left ventricular enlargement, left axis deviation. ASSESSMENT AND PLAN: This is a 71-year-old female who presents with abdominal pain. 1. Abdominal pain. The patient has history of abdominal pain in the past . Complains of pain and bloating, not able to eat much. We will keep her n.p.o. The patient's Pepcid, sucralfate and Protonix will be continued. The patient will be given a dose of bentyl and mylican and consult GI in the a.m. 2. Elevated troponin. Mildly elevated from last ER visit.Has Chest pressure. We will follow serial enzymes. We will cardiology consult. Echo and closely monitor. 5. Diabetes, currently not on any medication. We will follow up HbA1c levels. We will place her on insulin sliding scale. 6. History of sleep apnea, uses oxygen at bedtime. Seems to be not tolerated BiPAP in the past. 7. History of reactive airways dysfunction syndrome and she has multiple allergies. Continue home inhalers Continue to follow up with pulmonary. 7. History of chronic systolic CHF, nonischemic cardiomyopathy. Last EF was 20%, . The patient is on torsemide, potassium supplement. Will monitor for any volume overload. 8. Deep venous thrombosis prophylaxis: SCDs. DISPOSITION: Monitor in [employer]. PT/OT prior to discharge. Social Service to help with discharge planning. Level 1 full code. Job ID: [id number] MTDD
--- NOTE | 2022-03-16 07:16 | XRay Report ---
XR chest 1V portable CLINICAL HISTORY: Chest Pain TECHNIQUE: Single frontal radiograph of the chest was obtained. Comparison: Comparison is made to chest radiograph 03/07/2022 FINDINGS: No lines and tubes are seen. Cardiomegaly is noted. The lungs are clear. No evidence of pleural effus ion or pneumothorax. IMPRESSION: No acute chest disease. Cardiomegaly is noted. ACT 112: Negative or not required by law. Electronically signed by: Milan Rose M.D. 03/16/2022 7:14 AM
[2022-03-16] MEDS: INSULIN ASPART PER UNIT SC SCH ×4 (07:17→21:54)
[2022-03-16 07:40] LABS: Estimated Average Glucose 169 mg/dl; Hemoglobin A1C 7.5 % (4.5-5.6)
--- NOTE | 2022-03-16 08:25 | CT Scan Report ---
CT OF THE ABDOMEN AND PELVIS WITHOUT CONTRAST CLINICAL HISTORY: Mid abdominal pain, nausea, contrast allergy COMPARISON STUDY: CT of the abdomen and pelvis November 29, 2021. TECHNIQUE: Axial images of the abdomen and pelvis were obtained without IV contrast. Images were revi ewed in the axial, sagittal, and coronal planes. Automated exposure control was utilized for the dmitry dy. A dose lowering technique was utilized adhering to the principles of ALARA. FINDINGS: Cardiomegaly is again noted. A 5 mm right middle lobe nodule is unchanged since CT of April 27, 2020. This is benign. Interlobular septal thickening is noted within the lower lungs. Evaluation of the abdomen and pelvis is suboptimal on this unenhanced exam. No pneumatosis, free air or portal v enous gas is present. 1.4 cm left adrenal nodule is unchanged from earlier exams. This is benign give n stability. Bladder is not visualized. There is no significant biliary ductal dilatation. Unenhanced images of the spleen, right adrenal gland, kidneys and pancreas are unremarkable. No evidence for a bowel obstruction. Colonic diverticulosis is noted without evidence for acute diverticulitis. There i s no lymphadenopathy. There is no ascites. Old T11 compression deformity is unchanged. No acute fract ure is identified within the visualized skeletal structures. There is no hydronephrosis. No urinary c alculi are present. A subcentimeter segment 6 hepatic lesion is unchanged. This represents a cyst IMPRESSION: 1. No acute process within the abdomen or pelvis on unenhanced exam. 2. No bowel obstruction. Colonic diverticulosis without evidence for acute diverticulitis. 3. Cardiomegaly. ACT 112: Negative or not required by law. Electronically signed by: Maximilian Andrews M.D. 03/16/2022 8:22 AM
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
[2022-03-16] MEDS: MoRPHine SULFATE 4 MG/ML 1 ML CARP\\VIAL IV PRN ×2 (09:45→14:24)
--- NOTE | 2022-03-16 11:39 | Electrocardiogram Report ---
Test Reason : Blood Pressure : / mmHG Vent. Rate : 105 BPM Atrial Rate : 105 BPM P-R Int : 172 ms QRS Dur : 146 ms QT Int : 376 ms P-R-T Axes : 068 -47 098 degrees QTc Int : 496 ms Sinus tachycardia with occasional , and consecutive Premature ventricular complexes Left atrial enlargement Left axis deviation Poor R wave progression, consider anterior CA vs. lead placement vs. LVH Non-specific intra-ventricular conduction delay Possible Lateral infarct , age undetermined Abnormal ECG When compared with ECG of 07-MAR-2022 14:05, Borderline criteria for Lateral infarct are now Present Confirmed by Rg Maguire ([id number]) on 03/16/2022 11:39:24 AM Referred By: REFERRED SELF Confirmed By:Alejandro Maguire
[2022-03-16] MEDS: SUCRALFATE 1 GM TAB PO SCH ×4 (11:45→21:22)
[2022-03-16] MEDS: ASCORBIC ACID 500 MG TAB PO SCH (11:45)
[2022-03-16] MEDS: PANTOprazole 40 MG TAB PO SCH ×2 (11:45→18:12)
[2022-03-16] MEDS: ASPIRIN 81 MG ECTAB PO SCH (11:45)
[2022-03-16] MEDS: FAMOTIDINE 20 MG TAB PO SCH ×2 (11:46→21:21)
[2022-03-16] MEDS: CETIRIZINE HCL 10 MG TABLET PO SCH (11:46)
[2022-03-16] MEDS: CHOLECALCIFEROL 1,000 UNITS 25 MCG TAB PO SCH (11:46)
[2022-03-16] MEDS: DOCUSATE SODIUM/SENNA 50/8.6MG TAB PO SCH ×2 (11:46→22:29)
[2022-03-16] MEDS: DOCUSATE SODIUM 100 MG CAP PO SCH ×3 (11:46→22:29)
[2022-03-16] MEDS: TOLTERODINE TARTRATE LA 4 MG CAPCR PO SCH (11:47)
[2022-03-16] MEDS: POTASSIUM CHLORIDE 10 MEQ TABCR PO SCH ×2 (11:47→22:30)
[2022-03-16] MEDS: PROMETHAZINE HCL 6.25 MG in SODIUM CHLORIDE 0.9% 50 ML IV PRN (14:23)
[2022-03-16] MEDS: TORSEMIDE 20 MG TAB PO SCH (14:32)
--- NOTE | 2022-03-16 16:54 | Hospitalist Progress Note ---
Date of Service March 16, 2022 Assessment & Plan (1) Abdominal pain: Plan: Patient is is a 71-year-old female who presents with abdominal pain. Abdominal pain ? Secondary to Chronic Gastritis Patient states to be hypersensitive to chemicals which contributes to her symptoms ? Medication compliance --Last EGD in Nov 2021: Normal esophagus. Gastritis. Normal duodenal bulb and second portion of the duodenum. H. pylori test negative --CT ABD:No acute process within the abdomen or pelvis on unenhanced exam. No bowel obstruction. Colonic diverticulosis without evidence for acute diverticulitis. Cardiomegaly. Lipase 92 Continue Carafate, Protonix, Pepcid Advance diet as tolerated GI consulted Chronic Elevation of Troponin Patient denies chest pain currently Troponin levels trending down Cardiology consulted Echo pending Repeat EKG in the morning Continue aspirin DM II HbA1C: 7.4 Continue insulin Monitor BGs TESSA Nocturnal hypoxemia: Uses 4 L at bedtime as per patient Intolerance to BiPAP Continue supplemental oxygen at bedtime Reactive airways dysfunction syndrome H/O multiple allergies Continue home inhalers Follows with Pulmonary as outpatient Chronic systolic CHF Nonischemic cardiomyopathy Last EF was 20% No overt signs of volume overload Continue home diuretics Monitor volume status DVT Px: SCDs. Code Status Full code. Admission and Anticipated Discharge Date Admission Date: March 16, 2022 Subjective Patient is seen and examined at bedside States having nausea, vomiting ambulatory Also reports having mild abdominal discomfort Denies any chest pain, dyspnea, dizziness Offers no other complaints Review of Systems Review of Systems: All systems reviewed & are unremarkable except as noted in Subjective Physical Exam Physical Exam: Physical Exam: Vitals signs as noted above General Appearance:Moderately built and nourished, no apparent distress Head: normocephalic, Atraumatic Eyes: normal inspection, EOMI Neck: supple, Trachea midline Respiratory/Chest: Normal breath sounds, CTA, No accessory muscle use Cardiovascular: S1, S2, No murmur Abdomen/GI:Soft, Epigastric, LLQ tender, Bowel sounds present Extremities/Musculoskeletal:normal inspection, no edema Neurologic/Psych:AAOX3, grossly no focal neurological deficits Skin: normal color, warm Results & Data Results & Data ([facility]) Vital Signs (Past 12 Hours) Vital Signs Temp Pulse Pulse Pulse Resp BP Pulse Ox 03/16/22 15:47 99 H 20 91/53 L 96 03/16/22 15:14 96 H 03/16/22 12:08 93 H 22 112/75 91 03/16/22 09:52 36.3 C L 03/16/22 08:38 100 H 03/16/22 08:36 104 H 18 98 03/16/22 07:23 104 H 20 112/82 94 03/16/22 07:21 103 H 20 112/82 96 03/16/22 06:16 97 H 18 112/82 95 Laboratory Results Short CBC 03/15/22 03/16/22 Range/Units 21:00 05:17 WBC 6.27 5.27 (4.8-10.8) K/uL Hgb 16.1 H 14.7 (12.0-16.0) g/dL Hct 48.4 H 45.9 (37-47) % Plt Count 234 218 (130-400) K/uL BMP 03/15/22 03/16/22 21:00 05:17 Sodium 132 L 133 L Potassium 3.4 L 3.6 Chloride 94 L 98 Carbon Dioxide 26 27 BUN 32 H 33 H Creatinine 1.17 1.20 Glucose 186 H 212 H Calcium 9.3 9.0 Liver Function 03/15/22 Range/Units 21:00 Total Bilirubin 1.3 H (0.2-1.0) mg/dl AST 61 H (13-39) U/L ALT 68 H (7-52) U/L Alkaline Phosphatase 116 H (34-104) U/L Albumin 4.2 (3.4-5.0) gm/dl
[2022-03-16] MEDS ORDERED: Nursing to Pharmacy Communication SCH (19:30)
[2022-03-16] MEDS: ZINC SULFATE 220 MG CAPSULE PO SCH (21:21)
[2022-03-17] MEDS: MoRPHine SULFATE 4 MG/ML 1 ML CARP\\VIAL IV PRN ×4 (02:41→20:04)
[2022-03-17] MEDS: ONDANSETRON INJ 2 MG/ML 2 ML VIAL IV PRN (02:41)
[2022-03-17 06:11] LABS: Hematocrit (blood only) 41.7 % (37-47); Hemoglobin 13.7 g/dL (12.0-16.0); Mean Corpuscular Hemoglobin 31.6 pg (25-34); Mean Corpuscular Hgb Conc 32.9 g/dL (32-36); Mean Corpuscular Volume 96.1 fL (80-100); Mean Platelet Volume 10.5 fL (7.4-10.4); Platelet Count 195 K/uL (130-400); RDW Coefficient of Variation 14.2 % (11.5-14.5); RDW Standard Deviation 50.4 fL (36.4-46.3); Red Blood Count 4.34 M/uL (4.2-5.4); White Blood Count 4.97 K/uL (4.8-10.8)
[2022-03-17 06:40] LABS: BUN Creatinine Ratio 26.1 (10-20); Calcium 8.5 mg/dl (8.5-10.1); Creatinine Clr Calc Pharmacy 40.9 ml/min; Est GFR (African American) 46.7 ml/min; Est GFR (Non-African American) 40.3 ml/min; Potassium 3.3 mmol/L (3.5-5.1)
[2022-03-17] MEDS: CHOLECALCIFEROL 1,000 UNITS 25 MCG TAB PO SCH ×3 (07:49→07:59)
[2022-03-17] MEDS: SUCRALFATE 1 GM TAB PO SCH ×4 (07:50→21:15)
[2022-03-17] MEDS: PANTOprazole 40 MG TAB PO SCH ×2 (07:50→17:19)
[2022-03-17] MEDS: POTASSIUM CHLORIDE 10 MEQ TABCR PO SCH ×2 (07:51→21:15)
[2022-03-17] MEDS: DOCUSATE SODIUM 100 MG CAP PO SCH ×3 (07:52→21:14)
[2022-03-17] MEDS: FAMOTIDINE 20 MG TAB PO SCH ×2 (07:53→21:14)
[2022-03-17] MEDS: DOCUSATE SODIUM/SENNA 50/8.6MG TAB PO SCH ×2 (07:53→21:14)
[2022-03-17] MEDS: TOLTERODINE TARTRATE LA 4 MG CAPCR PO SCH (07:54)
[2022-03-17] MEDS: ASCORBIC ACID 500 MG TAB PO SCH (07:55)
[2022-03-17] MEDS: ASPIRIN 81 MG ECTAB PO SCH (07:55)
[2022-03-17] MEDS: CETIRIZINE HCL 10 MG TABLET PO SCH (07:55)
[2022-03-17] MEDS: INSULIN ASPART PER UNIT SC SCH ×4 (08:37→21:34)
[2022-03-17] MEDS ORDERED: POTASSIUM CHLORIDE CRTAB 20 MEQ TABCR PO ONE (09:00)
[2022-03-17] MEDS: TORSEMIDE 20 MG TAB PO SCH (13:14)
--- NOTE | 2022-03-17 17:08 | Hospitalist Progress Note ---
Date of Service March 17, 2022 Assessment & Plan (1) Abdominal pain: Plan: Patient is is a 71-year-old female who presents with abdominal pain. Abdominal pain ? Secondary to Chronic Gastritis Patient states to be hypersensitive to chemicals which contributes to her symptoms ? Medication compliance --Last EGD in Nov 2021: Normal esophagus. Gastritis. Normal duodenal bulb and second portion of the duodenum. H. pylori test negative --CT ABD:No acute process within the abdomen or pelvis on unenhanced exam. No bowel obstruction. Colonic diverticulosis without evidence for acute diverticulitis. Cardiomegaly. Lipase 92 Continue Carafate, Protonix, Pepcid GI consulted Improving, advance diet Chronic Elevation of Troponin Troponin levels trending down Cardiology consulted Echo pending Continue aspirin DM II HbA1C: 7.4 Continue insulin Monitor BGs TESSA Nocturnal hypoxemia: Uses 4 L at bedtime as per patient Intolerance to BiPAP Continue supplemental oxygen at bedtime Reactive airways dysfunction syndrome H/O multiple allergies Continue home inhalers Follows with Pulmonary as outpatient Chronic systolic CHF Nonischemic cardiomyopathy Last EF was 20% No overt signs of volume overload Continue home diuretics Monitor volume status DVT Px: SCDs. Code Status Full code. Admission and Anticipated Discharge Date Admission Date: March 17, 2022 Subjective Patient is seen and examined at bedside States feeling better today Nausea, vomiting, Abdominal pain better Denies any chest pain, dyspnea, dizziness Tolerating diet Review of Systems Review of Systems: All systems reviewed & are unremarkable except as noted in Subjective Physical Exam Physical Exam: Physical Exam: Vitals signs as noted above General Appearance:Moderately built and nourished, no apparent distress Head: normocephalic, Atraumatic Eyes: normal inspection, EOMI Neck: supple, Trachea midline Respiratory/Chest: Normal breath sounds, CTA, No accessory muscle use Cardiovascular: S1, S2, No murmur Abdomen/GI:Soft, non tender, Bowel sounds present Extremities/Musculoskeletal:normal inspection, no edema Neurologic/Psych:AAOX3, grossly no focal neurological deficits Skin: normal color, warm Results & Data Results & Data ([facility]) Vital Signs (Past 12 Hours) Vital Signs Temp Pulse Resp BP Pulse Ox 03/17/22 14:46 36.6 C 107 H 20 125/77 92 03/17/22 11:14 36.7 C 106 H 18 101/64 03/17/22 07:31 35.9 C L 47 L 20 104/67 100 Laboratory Results Short CBC 03/17/22 Range/Units 05:36 WBC 4.97 (4.8-10.8) K/uL Hgb 13.7 (12.0-16.0) g/dL Hct 41.7 (37-47) % Plt Count 195 (130-400) K/uL BMP 03/17/22 05:36 Sodium 136 Potassium 3.3 L Chloride 99 Carbon Dioxide 27 BUN 35 H Creatinine 1.34 H Glucose 96 Calcium 8.5
[2022-03-17] MEDS ORDERED: oxyCODONE HCL IR 5 MG TAB (IMMEDIATE RELEASE) PO STA (18:18)
--- NOTE | 2022-03-17 19:09 | Electrocardiogram Report ---
Test Reason : Blood Pressure : / mmHG Vent. Rate : 102 BPM Atrial Rate : 102 BPM P-R Int : 174 ms QRS Dur : 134 ms QT Int : 394 ms P-R-T Axes : 070 -57 074 degrees QTc Int : 513 ms Poor data quality, interpretation may be adversely affected Sinus tachycardia with frequent , and consecutive Premature ventricular complexes Biatrial enlargement Left axis deviation Non-specific intra-ventricular conduction block Abnormal ECG When compared with ECG of 15-MAR-2022 21:24, Borderline criteria for Lateral infarct are no longer Present T wave inversion no longer evident in Lateral leads Confirmed by Rg Maguire ([id number]) on 03/17/2022 7:08:53 PM Referred By: REFERRED SELF Confirmed By:Alejandro Maguire
[2022-03-17] MEDS: ZINC SULFATE 220 MG CAPSULE PO SCH (21:16)
[2022-03-18] MEDS: ONDANSETRON INJ 2 MG/ML 2 ML VIAL IV PRN ×3 (00:35→22:55)
[2022-03-18] MEDS: MoRPHine SULFATE 4 MG/ML 1 ML CARP\\VIAL IV PRN ×4 (06:10→21:13)
[2022-03-18] MEDS: FAMOTIDINE 20 MG TAB PO SCH ×2 (08:15→21:05)
[2022-03-18] MEDS: TOLTERODINE TARTRATE LA 4 MG CAPCR PO SCH (08:15)
[2022-03-18] MEDS: ASCORBIC ACID 500 MG TAB PO SCH (08:16)
[2022-03-18] MEDS: PANTOprazole 40 MG TAB PO SCH ×2 (08:16→17:45)
[2022-03-18] MEDS: ASPIRIN 81 MG ECTAB PO SCH (08:16)
[2022-03-18] MEDS: DOCUSATE SODIUM/SENNA 50/8.6MG TAB PO SCH ×2 (08:16→21:04)
[2022-03-18] MEDS: CETIRIZINE HCL 10 MG TABLET PO SCH (08:16)
[2022-03-18] MEDS: POTASSIUM CHLORIDE 10 MEQ TABCR PO SCH (08:16)
[2022-03-18] MEDS: DOCUSATE SODIUM 100 MG CAP PO SCH ×3 (08:16→21:04)
[2022-03-18] MEDS: SUCRALFATE 1 GM TAB PO SCH ×4 (08:16→21:05)
[2022-03-18] MEDS: INSULIN ASPART PER UNIT SC SCH ×4 (08:17→21:06)
[2022-03-18 08:56] LABS: BUN Creatinine Ratio 22.8 (10-20); Calcium 8.9 mg/dl (8.5-10.1); Est GFR (African American) 37.2 ml/min; Est GFR (Non-African American) 32.1 ml/min; Potassium 4.4 mmol/L (3.5-5.1)
[2022-03-18] MEDS ORDERED: SODIUM CHLORIDE 0.9% 1000ML 1,000 ML IV ONE (10:55)
--- NOTE | 2022-03-18 11:25 | XCELERA ---
[id number]
--- NOTE | 2022-03-18 11:57 | Electrocardiogram Report ---
Test Reason : Blood Pressure : / mmHG Vent. Rate : 105 BPM Atrial Rate : 105 BPM P-R Int : 166 ms QRS Dur : 142 ms QT Int : 392 ms P-R-T Axes : 087 -65 078 degrees QTc Int : 518 ms Poor data quality, interpretation may be adversely affected Sinus tachycardia with frequent Premature ventricular complexes Left atrial enlargement Left axis deviation Non-specific intra-ventricular conduction block Abnormal ECG When compared with ECG of 17-MAR-2022 05:44, No significant change was found Confirmed by Rg Maguire ([id number]) on 03/18/2022 11:57:02 AM Referred By: REFERRED SELF Confirmed By:Alejandro Maguire
--- NOTE | 2022-03-18 17:06 | Ultrasound Report ---
ULTRASOUND KIDNEYS AND BLADDER CLINICAL HISTORY: Acute renal insufficiency. COMPARISON STUDY: Abdominal CT dated 03/15/2022. TECHNIQUE: Real-time, grayscale, and color flow sonography of the kidneys and bladder is performed. I mages are reviewed in the transverse and longitudinal planes. FINDINGS: Kidneys: The kidneys demonstrate mild cortical atrophy. Echotexture is normal. The right kidney measu res 9.7 cm in length and the left kidney measures 11.4 cm. There is no hydronephrosis. No shadowing renal calculi are identified. There is no sonographic evidence of contour deforming renal mass lesion . No perinephric fluid is identified. Bladder: The bladder is normal in appearance. Bilateral ureteral jets were seen. IMPRESSION: 1. The kidneys demonstrate mild cortical atrophy and are without hydronephrosis. 2. The bladder is normal as visualized. ACT 112: Negative or not required by law. Electronically signed by: Stanley Cavanaugh M.D. 03/18/2022 5:04 PM
--- NOTE | 2022-03-18 18:38 | Hospitalist Progress Note ---
Date of Service March 18, 2022 Assessment & Plan (1) Abdominal pain: Plan: Patient is is a 71-year-old female who presents with abdominal pain. Abdominal pain ? Secondary to Chronic Gastritis Patient states to be hypersensitive to chemicals which contributes to her symptoms ? Medication compliance --Last EGD in Nov 2021: Normal esophagus. Gastritis. Normal duodenal bulb and second portion of the duodenum. H. pylori test negative --CT ABD:No acute process within the abdomen or pelvis on unenhanced exam. No bowel obstruction. Colonic diverticulosis without evidence for acute diverticulitis. Cardiomegaly. Lipase 92 Continue Carafate, Protonix, Pepcid GI consulted Improved Tolerating advanced diet Chronic Elevation of Troponin Troponin levels trending down Cardiology consulted--pending Echo: Severe global hypokinesis of left ventricle. EF 15 to 20%. Continue aspirin DM II HbA1C: 7.4 Continue insulin Monitor BGs TESSA Nocturnal hypoxemia: Uses 4 L at bedtime as per patient Intolerance to BiPAP Continue supplemental oxygen at bedtime Reactive airways dysfunction syndrome H/O multiple allergies Continue home inhalers Follows with Pulmonary as outpatient Chronic systolic CHF Nonischemic cardiomyopathy Last EF was 20% ECHO: Left ventricular systolic function is severely reduced. Right ventricle is mildly dilated. Right ventricle systolic pressure is mildly reduced. Left atrium is moderately dilated. Mild aortic regurgitation. Moderate to severe mitral regurgitation. No overt signs of volume overload Continue home diuretics Monitor volume status DVT Px: SCDs. Code Status Full code. Disposition PT/OT prior to discharge Admission and Anticipated Discharge Date Admission Date: March 17, 2022 Subjective Patient is seen and examined at bedside Abd pain much improved States having nausea Denies chest pain today No other complaints Review of Systems Review of Systems: All systems reviewed & are unremarkable except as noted in Subjective Physical Exam Physical Exam: Physical Exam: Vitals signs as noted above General Appearance:Moderately built and nourished, no apparent distress Head: normocephalic, Atraumatic Eyes: normal inspection, EOMI Neck: supple, Trachea midline Respiratory/Chest: Normal breath sounds, CTA, No accessory muscle use Cardiovascular: S1, S2, No murmur Abdomen/GI:Soft, non tender, Bowel sounds present Extremities/Musculoskeletal:normal inspection, no edema Neurologic/Psych:AAOX3, grossly no focal neurological deficits Skin: normal color, warm Results & Data Results & Data ([facility]) Vital Signs (Past 12 Hours) Vital Signs Temp Pulse Pulse Resp BP Pulse Ox 03/18/22 18:28 36.3 C L 100 H 18 102/61 98 03/18/22 15:00 103 H 03/18/22 11:39 36.3 C L 102 H 16 136/81 92 03/18/22 08:52 104/68 03/18/22 07:50 36.4 C L 88 18 94/57 L 96 03/18/22 07:00 107 H Laboratory Results [facility] 03/18/22 07:49 Sodium 135 L Potassium 4.4 D Chloride 98 Carbon Dioxide 29 BUN 37 H Creatinine 1.62 H Glucose 112 H Calcium 8.9
[2022-03-18] MEDS: ZINC SULFATE 220 MG CAPSULE PO SCH (21:06)
[2022-03-19] MEDS: PROMETHAZINE HCL 6.25 MG in SODIUM CHLORIDE 0.9% 50 ML IV PRN (03:26)
[2022-03-19] MEDS: MoRPHine SULFATE 4 MG/ML 1 ML CARP\\VIAL IV PRN ×3 (03:51→17:33)
[2022-03-19] MEDS: ONDANSETRON INJ 2 MG/ML 2 ML VIAL IV PRN ×3 (06:25→17:33)
[2022-03-19 08:15] LABS: BUN Creatinine Ratio 23.5 (10-20); Calcium 9.1 mg/dl (8.5-10.1); Est GFR (African American) 37.2 ml/min; Est GFR (Non-African American) 32.1 ml/min; Potassium 4.3 mmol/L (3.5-5.1)
[2022-03-19] MEDS: CHOLECALCIFEROL 1,000 UNITS 25 MCG TAB PO SCH (08:15)
[2022-03-19] MEDS: ASPIRIN 81 MG ECTAB PO SCH (08:16)
[2022-03-19] MEDS: DOCUSATE SODIUM/SENNA 50/8.6MG TAB PO SCH ×2 (08:16→20:38)
[2022-03-19] MEDS: DOCUSATE SODIUM 100 MG CAP PO SCH ×3 (08:16→20:38)
[2022-03-19] MEDS: CETIRIZINE HCL 10 MG TABLET PO SCH (08:16)
[2022-03-19] MEDS: PANTOprazole 40 MG TAB PO SCH ×2 (08:16→17:34)
[2022-03-19] MEDS: SUCRALFATE 1 GM TAB PO SCH ×4 (08:16→20:39)
[2022-03-19] MEDS: FAMOTIDINE 20 MG TAB PO SCH ×2 (08:16→20:38)
[2022-03-19] MEDS: ASCORBIC ACID 500 MG TAB PO SCH (08:17)
[2022-03-19] MEDS: TOLTERODINE TARTRATE LA 4 MG CAPCR PO SCH (08:17)
[2022-03-19] MEDS: INSULIN ASPART PER UNIT SC SCH ×4 (09:13→21:32)
--- NOTE | 2022-03-19 12:37 | CT Scan Report ---
CT OF THE ABDOMEN AND PELVIS WITHOUT CONTRAST CLINICAL HISTORY: Abdominal pain. COMPARISON STUDY: CT of the abdomen and pelvis March 15, 2020. Renal ultrasound March 18, 2022. TECHNIQUE: Axial images of the abdomen and pelvis were obtained without IV contrast. Images were revi ewed in the axial, sagittal, and coronal planes. Automated exposure control was utilized for the dmitry dy. A dose lowering technique was utilized adhering to the principles of ALARA. FINDINGS: Trace right pleural effusion has developed. Cardiomegaly is again noted. A right middle lob e nodule is unchanged from earlier exams. This is benign given stability. No pneumatosis, free air or portal venous gas is present. Evaluation of the abdomen and pelvis is suboptimal on this unenhanced examination. Liver, spleen, right adrenal gland, kidneys and pancreas are unremarkable. There is no b iliary or pancreatic ductal dilatation. Gallbladder is not visualized and likely surgically absent. 1 .5 cm left adrenal nodule is unchanged from earlier exams. This is benign. Mild stranding within the tyler hepatis is noted. This was shown on earlier CT of November 29, 2021. This is likely related to volume overload. Body wall edema is present. Colonic diverticulosis is noted without evidence for acu te diverticulitis. There is no evidence for a bowel obstruction. There is no lymphadenopathy. IMPRESSION: 1. Evidence for mild volume overload with a trace right pleural effusions, body wall edema and mild r ight upper quadrant stranding. 2. No bowel obstruction. No bowel wall thickening on unenhanced exam. 3. Sigmoid diverticulosis without evidence for acute diverticulitis. ACT 112: Negative or not required by law. Electronically signed by: Maximilian Andrews M.D. 03/19/2022 12:36 PM
[2022-03-19] MEDS: TORSEMIDE 20 MG TAB PO SCH (14:24)
[2022-03-19] MEDS ORDERED: LEVALBUTEROL HCL 0.63 MG/3 ML NEB NEB PRN (14:33)
--- NOTE | 2022-03-19 17:07 | Hospitalist Progress Note ---
Date of Service March 19, 2022 Assessment & Plan (1) Abdominal pain: Plan: Patient is is a 71-year-old female who presents with abdominal pain. Abdominal pain ? Secondary to Chronic Gastritis Patient states to be hypersensitive to chemicals which contributes to her symptoms ? Medication compliance --Last EGD in Nov 2021: Normal esophagus. Gastritis. Normal duodenal bulb and second portion of the duodenum. H. pylori test negative --CT ABD:No acute process within the abdomen or pelvis on unenhanced exam. No bowel obstruction. Colonic diverticulosis without evidence for acute diverticulitis. Cardiomegaly. Lipase 92 Continue Carafate, Protonix, Pepcid GI consulted Outpatient colonoscopy as per GI Repeat CT abd suggestive of mild volume overload Restart diuretics Chronic Elevation of Troponin Troponin levels trending down Cardiology consulted--pending Echo: Severe global hypokinesis of left ventricle. EF 15 to 20%. Continue aspirin DM II HbA1C: 7.4 Continue insulin Monitor BGs TESSA Nocturnal hypoxemia: Uses 4 L at bedtime as per patient Intolerance to BiPAP Continue supplemental oxygen at bedtime Reactive airways dysfunction syndrome H/O multiple allergies Continue home inhalers Follows with Pulmonary as outpatient Chronic systolic CHF Nonischemic cardiomyopathy Last EF was 20% ECHO: Left ventricular systolic function is severely reduced. Right ventricle is mildly dilated. Right ventricle systolic pressure is mildly reduced. Left atrium is moderately dilated. Mild aortic regurgitation. Moderate to severe mitral regurgitation. No overt signs of volume overload Continue home diuretics Monitor volume status DVT Px: SCDs. Code Status Full code. Disposition PT/OT prior to discharge Admission and Anticipated Discharge Date Admission Date: March 17, 2022 Subjective Patient is seen and examined at bedside No distress on exam Denies any chest pain today States having mild abdominal pain Offers no other complaints Poor appetite as per patient Discussed with GI today Review of Systems Review of Systems: All systems reviewed & are unremarkable except as noted in Subjective Physical Exam Physical Exam: Physical Exam: Vitals signs as noted above General Appearance:Moderately built and nourished, no apparent distress Head: normocephalic, Atraumatic Eyes: normal inspection, EOMI Neck: supple, Trachea midline Respiratory/Chest: Normal breath sounds, CTA, No accessory muscle use Cardiovascular: S1, S2, No murmur Abdomen/GI:Soft, non tender, Bowel sounds present Extremities/Musculoskeletal:normal inspection, no edema Neurologic/Psych:AAOX3, grossly no focal neurological deficits Skin: normal color, warm Results & Data Results & Data ([facility]) Vital Signs (Past 12 Hours) Vital Signs Temp Pulse Pulse Resp BP Pulse Ox 03/19/22 16:06 94 03/19/22 15:29 36.3 C L 90 18 120/55 L 92 03/19/22 11:34 36.3 C L 106 H 18 109/77 94 03/19/22 07:44 36.3 C L 113 H 18 113/75 94 03/19/22 07:00 117 H Laboratory Results BMP 03/19/22 07:24 Sodium 131 L Potassium 4.3 Chloride 97 L Carbon Dioxide 24 BUN 38 H Creatinine 1.62 H Glucose 227 H Calcium 9.1
[2022-03-19] MEDS ORDERED: FUROSEMIDE INJ 20 MG/2 ML VIAL IV ONE (18:00)
--- NOTE | 2022-03-19 18:19 | Electrocardiogram Report ---
Test Reason : Blood Pressure : / mmHG Vent. Rate : 109 BPM Atrial Rate : 109 BPM P-R Int : 164 ms QRS Dur : 138 ms QT Int : 372 ms P-R-T Axes : 068 -68 056 degrees QTc Int : 500 ms Sinus tachycardia with frequent Premature ventricular complexes Left atrial enlargement Left axis deviation Non-specific intra-ventricular conduction block Possible Lateral infarct , age undetermined Abnormal ECG When compared with ECG of 18-MAR-2022 05:57, No significant change was found Confirmed by Rg Maguire ([id number]) on 03/19/2022 6:19:23 PM Referred By: REFERRED SELF Confirmed By:Alejandro Maguire
[2022-03-19] MEDS ORDERED: POLYETHYLENE (MIRALAX) 17 GM PACK PO STA (19:56)
[2022-03-19] MEDS ORDERED: DICYCLOMINE HCL 10 MG CAP PO ONE (19:56)
[2022-03-19] MEDS: POTASSIUM CHLORIDE 10 MEQ TABCR PO SCH (20:39)
[2022-03-19] MEDS: ZINC SULFATE 220 MG CAPSULE PO SCH (20:39)
[2022-03-20 07:09] LABS: Est GFR (African American) 53.9 ml/min; Est GFR (Non-African American) 46.5 ml/min; Potassium 2.7 mmol/L (3.5-5.1)
[2022-03-20 07:10] LABS: BUN Creatinine Ratio 22.7 (10-20); Calcium 8.2 mg/dl (8.5-10.1); Creatinine Clr Calc Pharmacy 45.9 ml/min; Magnesium 1.5 mg/dl (1.7-2.4)
[2022-03-20] MEDS ORDERED: POLYETHYLENE (MIRALAX) 17 GM PACK PO PRN (08:14)
[2022-03-20] MEDS: INSULIN ASPART PER UNIT SC SCH ×4 (09:04→22:03)
[2022-03-20] MEDS: ONDANSETRON INJ 2 MG/ML 2 ML VIAL IV PRN ×2 (09:12→16:45)
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
[2022-03-20] MEDS: DOCUSATE SODIUM/SENNA 50/8.6MG TAB PO SCH ×2 (09:38→22:03)
[2022-03-20] MEDS: TOLTERODINE TARTRATE LA 4 MG CAPCR PO SCH (09:38)
[2022-03-20] MEDS: CETIRIZINE HCL 10 MG TABLET PO SCH (09:38)
[2022-03-20] MEDS: DOCUSATE SODIUM 100 MG CAP PO SCH ×3 (09:38→22:03)
[2022-03-20] MEDS: ASPIRIN 81 MG ECTAB PO SCH (09:38)
[2022-03-20] MEDS: ASCORBIC ACID 500 MG TAB PO SCH (09:38)
[2022-03-20] MEDS: FAMOTIDINE 20 MG TAB PO SCH ×2 (09:38→22:04)
[2022-03-20] MEDS: PANTOprazole 40 MG TAB PO SCH ×2 (09:38→18:02)
[2022-03-20] MEDS: CHOLECALCIFEROL 1,000 UNITS 25 MCG TAB PO SCH (09:38)
[2022-03-20] MEDS: SUCRALFATE 1 GM TAB PO SCH ×4 (09:38→22:05)
[2022-03-20] MEDS: POTASSIUM CHLORIDE CRTAB 20 MEQ TABCR PO SCH ×2 (09:51→22:02)
[2022-03-20] MEDS: MAGNESIUM SULFATE / D5W 1 GM/100 ML BAG IV SCH ×2 (09:56→12:59)
[2022-03-20] MEDS: POTASSIUM CHLORIDE / WTR 10 MEQ/100 ML PLCT IV SCH ×3 (09:59→12:59)
[2022-03-20] MEDS: MoRPHine SULFATE 4 MG/ML 1 ML CARP\\VIAL IV PRN ×2 (12:56→18:14)
[2022-03-20] MEDS: PROMETHAZINE HCL 6.25 MG in SODIUM CHLORIDE 0.9% 50 ML IV PRN (13:40)
[2022-03-20] MEDS: TORSEMIDE 20 MG TAB PO SCH (13:42)
--- NOTE | 2022-03-20 14:58 | XRay Report ---
KUB CLINICAL HISTORY: Small bowel obstruction. FINDINGS: 2 AP supine abdominal radiographs are correlated with abdominal CT dated 03/19/2022. There i s a nonobstructed abdominal bowel gas pattern. Mild fecal retention is noted in the colon. No evidenc e of intraperitoneal free air is seen on these supine images. There are no abnormal abdominal calcifi cations. Phleboliths are seen in the pelvis. The skeletal structures are osteopenic and appear intact . The heart is enlarged. IMPRESSION: Nonobstructed abdominal bowel gas pattern. Electronically signed by: Stanley Cavanaugh M.D. 03/20/2022 2:57 PM
--- NOTE | 2022-03-20 17:40 | Hospitalist Progress Note ---
Date of Service March 20, 2022 Assessment & Plan (1) Abdominal pain: Plan: Patient is is a 71-year-old female who presents with abdominal pain. Abdominal pain ? Secondary to Chronic Gastritis Patient states to be hypersensitive to chemicals which contributes to her symptoms ? Medication compliance --Last EGD in Nov 2021: Normal esophagus. Gastritis. Normal duodenal bulb and second portion of the duodenum. H. pylori test negative --CT ABD:No acute process within the abdomen or pelvis on unenhanced exam. No bowel obstruction. Colonic diverticulosis without evidence for acute diverticulitis. Cardiomegaly. Lipase 92 Continue Carafate, Protonix, Pepcid GI consulted Outpatient colonoscopy as per GI Repeat CT abd suggestive of mild volume overload KUB:Nonobstructed abdominal bowel gas pattern. Continue current medications Chronic Elevation of Troponin Troponin levels trending down Consulted Cardiology Echo: Severe global hypokinesis of left ventricle. EF 15 to 20%. Continue aspirin DM II HbA1C: 7.4 Continue insulin Monitor BGs TESSA Nocturnal hypoxemia: Uses 4 L at bedtime as per patient Intolerance to BiPAP Continue supplemental oxygen at bedtime Reactive airways dysfunction syndrome H/O multiple allergies Continue home inhalers Follows with Pulmonary as outpatient Chronic systolic CHF Nonischemic cardiomyopathy Last EF was 20% ECHO: Left ventricular systolic function is severely reduced. Right ventricle is mildly dilated. Right ventricle systolic pressure is mildly reduced. Left atrium is moderately dilated. Mild aortic regurgitation. Moderate to severe mitral regurgitation. No overt signs of volume overload Continue home diuretics Monitor volume status Hypokalemia Hypomagnesemia Replace as needed DVT Px: SCDs. Code Status Full code. Disposition PT/OT prior to discharge Admission and Anticipated Discharge Date Admission Date: March 17, 2022 Subjective Patient is seen and examined at bedside Reported Nausea to RN this afternoon Abd pain better as per patient during my encounter KUB reviewed today Review of Systems Review of Systems: All systems reviewed & are unremarkable except as noted in Subjective Physical Exam Physical Exam: Physical Exam: Vitals signs as noted above General Appearance:Moderately built and nourished, no apparent distress Head: normocephalic, Atraumatic Eyes: normal inspection, EOMI Neck: supple, Trachea midline Respiratory/Chest: Normal breath sounds, CTA, No accessory muscle use Cardiovascular: S1, S2, No murmur Abdomen/GI:Soft, non tender, Bowel sounds present Extremities/Musculoskeletal:normal inspection, no edema Neurologic/Psych:AAOX3, grossly no focal neurological deficits Skin: normal color, warm Results & Data Results & Data ([facility]) Vital Signs (Past 12 Hours) Vital Signs Temp Pulse Pulse Resp BP BP Pulse Ox 03/20/22 15:26 117 H 03/20/22 13:43 36.3 C L 114 H 20 112/79 98 03/20/22 07:23 81 03/20/22 06:28 36.4 C L 84 18 93/52 L 93 Laboratory Results [facility] 03/20/22 05:41 Sodium 136 Potassium 2.7 L D Chloride 97 L Carbon Dioxide 32 BUN 27 H Creatinine 1.19 D Glucose 89 Calcium 8.2 L
[2022-03-20] MEDS: ZINC SULFATE 220 MG CAPSULE PO SCH (22:05)
[2022-03-21] MEDS: MoRPHine SULFATE 4 MG/ML 1 ML CARP\\VIAL IV PRN ×2 (02:29→10:13)
[2022-03-21] MEDS: ONDANSETRON INJ 2 MG/ML 2 ML VIAL IV PRN ×3 (02:29→18:34)
[2022-03-21] MEDS: PROMETHAZINE HCL 6.25 MG in SODIUM CHLORIDE 0.9% 50 ML IV PRN (04:52)
[2022-03-21 06:50] LABS: Calcium 8.3 mg/dl (8.5-10.1); Creatinine Clr Calc Pharmacy 37.9 ml/min; Est GFR (African American) 42.8 ml/min; Magnesium 1.9 mg/dl (1.7-2.4); Potassium 3.7 mmol/L (3.5-5.1)
[2022-03-21] MEDS: INSULIN ASPART PER UNIT SC SCH ×4 (10:13→21:55)
[2022-03-21] MEDS: POTASSIUM CHLORIDE CRTAB 20 MEQ TABCR PO SCH (10:21)
[2022-03-21] MEDS: SUCRALFATE 1 GM TAB PO SCH ×4 (10:22→21:09)
[2022-03-21] MEDS: PANTOprazole 40 MG TAB PO SCH ×2 (10:22→18:15)
[2022-03-21] MEDS: ASPIRIN 81 MG ECTAB PO SCH (10:23)
[2022-03-21] MEDS: CHOLECALCIFEROL 1,000 UNITS 25 MCG TAB PO SCH (10:23)
[2022-03-21] MEDS: CETIRIZINE HCL 10 MG TABLET PO SCH (10:23)
[2022-03-21] MEDS: ASCORBIC ACID 500 MG TAB PO SCH (10:23)
[2022-03-21] MEDS: DOCUSATE SODIUM 100 MG CAP PO SCH ×3 (10:24→21:09)
[2022-03-21] MEDS: FAMOTIDINE 20 MG TAB PO SCH ×2 (10:24→21:09)
[2022-03-21] MEDS: DOCUSATE SODIUM/SENNA 50/8.6MG TAB PO SCH ×2 (10:25→21:10)
[2022-03-21] MEDS: TOLTERODINE TARTRATE LA 4 MG CAPCR PO SCH (10:25)
[2022-03-21] MEDS ORDERED: SIMETHICONE 80 MG CHEW PO PRN (12:50)
[2022-03-21] MEDS: TORSEMIDE 20 MG TAB PO SCH (14:17)
--- NOTE | 2022-03-21 15:19 | Hospitalist Progress Note ---
Date of Service March 21, 2022 Assessment & Plan (1) Abdominal pain: Plan: Patient is is a 71-year-old female who presents with abdominal pain. Abdominal pain ? Secondary to Chronic Gastritis Patient states to be hypersensitive to chemicals which contributes to her symptoms ? Medication compliance --Last EGD in Nov 2021: Normal esophagus. Gastritis. Normal duodenal bulb and second portion of the duodenum. H. pylori test negative --CT ABD:No acute process within the abdomen or pelvis on unenhanced exam. No bowel obstruction. Colonic diverticulosis without evidence for acute diverticulitis. Cardiomegaly. Lipase 92 Continue Carafate, Protonix, Pepcid GI consulted Outpatient colonoscopy as per GI Repeat CT abd suggestive of mild volume overload Continue home diuretics KUB:Nonobstructed abdominal bowel gas pattern. No Tenderness on exam, Tolerates diet Minimize IV narcotics Chronic Elevation of Troponin Troponin levels trending down Consulted Cardiology Echo: Severe global hypokinesis of left ventricle. EF 15 to 20%. Continue aspirin DM II HbA1C: 7.4 Continue insulin Monitor BGs TESSA Nocturnal hypoxemia: Uses 4 L at bedtime as per patient Intolerance to BiPAP Continue supplemental oxygen at bedtime Reactive airways dysfunction syndrome H/O multiple allergies Continue home inhalers Follows with Pulmonary as outpatient Had 2 step: Needs 2 liters with activity Chronic systolic CHF Nonischemic cardiomyopathy Last EF was 20% ECHO: Left ventricular systolic function is severely reduced. Right ventricle is mildly dilated. Right ventricle systolic pressure is mildly reduced. Left atrium is moderately dilated. Mild aortic regurgitation. Moderate to severe mitral regurgitation. No overt signs of volume overload Continue home diuretics Monitor volume status Hypokalemia Hypomagnesemia Replace as needed DVT Px: SCDs. Code Status Full code. Disposition Home Refuses Admission and Anticipated Discharge Date Admission Date: March 17, 2022 Subjective Patient is seen and examined at bedside States having nausea but no vomiting Denies any chest pain, dyspnea, dizziness Tolerating diet with no issues Had 2 step earlier today Review of Systems Review of Systems: All systems reviewed & are unremarkable except as noted in Subjective Physical Exam Physical Exam: Physical Exam: Vitals signs as noted above General Appearance:Moderately built and nourished, no apparent distress Head: normocephalic, Atraumatic Eyes: normal inspection, EOMI Neck: supple, Trachea midline Respiratory/Chest: Normal breath sounds, CTA, No accessory muscle use Cardiovascular: S1, S2, No murmur Abdomen/GI:Soft, non tender, Bowel sounds present Extremities/Musculoskeletal:normal inspection, no edema Neurologic/Psych:AAOX3, grossly no focal neurological deficits Skin: normal color, warm Results & Data Results & Data ([facility]) Vital Signs (Past 12 Hours) Vital Signs Pulse Pulse Pulse Pulse Pulse Resp Resp 03/21/22 14:37 99 H 110 H 68 67 20 22 03/21/22 07:29 83 Resp Resp Pulse Ox Pulse Ox Pulse Ox Pulse Ox 03/21/22 14:37 20 16 92 87 L 92 96 03/21/22 07:29 Laboratory Results [facility] 03/21/22 05:31 Sodium 134 L Potassium 3.7 D Chloride 96 L Carbon Dioxide 32 BUN 23 Creatinine 1.44 H Glucose 233 H Calcium 8.3 L
[2022-03-21] MEDS: oxyCODONE/ACETAMINOPHEN 5mg/325mg TAB PO PRN ×2 (16:00→21:03)
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
[2022-03-21] MEDS: ZINC SULFATE 220 MG CAPSULE PO SCH (21:09)
[2022-03-22] MEDS: ONDANSETRON INJ 2 MG/ML 2 ML VIAL IV PRN (01:12)
[2022-03-22 06:53] LABS: BUN Creatinine Ratio 16.4 (10-20); Calcium 8.8 mg/dl (8.5-10.1); Est GFR (African American) 40.1 ml/min; Est GFR (Non-African American) 34.6 ml/min; Magnesium 1.9 mg/dl (1.7-2.4); Potassium 4.1 mmol/L (3.5-5.1)
--- NOTE | 2022-03-22 09:05 | XRay Report ---
XR chest 1V portable CLINICAL HISTORY: Hypoxia. COMPARISON STUDY: 03/15/2022 TECHNIQUE: 1 view of the chest FINDINGS: Single frontal view of the chest demonstrates the heart to again be enlarged. There is a decreased in spiratory effort with elevation of the hemidiaphragms and crowding of the bronchovascular markings at the lung bases and centrally. The lungs are clear of alveolar opacities. There is no evidence for pl eural effusion. There is no evidence for vascular congestion. There is no acute osseous pathology. IMPRESSION: 1. There is a decreased inspiratory effort with otherwise no acute chest disease. ACT 112: Negative or not required by law. Electronically signed by: Ender Calvo M.D. 03/22/2022 9:04 AM
[2022-03-22] MEDS: INSULIN ASPART PER UNIT SC SCH ×2 (10:08→13:46)
[2022-03-22] MEDS: PANTOprazole 40 MG TAB PO SCH (10:11)
[2022-03-22] MEDS: SUCRALFATE 1 GM TAB PO SCH ×2 (10:11→12:19)
[2022-03-22] MEDS: ASCORBIC ACID 500 MG TAB PO SCH (10:11)
[2022-03-22] MEDS: FAMOTIDINE 20 MG TAB PO SCH (10:12)
[2022-03-22] MEDS: CHOLECALCIFEROL 1,000 UNITS 25 MCG TAB PO SCH (10:12)
[2022-03-22] MEDS: POTASSIUM CHLORIDE CRTAB 20 MEQ TABCR PO SCH (10:12)
[2022-03-22] MEDS: DOCUSATE SODIUM 100 MG CAP PO SCH ×2 (10:12→13:46)
[2022-03-22] MEDS: DOCUSATE SODIUM/SENNA 50/8.6MG TAB PO SCH (10:12)
[2022-03-22] MEDS: ASPIRIN 81 MG ECTAB PO SCH (10:12)
[2022-03-22] MEDS: TOLTERODINE TARTRATE LA 4 MG CAPCR PO SCH (10:12)
[2022-03-22] MEDS: CETIRIZINE HCL 10 MG TABLET PO SCH (10:12)
[2022-03-22] MEDS: oxyCODONE/ACETAMINOPHEN 5mg/325mg TAB PO PRN (12:10)
[2022-03-22] MEDS: PROMETHAZINE HCL 6.25 MG in SODIUM CHLORIDE 0.9% 50 ML IV PRN (12:20)
--- NOTE | 2022-03-22 13:31 | Hospitalist Progress Note ---
Date of Service March 22, 2022 Assessment & Plan (1) Abdominal pain: Plan: Patient is is a 71-year-old female who presents with abdominal pain. Abdominal pain ? Secondary to Chronic Gastritis Patient states to be hypersensitive to chemicals which contributes to her symptoms ? Medication compliance --Last EGD in Nov 2021: Normal esophagus. Gastritis. Normal duodenal bulb and second portion of the duodenum. H. pylori test negative --CT ABD:No acute process within the abdomen or pelvis on unenhanced exam. No bowel obstruction. Colonic diverticulosis without evidence for acute diverticulitis. Cardiomegaly. Lipase 92 Continue Carafate, Protonix, Pepcid GI consulted Outpatient colonoscopy as per GI Repeat CT abd suggestive of mild volume overload Continue home diuretics KUB:Nonobstructed abdominal bowel gas pattern. No Tenderness on exam, Tolerates diet Advised to follow up with GI upon discharge Chronic Elevation of Troponin Troponin levels trending down Consulted Cardiology Echo: Severe global hypokinesis of left ventricle. EF 15 to 20%. Continue aspirin DM II HbA1C: 7.4 Continue insulin Monitor BGs TESSA Nocturnal hypoxemia: Uses 4 L at bedtime as per patient Intolerance to BiPAP Continue supplemental oxygen at bedtime Reactive airways dysfunction syndrome H/O multiple allergies Continue home inhalers Follows with Pulmonary as outpatient Had 2 step: Needs 2 liters with activity Chronic systolic CHF Nonischemic cardiomyopathy Last EF was 20% ECHO: Left ventricular systolic function is severely reduced. Right ventricle is mildly dilated. Right ventricle systolic pressure is mildly reduced. Left atrium is moderately dilated. Mild aortic regurgitation. Moderate to severe mitral regurgitation. No overt signs of volume overload Continue home diuretics Monitor volume status Hypokalemia Hypomagnesemia Replace as needed DVT Px: SCDs. Code Status Full code. Disposition Home with Admission and Anticipated Discharge Date Admission Date: March 17, 2022 Subjective Patient is seen and examined at bedside States having chronic nausea Mild dizziness this morning Prefers to be discharged home Denies any chest pain, dyspnea No abdominal pain today Review of Systems Review of Systems: All systems reviewed & are unremarkable except as noted in Subjective Physical Exam Physical Exam: Physical Exam: Vitals signs as noted above General Appearance:Moderately built and nourished, no apparent distress Head: normocephalic, Atraumatic Eyes: normal inspection, EOMI Neck: supple, Trachea midline Respiratory/Chest: Normal breath sounds, CTA, No accessory muscle use Cardiovascular: S1, S2, No murmur Abdomen/GI:Soft, non tender, Bowel sounds present Extremities/Musculoskeletal:normal inspection, no edema Neurologic/Psych:AAOX3, grossly no focal neurological deficits Skin: normal color, warm Results & Data Results & Data ([facility]) Vital Signs (Past 12 Hours) Vital Signs Temp Pulse Pulse Resp BP Pulse Ox 03/22/22 09:06 93 H 24 119/81 100 03/22/22 08:07 36.3 C L 99 H 16 112/73 93 03/22/22 08:00 86 03/22/22 02:38 36.5 C 97 H 18 107/79 97 Laboratory Results [facility] 03/22/22 05:30 Sodium 133 L Potassium 4.1 Chloride 95 L Carbon Dioxide 31 BUN 25 H Creatinine 1.52 H Glucose 108 H Calcium 8.8
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
[2022-03-22] MEDS: TORSEMIDE 20 MG TAB PO SCH (13:46)
== END 2022-03-22 15:26 | disposition home or self-care (01) | DRG 392 ==
LOC: EDINP 20:53 → ED 20:53 → 2N 03-16 08:06

== ENCOUNTER 2022-03-29 01:30 | Inpatient (IN) ==
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
[2022-03-29 02:19] LABS: Partial Thromboplastin Ratio 0.8; Partial Thromboplastin Time 22.7 Seconds (21.0-31.0)
[2022-03-29 02:30] LABS: Albumin Globulin Ratio 1.2 (0.9-2); Albumin Level 3.4 gm/dl (3.4-5.0); BUN Creatinine Ratio 28.9 (10-20); Bilirubin,Total 0.8 mg/dl (0.2-1.0); Calcium 9.3 mg/dl (8.5-10.1); Creatinine Clr Calc Pharmacy 59.6 ml/min; Est GFR (African American) 75.6 ml/min; Est GFR (Non-African American) 65.2 ml/min; Globulin 2.9 gm/dl (2.5-4.0); Potassium 3.2 mmol/L (3.5-5.1); Total Protein 6.3 gm/dl (6.0-8.3)
[2022-03-29] MEDS ORDERED: POTASSIUM CHLORIDE 10 MEQ TABCR PO STA (03:09)
[2022-03-29] MEDS ORDERED: FUROSEMIDE 40 MG/4 ML VIAL IV ONE (03:09)
[2022-03-29 03:13] LABS: Basophils # (auto) 0.02 K/uL (0-0.2); Basophils % (auto) 0.2 %; Eosinophils # (auto) 0.13 K/uL (0-0.5); Eosinophils % (auto) 1.6 %; Hematocrit (blood only) 41.9 % (37-47); Hemoglobin 13.8 g/dL (12.0-16.0); Immature Granulocytes # (auto) 0.01 K/uL (0.00-0.02); Immature Granulocytes % (auto) 0.1 %; Lymphocytes # (auto) 0.96 K/uL (1.2-3.4); Lymphocytes % (auto) 11.6 %; Mean Corpuscular Hemoglobin 31.9 pg (25-34); Mean Corpuscular Hgb Conc 32.9 g/dL (32-36); Mean Platelet Volume 10.4 fL (7.4-10.4); Monocytes # (auto) 0.78 K/uL (0.11-0.59); Monocytes % (auto) 9.4 %; Neutrophils # (auto) 6.37 K/uL (1.4-6.5); Neutrophils % (auto) 77.1 %; Platelet Count 243 K/uL (130-400); RDW Coefficient of Variation 14.1 % (11.5-14.5); RDW Standard Deviation 50.7 fL (36.4-46.3); Red Blood Count 4.32 M/uL (4.2-5.4); White Blood Count 8.27 K/uL (4.8-10.8)
[2022-03-29] MEDS ORDERED: ALBUMIN 25% 12.5 GM/50 ML VIAL IV ONE (04:16)
[2022-03-29] MEDS ORDERED: NITROGLYCERIN SL 0.4 MG/TAB TAB SL STA (04:16)
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
[2022-03-29 04:59] LABS: Magnesium 1.9 mg/dl (1.7-2.4)
[2022-03-29 05:00] LABS: Troponin I High Sensitivity 34.3 pg/ml (0-14)
[2022-03-29] MEDS ORDERED: MAGNESIUM SULFATE / D5W 1 GM/100 ML BAG IV ONE (05:36)
[2022-03-29] MEDS ORDERED: GLUCAGON FOR INJ 1 MG VIAL SQ PRN (06:16)
[2022-03-29] MEDS ORDERED: GLUCOSE 40% GEL 15 GM TUBE PO PRN (06:16)
[2022-03-29] MEDS ORDERED: POTASSIUM CHLORIDE CRTAB 20 MEQ TABCR PO ONE (06:16)
[2022-03-29] MEDS ORDERED: DICYCLOMINE HCL 10 MG CAP PO PRN (06:16)
[2022-03-29] MEDS ORDERED: NITROGLYCERIN SL 0.4 MG/TAB TAB SL PRN (06:16)
[2022-03-29] MEDS ORDERED: CARBOHYDRATES FOR HYPOGLYCEMIA PO PRN (06:16)
[2022-03-29] MEDS ORDERED: GLUCOSE 10 TABS/TUBE PO PRN (06:16)
[2022-03-29] MEDS ORDERED: DEXTROSE 50% 50 ML SYRINGE IV PRN (06:16)
[2022-03-29] MEDS: Heparin IV Adult Wt-Based Standard *NO* Bolus Protocol IV SCH ×3 (07:39→09:36)
[2022-03-29] MEDS: FLUTICASONE FUROATE 200MCG 14 PUFFS/INHALER INH SCH ×2 (07:42→08:00)
[2022-03-29] MEDS: ASPIRIN 81 MG ECTAB PO SCH (07:42)
[2022-03-29] MEDS: ACETAMINOPHEN 325 MG TAB PO PRN (07:42)
[2022-03-29] MEDS: TOLTERODINE TARTRATE LA 4 MG CAPCR PO SCH (07:43)
[2022-03-29] MEDS: POTASSIUM CHLORIDE 10 MEQ TABCR PO SCH ×2 (07:43→20:02)
[2022-03-29] MEDS: DOCUSATE SODIUM 100 MG CAP PO SCH ×3 (07:43→20:03)
[2022-03-29] MEDS: INSULIN GLARGINE SOLOSTAR 100 UNITS/ML 3 ML PEN SC SCH (07:43)
[2022-03-29] MEDS: CETIRIZINE HCL 10 MG TABLET PO SCH (07:43)
[2022-03-29] MEDS: FAMOTIDINE 20 MG TAB PO SCH ×2 (07:44→20:03)
[2022-03-29 07:46] LABS: Partial Thromboplastin Ratio 0.9; Partial Thromboplastin Time 25.2 Seconds (21.0-31.0)
[2022-03-29] MEDS: INSULIN ASPART PER UNIT SC SCH ×4 (07:46→20:06)
[2022-03-29] MEDS: MoRPHine SULFATE 2 MG/ML CARP IV PRN ×3 (08:43→22:05)
[2022-03-29] MEDS: HEPARIN SODIUM/DEXTROSE 25,000 UNITS/500 ML BAG IV SCH (08:44)
--- NOTE | 2022-03-29 08:56 | XRay Report ---
XR chest 1V portable CLINICAL HISTORY: Atypical chest pain TECHNIQUE: Single frontal radiograph of the chest was obtained. Comparison: Comparison is made to chest radiograph 03/22/2022 FINDINGS: Pacemaker defibrillator is seen. Cardiomegaly is noted. The lungs are clear. Questionable blunting of the right costophrenic angle. No evidence of pneumothorax. IMPRESSION: Questionable blunting of the right costophrenic angle may represent trace effusion. ACT 112: Negative or not required by law. Electronically signed by: Milan Rose M.D. 03/29/2022 8:55 AM
--- NOTE | 2022-03-29 10:48 | XCELERA ---
[id number] \\[id number]
[2022-03-29] MEDS: traMADol HCL 50 MG TABLET PO PRN ×3 (11:21→19:59)
[2022-03-29] MEDS: ALUMINUM/MAGNESIUM SUSP 30 ML UDC PO PRN (11:22)
[2022-03-29] MEDS: LIDOCAINE 4% INH SOLN 4 ML BTL INH PRN ×2 (13:14→17:02)
[2022-03-29] MEDS: TORSEMIDE 20 MG TAB PO SCH (13:28)
--- NOTE | 2022-03-29 13:44 | Hospitalist Progress Note ---
Date of Service March 29, 2022 Assessment & Plan (1) NSTEMI (non-ST elevated myocardial infarction): Plan: Chest pain with troponin elevation relieved by nitroglycerin Cardiology consulted-will be seen by Dr. Womack tomorrow. Patient's remains free of chest pain since admission IV heparin for NSTEMI Follow troponin-minimally elevated likely secondary to CHF and nonischemic cardiomyopathy doubt any ACS TTE, Cardiology consult Re: NSTEMI Dyspepsia Continue Pepcid twice daily\we will ad Will add Maalox 15 mL every 6 hourly as needed For nausea we will try some intravenous Phenergan (2) Chest pain: Plan: Presented mostly with shortness of breath and some chest pain Chest pain is controlled with nitro and that gave her some headache (3) CHF (congestive heart failure): Plan: Chronic systolic heart failure secondary to nonischemic cardiomyopathy 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 Nonischemic cardiomyopathy with EF of 20% Patient euvolemic Denies any more shortness of breath than usual (4) TESSA (obstructive sleep apnea): (5) Cardiomyopathy: Plan: As above (6) Chronic lung disease: Plan: Has history of interstitial lung disease/reactive lung disease/COPD No excessive active symptoms No wheezing and/or increasing shortness of breath We will continue with her current management including lidocaine nebs as she has been requesting Hypertension, stable hyperlipidemia, statin intolerance H/O uterine cancer status post surgery DM2, diet controlled, reasonable control as of recent hemoglobin A1c of 7.08 March 2022 Basal insulin, ISS BG goal 1 10-1 40, carb count coverage DVT prophylaxis IV heparin Full code Admission and Anticipated Discharge Date Admission Date: March 29, 2022 Subjective 03/29/2022 The patient was seen and examined in telemetry unit She was admitted with shortness of breath and questionable chest pain with significant cardiac history Complains to epigastric discomfort with nausea this morning and headache likely secondary to use of nitro Denies any more chest pain and/or palpitation Review of Systems Review of Systems: All systems reviewed and are unremarkable except as noted below Cardiovascular: Additional Comments: No chest pain and/or palpitation Gastrointestinal: Dyspepsia with nausea Physical Exam Physical Exam: Sitting at the edge of the bed with some epigastric discomfort nausea Constitutional: well developed, well nourished, + ill appearing and + obese Eyes: PERRL, conjunctivae normal, anicteric sclerae ENMT: external ear and nose normal, oropharynx normal Neck: trachea midline, no thyromegaly Respiratory: no respiratory distress Auscultation: + diminished lung sounds; no crackles and no wheezes Cardiovascular: Rate/Rhythm: regular rate and regular rhythm; not tachycardic Heart Sounds: normal S1 and normal S2; no murmur Extremities: + edema (Trace edema bilaterally) Gastrointestinal (Abdomen): Inspection/Auscultation: normal bowel sounds; abdomen not distended Percussion/Palpation: + abdomen tender (Minimal epigastric tenderness) and abdomen soft Musculoskeletal: No acute arthritis in any joint Neurologic: moves all extremities; no focal motor deficits Psychiatric: A+Ox3, euthymic affect Lymphatic: no cervical or axillary lymphadenopathy Results & Data Results & Data ([facility]) Vital Signs (Past 12 Hours) Vital Signs Temp Pulse Pulse Resp BP BP Pulse Ox 03/29/22 13:14 91 H 18 96 03/29/22 11:33 36.6 C 95 H 18 110/76 94 03/29/22 11:18 106 H 03/29/22 08:00 106 H 03/29/22 07:08 36.6 C 100 H 18 117/79 96 03/29/22 06:25 106 H 03/29/22 06:00 36.5 C 105 H 16 105/65 96 03/29/22 05:35 98 H 22 108/71 98 03/29/22 04:45 104 H 13 111/71 99 03/29/22 04:39 109 H 18 120/77 98 03/29/22 04:00 102 H 22 114/84 94 03/29/22 02:54 95 H 22 113/73 99 03/29/22 01:55 95 03/29/22 01:50 35.9 C L 100 H 20 118/80 95 Laboratory Results Short CBC 03/29/22 Range/Units 01:47 WBC 8.27 (4.8-10.8) K/uL Hgb 13.8 (12.0-16.0) g/dL Hct 41.9 (37-47) % Plt Count 243 (130-400) K/uL BMP 03/29/22 01:47 Sodium 137 Potassium 3.2 L Chloride 95 L Carbon Dioxide 36 H BUN 26 H Creatinine 0.90 Glucose 167 H Calcium 9.3 Liver Function 03/29/22 Range/Units 01:47 Total Bilirubin 0.8 (0.2-1.0) mg/dl AST 24 (13-39) U/L ALT 100 H (7-52) U/L Alkaline Phosphatase 102 (34-104) U/L Albumin 3.4 (3.4-5.0) gm/dl Medications Administered Current Inpatient Medications Acetaminophen (Acetaminophen 325 Mg Tab) 650 mg PO Q4H PRN PRN Reason: Pain or Fever Stop: 04/28/22 06:15 Last Admin: 03/29/22 07:42 Dose: 650 mg Documented by: Al Hydrox/Mg Hydrox/Simethicone (Aluminum/Magnesium Susp 30 Ml Udc) 15 ml PO Q6H PRN PRN Reason: Dyspepsia Stop: 04/28/22 10:37 Last Admin: 03/29/22 11:22 Dose: 15 ml Documented by: Aspirin (Aspirin 81 Mg Ectab) 81 mg PO QAM [facility] Stop: 04/28/22 08:59 Last Admin: 03/29/22 07:42 Dose: 81 mg Documented by: Cetirizine HCl (Cetirizine Hcl 10 Mg Tablet) 10 mg PO QAM [facility] Stop: 04/28/22 08:59 Last Admin: 03/29/22 07:43 Dose: 10 mg Documented by: Dextrose (Dextrose 50% 50 Ml Syringe) 25 - 50 ml IV UD PRN; Protocol PRN Reason: Hypoglycemia Protocol Stop: 04/28/22 06:15 Dicyclomine HCl (Dicyclomine Hcl 10 Mg Cap) 10 mg PO QID PRN PRN Reason: abd pain Stop: 04/28/22 06:15 Docusate Sodium (Docusate Sodium 100 Mg Cap) 100 mg PO TID MANUEL Stop: 04/28/22 08:59 Last Admin: 03/29/22 13:28 Dose: 100 mg Documented by: Famotidine (Famotidine 20 Mg Tab) 20 mg PO BID [facility] Stop: 04/28/22 08:59 Last Admin: 03/29/22 07:44 Dose: 20 mg Documented by: Fluticasone Furoate (Fluticasone Furoate 200mcg 14 Puffs/Inhaler) 1 puffs INH DAILY [facility]UEL Stop: 04/28/22 08:59 Last Admin: 03/29/22 08:00 Dose: Not Given Documented by: Glucagon (Glucagon For Inj 1 Mg Vial) 1 mg SQ UD PRN; Protocol PRN Reason: Hypoglycemia Protocol Stop: 04/28/22 06:15 Glucose (Glucose 10 Tabs/Tube) 4 - 8 tabs PO UD PRN; Protocol PRN Reason: Hypoglycemia Protocol Stop: 04/28/22 06:15 Glucose (Glucose 40% Gel 15 Gm Tube) 15 - 30 gm PO UD PRN; Protocol PRN Reason: Hypoglycemia Protocol Stop: 04/28/22 06:15 Heparin Sodium/Dextrose (Heparin Sodium/Dextrose) 25,000 units in 500 mls @ 23 mls/hr IV .[id number] [facility]; Protocol Stop: 04/28/22 05:59 Last Admin: 03/29/22 08:44 Dose: 1,150 units/hr, 23 mls/hr Documented by: Lorazepam 0.5 mg/ Syringe 0.5 mls @ 2 mls/min IV Q4H PRN PRN Reason: Anxiety Stop: 04/28/22 06:15 Promethazine HCl 12.5 mg/ (Sodium Chloride) 50.5 mls @ 202 mls/hr IV Q6H PRN PRN Reason: Nausea And Vomiting Stop: 04/28/22 10:36 Insulin Aspart (Insulin Aspart Per Unit) 0 units SC ACHS [facility] Stop: 04/28/22 06:15 Last Admin: 03/29/22 13:28 Dose: 3 units Documented by: Insulin Glargine (Insulin Glargine Solostar 100 Units/Ml 3 Ml Pen) 5 units SC DAILY [facility] Stop: 04/28/22 08:59 Last Admin: 03/29/22 07:43 Dose: 5 units Documented by: Lidocaine HCl (Lidocaine 4% Inh Soln 4 Ml Btl) 4 ml INH Q4H PRN PRN Reason: cough Stop: 04/28/22 12:31 Last Admin: 03/29/22 13:14 Dose: 4 ml Documented by: Miscellaneous (Lifitegrast [Xiidra] 5 % - Order Awaiting Action) 1 ea N/A QS [facility] Stop: 04/28/22 07:59 Last Admin: 03/29/22 07:40 Dose: Not Given Documented by: Miscellaneous (Carbohydrates For Hypoglycemia ) 15 - 30 gm PO UD PRN PRN Reason: Hypoglycemia Protocol Stop: 04/28/22 06:15 Morphine Sulfate (Morphine Sulfate 2 Mg/Ml Carp) 2 mg IV Q3H PRN PRN Reason: Pain Stop: 04/12/22 06:15 Last Admin: 03/29/22 08:43 Dose: 2 mg Documented by: Nitroglycerin (Nitroglycerin Sl 0.4 Mg/Tab Tab) 0.4 mg SL PRN PRN PRN Reason: Chest Pain Stop: 04/28/22 06:15 Potassium Chloride (Potassium Chloride 10 Meq Tabcr) 10 meq PO AMHS [facility] Stop: 04/28/22 08:59 Last Admin: 03/29/22 07:43 Dose: 10 meq Documented by: Tolterodine Tartrate (Tolterodine Tartrate La 4 Mg Capcr) 4 mg PO QAM [facility] Stop: 04/28/22 08:59 Last Admin: 03/29/22 07:43 Dose: 4 mg Documented by: Torsemide (Torsemide 20 Mg Tab) 40 mg PO DAILY@1400 [facility] Stop: 04/28/22 13:59 Last Admin: 03/29/22 13:28 Dose: 40 mg Documented by: Tramadol HCl (Tramadol Hcl 50 Mg Tablet) 25 - 50 mg PO Q4H PRN PRN Reason: Pain Stop: 04/28/22 06:15 Last Admin: 03/29/22 11:21 Dose: 50 mg Documented by: (1) CHF (congestive heart failure) Heart failure chronicity: acute on chronic Heart failure type: systolic Qualified Code(s): I50.23 - Acute on chronic systolic (congestive) heart failure (2) Cardiomyopathy Cardiomyopathy type: unspecified Qualified Code(s): I42.9 - Cardiomyopathy, unspecified
[2022-03-29 15:37] LABS: Partial Thromboplastin Ratio 2.2
[2022-03-29 15:39] LABS: Partial Thromboplastin Time 59.2 Seconds (21.0-31.0)
[2022-03-29 17:32] LABS: Partial Thromboplastin Ratio 2.1
[2022-03-29 17:35] LABS: Partial Thromboplastin Time 57.9 Seconds (21.0-31.0)
--- NOTE | 2022-03-29 21:02 | Electrocardiogram Report ---
Test Reason : Blood Pressure : / mmHG Vent. Rate : 109 BPM Atrial Rate : 109 BPM P-R Int : 114 ms QRS Dur : 156 ms QT Int : 362 ms P-R-T Axes : 063 -81 020 degrees QTc Int : 487 ms Poor data quality, interpretation may be adversely affected Atrial-sensed ventricular-paced rhythm with frequent Premature ventricular complexes Biventricular pacemaker detected Abnormal ECG When compared with ECG of 19-MAR-2022 08:12, Electronic ventricular pacemaker has replaced Sinus rhythm Confirmed by Wisam Sanches ([id number]) on 03/29/2022 9:01:58 PM Referred By: REFERRED SELF Confirmed By:Wisam Sanches
[2022-03-29] MEDS: PROMETHAZINE HCL 12.5 MG in SODIUM CHLORIDE 0.9% 50 ML IV PRN (22:07)
[2022-03-30] MEDS: traMADol HCL 50 MG TABLET PO PRN (02:17)
[2022-03-30] MEDS: MoRPHine SULFATE 2 MG/ML CARP IV PRN ×5 (03:09→19:55)
[2022-03-30] MEDS: HEPARIN SODIUM/DEXTROSE 25,000 UNITS/500 ML BAG IV SCH (05:34)
[2022-03-30] MEDS ORDERED: MAGNESIUM SULFATE / D5W 1 GM/100 ML BAG IV ONE (06:02)
[2022-03-30] MEDS ORDERED: POTASSIUM CHLORIDE CRTAB 20 MEQ TABCR PO STA (06:02)
[2022-03-30] MEDS: PROMETHAZINE HCL 12.5 MG in SODIUM CHLORIDE 0.9% 50 ML IV PRN (06:26)
[2022-03-30 07:00] LABS: Basophils # (auto) 0.01 K/uL (0-0.2); Basophils % (auto) 0.1 %; Hematocrit (blood only) 41.6 % (37-47); Hemoglobin 13.8 g/dL (12.0-16.0); Immature Granulocytes # (auto) 0.02 K/uL (0.00-0.02); Immature Granulocytes % (auto) 0.2 %; Lymphocytes # (auto) 0.64 K/uL (1.2-3.4); Lymphocytes % (auto) 5.8 %; Mean Corpuscular Hemoglobin 31.4 pg (25-34); Mean Corpuscular Hgb Conc 33.2 g/dL (32-36); Mean Corpuscular Volume 94.8 fL (80-100); Mean Platelet Volume 10.5 fL (7.4-10.4); Monocytes # (auto) 1.27 K/uL (0.11-0.59); Monocytes % (auto) 11.6 %; Neutrophils # (auto) 9.03 K/uL (1.4-6.5); Neutrophils % (auto) 82.3 %; Platelet Count 266 K/uL (130-400); RDW Coefficient of Variation 14.3 % (11.5-14.5); RDW Standard Deviation 49.5 fL (36.4-46.3); Red Blood Count 4.39 M/uL (4.2-5.4); White Blood Count 10.97 K/uL (4.8-10.8)
[2022-03-30 07:14] LABS: Partial Thromboplastin Ratio 2.7
[2022-03-30 07:19] LABS: Partial Thromboplastin Time 73.1 Seconds (21.0-31.0)
[2022-03-30 07:20] LABS: BUN Creatinine Ratio 26.3 (10-20); Calcium 9.6 mg/dl (8.5-10.1); Chol HDL Ratio 2.5 (0-5); Est GFR (African American) 87.2 ml/min; Est GFR (Non-African American) 75.2 ml/min; Magnesium 2.4 mg/dl (1.7-2.4); Phosphorus 3.8 mg/dl (2.5-4.9); Potassium 3.8 mmol/L (3.5-5.1)
[2022-03-30] MEDS: DOCUSATE SODIUM 100 MG CAP PO SCH ×3 (09:02→19:53)
[2022-03-30] MEDS: ASPIRIN 81 MG ECTAB PO SCH (09:02)
[2022-03-30] MEDS: POTASSIUM CHLORIDE 10 MEQ TABCR PO SCH ×2 (09:02→19:54)
[2022-03-30] MEDS: CETIRIZINE HCL 10 MG TABLET PO SCH (09:03)
[2022-03-30] MEDS: FAMOTIDINE 20 MG TAB PO SCH ×2 (09:03→19:53)
[2022-03-30] MEDS: TOLTERODINE TARTRATE LA 4 MG CAPCR PO SCH (09:07)
[2022-03-30] MEDS: FLUTICASONE FUROATE 200MCG 14 PUFFS/INHALER INH SCH (09:08)
[2022-03-30] MEDS: INSULIN ASPART PER UNIT SC SCH ×4 (09:14→21:42)
[2022-03-30] MEDS: INSULIN GLARGINE SOLOSTAR 100 UNITS/ML 3 ML PEN SC SCH (09:15)
[2022-03-30 14:05] LABS: Partial Thromboplastin Ratio 1.9
[2022-03-30 14:06] LABS: Partial Thromboplastin Time 51.1 Seconds (21.0-31.0)
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
[2022-03-30] MEDS: TORSEMIDE 20 MG TAB PO SCH (14:50)
--- NOTE | 2022-03-30 14:59 | Hospitalist Progress Note ---
Date of Service March 30, 2022 Assessment & Plan (1) NSTEMI (non-ST elevated myocardial infarction): Plan: (1) NSTEMI (non-ST elevated myocardial infarction): Plan: Chest pain with troponin elevation relieved by nitroglycerin Cardiology consulted-will be seen by Dr. Womack tomorrow. Patient's remains free of chest pain since admission IV heparin for NSTEMI Follow troponin-minimally elevated likely secondary to CHF and nonischemic cardi omyopathy doubt any ACS TTE, Cardiology consult Re: NSTEMI : LV systolic function is severely reduced, there is mild concentric LVH, RV ventricle is borderline dilated, right ventricular systolic function is borderline reduced, left atrium is moderately dilated, mild to moderate aortic regurgitation, there is severe mitral regurgitation Appreciate cardiology input and recommendation Doubt any ACS We will continue current management Dyspepsia Continue Pepcid twice daily\we will ad Will add Maalox 15 mL every 6 hourly as needed For nausea we will try some intravenous Phenergan Has been getting Maalox as before (2) Chest pain: Plan: Presented mostly with shortness of breath and some chest pain Chest pain is controlled with nitro and that gave her some headache Doubt the chest pain of any cardiac origin (3) CHF (congestive heart failure): Plan: Chronic systolic heart failure secondary to nonischemic cardiomyopathy sp recent [employer]-D device placement Nonischemic cardiomyopathy with EF of 20% Patient euvolemic Denies any more shortness of breath than usual We will continue torsemide Was advised to keep for legs elevated (4) TESSA (obstructive sleep apnea): (5) Cardiomyopathy: Plan: As above (6) Chronic lung disease: Plan: Has history of interstitial lung disease/reactive lung disease/COPD No excessive active symptoms No wheezing and/or increasing shortness of breath We will continue with her current management including lidocaine nebs as she has been requesting No significant shortness of breath at rest Hypertension, stable hyperlipidemia, statin intolerance H/O uterine cancer status post surgery DM2, diet controlled, reasonable control as of recent hemoglobin A1c of 7.08 March 2022 Basal insulin, ISS BG goal 1 10-1 40, carb count coverage DVT prophylaxis IV heparin Full code Admission and Anticipated Discharge Date Admission Date: March 29, 2022 Subjective 03/29/2022 The patient was seen and examined in telemetry unit She was admitted with shortness of breath and questionable chest pain with significant cardiac history Complains to epigastric discomfort with nausea this morning and headache likely secondary to use of nitro Denies any more chest pain and/or palpitation 03/30/2022 Patient was seen and examined in telemetry unit She has pain in stable and has complaints of occasional headache, dyspepsia and phobias regarding chemicals No significant chest pain and/or shortness of breath Review of Systems Review of Systems: As per HPI, all other systems reviewed and negative Cardiovascular: Additional Comments: No chest pain and/or palpitation Gastrointestinal: Dyspepsia with nausea Physical Exam Physical Exam: Sitting at the edge of the bed with some epigastric discomfort nausea Constitutional: well developed, well nourished, + ill appearing and + obese Eyes: PERRL, conjunctivae normal, anicteric sclerae ENMT: external ear and nose normal, oropharynx normal Neck: trachea midline, no thyromegaly Respiratory: no respiratory distress Auscultation: + diminished lung sounds and + crackles (Minimal crackles at the bases); no wheezes Cardiovascular: Rate/Rhythm: regular rate and regular rhythm; not tachycardic Heart Sounds: normal S1 and normal S2; no murmur Extremities: + edema (1+ edema bilaterally) Gastrointestinal (Abdomen): Inspection/Auscultation: normal bowel sounds; abdomen not distended Percussion/Palpation: + abdomen tender (Minimal epigastric tenderness) and abdomen soft Musculoskeletal: No acute arthritis in any joint Neurologic: moves all extremities; no focal motor deficits Psychiatric: A+Ox3, euthymic affect Lymphatic: no cervical or axillary lymphadenopathy Results & Data Results & Data ([facility]) Vital Signs (Past 12 Hours) Vital Signs Temp Pulse Pulse Resp BP Pulse Ox 03/30/22 12:32 101 H 03/30/22 10:43 36.7 C 111 H 18 108/76 94 03/30/22 07:06 36.5 C 111 H 18 98/72 L 93 03/30/22 03:11 36.7 C 108 H 20 112/78 95 Laboratory Results Short CBC 03/30/22 Range/Units 06:21 WBC 10.97 H (4.8-10.8) K/uL Hgb 13.8 (12.0-16.0) g/dL Hct 41.6 (37-47) % Plt Count 266 (130-400) K/uL BMP 03/30/22 06:21 Sodium 134 L Potassium 3.8 Chloride 96 L Carbon Dioxide 30 BUN 21 Creatinine 0.80 Glucose 245 H Calcium 9.6 Medications Administered Current Inpatient Medications Acetaminophen (Acetaminophen 325 Mg Tab) 650 mg PO Q4H PRN PRN Reason: Pain or Fever Stop: 04/28/22 06:15 Last Admin: 03/29/22 07:42 Dose: 650 mg Documented by: Al Hydrox/Mg Hydrox/Simethicone (Aluminum/Magnesium Susp 30 Ml Udc) 15 ml PO Q6H PRN PRN Reason: Dyspepsia Stop: 04/28/22 10:37 Last Admin: 03/29/22 11:22 Dose: 15 ml Documented by: Aspirin (Aspirin 81 Mg Ectab) 81 mg PO QAM [facility] Stop: 04/28/22 08:59 Last Admin: 03/30/22 09:02 Dose: 81 mg Documented by: Cetirizine HCl (Cetirizine Hcl 10 Mg Tablet) 10 mg PO QAM [facility] Stop: 04/28/22 08:59 Last Admin: 03/30/22 09:03 Dose: 10 mg Documented by: Dextrose (Dextrose 50% 50 Ml Syringe) 25 - 50 ml IV UD PRN; Protocol PRN Reason: Hypoglycemia Protocol Stop: 04/28/22 06:15 Dicyclomine HCl (Dicyclomine Hcl 10 Mg Cap) 10 mg PO QID PRN PRN Reason: abd pain Stop: 04/28/22 06:15 Docusate Sodium (Docusate Sodium 100 Mg Cap) 100 mg PO TID [facility] Stop: 04/28/22 08:59 Last Admin: 03/30/22 14:49 Dose: 100 mg Documented by: Famotidine (Famotidine 20 Mg Tab) 20 mg PO BID [facility] Stop: 04/28/22 08:59 Last Admin: 03/30/22 09:03 Dose: 20 mg Documented by: Fluticasone Furoate (Fluticasone Furoate 200mcg 14 Puffs/Inhaler) 1 puffs INH DAILY [facility] Stop: 04/28/22 08:59 Last Admin: 03/30/22 09:08 Dose: Not Given Documented by: Glucagon (Glucagon For Inj 1 Mg Vial) 1 mg SQ UD PRN; Protocol PRN Reason: Hypoglycemia Protocol Stop: 04/28/22 06:15 Glucose (Glucose 10 Tabs/Tube) 4 - 8 tabs PO UD PRN; Protocol PRN Reason: Hypoglycemia Protocol Stop: 04/28/22 06:15 Glucose (Glucose 40% Gel 15 Gm Tube) 15 - 30 gm PO UD PRN; Protocol PRN Reason: Hypoglycemia Protocol Stop: 04/28/22 06:15 Heparin Sodium/Dextrose (Heparin Sodium/Dextrose) 25,000 units in 500 mls @ 22 mls/hr IV .[id number] [facility]; Protocol Stop: 04/28/22 05:59 Last Titration: 03/30/22 14:11 Dose: 1,100 units/hr, 22 mls/hr Documented by: Lorazepam 0.5 mg/ Syringe 0.5 mls @ 2 mls/min IV Q4H PRN PRN Reason: Anxiety Stop: 04/28/22 06:15 Promethazine HCl 12.5 mg/ (Sodium Chloride) 50.5 mls @ 202 mls/hr IV Q6H PRN PRN Reason: Nausea And Vomiting Stop: 04/28/22 10:36 Last Infusion: 03/30/22 06:44 Dose: Infused Documented by: Insulin Aspart (Insulin Aspart Per Unit) 0 units SC ACHS [facility] Stop: 04/28/22 06:15 Last Admin: 03/30/22 12:00 Dose: 4 units Documented by: Insulin Glargine (Insulin Glargine Solostar 100 Units/Ml 3 Ml Pen) 5 units SC DAILY [facility] Stop: 04/28/22 08:59 Last Admin: 03/30/22 09:15 Dose: 5 units Documented by: Lidocaine HCl (Lidocaine 4% Inh Soln 4 Ml Btl) 4 ml INH Q4H PRN PRN Reason: cough Stop: 04/28/22 12:31 Last Admin: 03/29/22 17:02 Dose: 4 ml Documented by: Miscellaneous (Lifitegrast [Xiidra] 5 % - Order Awaiting Action) 1 ea N/A QS [facility] Stop: 04/28/22 07:59 Last Admin: 03/30/22 09:06 Dose: Not Given Documented by: Miscellaneous (Carbohydrates For Hypoglycemia ) 15 - 30 gm PO UD PRN PRN Reason: Hypoglycemia Protocol Stop: 04/28/22 06:15 Morphine Sulfate (Morphine Sulfate 2 Mg/Ml Carp) 2 mg IV Q3H PRN PRN Reason: Pain Stop: 04/12/22 06:15 Last Admin: 03/30/22 12:23 Dose: 2 mg Documented by: Nitroglycerin (Nitroglycerin Sl 0.4 Mg/Tab Tab) 0.4 mg SL PRN PRN PRN Reason: Chest Pain Stop: 04/28/22 06:15 Potassium Chloride (Potassium Chloride 10 Meq Tabcr) 10 meq PO AMHS [facility] Stop: 04/28/22 08:59 Last Admin: 03/30/22 09:02 Dose: 10 meq Documented by: Tolterodine Tartrate (Tolterodine Tartrate La 4 Mg Capcr) 4 mg PO QAM [facility] Stop: 04/28/22 08:59 Last Admin: 03/30/22 09:07 Dose: 4 mg Documented by: Torsemide (Torsemide 20 Mg Tab) 40 mg PO DAILY@1400 [facility] Stop: 04/28/22 13:59 Last Admin: 03/30/22 14:50 Dose: 40 mg Documented by: Tramadol HCl (Tramadol Hcl 50 Mg Tablet) 25 - 50 mg PO Q4H PRN PRN Reason: Pain Stop: 04/28/22 06:15 Last Admin: 03/30/22 02:17 Dose: 50 mg Documented by: (1) CHF (congestive heart failure) Heart failure chronicity: acute on chronic Heart failure type: systolic Qualified Code(s): I50.23 - Acute on chronic systolic (congestive) heart failure (2) Cardiomyopathy Cardiomyopathy type: unspecified Qualified Code(s): I42.9 - Cardiomyopathy, unspecified
[2022-03-30] MEDS: ALUMINUM/MAGNESIUM SUSP 30 ML UDC PO PRN (21:57)
[2022-03-30] MEDS: LORazepam 0.5 MG in SYRINGE 0.25 ML IV PRN (22:18)
[2022-03-31] MEDS: LORazepam 0.5 MG in SYRINGE 0.25 ML IV PRN ×2 (02:48→20:36)
[2022-03-31] MEDS: PROMETHAZINE HCL 12.5 MG in SODIUM CHLORIDE 0.9% 50 ML IV PRN (02:48)
[2022-03-31] MEDS: HEPARIN SODIUM/DEXTROSE 25,000 UNITS/500 ML BAG IV SCH (04:10)
[2022-03-31] MEDS: POTASSIUM CHLORIDE 10 MEQ TABCR PO SCH ×2 (08:03→20:40)
[2022-03-31] MEDS: FAMOTIDINE 20 MG TAB PO SCH ×2 (08:03→20:41)
[2022-03-31] MEDS: CETIRIZINE HCL 10 MG TABLET PO SCH (08:04)
[2022-03-31] MEDS: DOCUSATE SODIUM 100 MG CAP PO SCH ×3 (08:04→20:40)
[2022-03-31] MEDS: FLUTICASONE FUROATE 200MCG 14 PUFFS/INHALER INH SCH (08:05)
[2022-03-31 08:34] LABS: Basophils # (auto) 0.01 K/uL (0-0.2); Basophils % (auto) 0.1 %; Eosinophils # (auto) 0.03 K/uL (0-0.5); Eosinophils % (auto) 0.3 %; Hematocrit (blood only) 40.1 % (37-47); Hemoglobin 13.2 g/dL (12.0-16.0); Immature Granulocytes # (auto) 0.04 K/uL (0.00-0.02); Immature Granulocytes % (auto) 0.4 %; Lymphocytes # (auto) 0.91 K/uL (1.2-3.4); Lymphocytes % (auto) 8.9 %; Mean Corpuscular Hemoglobin 31.2 pg (25-34); Mean Corpuscular Hgb Conc 32.9 g/dL (32-36); Mean Corpuscular Volume 94.8 fL (80-100); Mean Platelet Volume 10.2 fL (7.4-10.4); Monocytes # (auto) 0.93 K/uL (0.11-0.59); Monocytes % (auto) 9.1 %; Neutrophils # (auto) 8.26 K/uL (1.4-6.5); Neutrophils % (auto) 81.2 %; Platelet Count 254 K/uL (130-400); RDW Coefficient of Variation 14.5 % (11.5-14.5); RDW Standard Deviation 49.5 fL (36.4-46.3); Red Blood Count 4.23 M/uL (4.2-5.4); White Blood Count 10.18 K/uL (4.8-10.8)
[2022-03-31 08:56] LABS: BUN Creatinine Ratio 21.3 (10-20); Calcium 9.2 mg/dl (8.5-10.1); Creatinine Clr Calc Pharmacy 43.9 ml/min; Est GFR (African American) 52.3 ml/min; Est GFR (Non-African American) 45.2 ml/min; Magnesium 2.2 mg/dl (1.7-2.4); Potassium 4.4 mmol/L (3.5-5.1)
[2022-03-31] MEDS: TOLTERODINE TARTRATE LA 4 MG CAPCR PO SCH (09:07)
[2022-03-31] MEDS: ASPIRIN 81 MG ECTAB PO SCH (09:07)
[2022-03-31] MEDS: traMADol HCL 50 MG TABLET PO PRN ×2 (09:13→13:33)
[2022-03-31 09:23] LABS: Partial Thromboplastin Ratio 1.7
[2022-03-31] MEDS: INSULIN ASPART PER UNIT SC SCH ×4 (09:27→20:29)
[2022-03-31] MEDS: INSULIN GLARGINE SOLOSTAR 100 UNITS/ML 3 ML PEN SC SCH (09:28)
[2022-03-31 10:00] LABS: Partial Thromboplastin Time 47.3 Seconds (21.0-31.0)
[2022-03-31] MEDS: MoRPHine SULFATE 2 MG/ML CARP IV PRN ×3 (10:20→20:36)
[2022-03-31] MEDS: ACETAMINOPHEN 325 MG TAB PO PRN (13:34)
[2022-03-31] MEDS: TORSEMIDE 20 MG TAB PO SCH (15:15)
[2022-03-31] MEDS: ALUMINUM/MAGNESIUM SUSP 30 ML UDC PO PRN ×2 (15:37→20:39)
--- NOTE | 2022-03-31 17:02 | Hospitalist Progress Note ---
Date of Service March 31, 2022 Assessment & Plan (1) NSTEMI (non-ST elevated myocardial infarction): Plan: (1) NSTEMI (non-ST elevated myocardial infarction): Plan: Chest pain with troponin elevation relieved by nitroglycerin Cardiology consulted-will be seen by Dr. Womack tomorrow. Patient's remains free of chest pain since admission IV heparin for NSTEMI Follow troponin-minimally elevated likely secondary to CHF and nonischemic cardi omyopathy doubt any ACS TTE, Cardiology consult Re: NSTEMI : LV systolic function is severely reduced, there is mild concentric LVH, RV ventricle is borderline dilated, right ventricular systolic function is borderline reduced, left atrium is moderately dilated, mild to moderate aortic regurgitation, there is severe mitral regurgitation Appreciate cardiology input and recommendation Doubt any ACS No more cardiac symptoms-atypical chest pain is not due to heart condition PT and OT has been requested-if recommended she will be discharged home soon Dyspepsia Continue Pepcid twice daily\we will ad Will add Maalox 15 mL every 6 hourly as needed For nausea we will try some intravenous Phenergan Has been getting Maalox as before Denies any more dyspepsia (2) Chest pain: Plan: Presented mostly with shortness of breath and some chest pain Chest pain is controlled with nitro and that gave her some headache Doubt the chest pain of any cardiac origin (3) CHF (congestive heart failure): Plan: Chronic systolic heart failure secondary to nonischemic cardiomyopathy sp recent [employer]-D device placement Nonischemic cardiomyopathy with EF of 20% Patient euvolemic Denies any more shortness of breath than usual We will continue torsemide Was advised to keep for legs elevated Advised to keep her legs elevated while in bed (4) TESSA (obstructive sleep apnea): (5) Cardiomyopathy: Plan: As above (6) Chronic lung disease: Plan: Has history of interstitial lung disease/reactive lung disease/COPD No excessive active symptoms No wheezing and/or increasing shortness of breath We will continue with her current management including lidocaine nebs as she has been requesting No significant shortness of breath at rest Hypertension, stable hyperlipidemia, statin intolerance H/O uterine cancer status post surgery DM2, diet controlled, reasonable control as of recent hemoglobin A1c of 7.08 March 2022 Basal insulin, ISS BG goal 1 10-1 40, carb count coverage DVT prophylaxis IV heparin Full code Admission and Anticipated Discharge Date Admission Date: March 29, 2022 Subjective 03/29/2022 The patient was seen and examined in telemetry unit She was admitted with shortness of breath and questionable chest pain with significant cardiac history Complains to epigastric discomfort with nausea this morning and headache likely secondary to use of nitro Denies any more chest pain and/or palpitation 03/30/2022 Patient was seen and examined in telemetry unit She has pain in stable and has complaints of occasional headache, dyspepsia and phobias regarding chemicals No significant chest pain and/or shortness of breath 03/31/2022 The patient was seen and examined in telemetry unit She has been complaining of occasional chest pain but denies any shortness of breath associated with it She complains to have dizziness even without any movement and lying in bed She is allergic to chemicals including perfumes to care for Review of Systems Review of Systems: As per HPI, all other systems reviewed and negative Cardiovascular: Additional Comments: No chest pain and/or palpitation Gastrointestinal: Dyspepsia with nausea Physical Exam 2 Physical Exam: Sitting at the edge of the bed without any acute distress Constitutional: well developed, well nourished, + ill appearing and + obese Eyes: PERRL, conjunctivae normal, anicteric sclerae ENMT: external ear and nose normal, oropharynx normal Neck: trachea midline, no thyromegaly Respiratory: no respiratory distress Auscultation: + diminished lung sounds and + crackles (Minimal crackles at the bases); no wheezes Cardiovascular: Rate/Rhythm: regular rate and regular rhythm; not tachycardic Heart Sounds: normal S1 and normal S2; no murmur Extremities: + edema (1+ edema bilaterally) Gastrointestinal (Abdomen): Inspection/Auscultation: normal bowel sounds; abdomen not distended Percussion/Palpation: + abdomen tender (Minimal epigastric tenderness) and abdomen soft Musculoskeletal: No acute arthritis in any joint Neurologic: moves all extremities; no focal motor deficits Psychiatric: A+Ox3, euthymic affect Lymphatic: no cervical or axillary lymphadenopathy Results & Data Results & Data ([facility]) Vital Signs (Past 12 Hours) Vital Signs Temp Pulse Pulse Resp BP Pulse Ox 03/31/22 15:39 129 H 03/31/22 15:13 36.7 C 113 H 18 120/78 90 03/31/22 13:00 36.7 C 115 H 16 101/74 92 03/31/22 10:00 111 H 03/31/22 07:25 36.8 C 120 H 18 97/64 L 90 Laboratory Results Short CBC 03/31/22 Range/Units 08:20 WBC 10.18 (4.8-10.8) K/uL Hgb 13.2 (12.0-16.0) g/dL Hct 40.1 (37-47) % Plt Count 254 (130-400) K/uL BMP 03/31/22 08:20 Sodium 130 L Potassium 4.4 Chloride 93 L Carbon Dioxide 28 BUN 26 H Creatinine 1.22 H D Glucose 250 H Calcium 9.2 Medications Administered Current Inpatient Medications Acetaminophen (Acetaminophen 325 Mg Tab) 650 mg PO Q4H PRN PRN Reason: Pain or Fever Stop: 04/28/22 06:15 Last Admin: 03/31/22 13:34 Dose: 650 mg Documented by: Al Hydrox/Mg Hydrox/Simethicone (Aluminum/Magnesium Susp 30 Ml Udc) 15 ml PO Q6H PRN PRN Reason: Dyspepsia Stop: 04/28/22 10:37 Last Admin: 03/31/22 15:37 Dose: 15 ml Documented by: Aspirin (Aspirin 81 Mg Ectab) 81 mg PO QAM [facility] Stop: 04/28/22 08:59 Last Admin: 03/31/22 09:07 Dose: 81 mg Documented by: Cetirizine HCl (Cetirizine Hcl 10 Mg Tablet) 10 mg PO QAM [facility] Stop: 04/28/22 08:59 Last Admin: 03/31/22 08:04 Dose: 10 mg Documented by: Dextrose (Dextrose 50% 50 Ml Syringe) 25 - 50 ml IV UD PRN; Protocol PRN Reason: Hypoglycemia Protocol Stop: 04/28/22 06:15 Dicyclomine HCl (Dicyclomine Hcl 10 Mg Cap) 10 mg PO QID PRN PRN Reason: abd pain Stop: 04/28/22 06:15 Last Admin: 03/31/22 11:54 Dose: 10 mg Documented by: Docusate Sodium (Docusate Sodium 100 Mg Cap) 100 mg PO TID [facility] Stop: 04/28/22 08:59 Last Admin: 03/31/22 13:35 Dose: Not Given Documented by: Famotidine (Famotidine 20 Mg Tab) 20 mg PO BID [facility] Stop: 04/28/22 08:59 Last Admin: 03/31/22 08:03 Dose: 20 mg Documented by: Fluticasone Furoate (Fluticasone Furoate 200mcg 14 Puffs/Inhaler) 1 puffs INH DAILY [facility] Stop: 04/28/22 08:59 Last Admin: 03/31/22 08:05 Dose: Not Given Documented by: Glucagon (Glucagon For Inj 1 Mg Vial) 1 mg SQ UD PRN; Protocol PRN Reason: Hypoglycemia Protocol Stop: 04/28/22 06:15 Glucose (Glucose 10 Tabs/Tube) 4 - 8 tabs PO UD PRN; Protocol PRN Reason: Hypoglycemia Protocol Stop: 04/28/22 06:15 Glucose (Glucose 40% Gel 15 Gm Tube) 15 - 30 gm PO UD PRN; Protocol PRN Reason: Hypoglycemia Protocol Stop: 04/28/22 06:15 Heparin Sodium/Dextrose (Heparin Sodium/Dextrose) 25,000 units in 500 mls @ 22 mls/hr IV .[id number] [facility]; Protocol Stop: 04/28/22 05:59 Last Titration: 03/31/22 11:48 Dose: 1,100 units/hr, 22 mls/hr Documented by: Lorazepam 0.5 mg/ Syringe 0.5 mls @ 2 mls/min IV Q4H PRN PRN Reason: Anxiety Stop: 04/28/22 06:15 Last Admin: 03/31/22 02:48 Dose: 2 mls/min Documented by: Promethazine HCl 12.5 mg/ (Sodium Chloride) 50.5 mls @ 202 mls/hr IV Q6H PRN PRN Reason: Nausea And Vomiting Stop: 04/28/22 10:36 Last Infusion: 03/31/22 03:03 Dose: Infused Documented by: Insulin Aspart (Insulin Aspart Per Unit) 0 units SC ACHS [facility] Stop: 04/28/22 06:15 Last Admin: 03/31/22 16:52 Dose: 9 units Documented by: Insulin Glargine (Insulin Glargine Solostar 100 Units/Ml 3 Ml Pen) 5 units SC DAILY [facility] Stop: 04/28/22 08:59 Last Admin: 03/31/22 09:28 Dose: 5 units Documented by: Lidocaine HCl (Lidocaine 4% Inh Soln 4 Ml Btl) 4 ml INH Q4H PRN PRN Reason: cough Stop: 04/28/22 12:31 Last Admin: 03/29/22 17:02 Dose: 4 ml Documented by: Miscellaneous (Lifitegrast [Xiidra] 5 % - Order Awaiting Action) 1 ea N/A QS [facility] Stop: 04/28/22 07:59 Last Admin: 03/31/22 15:53 Dose: Not Given Documented by: Miscellaneous (Carbohydrates For Hypoglycemia ) 15 - 30 gm PO UD PRN PRN Reason: Hypoglycemia Protocol Stop: 04/28/22 06:15 Morphine Sulfate (Morphine Sulfate 2 Mg/Ml Carp) 2 mg IV Q3H PRN PRN Reason: Pain Stop: 04/12/22 06:15 Last Admin: 03/31/22 15:15 Dose: 2 mg Documented by: Nitroglycerin (Nitroglycerin Sl 0.4 Mg/Tab Tab) 0.4 mg SL PRN PRN PRN Reason: Chest Pain Stop: 04/28/22 06:15 Potassium Chloride (Potassium Chloride 10 Meq Tabcr) 10 meq PO AMHS [facility] Stop: 04/28/22 08:59 Last Admin: 03/31/22 08:03 Dose: 10 meq Documented by: Tolterodine Tartrate (Tolterodine Tartrate La 4 Mg Capcr) 4 mg PO QAM [facility] Stop: 04/28/22 08:59 Last Admin: 03/31/22 09:07 Dose: 4 mg Documented by: Torsemide (Torsemide 20 Mg Tab) 40 mg PO DAILY@1400 [facility] Stop: 04/28/22 13:59 Last Admin: 03/31/22 15:15 Dose: 40 mg Documented by: Tramadol HCl (Tramadol Hcl 50 Mg Tablet) 25 - 50 mg PO Q4H PRN PRN Reason: Pain Stop: 04/28/22 06:15 Last Admin: 03/31/22 13:33 Dose: 50 mg Documented by: (1) CHF (congestive heart failure) Heart failure chronicity: acute on chronic Heart failure type: systolic Qualified Code(s): I50.23 - Acute on chronic systolic (congestive) heart failure (2) Cardiomyopathy Cardiomyopathy type: unspecified Qualified Code(s): I42.9 - Cardiomyopathy, unspecified
[2022-04-01] MEDS: MoRPHine SULFATE 2 MG/ML CARP IV PRN ×2 (03:25→11:05)
[2022-04-01] MEDS: HEPARIN SODIUM/DEXTROSE 25,000 UNITS/500 ML BAG IV SCH (04:45)
[2022-04-01] MEDS: INSULIN GLARGINE SOLOSTAR 100 UNITS/ML 3 ML PEN SC SCH (07:38)
[2022-04-01] MEDS: INSULIN ASPART PER UNIT SC SCH ×4 (07:38→19:48)
[2022-04-01 07:41] LABS: Hematocrit (blood only) 38.5 % (37-47); Mean Corpuscular Hemoglobin 32.3 pg (25-34); Mean Corpuscular Hgb Conc 33.8 g/dL (32-36); Mean Corpuscular Volume 95.5 fL (80-100); Platelet Count 296 K/uL (130-400); RDW Coefficient of Variation 14.3 % (11.5-14.5); Red Blood Count 4.03 M/uL (4.2-5.4); White Blood Count 10.07 K/uL (4.8-10.8)
[2022-04-01 07:42] LABS: Basophils # (auto) 0.03 K/uL (0-0.2); Basophils % (auto) 0.3 %; Eosinophils # (auto) 0.05 K/uL (0-0.5); Eosinophils % (auto) 0.5 %; Immature Granulocytes # (auto) 0.03 K/uL (0.00-0.02); Immature Granulocytes % (auto) 0.3 %; Lymphocytes # (auto) 1.26 K/uL (1.2-3.4); Lymphocytes % (auto) 12.5 %; Mean Platelet Volume 10.4 fL (7.4-10.4); Monocytes # (auto) 1.16 K/uL (0.11-0.59); Monocytes % (auto) 11.5 %; Neutrophils # (auto) 7.54 K/uL (1.4-6.5); Neutrophils % (auto) 74.9 %
[2022-04-01] MEDS: TOLTERODINE TARTRATE LA 4 MG CAPCR PO SCH (07:46)
[2022-04-01] MEDS: ASPIRIN 81 MG ECTAB PO SCH (07:46)
[2022-04-01] MEDS: ALUMINUM/MAGNESIUM SUSP 30 ML UDC PO PRN ×3 (07:46→19:52)
[2022-04-01] MEDS: POTASSIUM CHLORIDE 10 MEQ TABCR PO SCH ×2 (07:46→19:51)
[2022-04-01] MEDS: DOCUSATE SODIUM 100 MG CAP PO SCH ×3 (07:47→19:51)
[2022-04-01] MEDS: CETIRIZINE HCL 10 MG TABLET PO SCH (07:47)
[2022-04-01] MEDS: FAMOTIDINE 20 MG TAB PO SCH ×2 (07:47→19:51)
[2022-04-01] MEDS: FLUTICASONE FUROATE 200MCG 14 PUFFS/INHALER INH SCH (07:47)
[2022-04-01 08:00] LABS: BUN Creatinine Ratio 24.6 (10-20); Calcium 9.6 mg/dl (8.5-10.1); Creatinine Clr Calc Pharmacy 39.1 ml/min; Est GFR (African American) 45.1 ml/min; Est GFR (Non-African American) 38.9 ml/min; Magnesium 2.4 mg/dl (1.7-2.4)
[2022-04-01 08:26] LABS: Partial Thromboplastin Ratio 1.7
[2022-04-01 08:39] LABS: Partial Thromboplastin Time 45.7 Seconds (21.0-31.0)
[2022-04-01] MEDS: traMADol HCL 50 MG TABLET PO PRN ×3 (08:49→19:49)
[2022-04-01] MEDS: TORSEMIDE 20 MG TAB PO SCH (14:22)
--- NOTE | 2022-04-01 15:13 | Hospitalist Progress Note ---
Date of Service April 01, 2022 Assessment & Plan (1) NSTEMI (non-ST elevated myocardial infarction): Plan: Chest pain with troponin elevation relieved by nitroglycerin Cardiology consulted-will be seen by Dr. Womack tomorrow. Patient's remains free of chest pain since admission IV heparin for NSTEMI-stopped LV systolic function is severely reduced, there is mild concentric LVH, RV ventricle is borderline dilated, right ventricular systolic function is borderline reduced, left atrium is moderately dilated, mild to moderate aortic regurgitation, there is severe mitral regurgitation Appreciate cardiology input and recommendation Doubt any ACS No more cardiac symptoms-atypical chest pain is not due to heart condition Pt generally doesn't feel well enough to go home at this point. Dyspepsia Continue Pepcid twice daily, cont Maalox 15 mL every 6 hourly as needed Antiemetics as needed. 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 PT/OT (4) Chronic lung disease: Plan: Has history of interstitial lung disease/reactive lung disease/COPD No excessive active symptoms No wheezing and/or increasing shortness of breath We will continue with her current management including lidocaine nebs as she has been requesting No significant shortness of breath at rest Hypertension, stable hyperlipidemia, statin intolerance H/O uterine cancer status post surgery DM2, diet controlled, reasonable control as of recent hemoglobin A1c of 7.08 March 2022 Basal insulin, ISS BG goal 1 10-1 40, carb count coverage DVT prophylaxis IV heparin-stopping now Full Code Dispo-uncertain at this time. Pending clinical improvement. Rhonda Chavez DO [facility] Hospitalist Admission and Anticipated Discharge Date Admission Date: March 29, 2022 Subjective 71 yo F with chest pain feels poorly in general difficult to ascertain specifics has issues with chemical sensitivities stephanie regarding inhalants known cardiomyopathy and ILD seen at [facility] for care Review of Systems Review of Systems: All systems reviewed and negative except as indicated above. Physical Exam Physical Exam: CONSTITUTIONAL: WNWD, vitals as above, generally appears dishevelled but NAD EYES: normal conjunctivae, no scleral icterus ENT: external ear and nose toribio, MMM NECK: trachea midline RESPIRATORY: clear to auscultation bilaterally, +fine crackles at bases of lungs bilaterally, rales or wheezes, normal respiratory effort CARDIOVASCULAR: regular rate and rhythm, S1 and 2 heard without murmurs, gallops or rubs, no JVD, no peripheral edema CHEST: +ICD in place left anterior chest wall-well healed incision GASTROINTESTINAL: soft, nontender, ND, no guarding MUSCULOSKELETAL: strength 5/5 throughout, head is normocephalic and atraumatic, neck supple, normal palpation of chest wall without tenderness SKIN: warm and dry NEUROLOGIC: CN 2-12 grossly intact, no sensory deficit, normal cognition, normal speech, no tremor PSYCHIATRIC: alert cooperative and oriented to person, place and time. Results & Data Results & Data ([facility]) Vital Signs (Past 12 Hours) Vital Signs Temp Pulse Pulse Resp BP Pulse Ox 04/01/22 14:52 129 H 04/01/22 11:08 36.4 C L 115 H 19 115/76 91 04/01/22 10:01 118 H 04/01/22 07:25 36.4 C L 115 H 16 113/74 91 04/01/22 05:06 105 H Laboratory Results Short CBC 04/01/22 Range/Units 07:24 WBC 10.07 (4.8-10.8) K/uL Hgb 13.0 (12.0-16.0) g/dL Hct 38.5 (37-47) % Plt Count 296 (130-400) K/uL BMP 04/01/22 07:24 Sodium 129 L Potassium 5.0 Chloride 91 L Carbon Dioxide 30 BUN 34 H Creatinine 1.38 H Glucose 146 H Calcium 9.6 Medications Administered Current Inpatient Medications Acetaminophen (Acetaminophen 325 Mg Tab) 650 mg PO Q4H PRN PRN Reason: Pain or Fever Stop: 04/28/22 06:15 Last Admin: 03/31/22 13:34 Dose: 650 mg Documented by: Al Hydrox/Mg Hydrox/Simethicone (Aluminum/Magnesium Susp 30 Ml Udc) 15 ml PO Q6H PRN PRN Reason: Dyspepsia Stop: 04/28/22 10:37 Last Admin: 04/01/22 07:46 Dose: 15 ml Documented by: Aspirin (Aspirin 81 Mg Ectab) 81 mg PO QAM [facility] Stop: 04/28/22 08:59 Last Admin: 04/01/22 07:46 Dose: 81 mg Documented by: Cetirizine HCl (Cetirizine Hcl 10 Mg Tablet) 10 mg PO QAM [facility] Stop: 04/28/22 08:59 Last Admin: 04/01/22 07:47 Dose: 10 mg Documented by: Dextrose (Dextrose 50% 50 Ml Syringe) 25 - 50 ml IV UD PRN; Protocol PRN Reason: Hypoglycemia Protocol Stop: 04/28/22 06:15 Dicyclomine HCl (Dicyclomine Hcl 10 Mg Cap) 10 mg PO QID PRN PRN Reason: abd pain Stop: 04/28/22 06:15 Last Admin: 03/31/22 11:54 Dose: 10 mg Documented by: Docusate Sodium (Docusate Sodium 100 Mg Cap) 100 mg PO TID [facility] Stop: 04/28/22 08:59 Last Admin: 04/01/22 14:22 Dose: 100 mg Documented by: Famotidine (Famotidine 20 Mg Tab) 20 mg PO BID [facility] Stop: 04/28/22 08:59 Last Admin: 04/01/22 07:47 Dose: 20 mg Documented by: Fluticasone Furoate (Fluticasone Furoate 200mcg 14 Puffs/Inhaler) 1 puffs INH DAILY [facility] Stop: 04/28/22 08:59 Last Admin: 04/01/22 07:47 Dose: Not Given Documented by: Glucagon (Glucagon For Inj 1 Mg Vial) 1 mg SQ UD PRN; Protocol PRN Reason: Hypoglycemia Protocol Stop: 04/28/22 06:15 Glucose (Glucose 10 Tabs/Tube) 4 - 8 tabs PO UD PRN; Protocol PRN Reason: Hypoglycemia Protocol Stop: 04/28/22 06:15 Glucose (Glucose 40% Gel 15 Gm Tube) 15 - 30 gm PO UD PRN; Protocol PRN Reason: Hypoglycemia Protocol Stop: 04/28/22 06:15 Lorazepam 0.5 mg/ Syringe 0.5 mls @ 2 mls/min IV Q4H PRN PRN Reason: Anxiety Stop: 04/28/22 06:15 Last Admin: 03/31/22 20:36 Dose: 2 mls/min Documented by: Promethazine HCl 12.5 mg/ (Sodium Chloride) 50.5 mls @ 202 mls/hr IV Q6H PRN PRN Reason: Nausea And Vomiting Stop: 04/28/22 10:36 Last Infusion: 03/31/22 03:03 Dose: Infused Documented by: Insulin Aspart (Insulin Aspart Per Unit) 0 units SC ACHS [facility] Stop: 04/28/22 06:15 Last Admin: 04/01/22 11:36 Dose: 4 units Documented by: Insulin Glargine (Insulin Glargine Solostar 100 Units/Ml 3 Ml Pen) 5 units SC DAILY [facility] Stop: 04/28/22 08:59 Last Admin: 04/01/22 07:38 Dose: 5 units Documented by: Lidocaine HCl (Lidocaine 4% Inh Soln 4 Ml Btl) 4 ml INH Q4H PRN PRN Reason: cough Stop: 04/28/22 12:31 Last Admin: 03/29/22 17:02 Dose: 4 ml Documented by: Miscellaneous (Lifitegrast [Xiidra] 5 % - Order Awaiting Action) 1 ea N/A QS [facility] Stop: 04/28/22 07:59 Last Admin: 04/01/22 07:46 Dose: Not Given Documented by: Miscellaneous (Carbohydrates For Hypoglycemia ) 15 - 30 gm PO UD PRN PRN Reason: Hypoglycemia Protocol Stop: 04/28/22 06:15 Morphine Sulfate (Morphine Sulfate 2 Mg/Ml Carp) 2 mg IV Q3H PRN PRN Reason: Pain Stop: 04/12/22 06:15 Last Admin: 04/01/22 11:05 Dose: 2 mg Documented by: Nitroglycerin (Nitroglycerin Sl 0.4 Mg/Tab Tab) 0.4 mg SL PRN PRN PRN Reason: Chest Pain Stop: 04/28/22 06:15 Potassium Chloride (Potassium Chloride 10 Meq Tabcr) 10 meq PO AMHS [facility] Stop: 04/28/22 08:59 Last Admin: 04/01/22 07:46 Dose: 10 meq Documented by: Tolterodine Tartrate (Tolterodine Tartrate La 4 Mg Capcr) 4 mg PO QAM [facility] Stop: 04/28/22 08:59 Last Admin: 04/01/22 07:46 Dose: 4 mg Documented by: Torsemide (Torsemide 20 Mg Tab) 40 mg PO DAILY@1400 [facility] Stop: 04/28/22 13:59 Last Admin: 04/01/22 14:22 Dose: 40 mg Documented by: Tramadol HCl (Tramadol Hcl 50 Mg Tablet) 25 - 50 mg PO Q4H PRN PRN Reason: Pain Stop: 04/28/22 06:15 Last Admin: 04/01/22 14:22 Dose: 50 mg Documented by:
[2022-04-01 15:53] LABS: Partial Thromboplastin Time 26.2 Seconds (21.0-31.0)
[2022-04-01] MEDS: PROMETHAZINE HCL 12.5 MG in SODIUM CHLORIDE 0.9% 50 ML IV PRN (19:49)
[2022-04-02] MEDS: PROMETHAZINE HCL 12.5 MG in SODIUM CHLORIDE 0.9% 50 ML IV PRN ×2 (02:45→20:13)
[2022-04-02] MEDS: LIDOCAINE 4% INH SOLN 4 ML BTL INH PRN ×2 (03:40→15:59)
[2022-04-02 08:18] LABS: Hematocrit (blood only) 36.7 % (37-47); Hemoglobin 11.9 g/dL (12.0-16.0); Mean Corpuscular Hemoglobin 30.6 pg (25-34); Mean Corpuscular Hgb Conc 32.4 g/dL (32-36); Mean Corpuscular Volume 94.3 fL (80-100); Mean Platelet Volume 10.5 fL (7.4-10.4); Nucleated RBC # (auto) 0.02 K/uL (0-0); Nucleated RBC % (auto) 0.3 %; Platelet Count 286 K/uL (130-400); RDW Coefficient of Variation 14.5 % (11.5-14.5); RDW Standard Deviation 49.4 fL (36.4-46.3); Red Blood Count 3.89 M/uL (4.2-5.4); White Blood Count 7.98 K/uL (4.8-10.8)
[2022-04-02 08:37] LABS: BUN Creatinine Ratio 26.7 (10-20); Calcium 8.8 mg/dl (8.5-10.1); Creatinine Clr Calc Pharmacy 41.3 ml/min; Est GFR (Non-African American) 41.4 ml/min; Magnesium 2.3 mg/dl (1.7-2.4); Potassium 4.6 mmol/L (3.5-5.1)
[2022-04-02] MEDS: INSULIN ASPART PER UNIT SC SCH ×4 (09:00→20:36)
[2022-04-02] MEDS: DOCUSATE SODIUM 100 MG CAP PO SCH ×3 (09:05→19:39)
[2022-04-02] MEDS: TOLTERODINE TARTRATE LA 4 MG CAPCR PO SCH (09:05)
[2022-04-02] MEDS: CETIRIZINE HCL 10 MG TABLET PO SCH (09:06)
[2022-04-02] MEDS: FAMOTIDINE 20 MG TAB PO SCH ×2 (09:06→19:39)
[2022-04-02] MEDS: ASPIRIN 81 MG ECTAB PO SCH (09:06)
[2022-04-02] MEDS: FLUTICASONE FUROATE 200MCG 14 PUFFS/INHALER INH SCH (09:07)
[2022-04-02] MEDS: POTASSIUM CHLORIDE 10 MEQ TABCR PO SCH ×2 (09:07→19:40)
[2022-04-02] MEDS: traMADol HCL 50 MG TABLET PO PRN ×2 (09:16→19:37)
[2022-04-02] MEDS: INSULIN GLARGINE SOLOSTAR 100 UNITS/ML 3 ML PEN SC SCH (09:51)
[2022-04-02] MEDS: TORSEMIDE 20 MG TAB PO SCH (14:05)
[2022-04-02] MEDS: ALUMINUM/MAGNESIUM SUSP 30 ML UDC PO PRN (14:05)
--- NOTE | 2022-04-02 16:51 | Hospitalist Progress Note ---
Date of Service April 02, 2022 Assessment & Plan (1) NSTEMI (non-ST elevated myocardial infarction): Plan: Chest pain on admission with troponin elevation relieved by nitroglycerin Cardiology consulted-will be seen by Dr. Womack IV heparin for NSTEMI Follow troponin-minimally elevated likely secondary to CHF and nonischemic cardiomyopathy doubt any ACS Cont medical management of NICM (2) Pneumonia: Plan: Cough present since yesterday. Patient feels "lungs are swollen". No hypoxia. Repeat CXR reveals possible opacity. Starting Rocephin/Azithro for now and monitor for clinical improvement. (3) TESSA (obstructive sleep apnea): (4) Chronic lung disease: Plan: Has history of interstitial lung disease/reactive lung disease/COPD No excessive active symptoms No wheezing and/or increasing shortness of breath We will continue with her current management including lidocaine nebs as she has been requesting No significant shortness of breath at rest Hypertension, stable hyperlipidemia, statin intolerance H/O uterine cancer status post surgery DM2, diet controlled, reasonable control as of recent hemoglobin A1c of 7.08 March 2022 Basal insulin, ISS BG goal 1 10-1 40, carb count coverage (5) Nonischemic cardiomyopathy: Plan: Chronic systolic heart failure secondary to nonischemic cardiomyopathy 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 PT/OT (7) DVT prophylaxis: Plan: Lovenox Full Code Dispo-uncertain at this time, likely to home after 1-2 days. Rhonda Chavez DO [place] [facility] Hospitalist Admission and Anticipated Discharge Date Admission Date: March 29, 2022 Subjective "I'm not doing good today" "I have excess mucous draining down the back of my throat which makes me nauseous." tells me today that her lungs feel swollen lightheaded and dizzy reports the Maalox made her abdominal pain better and that is now gone "I don't have any appetite" "there are too many chemicals around that are causing my lungs to feel swollen" "I feel like Im wearing a bra that is two sizes too small" "I have more of a cough than I did before" Review of Systems Review of Systems: All systems were reviewed and negative except as indicated above. Physical Exam Physical Exam: CONSTITUTIONAL: WNWD, vitals as above, generally appears dishevelled but NAD EYES: normal conjunctivae, no scleral icterus ENT: external ear and nose toribio, MMM NECK: trachea midline RESPIRATORY: clear to auscultation bilaterally, no crackles, rales or wheezes, normal respiratory effort CARDIOVASCULAR: regular rate and rhythm, S1 and 2 heard without murmurs, gallops or rubs, no JVD, no peripheral edema CHEST: +ICD in place left anterior chest wall-well healed incision GASTROINTESTINAL: soft, nontender, ND, no guarding MUSCULOSKELETAL: strength 5/5 throughout, head is normocephalic and atraumatic, neck supple, normal palpation of chest wall without tenderness SKIN: warm and dry NEUROLOGIC: CN 2-12 grossly intact, no sensory deficit, normal cognition, normal speech, no tremor PSYCHIATRIC: alert cooperative and oriented to person, place and time. Results & Data Results & Data ([facility]) Vital Signs (Past 12 Hours) Vital Signs Temp Pulse Resp BP Pulse Ox 04/02/22 15:59 111 H 18 99 04/02/22 15:46 36.7 C 117 H 18 127/86 99 04/02/22 11:54 36.4 C L 110 H 18 115/79 91 04/02/22 07:09 36.5 C 105 H 16 109/73 96 Laboratory Results Short CBC 04/02/22 Range/Units 06:46 WBC 7.98 (4.8-10.8) K/uL Hgb 11.9 L (12.0-16.0) g/dL Hct 36.7 L (37-47) % Plt Count 286 (130-400) K/uL BMP 04/02/22 06:46 Sodium 132 L Potassium 4.6 Chloride 94 L Carbon Dioxide 29 BUN 35 H Creatinine 1.31 H Glucose 145 H Calcium 8.8 Diagnostic Findings Chest X-Ray 04/02/22 17:03 XR chest 1V portable CLINICAL HISTORY: lungs feel swollen, cough TECHNIQUE: Single frontal radiograph of the chest was obtained. Comparison: Comparison is made to chest radiograph 03/29/2022 FINDINGS: Pacemaker defibrillator is seen. Cardiomegaly is noted. Lungs are underinflated. Left retrocardiac opacity is seen. No pneumothorax. No right pleural effusion. Left effusion cannot be excluded. IMPRESSION: Left retrocardiac opacity which may represent atelectasis, pneumonia, and/or aspiration. A left pleural effusion cannot be excluded. Stable marked cardiomegaly. ACT 112: Negative or not required by law. Electronically signed by: Milan Rose M.D. 04/02/2022 6:31 PM Medications Administered Current Inpatient Medications Acetaminophen (Acetaminophen 325 Mg Tab) 650 mg PO Q4H PRN PRN Reason: Pain or Fever Stop: 04/28/22 06:15 Last Admin: 03/31/22 13:34 Dose: 650 mg Documented by: Al Hydrox/Mg Hydrox/Simethicone (Aluminum/Magnesium Susp 30 Ml Udc) 15 ml PO Q6H PRN PRN Reason: Dyspepsia Stop: 04/28/22 10:37 Last Admin: 04/02/22 14:05 Dose: 15 ml Documented by: Aspirin (Aspirin 81 Mg Ectab) 81 mg PO QAM [facility] Stop: 04/28/22 08:59 Last Admin: 04/02/22 09:06 Dose: 81 mg Documented by: Cetirizine HCl (Cetirizine Hcl 10 Mg Tablet) 10 mg PO QAM [facility] Stop: 04/28/22 08:59 Last Admin: 04/02/22 09:06 Dose: 10 mg Documented by: Dextrose (Dextrose 50% 50 Ml Syringe) 25 - 50 ml IV UD PRN; Protocol PRN Reason: Hypoglycemia Protocol Stop: 04/28/22 06:15 Dicyclomine HCl (Dicyclomine Hcl 10 Mg Cap) 10 mg PO QID PRN PRN Reason: abd pain Stop: 04/28/22 06:15 Last Admin: 03/31/22 11:54 Dose: 10 mg Documented by: Docusate Sodium (Docusate Sodium 100 Mg Cap) 100 mg PO TID [facility] Stop: 04/28/22 08:59 Last Admin: 04/02/22 19:39 Dose: 100 mg Documented by: Famotidine (Famotidine 20 Mg Tab) 20 mg PO BID [facility] Stop: 04/28/22 08:59 Last Admin: 04/02/22 19:39 Dose: 20 mg Documented by: Fluticasone Furoate (Fluticasone Furoate 200mcg 14 Puffs/Inhaler) 1 puffs INH DAILY [facility] Stop: 04/28/22 08:59 Last Admin: 04/02/22 09:07 Dose: 1 puffs Documented by: Glucagon (Glucagon For Inj 1 Mg Vial) 1 mg SQ UD PRN; Protocol PRN Reason: Hypoglycemia Protocol Stop: 04/28/22 06:15 Glucose (Glucose 10 Tabs/Tube) 4 - 8 tabs PO UD PRN; Protocol PRN Reason: Hypoglycemia Protocol Stop: 04/28/22 06:15 Glucose (Glucose 40% Gel 15 Gm Tube) 15 - 30 gm PO UD PRN; Protocol PRN Reason: Hypoglycemia Protocol Stop: 04/28/22 06:15 Promethazine HCl 12.5 mg/ (Sodium Chloride) 50.5 mls @ 202 mls/hr IV Q6H PRN PRN Reason: Nausea And Vomiting Stop: 04/28/22 10:36 Last Infusion: 04/02/22 20:35 Dose: Infused Documented by: Ceftriaxone Sodium 1,000 mg/ (Dextrose) 60 mls @ 100 mls/hr IV Q24H [facility]; Protocol Stop: 04/09/22 19:59 Last Infusion: 04/02/22 22:15 Dose: Infused Documented by: Azithromycin 500 mg/ Dextrose 255 mls @ 125 mls/hr IV Q24H [facility] Stop: 04/09/22 19:59 Last Admin: 04/02/22 21:39 Dose: 125 mls/hr Documented by: Albumin Human (Albumin 25% 100 Ml) 25 gm in 100 mls @ 50 mls/hr IV ONE ONE Stop: 04/03/22 01:13 Insulin Aspart (Insulin Aspart Per Unit) 0 units SC ACHS [facility] Stop: 04/28/22 06:15 Last Admin: 04/02/22 20:36 Dose: 6 units Documented by: Insulin Glargine (Insulin Glargine Solostar 100 Units/Ml 3 Ml Pen) 5 units SC DAILY [facility] Stop: 04/28/22 08:59 Last Admin: 04/02/22 09:51 Dose: 5 units Documented by: Lidocaine HCl (Lidocaine 4% Inh Soln 4 Ml Btl) 4 ml INH Q4H PRN PRN Reason: cough Stop: 04/28/22 12:31 Last Admin: 04/02/22 15:59 Dose: 4 ml Documented by: Miscellaneous (Lifitegrast [Xiidra] 5 % - Order Awaiting Action) 1 ea N/A QS [facility] Stop: 04/28/22 07:59 Last Admin: 04/02/22 21:40 Dose: Not Given Documented by: Miscellaneous (Carbohydrates For Hypoglycemia ) 15 - 30 gm PO UD PRN PRN Reason: Hypoglycemia Protocol Stop: 04/28/22 06:15 Nitroglycerin (Nitroglycerin Sl 0.4 Mg/Tab Tab) 0.4 mg SL PRN PRN PRN Reason: Chest Pain Stop: 04/28/22 06:15 Potassium Chloride (Potassium Chloride 10 Meq Tabcr) 10 meq PO AMHS [facility] Stop: 04/28/22 08:59 Last Admin: 04/02/22 19:40 Dose: 10 meq Documented by: Tolterodine Tartrate (Tolterodine Tartrate La 4 Mg Capcr) 4 mg PO QAM [facility] Stop: 04/28/22 08:59 Last Admin: 04/02/22 09:05 Dose: 4 mg Documented by: Torsemide (Torsemide 20 Mg Tab) 40 mg PO DAILY@1400 [facility] Stop: 04/28/22 13:59 Last Admin: 04/02/22 14:05 Dose: 40 mg Documented by: Tramadol HCl (Tramadol Hcl 50 Mg Tablet) 25 - 50 mg PO Q4H PRN PRN Reason: Pain Stop: 04/28/22 06:15 Last Admin: 04/02/22 19:37 Dose: 50 mg Documented by:
--- NOTE | 2022-04-02 18:33 | XRay Report ---
XR chest 1V portable CLINICAL HISTORY: lungs feel swollen, cough TECHNIQUE: Single frontal radiograph of the chest was obtained. Comparison: Comparison is made to chest radiograph 03/29/2022 FINDINGS: Pacemaker defibrillator is seen. Cardiomegaly is noted. Lungs are underinflated. Left retrocardiac op acity is seen. No pneumothorax. No right pleural effusion. Left effusion cannot be excluded. IMPRESSION: Left retrocardiac opacity which may represent atelectasis, pneumonia, and/or aspiration. A left pleur al effusion cannot be excluded. Stable marked cardiomegaly. ACT 112: Negative or not required by law. Electronically signed by: Milan Rose M.D. 04/02/2022 6:31 PM
[2022-04-02] MEDS ORDERED: AZITHROMYCIN 500 MG in DEXTROSE 5% 250 ML IV SCH (20:00)
[2022-04-02] MEDS ORDERED: cefTRIAXone SODIUM 1,000 MG in DEXTROSE 5% 50 ML IV SCH (20:00)
[2022-04-02] MEDS ORDERED: ALBUMIN 25% 100 mL 25 GM/100 ML VIAL IV ONE (23:14)
--- NOTE | 2022-04-03 00:08 | Communication Note ---
Date of Service: April 02, 2022 Overnight developments 04/02 1110PM Patient tachycardic 130s to 140s as per RN. BP stable and patient comfortable as per RN. Sinus tachycardia on the monitor as per RN. RN spoke to patient about getting an EKG. Patient complaining of constipation symptoms. Subsequently noted to be pale and unresponsive. 1150PM CODE BLUE called CPR, ACLS initiated. Dr. Greene (ER provider) and Mr. Dionisio White PA-C present at bedside during code. Subsequent endotracheal intubation done. PEA as presenting rhythm. ROSC obtained. AP Cardiac arrest hx cardiomyopathy ICU transfer Patient model and dye person/friend, Bryson Mandy Trevizo, updated of developments over the phone and informed of likelihood of another cardiac arrest given patient's cardiomyopathy. CODE STATUS de-escalated to DNR. ICU team notified accordingly. 04/03 12:32 AM patient pronounced by ICU provider. Discharge summary and certificate to be completed by Dr. Chavez.
[2022-04-03] MEDS ORDERED: CALCIUM CHLORIDE 10% 10 ML SYR IV ONE (00:31)
[2022-04-03] MEDS ORDERED: SODIUM CHLORIDE 0.9% 10ML FLUSH IV ONE ×2 (00:31)
[2022-04-03] MEDS ORDERED: DEXTROSE 50% 50 ML SYRINGE IV ONE (00:31)
--- NOTE | 2022-04-03 00:38 | Communication Note ---
Date of Service: April 03, 2022 Coding
--- NOTE | 2022-04-03 00:38 | Death Pronouncement Note ---
Date of Service April 03, 2022 Pronouncement Note Admission Date Admission Date: March 29, 2022 PRONOUNCEMENT NOTE - Date: 04/03/2022 Time: 31 I was present at the bedside at the time of . Patient was cardiac arrest in room 214 and CODE NIKITA was called for which I responded. Patient with extensive past medical history had been undergoing treatment for NSTEMI, HFr EF exacerbation, pneumonia. She had recently had AICD/pacemaker placed. Upon assessment patient was in PEA rhythm. She underwent extensive heroic measures with multiple rounds of CPR, epinephrine and bicarb pushes. Patient achieved ROSC on 2 occasions but continued to decline shortly after. Patient's POA was contacted by the primary team and she was made DNR. I was at the bedside when she entered PEA rhythm again. Upon my assessment patient was found to be in terminal state, without pulse, pupils fixed and dilated without response, no heart sounds, no response to painful stimuli. Time of : 31 as pronounced by myself. I called the patient's family and inform them of the patient's . Appropriate response to grief appreciated. Condolences provided. Patients primary service was contacted and made aware of patient demise. Pronouncement section of the Certificate was filled out and signed by myself. Cause of : Primary -NSTEMI Secondary -CHF exacerbation Contributing Causes of -HFrEF Please feel free to contact me with any questions regarding the above-mentioned course. Contributing Factors (1) NSTEMI (non-ST elevated myocardial infarction): (2) Pneumonia: (3) TESSA (obstructive sleep apnea): (4) Chronic lung disease: (5) Nonischemic cardiomyopathy: (6) NYHA Class III cardiovascular function: (7) DVT prophylaxis: (8) HFrEF (heart failure with reduced ejection fraction): Additional Data Attending physician: Rhonda Chavez DO Coding Level of Care Code None Diagnoses NSTEMI (non-ST elevated myocardial infarction) I21.4 Pneumonia J18.9 TESSA (obstructive sleep apnea) G47.33 Chronic lung disease J98.4 Nonischemic cardiomyopathy I42.8 NYHA Class III cardiovascular function DVT prophylaxis Z29.9 HFrEF (heart failure with reduced ejection fraction) I50.20
[2022-04-03 00:49] LABS: Hematocrit (blood only) 39.9 % (37-47); Hemoglobin 12.4 g/dL (12.0-16.0); Mean Corpuscular Hemoglobin 30.9 pg (25-34); Mean Corpuscular Hgb Conc 31.1 g/dL (32-36); Mean Corpuscular Volume 99.5 fL (80-100); Mean Platelet Volume 11.1 fL (7.4-10.4); Nucleated RBC # (auto) 0.62 K/uL (0-0); Platelet Count 174 K/uL (130-400); RDW Coefficient of Variation 14.5 % (11.5-14.5); RDW Standard Deviation 51.7 fL (36.4-46.3); Red Blood Count 4.01 M/uL (4.2-5.4)
--- NOTE | 2022-04-03 00:51 | Procedure Note ---
Procedure Note Date of Service April 03, 2022 Note INTUBATION PROCEDURE NOTE: Provider: NICK Banks Attending: Vasyl Grove A time-out was completed verifying correct patient, procedure, site, positioning. Patient was evaluated and required intubation during cardiac arrest/CODE BLUE. Sedative agent used: None Paralysis agent used: None Emergent consent was implied given patients rapidly declining clinical status and need for airway protection. The patient was prepared in the appropriate fashion. The patient was ventilated using [id number] to achieve adequate oxygenation. A 7.5 Wallisian endotracheal tube was placed through the vocal cords with assistance of video-assisted laryngoscope to 24 cm at the lip. The stylette was removed and balloon was inflated with 10mL of air. Appropriate Colorimetric change was appreciated. Bilateral breath sounds were heard without air sounds in the abdomen. Unfortunately procedure was done during cardiac arrest. Patient did briefly achieve ROSC after intubation but soon arrested again, and was unable to obtain chest x-ray to confirm tube placement. Coding CPT Codes Resuscitation - Resuscitation: 64303 Endotracheal Intubation, emergency ([id number]) [facility] Procedure Codes (Charges) Resuscitation Resuscitation: 14127 Endotracheal Intubation, emergency
[2022-04-03 00:54] LABS: Partial Thromboplastin Ratio 1.3; Partial Thromboplastin Time 35.9 Seconds (21.0-31.0)
[2022-04-03 01:06] LABS: ALC (manual) 2.22 K/uL (1.2-3.4); ANC (manual) 5.82 K/uL (1.4-6.5); Echinocytes 1+; Lymphocytes # (manual) 2.22 K/uL (1.2-3.4); Lymphocytes % (manual) 25.2 %; Monocytes # (manual) 0.62 K/uL (0.11-0.59); Myelocytes # (manual) 0.15 K/uL (0-0); Myelocytes % (manual) 1.7 %; Neutrophils # (manual) 5.82 K/uL (1.4-6.5); Neutrophils % (manual) 66.1 %; Polychromasia 1+
--- NOTE | 2022-04-03 01:08 | Procedure Note ---
Procedure Note Date of Service April 03, 2022 Note Procedure date: 04/03/2022 Procedure: Cardiopulmonary resuscitation Pre-procedure Diagnosis: CODE BLUE, cardiac arrest Post-procedure Diagnosis: same as above Prior to Procedure: Informed Consent: Emergent Provider: NICK Banks Attending: Vasyl Grove Please refer to nursing code flowsheet for further details Description of Procedure: ACS protocols were followed for a PEA arrest. There was return of spontaneous circulation for a short time interval on 2 occasions which was proceeded again by PEA. The patient's family was contacted by the primary team during the code and was made DNR. Patient soon and time of 0032. See note for details. Coding CPT Codes Resuscitation - Resuscitation: 77124 Heart/lung resuscitation CPR ([id number]) [facility] Procedure Codes (Charges) Resuscitation Resuscitation: 62611 Heart/lung resuscitation CPR
[2022-04-03 01:15] LABS: Alanine Aminotransferase 667 U/L (7-52); Albumin Level 2.8 gm/dl (3.4-5.0); Alkaline Phosphatase 186 U/L (34-104); Anion Gap 28 (3-11); Aspartate Aminotransferase 1410 U/L (13-39); BUN Creatinine Ratio 21.4 (10-20); Blood Urea Nitrogen 36 mg/dl (6-23); Calcium 12.6 mg/dl (8.5-10.1); Carbon Dioxide 25 mmol/L (21-32); Chloride 90 mmol/L (98-107); Creatinine Clr Calc Pharmacy 32.2 ml/min; Est GFR (African American) 35.6 ml/min; Est GFR (Non-African American) 30.7 ml/min; Globulin 2.9 gm/dl (2.5-4.0); Glucose 215 mg/dl (70-99(Fasting)); Magnesium 3.1 mg/dl (1.7-2.4); Sodium 143 mmol/L (136-145); Total Protein 5.7 gm/dl (6.0-8.3); Troponin I High Sensitivity 525.7 pg/ml (0-14)
[2022-04-03] MEDS ORDERED: ACETAMINOPHEN 1,000 MG/100 ML VIAL IV PRN (02:03)
[2022-04-03] MEDS ORDERED: CARBOHYDRATES FOR HYPOGLYCEMIA PO PRN (02:03)
[2022-04-03] MEDS ORDERED: INSULIN ASPART PER UNIT SC SCH (02:03)
[2022-04-03] MEDS ORDERED: ICU PROTOCOL FOR HYPERGLYCEMIA PRN (02:03)
[2022-04-03] MEDS ORDERED: GLUCOSE 10 TABS/TUBE PO PRN (02:03)
[2022-04-03] MEDS ORDERED: DEXTROSE 50% 50 ML SYRINGE IV PRN (02:03)
[2022-04-03] MEDS ORDERED: GLUCAGON FOR INJ 1 MG VIAL SQ PRN (02:03)
[2022-04-03] MEDS ORDERED: GLUCOSE 40% GEL 15 GM TUBE PO PRN (02:03)
[2022-04-03] MEDS ORDERED: HEPARIN SOD 5,000 UNIT/0.5 ML VIAL SQ SCH (06:00)
[2022-04-03] MEDS ORDERED: FAMOTIDINE 20 MG in SYRINGE 3 ML IV SCH (09:00)
[2022-04-03] MEDS ORDERED: ENOXAPARIN INJ 40 MG/0.4 ML SYR SQ SCH (09:00)
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
== END 2022-04-03 00:32 | disposition expired ==
LOC: ED 01:30 → 2S 01:30 → SUATTDRO 05:44 → 1E 04-03 00:18